=== PATIENT | male | born 1955 | race Caucasian/White ===

== ENCOUNTER 2022-03-30 12:51 | Emergency (ER) | payer MEDICARE, MEDICAID, SELFPAY ==
--- NOTE | 2022-03-30 13:20 | ED_ITS ---
HPI - Wound/Laceration General Chief Complaint: Wound/Laceration Stated Complaint: Cut on hand Time Seen by Provider: 03/30/22 13:36 Source: patient Mode of arrival: ambulatory Limitations: language barrier (romansh-data conversion operator used) History of Present Illness HPI narrative: Kenny is a 66 yo Yi speaking male with a PMHx of diabetes, elevated cholesterol, and hypertension who presents to the emergency department with a CC of a right hand laceration which happened at around 12:30 pm this afternoon. He was at his house and was using a machine that makes vegetables, and has a turning plate with screws sticking out which he cut himself on. There was some pain and a lot of bleeding because he is taking an anticoagulant medication but does not know the name. He does not remember why he is taking this medication. The pain is localized to the laceration and there was no debris that was caught in the wound. He did have tetanus 5-6 years ago. He denies any fevers, chills, headache, chest pain, shortness of breath, nausea, vomiting, diarrhea, constipation, or any other skin changes. He is here today to have his laceration closed. Onset (ago): hour(s) Location: other (right hand) Extremity Location: right: hand Place: home Patient tetanus UTD: No Context: accidental Associated symptoms: none Related Data Allergies Allergy/AdvReac Type Severity Reaction Status Date / Time No Known Allergies Allergy Mild NKA Verified 03/30/22 13:19 Review of Systems Review of Systems: Yes all other systems are reviewed and are negative Constitutional: Constitutional: Reports no additional constitutional complaints, Denies body ache(s), Denies chills, Denies fever(s), Denies headache(s) and Denies weakness Eyes: Eyes: Reports no additional eye complaints and Denies change in vision ENT: Reports system reviewed and no additional complaints, except as documented, Denies dizziness, Denies headache(s), Denies nasal congestion, Denies nasal discharge and Denies neck pain Cardiovascular: Cardiovascular: Reports no additional cardiovascular complaints, Denies chest pain, Denies leg edema and Denies dyspnea Respiratory: Respiratory: Reports no additional respiratory complaints, Denies cough and Denies dyspnea Gastrointestinal: Gastrointestinal: Reports no additional gastrointestinal complaints, Denies abdominal pain, Denies diarrhea, Denies nausea and Denies vomiting Genitourinary: Genitourinary: Denies urinary incontinence Musculoskeletal: Musculoskeletal: Reports no additional musculoskeletal complaints, Denies back pain, Denies arthralgias, Denies joint swelling, Denies neck pain, Denies numbness and Denies tingling Integumentary/Breasts: Skin/Breast: Reports system reviewed and no additional complaints, except as docu, Denies rash and Reports other (abrasion) Comments: laceration base of right thumb anteriorly, multiple abrasions on right hand and wrist Neurologic: Reports system reviewed and no additional complaints, except as documented, Denies dizziness, Denies headache(s), Denies numbness, Denies tingling and Denies weakness PMFSH Past Medical History Attestation statement: The following information was validated with the patient. Medical History (Updated 03/30/22 @ 15:11 by Rosalina Florez NP) Diabetes mellitus Hypercholesteremia Hypertension Social History Social History Advance Directives: No Physical Exam Vital Signs: Vital Signs: Last Vital Signs Temp 97.8 F 03/30/22 13:23 Pulse 57 03/30/22 13:23 Resp 18 03/30/22 13:23 BP 155/71 H 03/30/22 13:23 Pulse Ox 97 03/30/22 13:23 O2 Del Method 03/30/22 13:23 BMI result Body Mass Index 31.2 HEENT: Head: Yes normal to inspection Ears: hearing grossly normal bilaterally General nose exam: Normal external nose present Face and sinus: Yes normal facial exam Resp: Effort & Inspection: normal respiratory effort and able to speak in complete sentences Auscultation: clear to auscultation bilaterally Cardio: Rate: regular rate Rhythm: regular rhythm Heart sounds: S1 normal heart sound present and S2 normal heart sound present Skin: Other: Full range of motion of the hand with no difficulty. Neurovascularly test distally to the laceration. Superficial abrasions noted over the lateral wrist and middle digit General skin exam: no rashes or lesions noted Lesions: no lesions Rashes: no rashes Trauma: abrasion (right wrist medially, right middle finger posteriorly between DIP and PIP) and laceration (thenar approxiamately 3 cm flap laceration) Hair: normal Nails: normal Course Course Course Narrative: This is a rapid medical exam. Deferred additional HPI/PE/ROS to primary provider. lac to right hand from metal. VSS. FROM. Needs sutures. Kenny is a 66 yo male with a PMHx of DM, HTn, HLD who presents to the ED with a CC of right hand laceration after using vegetable machine at home. It's approximately a 3cm flap laceration at base of right thumb anteriorly. No presence of foreign body. Would was debrided thoroughly before suturing. Sterile technique was used. Laceration was closed with 10 simple interrupted 5-0 nylon sutures with no complications. Wound was bandaged and pt was advised on proper wound care. Multiple abrasions noted treated with topical bacitracin and bandaged. Tetanus is UTD per patient. Pt should follow up with primary care provider for further f/u and return to emergency room for suture removal in 7-10 days. Medications Administered Discontinued Medications Generic Name Dose Route Start Last Admin Trade Name Freq PRN Reason Stop Dose Admin Lidocaine HCl 2 ml 03/30/22 13:36 03/30/22 13:40 Lidocaine Hcl 1 % Mpf 2 Ml Vial INFILTRATI 03/30/22 13:37 2 ml ONCE ONE Administration MDM - Wound/Laceration MDM Narrative Medical decision making narrative: Kenny is a 66 yo male with a PMHx of DM, HTn, HLD who presents today with a right hand laceration after accident at home using vegetable machine. Pt denies any other concerns. Tetanus is UTD per patient. Pt's wound was closed with 10 simple interrupted 5-0 nylon sutures after wound was cleaned and sterile technique used. Pt was advised on proper wound care and will f/u within 7-10 days to have sutures removed. Differential Diagnosis Differential diagnosis: Likely laceration and abrasion Medical Records Attestation: I reviewed the patient's medical records. Lab Data Attestation: I reviewed the patient's lab results. Procedures Laceration Laceration 1: Site: hand Side (If applicable): right Size (cm): 3 Description: flap Depth: simple, single layer Local Anesthetic: lidocaine 1% Amount of anesthesia used (mL): 5 Pre-repair: irrigated extensively Skin layer closed with: nylon Size (cm): 5-0 Number of sutures: 10 Technique: simple, interrupted Discharge Plan Discharge Clinical Impression: Laceration Patient Disposition: Home, Self-Care Instructions: Laceration (ED) Additional Instructions: suturas en 7- 10 d?as. Motrin o tylenol para el dolor o la fiebre Referrals: [facility] [Primary Care Provider] - Interventions: ED Discharge Assessment Last Done: 03/30/22 15:10 Discharge Date/Time: 03/30/22 15:11 Print Language: Yi
[2022-03-30 13:23] VITALS: BP 155/71; PULSE 57; RESP 18; TEMP 36.6; O2SAT 97; BMI 31.2
[2022-03-30] MEDS: Lidocaine HCl 1 % MPF 2 ML VIAL INFILTRATI (13:40)
== END 2022-03-30 15:11 | disposition home or self-care (01) ==
PROVIDERS: Emergency Provider Emergency Medicine
DX: S61.411A Laceration without foreign body of right hand, initial encounter (principal); W31.89XA Contact with other specified machinery, initial encounter; E11.9 Type 2 diabetes mellitus without complications; I10 Essential (primary) hypertension; E78.5 Hyperlipidemia, unspecified; Y93.G3 Activity, cooking and baking; Y92.030 Kitchen in apartment as the place of occurrence of the external cause; Y99.9 Unspecified external cause status
CPT/HCPCS: 12042; 99282; 99284

== ENCOUNTER 2022-04-11 12:58 | Emergency (ER) | payer MEDICARE, MEDICAID, SELFPAY ==
[2022-04-11 13:22] VITALS: BP 148/68; PULSE 59; RESP 17; TEMP 36.1; O2SAT 99; BMI 28.5
--- NOTE | 2022-04-11 13:26 | ED_ITS ---
HPI - Recheck/Abnormal Lab/Rx General Chief Complaint: General Medical Stated Complaint: suture removal Time Seen by Provider: 04/11/22 13:27 Source: patient Mode of arrival: ambulatory Limitations: language barrier (Amharic-speaking) History of Present Illness MD complaint: suture/staple removal Initial visit (ago): day(s) (12) Initial visit for: laceration Returns today for: staple/stitch removal Symptoms since prior visit: no new symptoms Context: planned re-check Associated symptoms: none Related Data Allergies Allergy/AdvReac Type Severity Reaction Status Date / Time No Known Allergies Allergy Mild NKA Verified 03/30/22 13:19 Review of Systems Review of Systems: Constitutional : No Fever, No Chills, Cardiovascular : No Chest Pain, No SOB Respiratory : No Dyspnea Gastrointestinal : No abdominal pain Musculoskeletal : No Joint Swelling Skin : positive well-healing skin laceration, No Foreign bodies, No rash, No surrounding erythema Neuro : No Weakness, No Numbness/tingling Psych : No SI/HI/thoughts of self injury Yes all other systems are reviewed and are negative PMFSH Past Medical History Attestation statement: The following information was validated with the patient. Source: old records reviewed and nursing notes reviewed Medical History Diabetes mellitus Hypercholesteremia Hypertension Social History Social History Advance Directives: No Advance Directives Information Provided: Yes Physical Exam Vital Signs: Vital Signs: Last Vital Signs Temp 96.9 F 04/11/22 13:22 Pulse 59 04/11/22 13:22 Resp 17 04/11/22 13:22 BP 148/68 H 04/11/22 13:22 Pulse Ox 99 04/11/22 13:22 O2 Del Method 04/11/22 13:22 BMI result Body Mass Index 28.5 vital signs have been reviewed as normal and appeared to be correct. Blood pressure normal Heart rate normal. Respiration rate normal. Temperature normal. Oxygen saturation normal. Appearance: Alert. Oriented X3. No acute distress. Head: Normal external exam. Normocephalic. Atraumatic. Eyes: PERRLA. EOMI. Conjunctiva and sclera normal. Eyelids normal. ENT: Pharynx normal. Uvula midline. Moist mucous membranes. Neck: Normal inspection. Neck supple. FROM. CVS: Normal heart rate and rhythm. Respiratory: No respiratory distress. Painless inspiration. Skin: Skin warm and dry. Normal skin color. Normal skin turgor. Well-healing wound to right hand palmar aspect with sutures in place it appears that a few sutures already fell out. No surrounding erythema/streaking/induration or fluctuance or signs of infection noted. No rashes/lesions/lacerations noted. Extremities: Extremities exhibit normal range of motion. Extremities nontender. Neuro: Oriented X 3. No motor deficit. No sensory deficit. Reflexes normal. Normal steady gait. No focal neuro deficits noted. Course Course Course Narrative: Patient now status post suture removal. Eight sutures removed. No additional sutures were there it appears that a few sutures fell out. No signs of inf ection. Patient tolerated procedure well no complications will DC home with instructions return if any new or worsening symptoms follow up with primary care provider. Discharge Plan Discharge Clinical Impression: Visit for suture removal Patient Disposition: Home, Self-Care Instructions: Stitches Removal (ED) Referrals: [facility] [Primary Care Provider] - (YOUR PCP) Interventions: ED Discharge Assessment Last Done: 04/11/22 13:35 Discharge Date/Time: 04/11/22 13:36
== END 2022-04-11 13:36 | disposition home or self-care (01) ==
PROVIDERS: Emergency Provider Student in an Organized Health Care Education/Training Program
DX: Z48.02 Encounter for removal of sutures (principal)
CPT/HCPCS: 99282; 99283

== ENCOUNTER 2023-04-29 09:44 | Outpatient (REF) | payer MEDICARE, MEDICAID, SELFPAY ==
[2023-04-29 11:12] LABS: Anion Gap 13 (12-20); Blood Urea Nitrogen 23 mg/dL (9-16); Calcium 9.6 mg/dL (8.4-10.2); Carbon Dioxide 27 mmol/L (22-29); Chloride 108 mmol/L (96-108); Estimated Glomerular Filt Rate > 60; Glucose Random 162 mg/dL (60-115); Potassium 4.4 mmol/L (3.3-5.1); Sodium 144 mmol/L (135-145)
[2023-04-29 11:16] LABS: B Type Natriuretic Peptide 28 pg/mL (<100)
== END 2023-04-29 09:45 | disposition home or self-care (01) ==
LOC: HO.LAB 09:44
PROVIDERS: PCP Internal Medicine; Visit Provider Internal Medicine Cardiovascular Disease
DX: I87.2 Venous insufficiency (chronic) (peripheral) (principal)
CPT/HCPCS: 36415; 80048; 83880

== ENCOUNTER 2023-10-23 13:34 | Emergency (ER) | payer OTHER, SELFPAY ==
[2023-10-23 13:40] VITALS: BP 97/70; PULSE 56; RESP 19; TEMP 36.6; O2SAT 98; BMI 32.5
--- NOTE | 2023-10-23 13:42 | ED.ABDPAIN ---
HPI - Abdominal Pain General Chief Complaint: Abdominal Pain Stated Complaint: abd pain Related Data Home Medications ?Medication ?Instructions ?Recorded ?Confirmed atorvastatin 80 mg tablet 80 mg PO DAILY 10/24/23 10/24/23 cholecalciferol (vitamin D3) 50 50 mcg PO DAILY 10/24/23 10/24/23 mcg (2,000 unit) capsule (Vitamin D3) cyanocobalamin (vitamin B-12) 1,000 mcg PO DAILY 10/24/23 10/24/23 1,000 mcg tablet dabigatran etexilate 150 mg capsule 150 mg PO BID 10/24/23 10/24/23 dronedarone 400 mg tablet (Multaq) 400 mg PO BID 10/24/23 10/24/23 empagliflozin 25 mg tablet 25 mg PO DAILY 10/24/23 10/24/23 (Jardiance) furosemide 20 mg tablet 20 mg PO DAILY 10/24/23 10/24/23 glipizide 10 mg tablet, extended 10 mg PO BID 10/24/23 10/24/23 release 24 hr insulin glargine 100 unit/mL (3 17.5 unit subcut BID 10/24/23 10/24/23 mL) subcutaneous pen (Lantus Solostar U-100 Insulin) metoprolol tartrate 75 mg tablet 75 mg PO BID 10/24/23 10/24/23 sitagliptin phos 50 mg-metformin 2 tab PO DAILY 10/24/23 10/24/23 ER 1,000 mg tablet,extend rel 24h mp (Janumet XR) Allergies Allergy/AdvReac Type Severity Reaction Status Date / Time No Known Allergies Allergy Mild NKA Verified 10/24/23 15:13 [facility] Past Medical History Medical History Hypercholesteremia Hypertension Diabetes mellitus Social History Social History Household Members: None Housing: Apartment Patient Tobacco Use Status: Former Tobacco user Physical Exam ED Vital Signs: BMI result Body Mass Index 32.5 Course Course Course Narrative: This is an RME: Additional HPI, ROS, PE not included below will be deferred to primary provider. RME assessment and note performed by: Mckayla Shell PA-C This is a 77-gnmd-uxh-male, with a hx of HTN, DM, who presents to the ER with complaints of abdominal pain x 2 weeks. Pain is intermittent. No fevers, chills, nausea, vomiting or diarrhea. Plan: Labs, UA, EKG, further ER evaluation. Reevaluation(s) Reevaluation #1: Patient left without completing treatment. Medical Decision Making Lab Data 10/23/23 14:37 10/23/23 14:37 Labs: Lab Results 10/23/23 10/23/23 Range/Units 14:32 14:37 WBC 9.7 (4.8-10.8) X10*3/uL RBC 4.13 L (4.60-5.80) X10*6/uL Hgb 12.6 L (14.0-18.0) g/dl Hct 38.0 L (42.0-52.0) % MCV 92.0 (80.0-98.0) fL MCH 30.5 (27.0-33.0) pg MCHC 33.2 (31.0-36.0) g/dl RDW 14.5 (11.0-16.0) % Plt Count 195 (160-400) X10*3/uL MPV 10.5 (9.4-12.4) fL Immature Gran % (Auto) 0.3 (0.0-0.4) % Neut % (Auto) 60.7 (45-73) % Lymph % (Auto) 23.8 (20-40) % [place] % (Auto) 10.9 (2-11) % Eos % (Auto) 3.5 (0-4) % Baso % (Auto) 0.8 (0-2) % Lymph # (Auto) 2.3 (1.2-4.9) X10*3/uL [place] # (Auto) 1.1 (0.1-1.2) X10*3/uL Eos # (Auto) 0.3 (0.0-0.4) X10*3/uL Baso # (Auto) 0.1 (0.0-0.2) X10*3/uL Abs Immat Gran (auto) 0.03 (0.00-0.03) X10*3/uL Absolute Neuts (auto) 5.9 (2.0-8.3) x10*3/uL Absolute Nucleated RBC 0.000 (0.0-0.012) X10*3/uL Nucleated RBC % (auto) 0.0 (0.0-0.2) /100WBC Sodium 140 (135-145) mmol/L Potassium 4.3 (3.3-5.1) mmol/L Chloride 107 (96-108) mmol/L Carbon Dioxide 19 L (22-29) mmol/L Anion Gap 18 (12-20) BUN 40 H (9-16) mg/dL Creatinine 2.12 H (0.5-1.4) mg/dL Estim Creat Clear Calc 43.0 Estimated GFR 31 Random Glucose 293 H (60-115) mg/dL Calcium 9.5 (8.4-10.2) mg/dL Total Bilirubin 0.6 (0.0-1.0) mg/dL Direct Bilirubin 0.2 (0.0-0.5) mg/dL AST 29 (5-37) U/L ALT 22 (0-40) U/L Alkaline Phosphatase 54 (39-117) U/L Troponin I High Sens 4.9 (<3.5-35.0) ng/L Total Protein 7.8 (6.5-8.0) g/dL Albumin 3.9 (3.5-5.0) g/dL Lipase 64 (8-78) U/L Urine Color Yellow Urine Appearance Clear Urine pH 5.0 (5.0-9.0) Ur Specific [place] 1.020 (1.005-1.025) Urine Protein Negative (Neg-Trace) mg/dL Urine Glucose (UA) >=1000 H (Negative) mg/dL Urine Ketones Negative (Negative) mg/dL Urine Blood Negative (Negative) Urine Nitrite Negative (Negative) Ur Leukocyte Esterase Negative (Negative) Urine RBC 0-2 (0-2) /HPF Urine WBC 0-5 (0-5) /HPF Ur Squamous Epith Cells 0-2 (0-2) /HPF Urine Bacteria None Seen (None Seen) Hyaline Casts 0-2 (0-2) /LPF Discharge Plan Discharge Clinical Impression: Abdominal pain Patient Disposition: Left W/O Completing Treatment Prescriptions: No Action atorvastatin 80 mg tablet 80 mg PO DAILY glipizide 10 mg tablet extended release 24hr 10 mg PO BID cyanocobalamin (vitamin B-12) 1,000 mcg tablet 1,000 mcg PO DAILY furosemide 20 mg tablet 20 mg PO DAILY insulin glargine [Lantus Solostar U-100 Insulin] 100 unit/mL (3 mL) insulin pen 17.5 unit subcut BID cholecalciferol (vitamin D3) [Vitamin D3] 50 mcg (2,000 unit) capsule 50 mcg PO DAILY Multaq 400 mg tablet 400 mg PO BID dabigatran etexilate 150 mg capsule 150 mg PO BID Janumet XR 50-1,000 mg tablet, ER multiphase 24 hr 2 tab PO DAILY Jardiance 25 mg tablet 25 mg PO DAILY metoprolol tartrate 75 mg tablet 75 mg PO BID Discharge Date/Time: 10/24/23 00:39
--- NOTE | 2023-10-23 13:44 | ECG_ITS ---
Test Reason : CHEST PAIN Blood Pressure : / mmHG Vent. Rate : 052 BPM Atrial Rate : 052 BPM P-R Int : 158 ms QRS Dur : 090 ms QT Int : 432 ms P-R-T Axes : 052 009 017 degrees QTc Int : 401 ms Sinus bradycardia with sinus arrhythmia Otherwise normal ECG When compared with ECG of 23-JUL-2019 06:09, No significant change was found Referred By: Mckayla Shell Electronically Signed By:TAHIR GARCÍA MD
[2023-10-23 14:41] LABS: MANUAL DIFF FLAG NO
[2023-10-23 14:42] LABS: Basophils Absolute Auto 0.1 X10*3/uL (0.0-0.2); Basophils Percent Auto 0.8 % (0-2); Eosinophils Absolute Auto 0.3 X10*3/uL (0.0-0.4); Eosinophils Percent Auto 3.5 % (0-4); Hemoglobin 12.6 g/dl (14.0-18.0); Imm Gran Abs Auto 0.03 X10*3/uL (0.00-0.03); Imm Gran Pct Auto 0.3 % (0.0-0.4); Lymphocytes Absolute Auto 2.3 X10*3/uL (1.2-4.9); Lymphocytes Percent Auto 23.8 % (20-40); Mean Corpuscular HGB Conc 33.2 g/dl (31.0-36.0); Mean Corpuscular Hemoglobin 30.5 pg (27.0-33.0); Mean Platelet Volume 10.5 fL (9.4-12.4); Monocytes Absolute Auto 1.1 X10*3/uL (0.1-1.2); Monocytes Percent Auto 10.9 % (2-11); Neutrophils Absolute Auto 5.9 x10*3/uL (2.0-8.3); Neutrophils Percent Auto 60.7 % (45-73); Platelet Count 195 X10*3/uL (160-400); Red Blood Count 4.13 X10*6/uL (4.60-5.80); Red Cell Distribution Width 14.5 % (11.0-16.0); White Blood Count 9.7 X10*3/uL (4.8-10.8)
[2023-10-23 14:44] LABS: Appearance Urine Clear; Color Urine Yellow; Glucose Urine UA >=1000 mg/dL (Negative); Leukocyte Esterase Urine Negative (Negative); Nitrite Urine Negative (Negative); UMIC TRIGGER UACC YES; Urine Blood Negative (Negative); Urine Ketones Negative (Negative); Urine Protein Negative (Neg-Trace)
[2023-10-23 15:00] LABS: Alanine Aminotransferase 22 U/L (0-40); Albumin Level 3.9 g/dL (3.5-5.0); Alkaline Phosphatase 54 U/L (39-117); Anion Gap 18 (12-20); Aspartate Amino Transferase 29 U/L (5-37); Bilirubin Direct 0.2 mg/dL (0.0-0.5); Bilirubin Total 0.6 mg/dL (0.0-1.0); Blood Urea Nitrogen 40 mg/dL (9-16); Calcium 9.5 mg/dL (8.4-10.2); Carbon Dioxide 19 mmol/L (22-29); Chloride 107 mmol/L (96-108); Estimated Glomerular Filt Rate 31; Glucose Random 293 mg/dL (60-115); Lipase 64 U/L (8-78); Potassium 4.3 mmol/L (3.3-5.1); Sodium 140 mmol/L (135-145); Total Protein 7.8 g/dL (6.5-8.0)
[2023-10-23 15:04] LABS: Bacteria Urine None Seen (None Seen); Hyaline Casts Urine 0-2 /LPF (0-2); RBC Urine 0-2 /HPF (0-2); Squamous Epithelial Cell Urine 0-2 /HPF (0-2); WBC Urine 0-5 /HPF (0-5)
[2023-10-23 15:07] LABS: Troponin-I High Sensitivity 4.9 ng/L (<3.5-35.0)
[2023-10-23 19:28] VITALS: BP 139/86; PULSE 48; RESP 18; TEMP 35.7; O2SAT 100
--- NOTE | 2023-10-24 00:38 | PC.NURSE ---
Pt not present in [facility] when called for reeval.
--- NOTE | 2023-10-24 13:43 | PC.NURSE ---
Follow up call made to patient regarding his elevated lab values. He is currently at [facility] in [facility] being evaluated because he is still experiencing pain. He will follow up with PCP on Friday aswell.
== END 2023-10-24 00:39 | disposition left against medical advice (07) ==
PROVIDERS: Physician Assistant Medical; Emergency Provider Emergency Medicine; PCP Internal Medicine
DX: R10.9 Unspecified abdominal pain (principal); R07.9 Chest pain, unspecified; E11.9 Type 2 diabetes mellitus without complications; I10 Essential (primary) hypertension; E78.00 Pure hypercholesterolemia, unspecified; Z87.891 Personal history of nicotine dependence; Z79.01 Long term (current) use of anticoagulants; Z79.899 Other long term (current) drug therapy
CPT/HCPCS: 36415; 80048; 80076; 81001; 83690; 84484; 85025; 93005; 99283

== ENCOUNTER → 2023-10-23 13:44 | Outpatient (BNV) | payer OTHER, SELFPAY | PROVIDERS: Emergency Provider Emergency Medicine; PCP Internal Medicine; Visit Provider Internal Medicine Cardiovascular Disease | DX: R07.9 Chest pain, unspecified (principal); R00.1 Bradycardia, unspecified | CPT/HCPCS: 93010 ==

== ENCOUNTER 2023-10-24 14:59 | Inpatient (IN) | payer OTHER, SELFPAY ==
[2023-10-24] VITALS (7 sets, daily range): BP systolic 107–124; BP diastolic 52–76; PULSE 45–89; RESP 12–18; TEMP 36.4–37; O2SAT 97–99; BMI 31.2
--- NOTE | ~2023-10-24 | CT_ITS ---
EXAMINATION: CT ABDOMEN AND PELVIS WITHOUT CONTRAST CLINICAL INFORMATION: Urinary retention, RADHA. COMPARISON: 10/26/2018. TECHNIQUE: Multidetector volumetric imaging was performed from the superior aspect of the liver through the pubic symphysis without contrast per renal stone protocol. Sagittal and coronal reformatted images were obtained on the technologist workstation. This CT examination was performed using dose optimization techniques as appropriate, variously including the following: *Automated exposure control *Adjustment of mA and/or kV according to patient size (this includes techniques or standardized protocols for targeted exams where dose is matched to indication/reason for exam; i.e. extremities or head) *Use of iterative reconstruction technique DLP: 817 mGy-cm. FINDINGS: LUNG BASES: The visualized lung bases are unremarkable. LIVER, GALLBLADDER, BILIARY TREE: The non-contrast liver is normal in size, shape, and attenuation. No focal hepatic lesion or biliary ductal dilatation is present. The gallbladder is contracted but otherwise unremarkable with no evidence of radiopaque gallstones, gallbladder wall thickening, or obvious pericholecystic inflammatory changes. PANCREAS: Unremarkable. SPLEEN: Unremarkable. ADRENAL GLANDS: Unremarkable. KIDNEYS AND URETERS: The kidneys are normal in size, shape, and attenuation. Poorly delineated low attenuation degenerative cyst along the posterior midpole of the right kidney again noted. No hydronephrosis, hydroureter, or perinephric stranding. No calculi. BLADDER: Unremarkable. GASTROINTESTINAL TRACT: Scattered colonic diverticula but no colonic wall thickening or pericolonic inflammatory change to suggest diverticulitis. Normal-appearing appendix in the right lower quadrant. Visualized small bowel unremarkable ABDOMINAL WALL: No significant hernia is appreciated. LYMPHOVASCULAR STRUCTURES: Vascular calcification within the aorta iliac system. PELVIC VISCERA: Unremarkable. OSSEUS STRUCTURES: Multilevel degenerative changes CT/CT abdomen pelvis wo IV con IMPRESSION: Chronic appearing changes as described above.
--- NOTE | 2023-10-24 15:10 | ED.GENADULT ---
HPI - General Adult General Chief complaint: Abdominal Pain Stated complaint: Sent by PCP for RADHA and abd imaging Time Seen by Provider: 10/24/23 16:52 History of Present Illness ED Provider: Dr. Zepeda HPI narrative: 67 y/o M patient; PMH HTN, T2DM; presents from home reporting two weeks of suprapubic, intermittent abdominal pain. Denies associated: fever or chills, nausea/vomiting, diarrhea, dysuria. Denies urinary symptoms such as frequency, hesitency, hematuria. Patient had visited this emergency department on 10/23/2023 but left prior to being evaluated. He was called back due to an RADHA Cr. 1.94 (prior baseline 1.1 on 04/29/2023). He denies known history of problems with his kidneys, bladder, or prostate. He denies recent weight loss or changes in his appetite. He is an ex-smoker - smoked for 44+ years. Related Data Allergies Allergy/AdvReac Type Severity Reaction Status Date / Time No Known Allergies Allergy Mild NKA Verified 10/24/23 15:13 Review of Systems Review of Systems: Yes all other systems are reviewed and are negative [facility] Past Medical History Attestation statement: The following information was validated with the patient. Source: old records reviewed Medical History Hypercholesteremia Hypertension Diabetes mellitus Social History Social History Advance Directives: No Advance Directives Information Provided: No Do you have a plan to hurt others: No Plan Physical Exam ED Vital Signs: Vital Signs - 24 hr 10/24/23 15:05 10/24/23 18:00 10/24/23 19:36 Temperature 97.6 F 98.6 F 98.6 F Pulse Rate 45 L 50 89 Respiratory Rate 18 12 18 Blood Pressure 123/52 L 124/63 108/76 Pulse Oximetry 97 99 99 Oxygen Delivery Method Room Air Room Air Room Air BMI result Body Mass Index 31.2 Patient is afebrile and hemodynamically stable Const General: cooperative and no acute distress Orientation/consciousness: patient oriented x3 HENMT Head: Yes normal to inspection and Yes atraumatic Eyes General: appearance normal, both eyes and all related structures Pupils: Equal, round and reactive pupils present EOM: EOMs intact bilaterally Neck Neck: Yes normal visual inspection, Yes full ROM and No tender Chest Chest palpation & inspection: normal inspection of the chest and normal palpation of entire chest wall Resp Effort & Inspection: normal respiratory effort, able to speak in complete sentences, no cough and no respiratory distress Auscultation: clear to auscultation bilaterally Cardio Rate: regular rate Rhythm: regular rhythm Peripheral pulses: Peripheral pulses 2+ throughout GI Other: Mild suprapubic abdominal tenderness Inspection: Yes normal to inspection, No Abdominal wall edema and No distended Palpation (GI): Soft to palpation, not firm, no guarding and not rigid Auscultation: normal bowel sounds General: Yes no CVA tenderness Back/Spine/Pelvis Back: no CVA tenderness Neuro General: patient oriented x3 Cranial nerves: Yes Equal, round and reactive pupils present Course Course Course Narrative: RME performed by Patti Velasco PA-C. Patient is a 67 year old assigned male at presenting to the emergency department with abdominal pain. Patient states he has abdominal pain, tried to be seen yesterday, but the wait was too long. Detailed physical exam and review of systems are deferred to the audience coordinator. Labs ordered. Patient placed back in the waiting room pending room availability and results. Reevaluation(s) Reevaluation #1: Patient is afebrile and hemodynamically stable. Reviewed laboratory studies from yesterday 10/23/2023 and today. Cr noted to be 1.94 with baseline 1.10 in 04/29/2023. UA with elevated glucose in urine without evidence of hematuria or infection. Ordered for CT Abdomen/Pelvis W/o IV Contrast. Providing 1L IVF. CT unremarkable for acute pathology. Patient with PVR 350cc urine. Plan: Admit to hospitalist for RADHA and acute urinary retention Condition: Stable Medications Administered Discontinued Medications Generic Name Dose Route Start Last Admin Trade Name Freq PRN Reason Stop Dose Admin Sodium Chloride 1,000 mls @ 999 mls/hr 10/24/23 17:30 10/24/23 18:44 Ns IV 10/24/23 18:30 999 mls/hr .[id number] NATHANIEL Administration Medical Decision Making Lab Data 10/24/23 15:23 10/24/23 15:23 Labs: Lab Results 10/24/23 10/24/23 Range/Units 15:23 16:59 WBC 9.6 (4.8-10.8) X10*3/uL RBC 4.15 L (4.60-5.80) X10*6/uL Hgb 12.6 L (14.0-18.0) g/dl Hct 37.7 L (42.0-52.0) % MCV 90.8 (80.0-98.0) fL MCH 30.4 (27.0-33.0) pg MCHC 33.4 (31.0-36.0) g/dl RDW 14.7 (11.0-16.0) % Plt Count 202 (160-400) X10*3/uL MPV 10.9 (9.4-12.4) fL Immature Gran % (Auto) 0.2 (0.0-0.4) % Neut % (Auto) 57.9 (45-73) % Lymph % (Auto) 26.7 (20-40) % [place] % (Auto) 9.2 (2-11) % Eos % (Auto) 5.1 H (0-4) % Baso % (Auto) 0.9 (0-2) % Lymph # (Auto) 2.6 (1.2-4.9) X10*3/uL [place] # (Auto) 0.9 (0.1-1.2) X10*3/uL Eos # (Auto) 0.5 H (0.0-0.4) X10*3/uL Baso # (Auto) 0.1 (0.0-0.2) X10*3/uL Abs Immat Gran (auto) 0.02 (0.00-0.03) X10*3/uL Absolute Neuts (auto) 5.6 (2.0-8.3) x10*3/uL Absolute Nucleated RBC 0.000 (0.0-0.012) X10*3/uL Nucleated RBC % (auto) 0.0 (0.0-0.2) /100WBC Sodium 140 (135-145) mmol/L Potassium 4.5 (3.3-5.1) mmol/L Chloride 107 (96-108) mmol/L Carbon Dioxide 22 (22-29) mmol/L Anion Gap 16 (12-20) BUN 37 H (9-16) mg/dL Creatinine 1.94 H (0.5-1.4) mg/dL Estim Creat Clear Calc 46.1 Estimated GFR 35 Random Glucose 266 H (60-115) mg/dL Calcium 9.2 (8.4-10.2) mg/dL Magnesium 1.9 (1.6-2.6) mg/dL Total Bilirubin 0.4 (0.0-1.0) mg/dL AST 25 (5-37) U/L ALT 20 (0-40) U/L Alkaline Phosphatase 54 (39-117) U/L Troponin I High Sens 4.9 (<3.5-35.0) ng/L Total Protein 7.7 (6.5-8.0) g/dL Albumin 3.9 (3.5-5.0) g/dL Lipase 54 (8-78) U/L Urine Color Yellow Urine Appearance Clear Urine pH 5.5 (5.0-9.0) Ur Specific [place] >= 1.030 H (1.005-1.025) Urine Protein Negative (Neg-Trace) mg/dL Urine Glucose (UA) >=1000 H (Negative) mg/dL Urine Ketones Negative (Negative) mg/dL Urine Blood Negative (Negative) Urine Nitrite Negative (Negative) Ur Leukocyte Esterase Negative (Negative) Urine RBC 0-2 (0-2) /HPF Urine WBC 0-5 (0-5) /HPF Ur Squamous Epith Cells 0-2 (0-2) /HPF Urine Bacteria None Seen (None Seen) Hyaline Casts 0-2 (0-2) /LPF Influenza Type A (PCR) NEGATIVE (Negative) Influenza Type B (PCR) NEGATIVE (Negative) RSV RNA Qual (PCR) NEGATIVE (Negative) SARS-CoV-2 RNA (RT-PCR) NEGATIVE (Negative) Discharge Plan Discharge Clinical Impression: Acute urinary retention, RADHA (acute kidney injury) Patient Disposition: Admitted As Inpatient Print Language: Sammarinese
[2023-10-24 15:27] LABS: MANUAL DIFF FLAG NO
[2023-10-24 15:35] LABS: Basophils Absolute Auto 0.1 X10*3/uL (0.0-0.2); Basophils Percent Auto 0.9 % (0-2); Eosinophils Absolute Auto 0.5 X10*3/uL (0.0-0.4); Eosinophils Percent Auto 5.1 % (0-4); Hematocrit 37.7 % (42.0-52.0); Hemoglobin 12.6 g/dl (14.0-18.0); Imm Gran Abs Auto 0.02 X10*3/uL (0.00-0.03); Imm Gran Pct Auto 0.2 % (0.0-0.4); Lymphocytes Absolute Auto 2.6 X10*3/uL (1.2-4.9); Lymphocytes Percent Auto 26.7 % (20-40); Mean Corpuscular HGB Conc 33.4 g/dl (31.0-36.0); Mean Corpuscular Hemoglobin 30.4 pg (27.0-33.0); Mean Corpuscular Volume 90.8 fL (80.0-98.0); Mean Platelet Volume 10.9 fL (9.4-12.4); Monocytes Absolute Auto 0.9 X10*3/uL (0.1-1.2); Monocytes Percent Auto 9.2 % (2-11); Neutrophils Absolute Auto 5.6 x10*3/uL (2.0-8.3); Neutrophils Percent Auto 57.9 % (45-73); Platelet Count 202 X10*3/uL (160-400); Red Blood Count 4.15 X10*6/uL (4.60-5.80); Red Cell Distribution Width 14.7 % (11.0-16.0); White Blood Count 9.6 X10*3/uL (4.8-10.8)
[2023-10-24 15:43] LABS: Alanine Aminotransferase 20 U/L (0-40); Albumin Level 3.9 g/dL (3.5-5.0); Alkaline Phosphatase 54 U/L (39-117); Anion Gap 16 (12-20); Aspartate Amino Transferase 25 U/L (5-37); Bilirubin Total 0.4 mg/dL (0.0-1.0); Blood Urea Nitrogen 37 mg/dL (9-16); Calcium 9.2 mg/dL (8.4-10.2); Carbon Dioxide 22 mmol/L (22-29); Chloride 107 mmol/L (96-108); Creatinine Clr Calc Pharmacy 46.1; Estimated Glomerular Filt Rate 35; Glucose Random 266 mg/dL (60-115); Magnesium 1.9 mg/dL (1.6-2.6); Potassium 4.5 mmol/L (3.3-5.1); Sodium 140 mmol/L (135-145); Total Protein 7.7 g/dL (6.5-8.0)
[2023-10-24 16:06] LABS: Influenza A PCR NEGATIVE (Negative); Influenza B PCR NEGATIVE (Negative); Resp Syncy Virus RNA Qual PCR NEGATIVE (Negative); SARS COV2 PCR INHOUSE NEGATIVE (Negative)
[2023-10-24 17:14] LABS: Appearance Urine Clear; Color Urine Yellow; Glucose Urine UA >=1000 mg/dL (Negative); Leukocyte Esterase Urine Negative (Negative); Nitrite Urine Negative (Negative); PH 5.5 (5.0-9.0); Specific Gravity - Urine >= 1.030 (1.005-1.025); UMIC TRIGGER UACC YES; Urine Blood Negative (Negative); Urine Ketones Negative (Negative); Urine Protein Negative (Neg-Trace)
[2023-10-24 17:31] LABS: Bacteria Urine None Seen (None Seen); Hyaline Casts Urine 0-2 /LPF (0-2); RBC Urine 0-2 /HPF (0-2); Squamous Epithelial Cell Urine 0-2 /HPF (0-2); WBC Urine 0-5 /HPF (0-5)
[2023-10-24 17:40] LABS: Lipase 54 U/L (8-78)
[2023-10-24 17:49] LABS: Troponin-I High Sensitivity 4.9 ng/L (<3.5-35.0)
[2023-10-24] MEDS: 0.9 % Sodium Chloride 1,000 ML 999 ML IV (18:44)
--- NOTE | 2023-10-24 21:02 | PHA.MEDREC ---
Pharmacy Consult ? Medication Reconciliation Pharmacy has completed the medication reconciliation. Confirmed medications with patient and list provided by patient. Patient was able to confirm he is injecting 17.5 units of his Lantus daily and he list did it 10/22/2023. He also was able to confirm the last time he took his blood thinner which was last night.
[2023-10-24 21:41] LABS: Glucose, Whole Blood 155 mg/dL (60-115)
[2023-10-24] MEDS: Insulin Glargine,Hum.rec.anlog 100 UNIT/ML 10 ML VIAL 17.5 UNIT SUBCUT (21:48)
[2023-10-24] MEDS: Dronedarone HCl 400 MG TABLET PO (21:58)
[2023-10-24] MEDS: 0.9 % Sodium Chloride 1,000 ML 80 ML IVCONT (21:58)
[2023-10-24] MEDS: glipiZIDE XL 10 MG TAB.ER.24 PO (21:58)
[2023-10-24] MEDS: Dabigatran Etexilate Mesylate 150 MG CAPSULE PO (21:58)
--- NOTE | 2023-10-24 22:07 | P.HPHOSP_ITS ---
History of Present Illness Date of Service: 10/24/23 Attending physician on admission: Jayne Simon Chief Complaint: Pelvic pain Kenny Ramos is a 67-year-old man with past medical history significant for type 2 diabetes mellitus on insulin, atrial fibrillation on dabigatran, hyperlipidemia and essential hypertension presents to the ED complaining of 3 weeks' history of on and off pelvic abdominal pain which he describes as squeezing sensation radiating to the epigastrium. He denied any associated symptoms such as nausea, vomiting, diarrhea, fevers chills. He also denies any acute urinary symptoms such as increased or decreased urinary frequency, blood in urine or pain with urination. He mentioned that many years ago he underwent a prostate procedure but he can not remember the name of the procedure. He denied alcohol abuse, illicit drug use marijuana use. He did not report any acute cardiopulmonary symptoms. He visited the emergency department yesterday for the same symptoms and underwent blood workup remarkable for elevated creatinine and BUN, 2.12 and 40, respectively. His previous creatinine was normal. He takes furosemide for leg edema. In the ED, he was found to have stable vital signs. Blood workup is remarkable for creatinine of 1.94 and BUN of 37 (similar to yesterday blood workup) and glucose of 266. There are no electrolyte imbalances and LFTs are normal. Urinalysis showed no findings of urinary tract infection or hematuria specific gravity is elevated. Abdomen pelvis CT showed chronic appearing changes: Diverticulosis without diverticulitis. He underwent a bladder scan showed residual volume of 350 mL. ED tx: NS 1 L bolus Review of Systems 2 Review of Systems: All 12 systems were reviewed and normal except as noted in HPI. [facility] Medical History Hypercholesteremia Hypertension Diabetes mellitus Social History Patient Tobacco Use Status: Former Tobacco user Advance Directives: No Advance Directives Information Provided: No Do you have a plan to hurt others: No Plan Nutrition Risks: No Nutritional Risk Meds Allergies Allergy/AdvReac Type Severity Reaction Status Date / Time No Known Allergies Allergy Mild NKA Verified 10/24/23 15:13 Active Medications: Current Medications Acetaminophen (Acetaminophen 325 Mg Tablet) 975 mg PO Q6H PRN PRN Reason: Pain, Mild (Pain Scale 1-3), fever or headache Atorvastatin Calcium (Atorvastatin Calcium 80 Mg Tablet) 80 mg PO DAILY [facility] Cyanocobalamin (Cyanocobalamin (Vitamin B-12) 1,000 Mcg Tablet) 1,000 mcg PO DAILY [facility] Dabigatran (Dabigatran Etexilate Mesylate 150 Mg Capsule) 150 mg PO BID [facility] Last Admin: 10/24/23 21:58 Dose: 150 mg Dronedarone (Dronedarone Hcl 400 Mg Tablet) 400 mg PO BID [facility] Last Admin: 10/24/23 21:58 Dose: 400 mg Glipizide (Glipizide Xl 10 Mg Tab.Er.24) 10 mg PO BID [facility] Last Admin: 10/24/23 21:58 Dose: 10 mg Glucose (Glucose Gel 15 Gm Gel..Gram.) 15 gm PO Q15M PRN; Protocol PRN Reason: per Hypoglycemia Standing Ord. Dextrose (D10) 250 mls @ 750 mls/hr IV Q15M PRN; Protocol PRN Reason: per Hypoglycemia Standing Ord. Sodium Chloride (Ns) 1,000 mls @ 80 mls/hr IVCONT .[id number] [facility] Stop: 10/25/23 09:44 Last Admin: 10/24/23 21:58 Dose: 80 mls/hr Insulin Glargine (Insulin Glargine,Hum.Rec.Anlog 100 Unit/Ml 10 Ml Vial) 17.5 unit SUBCUT BID [facility] Last Admin: 10/24/23 21:48 Dose: 17.5 unit Insulin Human Lispro (Insulin Lispro 100 Unit/Ml 3 Ml Vial) 0 unit SUBCUT QIDACHS [facility]; Protocol Metoprolol Tartrate (Metoprolol Tartrate 25 Mg Tablet) 75 mg PO BID [facility]; Protocol Last Admin: 10/24/23 21:47 Dose: Not Given Sodium Chloride (0.9 % Sodium Chloride Flush 3 Ml Syringe) [address] [facility] Vitamin D (Cholecalciferol (Vitamin D3) 25 Mcg Tablet) 50 mcg PO DAILY [facility] Home Medications ?Medication ?Instructions ?Recorded ?Confirmed ?Last Taken ?Type atorvastatin 80 mg tablet 80 mg PO DAILY 10/24/23 10/24/23 10/24/23 08:00 History cholecalciferol (vitamin D3) 50 50 mcg PO DAILY 10/24/23 10/24/23 10/24/23 08:00 History mcg (2,000 unit) capsule (Vitamin D3) cyanocobalamin (vitamin B-12) 1,000 mcg PO DAILY 10/24/23 10/24/23 10/24/23 08:00 History 1,000 mcg tablet dabigatran etexilate 150 mg capsule 150 mg PO BID 10/24/23 10/24/23 10/23/23 20:00 History dronedarone 400 mg tablet (Multaq) 400 mg PO BID 10/24/23 10/24/23 10/24/23 08:00 History empagliflozin 25 mg tablet 25 mg PO DAILY 10/24/23 10/24/23 10/24/23 08:00 History (Jardiance) furosemide 20 mg tablet 20 mg PO DAILY 10/24/23 10/24/23 10/24/23 08:00 History glipizide 10 mg tablet, extended 10 mg PO BID 10/24/23 10/24/23 10/24/23 08:00 History release 24 hr insulin glargine 100 unit/mL (3 17.5 unit subcut BID 10/24/23 10/24/23 10/22/23 20:00 History mL) subcutaneous pen (Lantus Solostar U-100 Insulin) metoprolol tartrate 75 mg tablet 75 mg PO BID 10/24/23 10/24/23 10/24/23 08:00 History sitagliptin phos 50 mg-metformin 2 tab PO DAILY 10/24/23 10/24/23 10/24/23 08:00 History ER 1,000 mg tablet,extend rel 24h mp (Janumet XR) Physical Exam 2 Vital Signs and Narrative: Vital Signs: Last Vital Signs Temp 98.6 F 10/24/23 21:08 Pulse 55 10/24/23 21:47 Resp 15 10/24/23 21:08 BP 114/56 L 10/24/23 21:08 Pulse Ox 99 10/24/23 21:08 O2 Del Method Room Air 10/24/23 21:08 BMI result Body Mass Index 31.2 Constitutional - Awake and Alert, No apparent distress. Pleasant and cooperative. HEENT - PERRL, EOMI. Dry oral mucosa. Heart - Irregular rhythm. Normal rate. No murmur Lungs - Normal lung expansion, Normal respiratory effort, No respiratory distress, CTA bilaterally Abdomen - ND; +BS; pelvic discomfort to palpation. No rebound or guarding Extremities - mild lower extremity pitting edema. Musculoskeletal - Normal inspection, normal ROM Skin - Warm/Dry Neurological - Alert & oriented x3. No facial droop. Normal speech. Psychological - Appropriate affect Results Labs 10/24/23 15:23 10/24/23 15:23 Labs: Laboratory Results - last 24 hr 10/24/23 10/24/23 10/24/23 15:23 16:59 21:37 MCV 90.8 MCH 30.4 MCHC 33.4 RDW 14.7 Plt Count 202 MPV 10.9 Immature Gran % (Auto) 0.2 Neut % (Auto) 57.9 Lymph % (Auto) 26.7 [place] % (Auto) 9.2 Eos % (Auto) 5.1 H Baso % (Auto) 0.9 Lymph # (Auto) 2.6 [place] # (Auto) 0.9 Eos # (Auto) 0.5 H Baso # (Auto) 0.1 Abs Immat Gran (auto) 0.02 Absolute Neuts (auto) 5.6 Absolute Nucleated RBC 0.000 Nucleated RBC % (auto) 0.0 Anion Gap 16 Estim Creat Clear Calc 46.1 Estimated GFR 35 POC Glucose 155 H Random Glucose 266 H Calcium 9.2 Magnesium 1.9 Total Bilirubin 0.4 AST 25 ALT 20 Alkaline Phosphatase 54 Troponin I High Sens 4.9 Total Protein 7.7 Albumin 3.9 Lipase 54 Urine Color Yellow Urine Appearance Clear Urine pH 5.5 Ur Specific [place] >= 1.030 H Urine Protein Negative Urine Glucose (UA) >=1000 H Urine Ketones Negative Urine Blood Negative Urine Nitrite Negative Ur Leukocyte Esterase Negative Urine RBC 0-2 Urine WBC 0-5 Ur Squamous Epith Cells 0-2 Urine Bacteria None Seen Hyaline Casts 0-2 Influenza Type A (PCR) NEGATIVE Influenza Type B (PCR) NEGATIVE RSV RNA Qual (PCR) NEGATIVE SARS-CoV-2 RNA (RT-PCR) NEGATIVE Imaging Radiologist's Impressions: Impressions Abdomen/Pelvis CT 10/24/23 18:36 IMPRESSION: Chronic appearing changes as described above. Assessment and Plan (1) RADHA (acute kidney injury): Status: Acute (2) Hypertension: Qualifiers: Hypertension type: primary hypertension Qualified Code(s): I10 - Essential (primary) hypertension Status: Acute (3) Diabetes mellitus: Qualifiers: Diabetes mellitus type: type 2 Diabetes mellitus long term care pharmacist insulin use: with long term care pharmacist use Diabetes mellitus complication status: without complication Qualified Code(s): E11.9 - Type 2 diabetes mellitus without complications; Z79.4 - lobsterman (current) use of insulin Status: Acute Plan Kneny Ramos is a 67-year-old man admitted with: * Acute kidney injury in the setting of furosemide use/prerenal/dehydration. ?Urinary retention. Admit to hospitalist service. Gentle hydration. Avoid nephrotoxic agents. Hold furosemide. Continue to monitor renal function. Check bladder scans with every shift. * Type 2 diabetes mellitus. BG checks before meals at bedtime. Continue Lantus, glipizide and insulin sliding scale. Hold Jardiance for now. * Essential hypertension. Continue metoprolol. * Chronic atrial fibrillation, currently rate controlled. Continue dabigatran on Multaq and metoprolol. * Hyperlipidemia. Continue statin. DVT prophylaxis: Dabigatran. Code status: Full. Patient will need hospitalization for at least 2 midnights for RADHA treatment with IV fluid and close monitoring of renal function. Quality Stroke Does the patient have a stroke diagnosis?: No VTE Prior VTE?: No VTE Risk Level:: Medical - moderate - high VTE Device Contraindication: Treatment Not Indicated VTE Drug Contraindication: N/A - Med Ordered
[2023-10-25 01:56] VITALS: BP 156/73; PULSE 47; RESP 16; TEMP 35.9; O2SAT 100
[2023-10-25 01:59] VITALS: BMI 30.8
--- NOTE | 2023-10-25 02:20 | PC.NURSE ---
This RN assumed care at 0200, Pt is AOx3, mainly Czech speaking. Denies pain at this time. Lungs sounds clear throughout, BSx4 no pain with palpation. Skin CDI. Pt can ambulate independently. Admitted for RADHA. Pt resting quietly with no apparent distress.
[2023-10-25 06:11] LABS: MANUAL DIFF FLAG NO
[2023-10-25 06:29] LABS: Basophils Absolute Auto 0.1 X10*3/uL (0.0-0.2); Basophils Percent Auto 0.9 % (0-2); Eosinophils Absolute Auto 0.5 X10*3/uL (0.0-0.4); Eosinophils Percent Auto 5.5 % (0-4); Hematocrit 35.9 % (42.0-52.0); Hemoglobin 12.1 g/dl (14.0-18.0); Imm Gran Abs Auto 0.02 X10*3/uL (0.00-0.03); Imm Gran Pct Auto 0.2 % (0.0-0.4); Lymphocytes Absolute Auto 2.4 X10*3/uL (1.2-4.9); Lymphocytes Percent Auto 27.5 % (20-40); Mean Corpuscular HGB Conc 33.7 g/dl (31.0-36.0); Mean Corpuscular Hemoglobin 30.8 pg (27.0-33.0); Mean Corpuscular Volume 91.3 fL (80.0-98.0); Mean Platelet Volume 10.9 fL (9.4-12.4); Monocytes Absolute Auto 0.9 X10*3/uL (0.1-1.2); Monocytes Percent Auto 10.8 % (2-11); Neutrophils Absolute Auto 4.8 x10*3/uL (2.0-8.3); Neutrophils Percent Auto 55.1 % (45-73); Platelet Count 187 X10*3/uL (160-400); Red Blood Count 3.93 X10*6/uL (4.60-5.80); Red Cell Distribution Width 14.7 % (11.0-16.0); White Blood Count 8.7 X10*3/uL (4.8-10.8)
[2023-10-25 06:47] LABS: Alanine Aminotransferase 16 U/L (0-40); Albumin Level 3.4 g/dL (3.5-5.0); Alkaline Phosphatase 46 U/L (39-117); Anion Gap 10 (12-20); Aspartate Amino Transferase 22 U/L (5-37); Bilirubin Total 0.6 mg/dL (0.0-1.0); Blood Urea Nitrogen 25 mg/dL (9-16); Calcium 8.9 mg/dL (8.4-10.2); Carbon Dioxide 25 mmol/L (22-29); Chloride 112 mmol/L (96-108); Creatinine Clr Calc Pharmacy 74.1; Estimated Glomerular Filt Rate > 60; Glucose Random 110 mg/dL (60-115); Potassium 4.1 mmol/L (3.3-5.1); Sodium 143 mmol/L (135-145); Total Protein 6.7 g/dL (6.5-8.0)
[2023-10-25 07:18] VITALS: BP 127/62; PULSE 41; RESP 16; TEMP 36.1; O2SAT 99
[2023-10-25 07:27] LABS: Glucose, Whole Blood 109 mg/dL (60-115)
[2023-10-25] MEDS: Dabigatran Etexilate Mesylate 150 MG CAPSULE PO (07:57)
[2023-10-25] MEDS: Cyanocobalamin (Vitamin B-12) 1,000 MCG TABLET 1000 MCG PO (07:57)
[2023-10-25] MEDS: Atorvastatin Calcium 80 MG TABLET PO (07:57)
[2023-10-25] MEDS: Dronedarone HCl 400 MG TABLET PO (07:57)
[2023-10-25] MEDS: Cholecalciferol (Vitamin D3) 25 MCG TABLET 50 MCG PO (07:57)
[2023-10-25] MEDS: Insulin Glargine,Hum.rec.anlog 100 UNIT/ML 10 ML VIAL 17.5 UNIT SUBCUT (07:59)
--- NOTE | 2023-10-25 10:24 | PM.DS ---
DS: Providers Provider Date of Service: 10/25/23 Date of admission: 10/24/23 21:28 Date of discharge: 10/25/23 Primary care physician: ASAF Sánchez Attending physician on discharge: Alicia Vargas Discharging clinician: Katelyn Cuellar DS: Diagnosis Discharge Diagnosis (1) RADHA (acute kidney injury): Status: Acute (2) Hypertension: Status: Acute (3) Diabetes mellitus: Status: Acute DS: Summary Hospital Course Hospital Course: From H&P on the day of admission Kenny Ramos is a 67-year-old man with past medical history significant for type 2 diabetes mellitus on insulin, atrial fibrillation on dabigatran, hyperlipidemia and essential hypertension presents to the ED complaining of 3 weeks' history of on and off pelvic abdominal pain which he describes as squeezing sensation radiating to the epigastrium. He denied any associated symptoms such as nausea, vomiting, diarrhea, fevers chills. He also denies any acute urinary symptoms such as increased or decreased urinary frequency, blood in urine or pain with urination. He mentioned that many years ago he underwent a prostate procedure but he can not remember the name of the procedure. He denied alcohol abuse, illicit drug use marijuana use. He did not report any acute cardiopulmonary symptoms. He visited the emergency department yesterday for the same symptoms and underwent blood workup remarkable for elevated creatinine and BUN, 2.12 and 40, respectively. His previous creatinine was normal. He takes furosemide for leg edema. In the ED, he was found to have stable vital signs. Blood workup is remarkable for creatinine of 1.94 and BUN of 37 (similar to yesterday blood workup) and glucose of 266. There are no electrolyte imbalances and LFTs are normal. Urinalysis showed no findings of urinary tract infection or hematuria specific gravity is elevated. Abdomen pelvis CT showed chronic appearing changes: Diverticulosis without diverticulitis. He underwent a bladder scan showed residual volume of 350 mL RADHA. Resolved with IV fluid Urinary retention. Patient was able to void independently, postvoid residual less than 50. Did reportedly have some retention in the emergency department will start Flomax. Recommend outpatient follow-up with Urology. Has not had any abdominal discomfort. UA negative for infection. CT abdomen/pelvis unremarkable. Bradycardia. Asymptomatic, heart rate persistently in the 40s. Will decrease dose of Lopressor. Time Attestation Discharge Coordination Time (in mins): 32 Quality: Safe Use of Opioids Does Pt have an Active Cancer Diagnosis on the Problem List?: No Quality: Stroke Does the patient have a stroke diagnosis?: No Physical Exam Vital Signs: Vital Signs: Last Vital Signs Temp 97.0 F 10/25/23 07:18 Pulse 41 L 10/25/23 07:18 Resp 16 10/25/23 07:18 BP 127/62 10/25/23 07:18 Pulse Ox 99 10/25/23 07:18 O2 Del Method Room Air 10/25/23 07:18 BMI result Body Mass Index 30.8 Const: General: cooperative, comfortable, no acute distress, alert and awake Nutritional Appearance: average body habitus Orientation/consciousness: patient oriented x3 Resp: Effort & Inspection: normal respiratory effort, able to speak in complete sentences, no respiratory distress and no use of accessory muscles GI: Inspection: No distended Palpation (GI): Soft to palpation Neuro: General: patient oriented x3 and moves all extremities Extrem: General: Yes no pedal edema DS: Data Data Completed and Pending Labs on day of discharge: Laboratory Results - last 24 hr 10/24/23 10/24/23 10/24/23 15:23 16:59 21:37 WBC 9.6 RBC 4.15 L Hgb 12.6 L Hct 37.7 L MCV 90.8 MCH 30.4 MCHC 33.4 RDW 14.7 Plt Count 202 MPV 10.9 Immature Gran % (Auto) 0.2 Neut % (Auto) 57.9 Lymph % (Auto) 26.7 [place] % (Auto) 9.2 Eos % (Auto) 5.1 H Baso % (Auto) 0.9 Lymph # (Auto) 2.6 [place] # (Auto) 0.9 Eos # (Auto) 0.5 H Baso # (Auto) 0.1 Abs Immat Gran (auto) 0.02 Absolute Neuts (auto) 5.6 Absolute Nucleated RBC 0.000 Nucleated RBC % (auto) 0.0 Sodium 140 Potassium 4.5 Chloride 107 Carbon Dioxide 22 Anion Gap 16 BUN 37 H Creatinine 1.94 H Estim Creat Clear Calc 46.1 Estimated GFR 35 POC Glucose 155 H Random Glucose 266 H Calcium 9.2 Magnesium 1.9 Total Bilirubin 0.4 AST 25 ALT 20 Alkaline Phosphatase 54 Troponin I High Sens 4.9 Total Protein 7.7 Albumin 3.9 Lipase 54 Urine Color Yellow Urine Appearance Clear Urine pH 5.5 Ur Specific [place] >= 1.030 H Urine Protein Negative Urine Glucose (UA) >=1000 H Urine Ketones Negative Urine Blood Negative Urine Nitrite Negative Ur Leukocyte Esterase Negative Urine RBC 0-2 Urine WBC 0-5 Ur Squamous Epith Cells 0-2 Urine Bacteria None Seen Hyaline Casts 0-2 Influenza Type A (PCR) NEGATIVE Influenza Type B (PCR) NEGATIVE RSV RNA Qual (PCR) NEGATIVE SARS-CoV-2 RNA (RT-PCR) NEGATIVE 10/25/23 10/25/23 05:54 07:22 WBC 8.7 RBC 3.93 L Hgb 12.1 L Hct 35.9 L MCV 91.3 MCH 30.8 MCHC 33.7 RDW 14.7 Plt Count 187 MPV 10.9 Immature Gran % (Auto) 0.2 Neut % (Auto) 55.1 Lymph % (Auto) 27.5 [place] % (Auto) 10.8 Eos % (Auto) 5.5 H Baso % (Auto) 0.9 Lymph # (Auto) 2.4 [place] # (Auto) 0.9 Eos # (Auto) 0.5 H Baso # (Auto) 0.1 Abs Immat Gran (auto) 0.02 Absolute Neuts (auto) 4.8 Absolute Nucleated RBC 0.000 Nucleated RBC % (auto) 0.0 Sodium 143 Potassium 4.1 Chloride 112 H Carbon Dioxide 25 Anion Gap 10 L BUN 25 H Creatinine 1.20 Estim Creat Clear Calc 74.1 Estimated GFR > 60 POC Glucose 109 Random Glucose 110 Calcium 8.9 Magnesium Total Bilirubin 0.6 AST 22 ALT 16 Alkaline Phosphatase 46 Troponin I High Sens Total Protein 6.7 Albumin 3.4 L Lipase Urine Color Urine Appearance Urine pH Ur Specific [place] Urine Protein Urine Glucose (UA) Urine Ketones Urine Blood Urine Nitrite Ur Leukocyte Esterase Urine RBC Urine WBC Ur Squamous Epith Cells Urine Bacteria Hyaline Casts Influenza Type A (PCR) Influenza Type B (PCR) RSV RNA Qual (PCR) SARS-CoV-2 RNA (RT-PCR) Discharge Plan Discharge Anticipated Discharge Date/Time: 10/25/23 10:17 Patient Disposition: Home, Self-Care Discharge Diagnosis: RADHA Referrals: Caputa,Nadia, [employer] [facility] [Primary Care Provider] - 1 Week Discharge Medications: New metoprolol tartrate 50 mg Tablet 50 mg PO BID 30 Days Qty: 60 0RF Protocol: Hold for SBP/HR < HOLD for SBP < : 90 HOLD for HR < : 60 tamsulosin [Flomax] 0.4 mg capsule 0.4 mg PO BEDTIME 30 Days Qty: 30 0RF Continued atorvastatin 80 mg tablet 80 mg PO DAILY glipizide 10 mg tablet extended release 24hr 10 mg PO BID cyanocobalamin (vitamin B-12) 1,000 mcg tablet 1,000 mcg PO DAILY furosemide 20 mg tablet 20 mg PO DAILY insulin glargine [Lantus Solostar U-100 Insulin] 100 unit/mL (3 mL) insulin pen 17.5 unit subcut BID cholecalciferol (vitamin D3) [Vitamin D3] 50 mcg (2,000 unit) capsule 50 mcg PO DAILY Multaq 400 mg tablet 400 mg PO BID dabigatran etexilate 150 mg capsule 150 mg PO BID Janumet XR 50-1,000 mg tablet, ER multiphase 24 hr 2 tab PO DAILY Jardiance 25 mg tablet 25 mg PO DAILY Discontinued metoprolol tartrate 75 mg tablet 75 mg PO BID Discharge Orders: Discharge Order (Routine); Ordered 10/25/23 Ordered By: Katelyn Cuellar Activity on Discharge: As tolerated Stand Alone Forms: Patient Portal Discharge page Print Language: Polish Care Plan Goals: see below Health Concerns: RADHA. resolved urinary retension Asymptomatic bradycardia Plan of Treatment: start taking flomax call to schedule follow up appointment with PCP. recommend outpatient evaluation with Urology Heart rate was in the 40s, dose of Lopressor has been decreased to 50 mg twice daily Assessment: see discharge summary
[2023-10-25 11:19] LABS: Glucose, Whole Blood 186 mg/dL (60-115)
[2023-10-25] MEDS: Insulin Lispro 100 UNIT/ML 3 ML VIAL SUBCUT (11:59)
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
== END 2023-10-25 13:03 | disposition home or self-care (01) | DRG 641 ==
LOC: HO.ED 20:02 → HO.EDOVER 21:42 → HO.S3 10-25 00:41
PROVIDERS: Physician Assistant Medical; Admitting Provider Internal Medicine; Emergency Provider Emergency Medicine; PCP Registered Nurse; Visit Provider Physician Assistant Medical
DX: E86.0 Dehydration (principal); N17.9 Acute kidney failure, unspecified; I48.20 Chronic atrial fibrillation, unspecified; E78.5 Hyperlipidemia, unspecified; E11.9 Type 2 diabetes mellitus without complications; R33.9 Retention of urine, unspecified; I10 Essential (primary) hypertension; Z20.822 Contact with and (suspected) exposure to COVID-19; Z87.891 Personal history of nicotine dependence; Z79.4 Long term (current) use of insulin; Z79.899 Other long term (current) drug therapy
CPT/HCPCS: 0241U; 36415; 74176; 80053; 81001; 82947; 83690; 83735; 84484; 85025; 99285

== ENCOUNTER → 2023-10-24 21:28 | Outpatient (BNV) | payer OTHER, SELFPAY | PROVIDERS: Admitting Provider Internal Medicine; Emergency Provider Emergency Medicine; PCP Registered Nurse; Visit Provider Internal Medicine | DX: N17.9 Acute kidney failure, unspecified (principal); I10 Essential (primary) hypertension; E11.9 Type 2 diabetes mellitus without complications; Z79.4 Long term (current) use of insulin | CPT/HCPCS: 99223; 99239 ==

== ENCOUNTER 2023-10-25 14:29 | Emergency (ER) | payer OTHER, SELFPAY ==
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
[2023-10-25 14:33] VITALS: BP 164/80; PULSE 60; O2SAT 96
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
[2023-10-25 14:49] VITALS: BP 124/64; PULSE 48; RESP 18; TEMP 36.5; O2SAT 98; BMI 31.3
[2023-10-25 15:35] LABS: MANUAL DIFF FLAG NO
[2023-10-25 15:37] LABS: Basophils Absolute Auto 0.1 X10*3/uL (0.0-0.2); Basophils Percent Auto 1.1 % (0-2); Eosinophils Absolute Auto 0.5 X10*3/uL (0.0-0.4); Eosinophils Percent Auto 5.3 % (0-4); Hemoglobin 13.1 g/dl (14.0-18.0); Imm Gran Abs Auto 0.02 X10*3/uL (0.00-0.03); Imm Gran Pct Auto 0.2 % (0.0-0.4); Lymphocytes Absolute Auto 1.6 X10*3/uL (1.2-4.9); Lymphocytes Percent Auto 18.7 % (20-40); Mean Corpuscular HGB Conc 33.6 g/dl (31.0-36.0); Mean Corpuscular Hemoglobin 30.5 pg (27.0-33.0); Mean Corpuscular Volume 90.9 fL (80.0-98.0); Mean Platelet Volume 10.4 fL (9.4-12.4); Monocytes Absolute Auto 0.8 X10*3/uL (0.1-1.2); Monocytes Percent Auto 8.6 % (2-11); Neutrophils Absolute Auto 5.8 x10*3/uL (2.0-8.3); Neutrophils Percent Auto 66.1 % (45-73); Platelet Count 191 X10*3/uL (160-400); Red Blood Count 4.29 X10*6/uL (4.60-5.80); Red Cell Distribution Width 14.9 % (11.0-16.0); White Blood Count 8.8 X10*3/uL (4.8-10.8)
[2023-10-25 15:56] LABS: Alanine Aminotransferase 20 U/L (0-40); Albumin Level 3.9 g/dL (3.5-5.0); Alkaline Phosphatase 51 U/L (39-117); Anion Gap 12 (12-20); Aspartate Amino Transferase 26 U/L (5-37); Bilirubin Total 0.6 mg/dL (0.0-1.0); Blood Urea Nitrogen 22 mg/dL (9-16); Calcium 9.1 mg/dL (8.4-10.2); Carbon Dioxide 24 mmol/L (22-29); Chloride 109 mmol/L (96-108); Creatinine Clr Calc Pharmacy 63.6; Estimated Glomerular Filt Rate 50; Glucose Random 250 mg/dL (60-115); Potassium 4.6 mmol/L (3.3-5.1); Sodium 140 mmol/L (135-145); Total Protein 7.8 g/dL (6.5-8.0)
[2023-10-25 16:03] LABS: Troponin-I High Sensitivity 5.2 ng/L (<3.5-35.0)
[2023-10-25 17:24] VITALS: BP 154/65; PULSE 51; RESP 16; TEMP 36.7; O2SAT 100
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
[2023-10-25 19:06] LABS: Troponin-I High Sensitivity 6.1 ng/L (<3.5-35.0)
[2023-10-25] MEDS: 0.9 % Sodium Chloride 1,000 ML 999 ML IV (19:36)
[2023-10-25 20:03] VITALS: BP 147/70; PULSE 45; RESP 18; TEMP 36.7; O2SAT 100
[2023-10-25 21:22] LABS: Anion Gap 12 (12-20); Blood Urea Nitrogen 19 mg/dL (9-16); Calcium 8.7 mg/dL (8.4-10.2); Carbon Dioxide 22 mmol/L (22-29); Chloride 111 mmol/L (96-108); Estimated Glomerular Filt Rate > 60; Glucose Random 192 mg/dL (60-115); Sodium 141 mmol/L (135-145)
[2023-10-25 22:01] VITALS: BP 147/70; PULSE 45; RESP 18; TEMP 36.7; O2SAT 100
== END 2023-10-25 22:01 | disposition home or self-care (01) ==
PROVIDERS: Physician Assistant Medical; Emergency Provider Emergency Medicine; PCP Internal Medicine
DX: Z04.1 Encounter for examination and observation following transport accident (principal); R07.9 Chest pain, unspecified; R94.4 Abnormal results of kidney function studies
CPT/HCPCS: 36415; 51798; 71046; 80048; 80053; 83735; 84484; 85025; 93005; 96360; 96361; 99284

== ENCOUNTER → 2023-10-25 18:26 | Outpatient (BNV) | payer OTHER, SELFPAY | PROVIDERS: Emergency Provider Emergency Medicine; PCP Internal Medicine; Visit Provider Internal Medicine Cardiovascular Disease | DX: R07.9 Chest pain, unspecified (principal); R00.1 Bradycardia, unspecified | CPT/HCPCS: 93010 ==

== ENCOUNTER 2024-01-01 13:39 | Outpatient (AMB) | payer OTHER, SELFPAY ==
--- NOTE | 2024-01-01 14:20 | A.OFFVIS_ITS ---
Intake Visit Reasons: urinary retention Intake Note: New Patient presents for initial visit for urinary retention Urology Medications: Tamsulosin Blood Thinner: none PVR: 62ml's Semiconductor Packages Platemaker Name: Gayatri steele Laborer Steel Handling: Laborer Steel Handling offered & declined Allergies No Known Allergies Allergy (Mild, Verified 01/01/24 15:00) NKA Medication List - Last Reconciled 01/01/24 by ASAF Montoya-THUAN atorvastatin 80 mg PO DAILY cholecalciferol (vitamin D3) (Vitamin D3) 50 mcg PO DAILY cyanocobalamin (vitamin B-12) 1,000 mcg PO DAILY dabigatran etexilate 150 mg PO BID dronedarone (Multaq) 400 mg PO BID empagliflozin (Jardiance) 25 mg PO DAILY furosemide 20 mg PO DAILY glipizide ER 10 mg PO BID insulin glargine (Lantus Solostar U-100 Insulin) 17.5 units subcut BID metoprolol tartrate 50 mg See Protocol PO BID 30 days sitagliptin phos-metformin 50-1,000 mg ER (Janumet XR) 2 tabs PO DAILY tamsulosin (Flomax) 0.4 mg PO BEDTIME 30 days HPI Comments Details: Kenny is a Setswana-speaking 68-year-old male patient of Dr. Dom Monroy. \ He has a past medical history of diabetes, hypertension, and hyperlipidemia. He presents to the office today as a new patient for urinary retention. In discussion with the patient today he reports having been admitted to [facility] approximately 2 months ago for ongoing abdominal pain he had been experiencing. However in review of patient's chart it appears he was admitted and treated for RADHA. He reported issues with his urination at which time Flomax was started. In discussion with the patient today reports he was only given 1 month supply of Flomax however he did feel this was helpful in feelings of incomplete bladder emptying he had been feeling. He discusses having issues with the foreskin of his penis. In assessment of the patient today the penis is uncircumcised. Unable to retract foreskin of the penis. Meatus is somewhat/minimally visible. In office urinalysis results reviewed with the patient today. PVR 62 mL. We discussed at length circumcision. However, patient is diabetic in review of patient's chart last A1c 04/14 7.8%. He reports feeling Flomax has been helpful with feelings of incomplete bladder emptying he had been experiencing. He otherwise denies incontinence, nocturia, hematuria, dysuria, foul smelling urine, changes to urinary stream, flank pain, fever, and or chills. Discussed obtaining retroperitoneal ultrasound and PSA for further assessment evaluation. We discussed at length management of diabetes for potential near future circumcision. We discuss treatment options of phimosis as well as risks and benefits of these interventions. He otherwise offers no other issues or concerns at this time. FORMERLY [facility], [facility] Medical History Hypercholesteremia Hypertension Diabetes mellitus Social History Household Members: None Housing: Apartment Patient Tobacco Use Status: Former Tobacco user service: No Review of Systems Const All systems reviewed & are unremarkable except as noted in HPI and below Physical Exam Const General: cooperative, healthy appearing, comfortable, no acute distress, well developed, alert and awake Orientation/consciousness: patient oriented x3 Limitations: no limitations HEENT Head: Yes normal to inspection, Yes normocephalic and Yes atraumatic Ears: hearing grossly normal bilaterally Eyes General: appearance normal, both eyes and all related structures Neck Neck: Yes normal visual inspection and Yes trachea midline Chest Chest palpation & inspection: normal inspection of the chest Resp Effort & Inspection: normal respiratory effort and able to speak in complete sentences Cardio Rate: regular rate GI Inspection: Yes normal to inspection General: Yes no CVA tenderness Back/Spine/Pelvis Back: no CVA tenderness Skin General skin exam: no rashes or lesions noted Neuro General: patient oriented x3 Extrem General: Yes normal to inspection Psych Appearance: grossly normal and well kempt Mental Status: mental status grossly normal Speech and movement: Normal speech and movement present and Clear speech present Affect: normal affect Attitude: cooperative Thought process: Normal thought process present Thought content: Normal thought content present Insight: Fair insight present (Psych) Judgement: Fair judgement present (Psych) Office Procedures Post Void Residual Post Residual Void Post Void Residual (PVR): 62 [id number] Void Residual by ultrasound Results AMB Urinalysis, Automated UA Leukoctes 15 Keaton/uL Last Edit by Moni Corral on 01/01/24 14:43 UA Nitrite Negative Last Edit by Moni Corral on 01/01/24 14:43 UA Urobilinogen 0.2 mg/dL Last Edit by Moni Corral on 01/01/24 14:43 UA Protein 0 mg/dL Last Edit by Moni Corral on 01/01/24 14:43 UA pH 5.0 Last Edit by Moni Corral on 01/01/24 14:43 UA Blood 0 Mj/uL Last Edit by Moni Corral on 01/01/24 14:43 UA Specific [place] 1.015 Last Edit by Moni Corral on 01/01/24 14:43 UA Ketone Negative Last Edit by Moni Corral on 01/01/24 14:43 UA Bilirubin 0 mg/dL Last Edit by Moni Corral on 01/01/24 14:43 UA Glucose 1000 mg/dL Last Edit by Moni Corral on 01/01/24 14:43 Results Reviewed Results Reviewed: Laboratory Last Values Urine pH (Auto) 5.0 01/01/24 14:41 Specific [place] (Auto) 1.015 01/01/24 14:41 Urine Protein (Auto) 0 mg/dL 01/01/24 14:41 Glucose (UA)(Auto) 1000 mg/dL 01/01/24 14:41 Urine Ketones (Auto) Negative 01/01/24 14:41 Urine Blood (Auto) 0 Mj/uL 01/01/24 14:41 Urine Nitrite (Auto) Negative 01/01/24 14:41 Urine Bilirubin (Auto) 0 mg/dL 01/01/24 14:41 Urine Urobilinogen (Auto) 0.2 mg/dL 01/01/24 14:41 Leukocyte Esterase (Auto) 15 Keaton/uL 01/01/24 14:41 Assessment & Plan Assessment & Plan (1) Phimosis: Code(s): N47.1 - Phimosis Category: Medical (2) Feeling of incomplete bladder emptying: Code(s): R39.14 - Feeling of incomplete bladder emptying Category: Medical Plan In office urinalysis results reviewed with the patient today; as noted above. PVR 62 mL. Discussed further treatment options of phimosis; risks and benefits of these interventions were discussed. Will obtain A1c and PSA for further assessment evaluation. Will obtain retroperitoneal ultrasound for further assessment evaluation. Continue Flomax; refill provided Start clotrimazole-betamethasone 1-0.05 % as discussed and prescribed. Discussed, educated, and stressed the importance of management and diabetes for potential near future circumcision as well as for overall health and well-being. Follow-up in 1-3 months with imaging and labs to be completed prior; or sooner with any issues, concerns, and or questions. Orders: Orders AMB Post Void Residual by ultrasound Today Z13.9 - Encounter for screening, unspecified Hemoglobin A1c Today E11.9 - Type 2 diabetes mellitus without complications AMB Urinalysis Automated Today Z13.9 - Encounter for screening, unspecified Medications: New clotrimazole-betamethasone 1-0.05 % Apply thin coat 2 times per day 1 appl topical BID 4 weeks 45 grams 0RF N48.1 - Balanitis Changed From tamsulosin (Flomax) 0.4 mg PO BEDTIME 30 days 30 caps 0RF To tamsulosin (Flomax) 0.4 mg PO BEDTIME 90 days 90 caps 1RF Patient Instructions: The patient had an opportunity to ask questions regarding the treatment plan. All questions were answered. Physical exam, labs, and imaging were discussed and reviewed in detail. As well as risks, benefits, and discussion of treatment choices. No major barriers to understanding were identified. The patient expressed understanding and agreement with the above treatment plan. The patient was made aware they should contact our office by phone for worsening of their current condition, the appearance of new symptoms, or with any questions or concerns. Compliance is encouraged with any medications and follow up testing that is ordered. It is a privilege to be allowed the opportunity to participate in? your urological care.? Again, if you have any questions or concerns If you have any questions or concerns please do not hesitate to contact me. The office is [phone]. This note is constructed using voice recognition software. While every effort has been made to ensure accuracy content administrator errors may have been included. Yours sincerely, MARYCARMEN Montoya Coding Level of Care Code New Pt Level 4 (48784) Diagnoses Phimosis N47.1 Feeling of incomplete bladder emptying R39.14 CPT Codes Post Residual Void - PVR CPT Code: 06654-Nlky Void Residual by ultrasound ([id number])
== END 2024-01-01 15:09 | disposition home or self-care (01) ==
PROVIDERS: PCP Internal Medicine; Visit Provider Nurse Practitioner Family
DX: N47.1 Phimosis (principal); R39.14 Feeling of incomplete bladder emptying; Z13.9 Encounter for screening, unspecified
CPT/HCPCS: 99204

== ENCOUNTER → 2024-01-01 13:39 | Outpatient (BNVA) | payer OTHER, SELFPAY | PROVIDERS: PCP Internal Medicine; Visit Provider Nurse Practitioner Family | DX: N47.1 Phimosis (principal); R39.14 Feeling of incomplete bladder emptying | CPT/HCPCS: 51798; 81003; 99202 ==

== ENCOUNTER 2024-01-09 08:32 | Outpatient (REF) | payer OTHER, SELFPAY ==
[2024-01-09 12:08] LABS: Estimated Average Glucose 232 mg/dL; Hemoglobin A1c % 9.7 % (<6.0)
[2024-01-09 12:34] LABS: Anion Gap 13 (12-20); Blood Urea Nitrogen 20 mg/dL (9-16); Calcium 9.7 mg/dL (8.4-10.2); Carbon Dioxide 28 mmol/L (22-29); Chloride 107 mmol/L (96-108); Cholesterol 108 mg/dL (<200); Estimated Glomerular Filt Rate 53; Glucose Random 139 mg/dL (60-115); HDL Cholesterol 33 mg/dL (>40); LDL Cholesterol Calculated 57 mg/dL (<100); Potassium 4.8 mmol/L (3.3-5.1); Sodium 143 mmol/L (135-145); Triglycerides 91 mg/dL (<150)
[2024-01-09 12:42] LABS: Prostate Specific Antigen 0.29 ng/mL (<0.05-4.0)
== END 2024-01-09 08:33 | disposition home or self-care (01) ==
LOC: HO.HHCL 08:32
PROVIDERS: Referring Provider Nurse Practitioner Family; Visit Provider Internal Medicine
DX: I10 Essential (primary) hypertension (principal); E11.9 Type 2 diabetes mellitus without complications; N40.0 Benign prostatic hyperplasia without lower urinary tract symptoms
CPT/HCPCS: 36415; 80048; 80061; 83036; 84153

== ENCOUNTER 2024-01-13 09:30 | Outpatient (REF) | payer OTHER, SELFPAY | END 2024-01-13 09:31 | disposition home or self-care (01) | LOC: HO.HHCL 09:30 | PROVIDERS: Visit Provider Internal Medicine | DX: R12 Heartburn (principal) | CPT/HCPCS: 87338 ==

== ENCOUNTER 2024-02-20 13:14 | Outpatient (REF) | payer OTHER, SELFPAY | END 2024-02-20 13:15 | disposition home or self-care (01) | LOC: HO.US 13:14 | PROVIDERS: PCP Internal Medicine; Visit Provider Nurse Practitioner Family | DX: R39.14 Feeling of incomplete bladder emptying (principal) | CPT/HCPCS: 76770 ==

== ENCOUNTER 2024-03-03 13:34 | Outpatient (AMB) | payer OTHER, SELFPAY ==
[2024-03-03 13:37] VITALS: BP 112/55; PULSE 47; BMI 32.3
--- NOTE | 2024-03-03 13:37 | MHC.OFFVIS ---
Vital Signs 03/03/24 13:37 Height 6 ft Weight 238 lb 1.588 oz BMI 32.3 BP 112/55 L Blood Pressure Location Lt brachial Position Sitting Pulse 47 L Intake Visit Reasons: acid reflex Intake Note: Kenny presents in the office as a new patient for GERD. CC: He is unaware of which medications that he takes - he just knows that he takes the medications every day. He states he is dealing with the acid reflux at times. He states that he sometimes has pains in the stomach that are like a burning sensation and diarrhea. Apparatus Engineering Technologist Required: Yes Apparatus Engineering Technologist Services: Apparatus Engineering Technologist Present Apparatus Engineering Technologist Name: Jocelin Allergies No Known Allergies Allergy (Mild, Verified 03/03/24 13:40) NKA HPI Comments Details: 68 y.o M with [facility] who is here for reflux. Seen with the help of arbor press operator. Reports episode of severe pain with nausea in September. At that time was also noted have hyperglycemia with glycosuria and RADHA. Outside of that episode, has intermittent burnign retrosternal pain. Occ nausea. Appetite is good. No vomiting or regurgitation. Last colo 2018 Dr Mena - snoy, no polyps. Quit smoking many years ago. EtOH intake on weekends. [facility] Medical History (Updated 03/03/24 @ 14:10 by Tena Prakash MD) Hypercholesteremia Hypertension Diabetes mellitus Surgical History (Updated 03/03/24 @ 13:41 by MANUEL Michel) History of esophagogastroduodenoscopy (EGD) Hx of colonoscopy Social History Household Members: None Housing: Apartment Patient Tobacco Use Status: Former Tobacco user service: No Review of Systems Const All systems reviewed & are unremarkable except as noted in HPI and below Physical Exam Vital Signs: Last Vital Signs Pulse 47 L 03/03/24 13:37 BP 112/55 L 03/03/24 13:37 BMI result Body Mass Index 32.3 No apparent distress Nonicteric Abdomen soft, nondistended Alert and oriented x3, normal gait Assessment & Plan Assessment & Plan (1) Abdominal pain: Code(s): R10.9 - Unspecified abdominal pain Category: Medical (2) Encounter for hepatitis C screening test for low risk patient: Code(s): Z11.59 - Encounter for screening for other viral diseases Category: Medical Plan Discussed with the patient, that acute episode of abdominal pain back in September was likely secondary to early HHS/DKA especially as it seemed to resolve with the normalization of sugars. In terms of intermittent abdominal discomfort with nausea and bloating, especially after meals, differentials include celiac, symptomatic gallstones, PUD, gastritis. Plan: -labs ordered as below -ultrasound abdomen -upper GI series -empiric omeprazole 20 mg once daily -follow-up in 4-6 weeks to review results and to guide further evaluation including endoscopy -(next colonoscopy will be due 2027) Orders: Orders Liver Panel Today R10.9 - Unspecified abdominal pain FL upper GI w Ba Swallow Today R10.9 - Unspecified abdominal pain US abdomen complete Today R10.9 - Unspecified abdominal pain Hepatitis B Surface Antigen Today Z11.59 - Encounter for screening for other viral diseases Hepatitis C Antibody Today Z11.59 - Encounter for screening for other viral diseases Immunoglobulin A Today R10.9 - Unspecified abdominal pain Hepatitis A IgG Today Z11.59 - Encounter for screening for other viral diseases Hepatitis B Core Antibody Today Z11.59 - Encounter for screening for other viral diseases Hepatitis B Surface Antibody Today Z11.59 - Encounter for screening for other viral diseases Transglutaminase IgA Today R10.9 - Unspecified abdominal pain Medications: New omeprazole 20 mg PO DAILY 90 caps 1RF Coding Level of Care Code New Pt Level 4 (81685) Complex EM visit Add On G2211 Diagnoses Abdominal pain R10.9 Encounter for hepatitis C screening test for low risk patient Z11.59
== END 2024-03-03 15:24 | disposition home or self-care (01) ==
LOC: HO.HGI 13:34
PROVIDERS: PCP Internal Medicine; Visit Provider Internal Medicine
DX: R10.9 Unspecified abdominal pain (principal); Z11.59 Encounter for screening for other viral diseases
CPT/HCPCS: 99204; G2211

== ENCOUNTER → 2024-03-03 13:34 | Outpatient (BNVA) | payer OTHER, SELFPAY | PROVIDERS: PCP Internal Medicine; Visit Provider Internal Medicine | DX: K21.9 Gastro-esophageal reflux disease without esophagitis (principal); R10.9 Unspecified abdominal pain; Z11.59 Encounter for screening for other viral diseases | CPT/HCPCS: 99202 ==

== ENCOUNTER 2024-03-11 08:33 | Outpatient (REF) | payer OTHER, SELFPAY ==
[2024-03-11 11:28] LABS: Alanine Aminotransferase 27 U/L (0-40); Albumin Level 4.2 g/dL (3.5-5.0); Alkaline Phosphatase 65 U/L (39-117); Aspartate Amino Transferase 40 U/L (5-37); Bilirubin Direct 0.2 mg/dL (0.0-0.5); Bilirubin Total 0.6 mg/dL (0.0-1.0); Total Protein 8.2 g/dL (6.5-8.0)
[2024-03-11 11:47] LABS: Hepatitis A Antibody IgG REACTIVE (Nonreactive)
[2024-03-11 11:48] LABS: HBS Num1 1.86 mIU/mL (0-7.99); HBc Num1 0.17 S/CO (0.00-0.79); HBsAGNum1 0.45 S/CO (0.00-0.99); Hepatitis B Core Antibody Nonreactive (Nonreactive); Hepatitis B Surface Antigen Negative (Negative); ~HepC Num1 0.11 S/CO (0.00-0.79); ~Hepatitis B Surface Antibody NONREACTIVE (Nonreactive); ~Hepatitis C Antibody Nonreactive (Nonreactive)
[2024-03-13 01:04] LABS: Immunoglobulin A 259 mg/dL (70-320)
[2024-03-16 15:03] LABS: Transglutaminase IgA <1.0 U/mL
== END 2024-03-11 08:34 | disposition home or self-care (01) ==
LOC: HO.HHCL 08:33
PROVIDERS: Visit Provider Internal Medicine
DX: Z11.59 Encounter for screening for other viral diseases (principal); R10.9 Unspecified abdominal pain
CPT/HCPCS: 36415; 80076; 82784; 86364; 86704; 86706; 86708; 86803; 87340

== ENCOUNTER 2024-03-15 08:21 | Outpatient (REF) | payer OTHER, SELFPAY | END 2024-03-15 08:22 | disposition home or self-care (01) | LOC: HO.US 08:21 | PROVIDERS: PCP Internal Medicine; Visit Provider Internal Medicine | DX: R10.9 Unspecified abdominal pain (principal) | CPT/HCPCS: 76700 ==

== ENCOUNTER 2024-03-30 10:29 | Outpatient (AMB) | payer OTHER, SELFPAY ==
--- NOTE | 2024-03-30 10:36 | A.OFFVIS_ITS ---
Vital Signs 03/30/24 10:37 Height 6 ft Weight 235 lb 14.314 oz BMI 32.0 BP 142/65 H Blood Pressure Location Lt brachial Position Sitting Pulse 45 L Intake Visit Reasons: 4 wks. F/U abd. pain Intake Note: Kenny presents in the office as a 4 week follow up for abdominal pains. CC: He states that he is not having any concerns today - his stomach is no longer having pains as often as before only now and again. Liquid Floor And Wall Applier Required: Yes Liquid Floor And Wall Applier Name: [id number] Jordana Allergies No Known Allergies Allergy (Mild, Verified 03/30/24 10:37) NKA HPI Comments Details: 68 y.o M with [facility] who is here for reflux. Seen with the help of director of construction. Reports episode of severe pain with nausea in September. At that time was also noted have hyperglycemia with glycosuria and RADHA. Outside of that episode, has intermittent burnign retrosternal pain. Occ nausea. Appetite is good. No vomiting or regurgitation. Last colo 2017 Dr Mena - sony, no polyps. Quit smoking many years ago. EtOH intake on weekends. 03/30/24: Here for follow up. Reports sx have improved quite a lot since he was last seen after he started omeprazole 20 once daily. Occ has to take mylanta otherwise no acute concerns today. US abd done - read pending. UGIS pending. FORMERLY [facility] Medical History Hypercholesteremia Hypertension Diabetes mellitus Surgical History History of esophagogastroduodenoscopy (EGD) Hx of colonoscopy Social History Household Members: None Housing: Apartment Patient Tobacco Use Status: Former Tobacco user service: No Review of Systems Const All systems reviewed & are unremarkable except as noted in HPI and below Physical Exam Vital Signs: Last Vital Signs Pulse 45 L 03/30/24 10:37 BP 142/65 H 03/30/24 10:37 BMI result Body Mass Index 32.0 No apparent distress Nonicteric Abdomen soft, nondistended Alert and oriented x3, normal gait Assessment & Plan Assessment & Plan (1) Abdominal pain: Code(s): R10.9 - Unspecified abdominal pain Category: Medical (2) Bloating symptom: Code(s): R14.0 - Abdominal distension (gaseous) Category: Medical Plan Sx have resolved since initiation of PPI therapy last month. Reviewed to take it for 8 weeks total and can then DC. Will follow up on testing results, if abnormal, will be called back for follow up. Otherwise PRN follow up. To recall, colo due 2027. Coding Level of Care Code Est Pt Level 3 (84503) Diagnoses Abdominal pain R10.9 Bloating symptom R14.0
[2024-03-30 10:37] VITALS: BP 142/65; PULSE 45; BMI 32.0
== END 2024-03-30 11:08 | disposition home or self-care (01) ==
PROVIDERS: PCP Internal Medicine; Visit Provider Internal Medicine
DX: R10.9 Unspecified abdominal pain (principal); R14.0 Abdominal distension (gaseous)
CPT/HCPCS: 99213

== ENCOUNTER → 2024-03-30 10:29 | Outpatient (BNVA) | payer OTHER, SELFPAY | PROVIDERS: PCP Internal Medicine; Visit Provider Internal Medicine | DX: R10.9 Unspecified abdominal pain (principal); R14.0 Abdominal distension (gaseous); Z79.899 Other long term (current) drug therapy | CPT/HCPCS: 99212 ==

== ENCOUNTER 2024-04-27 09:20 | Outpatient (REF) | payer OTHER, SELFPAY ==
--- NOTE | ~2024-04-27 | XR_ITS ---
EXAMINATION: Orbits pre-MRI.. CLINICAL INDICATION: 4 MRI screening. COMPARISON: None. FINDINGS: 3 views of the orbits were obtained. There is no radiopaque metallic foreign body seen in the orbits. Limited visualization of paranasal sinuses and maxillofacial bones are reveal no significant abnormality. XR/XR pre mri screening IMPRESSION: No radiopaque metallic foreign bodies seen in the orbits. Electronically signed by: Ottoniel Musa MD 04/27/2024 10:48 AM LOUIE
== END 2024-04-27 09:21 | disposition home or self-care (01) ==
LOC: HO.XRAY 09:20
PROVIDERS: Visit Provider Radiology Diagnostic Radiology
DX: Z13.89 Encounter for screening for other disorder (principal)

== ENCOUNTER → 2024-05-17 11:01 | Outpatient (BNV) | payer OTHER, SELFPAY | PROVIDERS: PCP Internal Medicine; Visit Provider Radiology Diagnostic Radiology | DX: N28.9 Disorder of kidney and ureter, unspecified (principal) | CPT/HCPCS: 74183 ==

== ENCOUNTER 2024-05-17 11:03 | Outpatient (REF) | payer OTHER, SELFPAY ==
--- NOTE | ~2024-05-17 | MR_ITS ---
EXAMINATION: MRI Abdomen without and with contrast HISTORY: N28.9 - Disorder of kidney and ureter, unspecified COMPARISON: Correlation is made with an abdominal ultrasound dated 03/15/2024. TECHNIQUE: Axial in and out of phase T1-weighted gradient echo, axial diffusion weighted, and axial and coronal haste T2 with fat saturation images were obtained through the abdomen. Subsequently, fat suppressed axial and coronal T1-weighted images were obtained after the intravenous administration of 10 mL Gadavist. FINDINGS: There is no significant signal loss within the liver on opposed phase imaging to suggest steatosis. There is no intra or extrahepatic biliary ductal dilatation. The hepatic and portal veins are patent. There is no enhancing liver mass. The gallbladder, spleen, pancreas, and adrenals are unremarkable. There is a 2.5 x 1.8 cm water signal intensity mass in the interpolar region of the right kidney without evidence of abnormal enhancement. Findings are consistent with a cyst. An additional 1.5 cm cyst is noted at the lower pole. No enhancing renal lesion is seen. The left kidney is unremarkable. There is no hydronephrosis. No retroperitoneal lymphadenopathy or ascites is identified in the upper abdomen. The visualized bones demonstrate normal signal intensity. MR/MR abdomen wo/w con IMPRESSION: Right renal cysts as described. No solid mass is seen. Electronically signed by: Serjio Hernandez MD 05/17/2024 12:58 PM [facility] [place]
[2024-05-17] MEDS: gadobutroL 10 ML VIAL IVPUSH (12:11)
== END 2024-05-17 11:04 | disposition home or self-care (01) ==
LOC: HO.MRI 11:03
PROVIDERS: PCP Internal Medicine; Visit Provider Nurse Practitioner Family
DX: N28.9 Disorder of kidney and ureter, unspecified (principal)
CPT/HCPCS: 74183; A9585

== ENCOUNTER 2024-05-24 09:11 | Outpatient (REF) | payer OTHER, SELFPAY ==
--- NOTE | ~2024-05-24 | FL_ITS ---
EXAMINATION: XR FLUOROSCOPY UPPER GI WITH AIR CLINICAL INFORMATION: Abdominal pain COMPARISON: MRI April 2024. CT scan September 2023 TECHNIQUE: Fluoroscopic air contrast upper GI examination was performed utilizing standard techniques with thin and thick barium and effervescent granules. Numerous spot images were obtained. FINDINGS: Dual and single contrast images of the esophagus demonstrate normal caliber, contour, and mucosal pattern. No evidence of stricture, mass, or ulcerations identified. Esophageal peristalsis is mildly disorganized. A very small type I hiatal hernia was seen. Gastroesophageal reflux is seen up to the midesophagus. Dual contrast and single contrast images of the stomach demonstrated a normal contour. There are multiple focal areas of contrast pooling in the fundus of the stomach that may represent small mucosal erosions. No masses are present. Contrast freely passed into the gastric antrum and duodenal bulb without delay. Single and air-contrast images of the duodenal bulb demonstrate a focal area of narrowing between the duodenal bulb and the second segment of the duodenum, however, this resolves with filling/distention of the duodenum. The duodenal sweep has a normal appearance, course, and mucosal fold appearance. A small diverticulum is noted in the distal third/proximal fourth segment of the duodenum. The imaged proximal jejunum has a normal fold pattern and caliber. FLUOROSCOPY TIME: 5 minutes 17 seconds Number of Spot Images: 12 Number of Cine: 15 DOSE AREA PRODUCT: [id number] uGy-m2 (microgray-meter squared) FL/FL upper GI w Ba Swallow IMPRESSION: 1. Mildly disordered esophageal peristalsis. 2. Very small type I hiatal hernia with moderate gastroesophageal reflux. 3. Multiple focal areas of contrast pooling in the fundus of the stomach that may represent small mucosal erosions. Recommend correlation with EGD. 4. Focal area of narrowing/apparent asymmetric filling defect between the duodenal bulb in the second segment of the duodenum that appears to resolve with filling/distention of the duodenum. An underlying subtle mass cannot be excluded, although no evidence of mass on recent prior MRI or CT. Recommend correlation with EGD. 5. Small diverticulum in the distal third/proximal fourth segment of the duodenum. This procedure was performed by Bairon Ramirez PA-C, and supervised by Dr. Higuera Electronically signed by: Kennedy Higuera MD 05/25/2024 05:07 PM [facility]
--- OUTSIDE RECORDS SUMMARY | 2024-05-24 13:32 | XMS_ITS | Encounter Summary ---
Author Organization [employer] Address [address] [place] [address] Care Team Providers Care Sandwich Machine Operator Name Role Phone Dawn Almaguer MD Primary Care Provide r Delia Mast PharmD Unavailable [phone] Reason for Visit * Reason Comments Dizziness Not currently - inte rmittent Headache Bradycardia Chronic - sent from dental due to HR 47 Encounter Details Date Type Department Care Team (Late st Contact Info) Description 04/23/2024 3:20 PM EST Office Visit [facility] [address] [place] [address] Kell Reeves NP [address] [place] [address] Bradycardia (Primary Dx); Occipital headache; Dizziness Social History Tobacco Use Types Packs/Day Years Used Date Smoking Tobacco: Never Passive Smoke Exposure: Never Smokeless Tobacco: Never Alcohol Use Standard Drinks/Week Comments Yes 0 (1 standard drink = 0.6 oz pur e alcohol) rare Depression Answer Date Recorded Patient Health Questionnaire-9 Score 0 07/01/2023 Patient Health Questionnaire-9 Score 0 07/01/2023 Last PHQ-9: Questionnaire Data Not on file 0 07/01/2023 Housing Stability Answer Date Recorded What is your housing situation today? I have riaz lujan 02/10/[address] you li ve. Do you have problems with any of the following? None of the above 02/10/2024 Food Insecurity Answer Date Recorded Within the past 12 months, y ou worried that your food would run out before you got money to buy more: Never True 02/10/2024 Within the past 12 months,th e food you bought just didn't last and you didn't have enough money to get more: Never True Transportation Answer Date Recorded In the past 12 months, has l ack of transportation kept you from medical appts, meetings, work or from getting things needed for daily living? No 02/10/2024 Utilities Answer Date Recorded In the past 12 months, has t he electric, gas, oil or water company threatened to shut off services in your home? No 02/10/2024 Depression Answer Date Recorded Patient Health Questionnaire-2 Score 0 07/01/2023 Internet Access Answer Date Recorded Internet Access Q1 No 02/10/2024 Internet Access Q2 I do not want or need it 01/26 Sex and Gender Information Value Date Recorded Sex Assigned at Male 02/25/2022 10:14 AM EDT Legal Sex Male 10:14 AM EDT Gender Identity Male 02/25/2022 10:14 AM EDT Sexual Orientation Straight 02/25/2022 10 :14 AM EDT documented as of this encounter Last Filed Vital Signs Vital Sign Reading Time Taken Comments Blood Pressure 119/72 04/23/2024 3:03 PM EST Pulse 51 04/23/2024 3:45 PM EST Temperature 36.8 ??C (98.3 ??F) 04/23/2024 3:03 PM ES T Respiratory Rate 18 04/23/2024 3:03 PM EST Oxygen Saturation 99% 04/23/2024 3:03 PM EST Inhaled Oxygen Concentration - - Weight - - Height - - Body Mass Index - - documented in this encounter Progress Notes * Kell Reeves NP - 04/23/2024 3:20 PM EST SUBJECTIVE: Kenny Ramos is a 68 y.o. male who presents to the [facility] [place] for a sick visit. Denies recent illness, injury, or hospitalization. HPI States he was being seen upstairs for diabetes management and advised to come down for evaluation as his pulse was low and he complained of blurry vision at the time and reported intermittent dizziness at night from time to time. His only complaint during this current encounter is that of an occipital headache which he says has been present all day. Rates it 11/04 now and he has not taken anythingfor the headache. With further questioning he notes some shortness of breath that has been present for about 1-2 months now and fatigue which has been since September. States he is scheduled to see his Wire Stretcher on Apr 30 for loop monitoring. Review of Systems Constitutional: Negative. Negative for chills and fever. HENT: Negative. Negative for congestion and sore throat. Eyes: Negative for discharge. Respiratory: Negative for cough, chest tightness and shortness of breath. Cardiovascular: Negative for chest pain and palpitations. Gastrointestinal: Negative. Negative for abdominal pain, constipation, diarrhea and nausea. Genitourinary: Negative. Negative for difficulty urinating. Musculoskeletal: Negative. Negative for arthralgias and myalgias. Skin: Negative for rash. Neurological: Positive for headaches. Negative for dizziness, speech difficulty and light-headedness. Hematological: Negative. Psychiatric/Behavioral: Negative for behavioral problems, self-injury and suicidal ideas. The patient is not nervous/anxious. OBJECTIVE: Vitals: 04/23/24 1503 04/23/24 1545 BP: 119/72 BP Location: Left arm Patient Position: Sitting BP Cuff Size: Adult Pulse: (!) 48 51 Resp: 18 Temp: 98.3 ??F (36.8 ??C) TempSrc: Oral SpO2: 99% Patient Active Problem List Diagnosis Type 2 diabetes mellitus with hyperglycemia, with long-term current use of insulin ([facility]) Primary hypertension Left leg pain Benign prostatic hyperplasia Bradycardia Chronic atrial fibrillation ([facility]) COVID-19 Gastroesophageal reflux disease without esophagitis Hyperlipidemia associated with type 2 diabetes mellitus ([facility]) ([facility]) Lumbar sprain Pruritus ani Morbid obesity ([facility] Mood disorder ([facility]) Type 2 diabetes mellitus without complication ([facility]) Peripheral vascular disease ([facility]) Hypertensive disorder Chronic left-sided low back pain with left-sided sciatica Bacterial conjunctivitis of both eyes RADHA (acute kidney injury) ([facility]) Urinary retention Heartburn Hypercholesteremia Venous insufficiency Physical Exam Vitals reviewed. Constitutional: General: He is not in acute distress. Appearance: Normal appearance. He is not ill-appearing. HENT: Head: Normocephalic and atraumatic. Right Ear: External ear normal. Left Ear: External ear normal. Nose: Nose normal. Eyes: General: No scleral icterus. Extraocular Movements: Extraocular movements intact. Cardiovascular: Rate and Rhythm: Bradycardia present. Pulses: Normal pulses. Heart sounds: Normal heart sounds. Pulmonary: Effort: Pulmonary effort is normal. No respiratory distress. Breath sounds: Normal breath sounds. Musculoskeletal: General: Normal range of motion. Cervical back: Normal range of motion. Neurological: General: No focal deficit present. Mental Status: He is alert and oriented to person, place, and time. Gait: Gait normal. Psychiatric: Mood and Affect: Mood normal. Behavior: Behavior normal. Assessment/Plan Diagnoses and all orders for this visit: Bradycardia Comments: -patient is taking metoprolol and multaq for HTN and A-fib management. Both these medications couldlikely be the cause of his bradycardia. -He is followed by Dr. Holm for A-fib and palpitations. Per his guidance today, patient is to remain on Multaq until he has had his loop monitor to assess A-Fib burden. -12 lead EKG today reveals sinus rhythm. -he is asymptomatic at this time. Advised continued self monitoring -ED precautions reviewed -he is encouraged to keep his Cardiology appointment on 04/30/24 and scheduled PCP appointment on 05/07/24 Orders: - ECG 12 lead Occipital headache Comments: -VS stable and PE is reassuring -he is advised tylenol for the pain -ED precautions reviewed Dizziness Comments: -see plan above Orders: - ECG 12 lead I called the patient 04/24/24 at approx 11:30 am using BLS Mauritian Interpretor Timothy ID # [id number] to advise he decrease metoprolol to half tab (12.5 mg) two times daily (total 25 mg every day) instead of taking 25 mg two times daily. He notes HR was 65 bpm when he last checked and he feels fine. Patient is unsure which of his medications is the metoprolol for BP. I advised he continue his current reg imen and monitor HR. ED precautions reinforced. Will have team nurses call for status check on Friday. Mauritian Translation: Provided by [facility] staff member Anjali Medical Interpretor documented in this encounter Plan of Treatment Upcoming Encounters Date Type Department Care Team (Late st Contact Info) Description 05/26/2024 2:30 PM EST Medication Management [facility] [address] [facility] [facility] [place] [address] Delia Mast PharmD [address] [place] [address] documented as of this encounter Procedures Procedure Name Priority Date/Time Associated Diagnosis Comments ECG 12-LEAD Routine 04/23/2024 5:17 PM EST Bradycardia Dizziness documented in this encounter Results * ECG 12 lead (04/23/2024 5:17 PM EST) Narrative Kell Reeves NP - 04/23/2024 5:17 PM EST HR 56 bpm, left axis deviation, interval and morphology normal. Sinus bradycardia ECG us Kell Reeves TRAFFIC MAINTENANCE SUPERVISOR ECG ORDERABLES Final Result documented in this encounter Visit Diagnoses Diagnosis Bradycardia- Primary Other specified cardiac dysrhythmias Occipital headache Headache Dizziness Dizziness and giddiness documented in this encounter Additional Health Concerns Assessment Noted Time PHQ-9 Depression Total Score: 0 07/01/19 24 1:29 PM EST documented as of this encounter Care Teams Sandwich Machine Operator Relationship Specialty Start Date End Date Dawn Almaguer MD [address] [facility] [facility] [address] PCP - General Family Medicine 02/25/18 Delia Mast PharmD [address] [facility] [facility] [place] [address] Pharmacist Internal Medicine 03/15/24 documented as of this encounter
--- OUTSIDE RECORDS SUMMARY | 2024-05-24 13:32 | XMS_ITS | Encounter Summary ---
Author Organization [employer] Address [address] [place] [address] Care Team Providers Care Textile Supervisor Name Role Phone Dawn Almaguer MD Primary Care Provide r Delia Mast PharmD Unavailable [phone] Encounter Details Date Type Department Care Team ([facility] Contact Info) Description 04/26/2024 Telephone [facility] [address] [place] [address] Kell Reeves NP [address] [place] [address] Social History Tobacco Use Types Packs/Day Years [...] AM EDT documented as of this encounter Miscellaneous Notes * Telephone Encounter - Lisa Ashley RN - 04/26/2024 4:55 PM EST ----- Message from Kell Reeves sent at 04/24/2024 2:33 PM EST ----- Please call this patient for a status check. Assess his HR and reinforce ED precautions. Thanks TC placed to pt with medical file clerk to translate. Pt states that he checks his BP and pulse every day his BP is generally around 130/70 and today's pulse was 50. He denies any shortness of breath,feeling dizzy or faint, pt states he's good. Reviewed ED precautions vs walk in center, Patient is aware of upcoming appointment with PCP that he plans on going to. documented in this encounter Plan of Treatment Upcoming Encounters Date Type Department Care Team (Late st Contact Info) Description 05/26/2024 2:30 PM EST Medication Management [facility] [address] [place], [place] [phone] Delia Mast, PharmD [address] [place], [place] [phone] documented as of this encounter Visit Diagnoses Not on filedocumented in this encounter Additional Health Concerns Assessment Noted Time PHQ-9 Depression Total Score: 0 07/01/19 24 1:29 PM EST documented as of this encounter Care Teams Textile Supervisor Relationship Specialty Start Date End Date Dawn Almaguer MD [address] [place] [address] PCP - General Family Medicine 02/25/18 Delia Mast, LivierD [address] [place] [address] Pharmacist Internal Medicine 03/15/24 documented as of this encounter
--- OUTSIDE RECORDS SUMMARY | 2024-05-24 13:32 | XMS_ITS | Clinical Summary ---
Author Organization [employer] Address [address] [place] [address] [address] [place] [address] Care Team Providers Care Studio Coordinator Name Role Phone Dawn Almaguer MD Primary Care Provide r Delia Mast PharmD Unavailable [phone] Allergies No known active allergies Medications atorvastatin (Lipitor) 80 MG tablet take 1 tablet (80MG) by oral route every day 021 Active ciclopirox (Penlac) 8 % solution apply by topical route every day to the affected area(s) preferably at bedtime or 8 hours before washing 022 Active hydrocortisone (Anusol-HC) 2.5 % rectal cream apply by topical route every day to the affected area(s) as needed 022 Active TRUEplus Lancets 33G miscIndications :Type 2 diabetes mellitus with hyperglycemia, with long-term current use of insulin ([facility]) Check blood sugar 4 times a day 100 each 11 023 Active pen needle 31G x 6 mm miscIndications :Type 2 diabetes mellitus with hyperglycemia, with long-term current use of insulin ([facility]) Use as instructed daily for Lantus administration 100 each 11 024 Active glucose blood (FREESTYLE LITE) test stripIndication s:Type 2 diabetes mellitus with hyperglycemia, with long-term current use of insulin ([facility]) TEST BLOOD SUGAR FOUR TIMES DAILY 100 strip 11 024 Active dabigatran etexilate (Pradaxa) 150 MG capsule Take 150 mg by mouth 2 times daily. 024 Active Multaq 400 MG tablet Take 400 mg by mouth 2 times daily. Active furosemide (Lasix) 20 MG tablet Take 20 mg by mouth Once per day. Active tamsulosin (Flomax) 0.4 MG 24 hr capsule Take 1 capsule by mouth at bedtime. Active cyanocobalamin (Vitamin B-12) 1000 MCG tablet TAKE 1 TABLET BY MOUTH EVERY DAY 90 tablet 3 024 Active cholecalciferol (D3 Super Strength) 50 MCG (2000 UT) capsuleIndicati ons:Vitamin D deficiency TAKE 1 CAPSULE BY MOUTH EVERY DAY 90 capsule 1 024 Active Continuous Glucose Telegraph Office Route Aide (FreeStyle Monica 2 Fenton) deviceIndicatio ns:Type 2 diabetes mellitus with hyperglycemia, with long-term current use of insulin ([facility]) Scan sensor every 8 hours 1 each 2 Active Continuous Glucose Sensor (FreeStyle Monica 2 Sensor) miscIndications :Type 2 diabetes mellitus with hyperglycemia, with long-term current use of insulin ([facility]) Apply 1 sensor every 14 days 2 each 2 024 Active glucose blood (FreeStyle Precision Charan Test) test stripIndication s:Type 2 diabetes mellitus with hyperglycemia, with long-term current use of insulin ([facility]) Use to test blood sugar 2 times daily 100 each 12 024 2024 Active clotrimazole-be tamethasone (Lotrisone) cream APPLY TOPICALLY 2 TIMES A DAY FOR 4 WEEKS APPLY THIN COAT 2 TIMES PER DAY Active omeprazole (PriLOSEC) [address] capsule Take 20 mg by mouth Once per day. Active metoprolol tartrate (Lopressor) 25 MG tabletIndicatio ns:Primary hypertension Take 1 tablet (25 mg) by mouth 2 times daily. 180 tablet Active glucose (Glutose) 40 % gel oral gelIndications: Type 2 diabetes mellitus with hyperglycemia, with long-term current use of insulin ([facility]) Use as needed for low blood sugar 45 g 11 Active insulin glargine (Lantus SoloStar) 100 UNIT/ML penIndications: Type 2 diabetes mellitus with hyperglycemia, with long-term current use of insulin ([facility]) Inject subcutaneously 16 units once daily 024 Active empagliflozin-m etFORMIN (Synjardy) 12.5-1000 MGIndications:T ype 2 diabetes mellitus with hyperglycemia, with long-term current use of insulin ([facility]) Take 1 tablet by mouth with breakfast and with evening meal. 180 tablet 3 024 Active Dulaglutide (Trulicity) 1.5 MG/0.5ML solution auto-injectorIn dications:Type 2 diabetes mellitus with hyperglycemia, with long-term current use of insulin ([facility]) Inject 1.5 mg under the skin 1 (one) time per week. 2 mL 2 025 Active glipiZIDE XL (Glucotrol XL) 10 MG 24 hr tabletIndicatio ns:Type 2 diabetes mellitus with other specified complication, unspecified whether intermediate insulin use ([facility]) TAKE 1 TABLET BY MOUTH TWICE DAILY WITH MEALS 180 tablet 3 025 Active glipiZIDE XL (Glucotrol XL) 10 MG 24 hr tabletIndicatio ns:Type 2 diabetes mellitus with other specified complication, unspecified whether intermediate insulin use ([facility]) TAKE 1 TABLET BY MOUTH TWICE DAILY WITH MEALS 180 tablet 1 024 2024 Discontinued Trulicity 0.75 MG/0.5ML solution auto-injector INJECT ONE PEN (=0.75MG) SUBCUTANEOUSLY ONCE A WEEK DIRECTED 024 2024 Discontinued Active Problems Problem Noted Date Diagnosed Date Renal mass 05/07/2024 Assessment & Plan (05/07/2024 11:40 AM EST): I will follow CT results and he also will f/u with urology Hypercholesteremia 04/23/2024 RADHA (acute kidney injury) 11/10/2023 Assessment & Plan (11/10/2023 2:10 PM EDT): Resolved I refer him to urology for evaluation of urinary retention, he will c/w tamsolusin 0.4mg daily Urinary retention 11/10/2023 Heartburn 11/10/2023 Assessment & Plan (11/10/2023 2:09 PM EDT): Diabetes is: not controlled - Lab Results Component Value Date HGBA1C 9.3 (A) 11/10/2023 HGBA1C 9.3 (A) 07/01/2023 HGBA1C 9.9 (A) 03/05/2023 - Lab Results Component Value Date MICROALBUR 2.7 09/04/2020 CREATININE 1.15 10/25/2023 -Changes: I dscontinue yuval, I will put him instead n metformin 1000mg BID and trulicity 0.75mg weekly I increase his lantus to 12U BID - Diabetic eye exam:up to date - Diabetic foot exam:up to date - Continue lifestyle modifications - Continue current medications - Follow up: 3 months Bacterial conjunctivitis of both eyes 03/05/2023 Chronic left-sided low back pain with left-sided sciatica 08/07/2022 Bradycardia 06/21/2022 Assessment & Plan (05/07/2024 11:37 AM EST): Today HR is 60, patient is wearing a loop recorder ordered by cardiology C/w same medications and follow up with cardiology COVID-19 06/21/2022 Type 2 diabetes mellitus wit h hyperglycemia, with long-term current use of insulin 05/14/2022 Assessment & Plan (05/07/2024 11:39 AM EST): Diabetes is: not controlled - Lab Results Component Value Date HGBA1C 9.0 (A) 04/23/2024 HGBA1C 9.7 (H) 01/09/2024 HGBA1C 9.3 (A) 11/10/2023 - Lab Results Component Value Date MICROALBUR 2.7 09/04/2020 CREATININE 1.33 01/09/2024 -Changes: I went up on trulicity to 1.5mg rest of meds will satey the same patient will c/w CGM and CDTM - Diabetic eye exam:up to date - Diabetic foot exam:up to date - Continue lifestyle modifications - Continue current medications - Follow up: 3 months Assessment & Plan (02/10/2024 2:27 PM EDT): Diabetes is: not controlled - Lab Results Component Value Date HGBA1C 9.7 (H) 01/09/2024 HGBA1C 9.3 (A) 11/10/2023 HGBA1C 9.3 (A) 07/01/2023 - Lab Results Component Value Date MICROALBUR 2.7 09/04/2020 CREATININE 1.33 01/09/2024 -Changes: CGM prescribed, CDTM referral, patient in on lantus 17 U at bed time - Diabetic eye exam:up to date - Diabetic foot exam:pending - Continue lifestyle modifications - Continue current medications - Follow up: 3 months Assessment & Plan (11/10/2023 2:10 PM EDT): Diabetes is: not controlled - Lab Results Component Value Date HGBA1C 9.3 (A) 11/10/2023 HGBA1C 9.3 (A) 07/01/2023 HGBA1C 9.9 (A) 03/05/2023 - Lab Results Component Value Date MICROALBUR 2.7 09/04/2020 CREATININE 1.15 10/25/2023 -Changes: as above - Diabetic eye exam: - Diabetic foot exam: - Continue lifestyle modifications - Continue current medications - Follow up: 3 months Assessment & Plan (07/01/2023 4:39 PM EST): Diabetes is: not controlled - Lab Results Component Value Date HGBA1C 9.3 (A) 07/01/2023 HGBA1C 9.9 (A) 03/05/2023 HGBA1C 8.4 (A) 08/07/2022 - Lab Results Component Value Date MICROALBUR 2.7 09/04/2020 CREATININE 0.93 05/23/2022 -Changes: lantus changes to 10U BID - Diabetic eye exam:up to date - Diabetic foot exam:pending - Continue lifestyle modifications - Continue current medications - Follow up: 3 months Assessment & Plan (03/05/2023 11:54 AM EST): Patient reports he went to [place] and forgot his insulin he stop using it for almost 2 months - Lab Results Component Value Date HGBA1C 9.9 (A) 03/05/2023 HGBA1C 8.4 (A) 08/07/2022 HGBA1C 9.9 (H) 05/23/2022 - Lab Results Component Value Date MICROALBUR 2.7 09/04/2020 CREATININE 0.93 05/23/2022 - - Diabetic eye exam:up to date - Diabetic foot exam: pending - Continue lifestyle modifications - Continue current medications Assessment & Plan (08/07/2022 4:22 PM EDT): -A1c today 8.7 Patient congratulated about improvement Lab Results Component Value Date HGBA1C 9.9 (H) 05/23/2022 - Lab Results Component Value Date MICROALBUR 2.7 09/04/2020 CREATININE 0.93 05/23/2022 - Diabetic eye exam: up to date - Diabetic foot exam: done today - Continue lifestyle modifications - Continue current medications RTC 3 months Assessment & Plan (06/24/2022 4:18 PM EST): Uncontrolled. Increase Lantus to 25 units (2 units per week) and FU with me in 6 weeks. No change in PO medications. Counseled re more frequent low calorie/carb meals. Check fgstk daily Encouraged physical activity as tolerated. Will give a new glucometer as his is reportedly not working. Assessment & Plan (05/14/2022 5:24 PM EST): Most likely unctrolled, A1C test is not available today. -No medication changes. -Order labs and FU with me next month. -Recommended compliance with TID meals. -FU with me -Continue current treatment regimen. -Encouraged to check sugars more frequently. -Discussed diabetic diet. -Advised to increase physical activity and decrease caloric intake. -Will check FBS with next set of labs -Will check RBS at next visit. -Schedule an appointment with DM educator. Primary hypertension 05/14/2022 Assessment & Plan (05/07/2024 11:40 AM EST): I advised: - Aerobic exercise to reduce BP. Initial goal of 30 min walk 3-5x/week. Increase as tolerated. - low-sodium diet (goal: <2g/day) and heart healthy diet such as DASH to reduce BP and prevent ASCVD. - Home BP monitoring 1-2 x day with goal of <140/90. - Seek immediate medical attention for chest pain, palpitations, SOB, syncope, or sudden changes in mental status. - Do not change or discontinue current prescriptions without first consulting health care provider Assessment & Plan (11/10/2023 2:07 PM EDT): Controlled metoprolol dose reduce from 75mf to 50mg BID, BP 110/72 and HR is still low 49-54, patient will be see by cardiology on 11/12/23 at 120pm Assessment & Plan (07/01/2023 4:37 PM EST): Maintenance: BMP: up to date Lipid Panel: up to date ASCVD Risk: high on atorvastatin 80mg daily - Aerobic exercise to reduce BP. Initial goal of 30 min walk 3-5x/week. Increase as tolerated. - low-sodium diet (goal: <2g/day) and heart healthy diet such as DASH to reduce BP and prevent ASCVD. - Home BP monitoring 1-2 x day with goal of <140/90. - Seek immediate medical attention for chest pain, palpitations, SOB, syncope, or sudden changes in mental status. - Do not change or discontinue current prescriptions without first consulting health care provider Assessment & Plan (03/05/2023 11:53 AM EST): Maintenance: BMP: up to date Lipid Panel: up to date ASCVD Risk: on atorvastatin 80mg daily - Aerobic exercise to reduce BP. Initial goal of 30 min walk 3-5x/week. Increase as tolerated. - low-sodium diet (goal: <2g/day) and heart healthy diet such as DASH to reduce BP and prevent ASCVD. - Home BP monitoring 1-2 x day with goal of <140/90. - Seek immediate medical attention for chest pain, palpitations, SOB, syncope, or sudden changes in mental status. - Do not change or discontinue current prescriptions without first consulting health care provider Assessment & Plan (08/07/2022 4:23 PM EDT): Maintenance: BMP: up to date Lipid Panel: up to date ASCVD Risk: Calculate he is already on max statin and apixaban - Aerobic exercise to reduce BP. Initial goal of 30 min walk 3-5x/week. Increase as tolerated. - low-sodium diet (goal: <2g/day) and heart healthy diet such as DASH to reduce BP and prevent ASCVD. - Home BP monitoring 1-2 x day with goal of <140/90. - Seek immediate medical attention for chest pain, palpitations, SOB, syncope, or sudden changes in mental status. - Do not change or discontinue current prescriptions without first consulting health care provider Assessment & Plan (05/14/2022 5:25 PM EST): -Continue Metoprolol. -Encouraged to increase physical activity and limit sodium intake. 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 -Recommended Tylenol PRN and to come to acupuncture clinic -Use compression stockings recommended by vascular surgeon. -FU with me in 1 month. Lumbar sprain 11/06/2017 Benign prostatic hyperplasia 04/08/2017 Chronic atrial fibrillation 04/08/2017 Gastroesophageal reflux disease without esophagi tis 04/08/2017 Hyperlipidemia associated wi th type 2 diabetes mellitus (CMS/HCC) 04/08/2017 Pruritus ani 04/08/2017 Morbid obesity 04/08/2017 Mood disorder 04/08/2017 Type 2 diabetes mellitus without complication Peripheral vascular disease 04/08/2017 Hypertensive disorder 04/08/2017 Assessment & Plan (02/10/2024 2:26 PM EDT): Maintenance: BMP: up to date Lipid Panel: up to date - Aerobic exercise to reduce BP. Initial goal of 30 min walk 3-5x/week. Increase as tolerated. - low-sodium diet (goal: <2g/day) and heart healthy diet such as DASH to reduce BP and prevent ASCVD. - Home BP monitoring 1-2 x day with goal of <140/90. - Seek immediate medical attention for chest pain, palpitations, SOB, syncope, or sudden changes in mental status. 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 ([facility]) 05/07/2024 10:00 AM EST Office Visit [address] [address] Dawn Almaguer MD Bradycardia (Primary Dx); Type 2 diabetes mellitus with hyperglycemia, with long-term current use of insulin ([facility]); Primary hypertension; Renal mass 05/07/2024 Travel 04/29/2024 Patient Outreach [address] [address] Dawn Almaguer MD Care Coordination ([facility] outreach for SDOH CCA and food needs-referral completed /) 04/29/2024 Patient Outreach [address] [address] Dawn Almaguer MD Pre-visit Planning ((SDOH screening positive tobacco screening negative) ) 04/26/2024 Telephone [facility] [address] [place] [phone] Kell Reeves NP 04/23/2024 3:20 PM EST Office Visit [facility] [address] [address] Kell Reeves NP Bradycardia (Primary Dx); Occipital headache; Dizziness 04/23/2024 Telephone [facility] [address] [place] [phone] Anne Perez RN 04/23/2024 Travel 03/24/2024 Travel 03/15/2024 Orders Only [facility] External Provider, [facility] 03/10/2024 Travel from Last 3 Months Immunizations Name Administration Dates Next Due Hep B, adult 12/21/2014,07/26/2014,06/14/2014 Influenza Quadrivalent Adjuvanted 01/17/2022 [employer] SARS-CoV-2 Vaccination 08/16/2020,2020 Pfizer Covid-19 Vaccine 12+ 08/28/2021 Pfizer Covid-19 Vaccine 12+ stacey-sucrose ([place] Cap) 08/28/2021 Pneumococcal Conjugate PCV 20 07/23/2022 Pneumococcal Polysaccharide PPSV23 02/15/2010 RSV Bivalent 07/15/2023 TD (adult), 2 Lf tetanus tox oid, preservative free, adsorbed 06/04/2017 Tdap 12/23/2011 Zoster, Recombinant 07/23/2022 Family History Medical History Relation Name Comments Coronary artery disease Father Relation Name Status Comments Father Social History Tobacco Use Types Packs/Day Years Used Date Smoking Tobacco: Never Passive Smoke Exposure: Never Smokeless Tobacco: Never Tobacco Cessation:Counseling Given: Not Answered Alcohol Use Standard Drinks/Week Comments Yes 0 (1 standard drink = 0.6 oz pur e alcohol) rare Depression Answer Date Recorded Patient Health Questionnaire-9 Score 0 07/01/2023 Patient Health Questionnaire-9 Score 0 07/01/2023 Last PHQ-9: Questionnaire Data Not on file 0 07/01/2023 Housing Stability Answer Date Recorded What is your housing situation today? I have riazisabella lujan 02/10/[address] you [...] from getting things needed for daily living? Yes, it has kept me from non-medical meetings, work, or getting things that I need 04/29/2024 Utilities Answer Date Recorded In the past 12 months, has t he electric, gas, oil or water company threatened to shut off services in your home? No 02/10/2024 Depression Answer Date Recorded Patient Health Questionnaire-2 Score 0 07/01/2023 Internet Access Answer Date Recorded Internet Access Q1 Yes 04/29/2024 Internet Access Q2 I do not want or need it 05/2024 Sex and Gender Information Value Date Recorded Sex Assigned at Male 02/25/2022 10:14 AM EDT Legal Sex Male 10:14 AM EDT Gender Identity Male 02/25/2022 10:14 AM EDT Sexual Orientation Straight 02/25/2022 10 :14 AM EDT Last Filed Vital Signs Vital Sign Reading Time Taken Comments Blood Pressure 115/65 05/07/2024 10:27 AM EST Pulse 60 05/07/2024 10:27 AM EST Temperature 35.8 ??C (96.5 ??F) 05/07/2024 10:[address] Respiratory Rate 18 05/07/2024 10:27 AM EST Oxygen Saturation 99% 05/07/2024 10:27 AM EST Inhaled Oxygen Concentration - - Weight 109 kg (240 lb) 05/07/2024 10:27 AM EST Height 182.9 cm (6') 05/07/2024 10:27 AM EST Body Mass Index 32.55 05/07/2024 10:27 AM EST Plan of Treatment Upcoming Encounters Date Type Department Care Team (Late st Contact Info) Description 05/26/2024 2:30 PM EST Medication Management [facility] MEDICINE [address] [place] [address] Delia Mast, PharmD [address] [place] [address] Health Maintenance Due Date Last Done Comments CT Colonography 1955 FIT DNA/Cologuard 1955 FIT 1955 FOBT 1955 Sigmoidoscopy 1955 Hepatitis C Screening 11/14/1973 Diabetes: Urine Protein Screening 09/04/2021 09/04/2020, 07/08/2019 Zoster Vaccines (2 of 2) 09/17/2022 07/23/2022 Diabetes: Foot Exam 08/08/2023 08/07/2022, COVID-19 Vaccine ( season) 2023 08/28/2021, 08/28/2021, 08/16/2020, Additional history exists Influenza Vaccine (#1) 2023 01/17/2022 Depression Screening 06/30/2024 07/01/2023, 07/01/19 24 Diabetes: Hemoglobin A1C 07/22/2024 024, 01/09/2024, 11/10/2023, Additional history exists Lipid Panel 01/08/2025 01/09/2024, 04/29, 06/20/2021, Additional history exists Alcohol/Substance Use Screening 02/09/2025 02/10/2024 SDOH Screening 04/29/2025 04/29/2024 Tobacco Screening 05/07/2025 05/07/2024 Eye Exam 08/17/2025 08/18/2023, 07/28, 08/18/2023, Additional history exists DTaP/Tdap/Td Vaccines (3 - Td or Tdap) 06/04/2027 06/04/2017, 12/23/2011 Colonoscopy 09/05/2027 Colorectal Cancer Screening 09/05/2027 Hepatitis B Vaccines Completed 12/21/2014, 07/26/2014, 06/14/2014 Pneumococcal Vaccine: 65+ Years Completed 07/23/2022, 02/15/2010 RSV Patients and Patients Aged 60 years or older Completed 07/15/2023 HIB Vaccines Aged Out No longer eligi ble based on patient's age to complete this topic HPV Vaccines Aged Out No longer eligi ble based on patient's age to complete this topic Hepatitis A Vaccines Aged Out No long er eligible based on patient's age to complete this topic IPV Vaccines Aged Out No longer eligi ble based on patient's age to complete this topic Meningococcal Vaccine Aged Out No jackie mirna eligible based on patient's age to complete this topic RSV under 20 months Aged Out No longe r eligible based on patient's age to complete this topic Rotavirus Vaccines Aged Out No longer eligible based on patient's age to complete this topic Procedures Procedure Name Priority Date/Time Associated Diagnosis Comments MR ABDOMEN W AND WO CONTRAST Routine 05/17/2024 11:25 AM EST ECG 12-LEAD Routine 04/23/2024 5:17 PM EST Bradycardia Dizziness POCT GLYCATED HEMOGLOBIN, TOTAL Routine 04/23/2024 2:13 PM EST Type 2 diabetes mellitus with hyperglycemia, with long-term current use of insulin ([facility]) US ABDOMEN COMPLETE Routine 03/15/2024 9:00 AM EST LIPID PANEL, STANDARD Routine 01/09/2024 8:34 AM EDT Primary hypertension ALBUMIN, RANDOM URINE W/CREATININE Routine 09/04/2020 8:41 AM EDT from Last 3 Months or Most Recently Relevant to Health Maintenance Results * MR Abdomen w/ and w/o Contrast (05/17/2024 11:25 AM EST) Anatomical Region Laterality Modality Abdomen Magnetic Resonan ce 05/17/2024 11:2 5 AM EST Narrative 05/17/2024 1:01 PM EST ? [facility] ?[address] ?[place] [address] ? Magnetic Resonance Report ? Signed ? Patient: Kenny Dowell ?MR#: M ?? [id number] ? : 1955 ?Acct:[id number] ? Age/Sex: 68 / M ?ADM Date: 05/17/24 ? Loc: HO.MRI ? Attending Dr: Shirley CONROY ? Ordering Physician: Shirley Murillo ?? Date of Service: 05/17/24 ?? Procedure(s): MR abdomen wo/w con ?? Accession Number(s): [id number] ? cc: Dawn Almaguer MD; Shirley Murillo ? EXAMINATION: ??MRI Abdomen without and with contrast ? HISTORY: N28.9 - Disorder of kidney and ureter, unspecified ? COMPARISON: ??Correlation is made with an abdominal ultrasound dated ?? 03/15/2024. ? TECHNIQUE: Axial in and out of phase T1-weighted gradient echo, axial ?? diffusion weighted, and axial and coronal haste T2 with fat saturation ?? images were obtained through the abdomen. ??Subsequently, fat suppressed ?? axial and coronal T1-weighted images were obtained after the ?? intravenous administration of 10 mL Gadavist. ? FINDINGS: ??There is no significant signal loss within the liver on ?? opposed phase imaging to suggest steatosis. There is no intra or ?? extrahepatic biliary ductal dilatation. The hepatic and portal veins ?? are patent. There is no enhancing liver mass. The gallbladder, spleen, ?? pancreas, and adrenals are unremarkable. ? There is a 2.5 x 1.8 cm water signal intensity mass in the interpolar ?? region of the right kidney without evidence of abnormal enhancement. ?? Findings are consistent with a cyst. An additional 1.5 cm cyst is noted ?? at the lower pole. No enhancing renal lesion is seen. The left kidney ?? is unremarkable. There is no hydronephrosis. ? No retroperitoneal lymphadenopathy or ascites is identified in the ?? upper abdomen. The visualized bones demonstrate normal signal intensity. ? MR/MR abdomen wo/w con ?? IMPRESSION: ? Right renal cysts as described. No solid mass is seen. ? Electronically signed by: ??Serjio Hernandez MD ??05/17/2024 12:58 PM EST ?? RP ? Dictated By: ?Serjio Hernandez MD ? Signed By: ?<Electronically signed by Serjio Hernandez MD in OV> ?05/17/24 1258 ? DD/ 1125 ? TD/TT: 05/17/24 1200 ? Gas Distribution Supervisor: ? Procedure Note Amanda Arenas - 05/17/[address] [address] Magnetic Resonance Report Signed Patient: Radha DowellNakul#: M [id number] : 6Acct:[id number] Age/Sex: 68 / MADM Date: 05/17/24 Loc: HO.MRI Attending Dr: Shirley CONROY Ordering Physician: Shirley Murillo Date of Service: 05/17/24 Procedure(s): MR abdomen wo/w con Accession Number(s): [id number] cc: Dawn Almaguer MD; Shirley Murillo [facility] EXAMINATION: MRI Abdomen without and with contrast HISTORY: N28.9 - Disorder of kidney and ureter, unspecified COMPARISON: Correlation is made with an abdominal ultrasound dated 03/15/2024. TECHNIQUE: Axial in and out of phase T1-weighted gradient echo, axial diffusion weighted, and axial and coronal haste T2 with fat saturation images were obtained through the abdomen. Subsequently, fat suppressed axial and coronal T1-weighted images were obtained after the intravenous administration of 10 mL Gadavist. FINDINGS: There is no significant signal loss within the liver on opposed phase imaging to suggest steatosis. There is no intra or extrahepatic biliary ductal dilatation. The hepatic and portal veins are patent. There is no enhancing liver mass. The gallbladder, spleen, pancreas, and adrenals are unremarkable. There is a 2.5 x 1.8 cm water signal intensity mass in the interpolar region of the right kidney without evidence of abnormal enhancement. Findings are consistent with a cyst. An additional 1.5 cm cyst is noted at the lower pole. No enhancing renal lesion is seen. The left kidney is unremarkable. There is no hydronephrosis. No retroperitoneal lymphadenopathy or ascites is identified in the upper abdomen. The visualized bones demonstrate normal signal intensity. MR/MR abdomen wo/w con IMPRESSION: Right renal cysts as described. No solid mass is seen. Electronically signed by: Serjio Hernandez MD 05/17/2024 12:58 PM EST Dictated By: Serjio Hernandez MD Signed By: <Electronically signed by Serjio Hernandez MD in OV> 05/17/24 1258 DD/ 1125 TD/TT: 05/17/24 1200 Gas Distribution Supervisor: [facility] External Provider IMG MRI PROCEDURES Final Result * ECG 12 lead (04/23/2024 5:17 PM EST) Narrative Kell Reeves NP - 04/23/2024 5:17 PM EST HR 56 bpm, left axis deviation, interval and morphology normal. Sinus bradycardia ECG us Kell Lala PRESS MANAGER ECG ORDERABLES Final Result * (ABNORMAL) POCT A1C (04/23/2024 2:13 PM EST) Hemoglobin A1C 9.0(A) 4.0 - 6.0 % QC Media Lot # [id number] Lot# Expiration Date ,112 Blood 04/23/2024 2:13 PM EST us Dawn Monroy MD POINT OF CARE TEST EN TER/EDIT ORDERABLES Final Result * US Abdomen Complete (03/15/2024 9:00 AM EST) Anatomical Region Laterality Modality Abdomen Ultrasound 03/15/2024 9:00 AM EST Narrative 04/18/2024 11:32 AM EST ? [facility] ?[address] ?[place] [address] ? Ultrasound Report ? Signed with Addenda ? Patient: Elaina Ramos,Kenny ?MR#: M ?? [id number] ? : 1955 ?Acct:[id number] ? Age/Sex: 68 / M ?ADM Date: 03/15/24 ? Loc: HO.US ? Attending Dr: Tena Prakash MD ? Ordering Physician: Tena Prakash MD ?? Date of Service: 03/15/24 ?? Procedure(s): US abdomen complete ?? Accession Number(s): [id number] ? cc: Dawn Almaguer MD; Tena Prakash MD ?ADDENDUM ? ADDENDUM #1 ? Results Acknowledgement: ?? Results received and confirmed with Austin Daily RN, from Dr Prakash's office, ?? at 10:12 AM 04/19/2024. ?? Lisa De Los Santos, 04/19/2024 10:13 AM ? Electronically signed by: ??Aleja Escamilla MD ??04/19/2024 11:36 AM EST ?? RP ? Addendum Dictated By: ?Aleja Escamilla MD ? Addendum Signed By: ? <Electronically signed by Aleja Escamilla MD in OV> ?04/19/24 1136 ?? Addendum Cosigned By: ? DD/ ? TD/TT: 03/15/24 ? EXAMINATION: ?? US ABDOMEN COMPLETE ? CLINICAL INFORMATION: ?? Unspecified abdominal pain. ? COMPARISON: ?? Ultrasound kidneys and bladder 02/20/2024. CT abdomen and pelvis ?? 10/24/2023. Renal ultrasound 12/14/2018. ? TECHNIQUE: ?? Real-time imaging of the abdominal viscera. Technically difficult study ?? secondary to bowel gas. ? FINDINGS: ? PANCREAS: The visualized portion of the pancreas head and body are ?? normal, portion of the pancreatic body and tail, not visualized are ?? obscured by bowel gas. ? ABDOMINAL AORTA: The proximal, mid, and distal segments are normal in ?? caliber. ? INFERIOR VENA CAVA: Visualized portions are normal. ? LIVER: Heterogeneous liver texture with nodular surface suggesting ?? liver parenchymal disease liver cirrhosis. There is a cyst in the left ?? lobe of the liver 9 mm. No ultrasound evidence of intra or extrahepatic ?? biliary dilatation. No focal liver lesion found. ? GALLBLADDER: Normal. The gallbladder is physiologically distended ?? without evidence of stones, sludge, polyps, wall thickening or ?? pericholecystic fluid. ? COMMON BILE DUCT: Normal in caliber measuring 0.3 cm in diameter. ? RIGHT KIDNEY: No hydronephrosis. The kidney measures 11.1 cm in maximum ?? dimension. Simple cyst upper pole 2.1 cm, these are commonly benign no ?? follow-up imaging is indicated. Similar cyst lower pole 2.1 cm. ?? Echogenic focus in the middle pole likely nonobstructing stone 3 mm. ?? Another stone 3 mm middle pole. Hypoechoic lesion protruding from the ?? middle pole right kidney measure up to 2.4 x 2.2 x 2.7 cm, there is ?? internal flow concerning for possible solid lesion. This would require ?? further investigation with follow-up contrast enhanced imaging. ? LEFT KIDNEY: Normal. No hydronephrosis. No renal calculi or focal ?? parenchymal lesions. The kidney measures 11.9 cm in maximum dimension. ? SPLEEN: Normal. The spleen measures 9.2 cm in maximum dimension. ? FREE FLUID: None. ? US/US abdomen complete ?? IMPRESSION: ? 1. ??Heterogeneous liver texture with nodular surface suggesting liver ?? parenchymal disease liver cirrhosis. ? 2. ??There is a hypoechoic solid mass protruding from the middle pole ?? right kidney measure up to 2.7 cm, there is internal flow CONCERNING ?? FOR POSSIBLE SOLID LESION, this would require further investigation ?? with contrast-enhanced cross-sectional imaging CT scan or MRI. ? 3. ??There are nonobstructing stones in the right kidney. ? (Referring physician staff is being called, by physician staff ?? assistance, to be alerted of the above critical findings and ?? recommendations.)AJ ? 04/18/2024 10:27 AM SCREEN PRINTING LOADER UNLOADER ? Electronically signed by: ??Aleja Escamilla MD ??04/18/2024 11:29 AM EST ? Dictated By: ?Aleja Escamilla MD ? Signed By: ?<Electronically signed by Aleja Escamilla MD in OV> ?04/18/24 1129 ? DD/ 0900 ? TD/TT: 03/15/24 0929 ? Gas Distribution Supervisor: HS ? Procedure Note Deepa, Image - 04/19/2024 [place] [id number] Ultrasound Report Signed with Jannet Patient: Tamika Dowell#: M [id number] : 1955cct:[id number] Age/Sex: 68 / MADM Date: 03/15/24 Loc: HO.US Attending Dr: Tena Prakash MD Ordering Physician: Tena Prakash MD Date of Service: 03/15/24 Procedure(s): US abdomen complete Accession Number(s): [id number] cc: Dawn Almaguer MD; Tena Prakash MD ADDENDUM ADDENDUM #1 Results Acknowledgement: Results received and confirmed with Austin Daily RN, from Dr Prakash's office, at 10:12 AM 04/19/2024. Lisa De Los Santos, 04/19/2024 10:13 AM Electronically signed by: Aleja Escamilla MD 04/19/2024 11:36 AM EST Addendum Dictated By: Aleja Escamilla MD Addendum Signed By: <Electronically signed by MD Alejandro in OV> 04/19/24 1136 Addendum Cosigned By: DD/ TD/TT: 03/15/24 EXAMINATION: US ABDOMEN COMPLETE CLINICAL INFORMATION: Unspecified abdominal pain. COMPARISON: Ultrasound kidneys and bladder 02/20/2024. CT abdomen and pelvis 10/24/2023. Renal ultrasound 12/14/2018. TECHNIQUE: Real-time imaging of the abdominal viscera. Technically difficult study secondary to bowel gas. FINDINGS: PANCREAS: The visualized portion of the pancreas head and body are normal, portion of the pancreatic body and tail, not visualized are obscured by bowel gas. ABDOMINAL AORTA: The proximal, mid, and distal segments are normal in caliber. INFERIOR VENA CAVA: Visualized portions are normal. LIVER: Heterogeneous liver texture with nodular surface suggesting liver parenchymal disease liver cirrhosis. There is a cyst in the left lobe of the liver 9 mm. No ultrasound evidence of intra or extrahepatic biliary dilatation. No focal liver lesion found. GALLBLADDER: Normal. The gallbladder is physiologically distended without evidence of stones, sludge, polyps, wall thickening or pericholecystic fluid. COMMON BILE DUCT: Normal in caliber measuring 0.3 cm in diameter. RIGHT KIDNEY: No hydronephrosis. The kidney measures 11.1 cm in maximum dimension. Simple cyst upper pole 2.1 cm, these are commonly benign no follow-up imaging is indicated. Similar cyst lower pole 2.1 cm. Echogenic focus in the middle pole likely nonobstructing stone 3 mm. Another stone 3 mm middle pole. Hypoechoic lesion protruding from the middle pole right kidney measure up to 2.4 x 2.2 x 2.7 cm, there is internal flow concerning for possible solid lesion. This would require further investigation with follow-up contrast enhanced imaging. LEFT KIDNEY: Normal. No hydronephrosis. No renal calculi or focal parenchymal lesions. The kidney measures 11.9 cm in maximum dimension. SPLEEN: Normal. The spleen measures 9.2 cm in maximum dimension. FREE FLUID: None. US/US abdomen complete IMPRESSION: 1. Heterogeneous liver texture with nodular surface suggesting liver parenchymal disease liver cirrhosis. 2. There is a hypoechoic solid mass protruding from the middle pole right kidney measure up to 2.7 cm, there is internal flow CONCERNING FOR POSSIBLE SOLID LESION, this would require further investigation with contrast-enhanced cross-sectional imaging CT scan or MRI. 3. There are nonobstructing stones in the right kidney. (Referring physician staff is being called, by physician staff assistance, to be alerted of the above critical findings and recommendations.)AJ 04/18/2024 10:27 AM SCREEN PRINTING LOADER UNLOADER Electronically signed by: Aleja Escamilla MD 04/18/2024 11:29 AM EST Dictated By: Aleja Escamilla MD Signed By: <Electronically signed by Aleja Escamilla MD in OV> 04/18/24 1129 DD/ 9 TD/TT: 03/15/24928 Gas Distribution Supervisor: ALEXANDRE us [facility] External Provider IMG US PROCEDURES Edited Result - Final * (ABNORMAL) Lipid Panel, Standard (01/09/2024 8:34 AM EDT) Triglycerides 91 <150 mg/dL [facility] Comment:Desirable Triglyceri de: less than 150 mg/dLBorderline High Triglyceride 150-199 mg/dLHigh Triglyceride: 200-499 mg/dLVery High Triglyceride: greater than or equal to 5OO mg/dL Cholesterol 108 <200 mg/dL [facility] Comment:Desirable Cholestero l: less than 200 mg/dLBorderline High Cholesterol: 200-239 mg/dLHigh Cholesterol: greater than 239 mg/dL LDL Cholesterol Calculated 57 <100 mg/dL [facility] Comment:Desirable LDL: less than 100 mg/dLNear Optimal/Above Optimal LDL: 110- 129 mg/dLBorderline High LDL: 130-159 mg/dLHigh LDL: 160-189 mg/dLVery High LDL: greater than or equal to 190 mg/dL HDL Cholesterol 33(L) >40 mg/dL [facility] Comment:Desirable HDL: great er than 40 mg/dL Note: This HDL assay may give artificially low results in patients with liver disease. Blood Venous blood specimen / Unknown 01/09/2024 8:34 AM EDT 01/09/2024 11:48 AM EDT us Dawn Monroy MD LAB BLOOD ORDERABLES Final Result Performing Organization Address [facility]/ZIP Co de Phone Number [facility] [address] [place] [address] [phone] * ALBUMIN, RANDOM URINE W/CREATININE (09/04/2020 8:41 AM EDT) Microalbumin Urine 2.7 See Note: mg/dL [facility] Comment: Reference Range: ?? Reference Range Not established Microalb/Creat Ratio 27 <30 mcg/mg creat [facility] Comment: ?? The ADA defines abnormalities in albumin excretion as follows: ?? Category ? Result (mcg/mg creatinine) ?? Normal ?<30 Microalbuminuria ? 30-299 ?? Clinical albuminuria ?? > OR = 300 ?? The ADA recommends that at least two of three specimens collected within a 3-6 month period be abnormal before considering a patient to be within a diagnostic category. Creatinine, Urine 99 20 - 320 mg/dL [facility] 09/04/2020 8:41 AM EDT us Dawn Monroy MD LAB URINE ORDERABLES Final Result Performing Organization Address City/[facility]/ZIP Co de Phone Number [facility] [address] [place] [address], from Last 3 Months or Most Recently Relevant to Health Maintenance Insurance [facility] Care Teams Studio Coordinator Relationship Specialty Start Date End Date Dawn Almaguer MD [address] [place] [address] PCP - General Family Medicine 02/25/18 Delia Mast PharmD [address] [place] [address] Pharmacist Internal Medicine 03/15/24
--- OUTSIDE RECORDS SUMMARY | 2024-05-24 13:32 | XMS_ITS | Encounter Summary ---
Author Organization [employer] Address [address] [place] [address] Care Team Providers Care Set Up Mechanic Automatic Line Name Role Phone Dawn Almaguer MD Primary Care Provide r Delia Mast PharmD Unavailable [phone] Encounter Details Date Type Department Care Team (Late st Contact Info) Description 05/07/2024 10:00 AM EST Office Visit [facility] [address], [place] [phone] Dawn Almaguer MD [address] [place], [place] [phone] Bradycardia (Primary Dx); Type 2 diabetes mellitus with hyperglycemia, with long-term current use of insulin ([facility]); Primary hypertension; Renal mass Social History Tobacco Use Types Packs/Day Years [...] Mass Index 32.55 05/07/2024 10:27 AM EST documented in this encounter Progress Notes * Dawn Monroy MD - 05/07/2024 10:00 AM EST SUBJECTIVE: Kenny Ramos is a 68 y.o. year old male who presents for Chronic Disease Management . Acute Concerns: Patient reports he is concern about recent US results, he was told he has a amass on one of his kidneys and he will like to know more about it, he is schedule for a CT on 05/17/24 Social History Social History Narrative Not on file Patient Active Problem List Diagnosis Type 2 diabetes mellitus with hyperglycemia, with long-term current use of insulin ([facility]) Primary hypertension Left leg pain Benign prostatic hyperplasia Bradycardia Chronic atrial fibrillation ([facility]/HCC) COVID-19 Gastroesophageal reflux disease without esophagitis Hyperlipidemia associated with type 2 diabetes mellitus ([facility]) ([facility]) Lumbar sprain Pruritus ani Morbid obesity ([facility]/HCC) Mood disorder ([facility]) Type 2 diabetes mellitus without complication ([facility]) Peripheral vascular disease ([facility]) Hypertensive disorder Chronic left-sided low back pain with left-sided sciatica Bacterial conjunctivitis of both eyes RADHA (acute kidney injury) ([facility]) Urinary retention Heartburn Hypercholesteremia Venous insufficiency Renal mass Family History Problem Relation Name Age of Onset Coronary artery disease Father Review of Systems OBJECTIVE: Vitals: 05/07/24 1027 BP: 115/65 BP Location: Left arm Patient Position: Sitting BP Cuff Size: Large adult Pulse: 60 Resp: 18 Temp: 96.5 ??F (35.8 ??C) TempSrc: Oral SpO2: 99% Weight: 240 lb (109 kg) Height: 6' (1.829 m) Physical Exam Follow Up: No follow-ups on file. Current Outpatient Medications on File Prior to Visit Medication Sig Dispense Refill atorvastatin (Lipitor) 80 MG tablet take 1 tablet (80MG) by oral route every day cholecalciferol (D3 Super Strength) 50 MCG (2000 UT) capsule TAKE 1 CAPSULE BY MOUTH EVERY DAY 90 capsule 1 ciclopirox (Penlac) 8 % solution apply by topical route every day to the affected area(s) preferably at bedtime or 8 hours before washing clotrimazole-betamethasone (Lotrisone) cream APPLY TOPICALLY 2 TIMES A DAY FOR 4 WEEKS APPLY THIN COAT 2 TIMES PER DAY Continuous Glucose Junior Recruiter (FreeStyle [place] 2 [place]) device Scan sensor every 8 hours 1 each 2 Continuous Glucose Sensor (FreeStyle Monica 2 Sensor) [facility] Apply 1 sensor every 14 days 2 each 2 cyanocobalamin (Vitamin B-12) 1000 MCG tablet TAKE 1 TABLET BY MOUTH EVERY DAY 90 tablet 3 dabigatran etexilate (Pradaxa) 150 MG capsule Take 150 mg by mouth 2 times daily. empagliflozin-metFORMIN (Synjardy) 12.5-1000 MG Take 1 tablet by mouth with breakfast and with evening meal. 180 tablet 3 furosemide (Lasix) 20 MG tablet Take 20 mg by mouth Once per day. glipiZIDE XL (Glucotrol XL) 10 MG 24 hr tablet TAKE 1 TABLET BY MOUTH TWICE DAILY WITH MEALS 180 tablet 1 glucose (Glutose) 40 % gel oral gel Use as needed for low blood sugar 45 g 11 glucose blood (FREESTYLE LITE) test strip TEST BLOOD SUGAR FOUR TIMES DAILY 100 strip 11 glucose blood (FreeStyle Precision Charan Test) test strip Use to test blood sugar 2 times daily 100 each 12 hydrocortisone (Anusol-HC) 2.5 % rectal cream apply by topical route every day to the affected area(s) as needed insulin glargine (Lantus SoloStar) 100 UNIT/ML pen Inject subcutaneously 16 units once daily metoprolol tartrate (Lopressor) 25 MG tablet Take 1 tablet (25 mg) by mouth 2 times daily. 180 tablet 0 Multaq 400 MG tablet Take 400 mg by mouth 2 times daily. omeprazole (PriLOSEC) [address] capsule Take 20 mg by mouth Once per day. pen needle 31G x 6 mm misc Use as instructed daily for Lantus administration 100 each 11 tamsulosin (Flomax) 0.4 MG 24 hr capsule Take 1 capsule by mouth at bedtime. TRUEplus Lancets 33G misc Check blood sugar 4 times a day 100 each 11 [DISCONTINUED] Trulicity 0.75 MG/0.5ML solution auto-injector INJECT ONE PEN (=0.75MG) SUBCUTANEOUSLY ONCE A WEEK DIRECTED No current facility-administered medications on file prior to visit. Problem List Items Addressed This Visit Bradycardia - Primary Today HR is 60, patient is wearing a loop recorder ordered by cardiology C/w same medications and follow up with cardiology Type 2 diabetes mellitus with hyperglycemia, with long-term current use of insulin ([facility]) Diabetes is: not controlled - Lab Results Component Value Date HGBA1C 9.0 (A) 04/23/2024 HGBA1C 9.7 (H) 01/09/2024 HGBA1C 9.3 (A) 11/10/2023 - Lab Results Component Value Date MICROALBUR 2.7 09/04/2020 CREATININE 1.33 01/09/2024 -Changes: I went up on trulicity to 1.5mg rest of meds will satey the same patient will c/w CGM andCDTM - Diabetic eye exam:up to date - Diabetic foot exam:up to date - Continue lifestyle modifications - Continue current medications - Follow up: 3 months Relevant Medications Dulaglutide (Trulicity) 1.5 MG/0.5ML solution auto-injector Primary hypertension I advised: - Aerobic exercise to reduce BP. Initial goal of 30 min walk 3-5x/week. Increase as tolerated. - low-sodium diet (goal: <2g/day) and heart healthy diet such as DASH to reduce BP and prevent ASCVD. - Home BP monitoring 1-2 x day with goal of <140/90. - Seek immediate medical attention for chest pain, palpitations, SOB, syncope, or sudden changes inmental status. - Do not change or discontinue current prescriptions without first consulting health care provider Renal mass I will follow CT results and he also will f/u with urology documented in this encounter Miscellaneous Notes * Assessment & Plan Note - Dawn Monroy MD - 05/07/2024 11:40 AM EST Associated Problem(s): Renal mass I will follow CT results and he also will f/u with urology * Assessment & Plan Note - Dawn Monroy MD - 05/07/2024 11:40 AM EST Associated Problem(s): Primary hypertension I advised: - Aerobic exercise to reduce BP. Initial goal of 30 min walk 3-5x/week. Increase as tolerated. - low-sodium diet (goal: <2g/day) and heart healthy diet such as DASH to reduce BP and prevent ASCVD. - Home BP monitoring 1-2 x day with goal of <140/90. - Seek immediate medical attention for chest pain, palpitations, SOB, syncope, or sudden changes inmental status. - Do not change or discontinue current prescriptions without first consulting health care provider * Assessment & Plan Note - Dawn Monroy MD - 05/07/2024 11:39 AM EST Associated Problem(s): Type 2 diabetes mellitus with hyperglycemia, with long- term current use of insulin ([facility]) Diabetes is: not controlled - Lab Results Component Value Date HGBA1C 9.0 (A) 04/23/2024 HGBA1C 9.7 (H) 01/09/2024 HGBA1C 9.3 (A) 11/10/2023 - Lab Results Component Value Date MICROALBUR 2.7 09/04/2020 CREATININE 1.33 01/09/2024 -Changes: I went up on trulicity to 1.5mg rest of meds will satey the same patient will c/w CGM andCDTM - Diabetic eye exam:up to date - Diabetic foot exam:up to date - Continue lifestyle modifications - Continue current medications - Follow up: 3 months * Assessment & Plan Note - Dawn Monroy MD - 05/07/2024 11:37 AM EST Associated Problem(s): Bradycardia Today HR is 60, patient is wearing a loop recorder ordered by cardiology C/w same medications and follow up with cardiology documented in this encounter Plan of Treatment Upcoming Encounters Date Type Department Care Team (Late st Contact Info) Description 05/26/2024 2:30 PM EST Medication Management [facility] [address], [place] [phone] Delia Mast, PharmD [address] [place] [address] documented as of this encounter Visit Diagnoses Diagnosis Bradycardia- Primary Other specified cardiac dysrhythmias Type 2 diabetes mellitus with hyperglycemia, with long-term current use of insulin ([facility]) Primary hypertension Unspecified essential hypertension Renal mass Unspecified disorder of kidney and ureter documented in this encounter Additional Health Concerns Assessment Noted Time PHQ-9 Depression Total Score: 0 07/01/19 24 1:29 PM EST documented as of this encounter Care Teams Set Up Mechanic Automatic Line Relationship Specialty Start Date End Date Dawn Almaguer MD [address] [place] [address] PCP - General Family Medicine 02/25/18 Delia Mast, LivierD [address] [place] [address] Pharmacist Internal Medicine 03/15/24 documented as of this encounter
--- OUTSIDE RECORDS SUMMARY | 2024-05-24 13:32 | XMS_ITS | Encounter Summary ---
Author Organization [employer] Address [address] [facility] [address] [place] [address] Care Team Providers Care Applications Development Consultant Name Role Phone Dawn Almaguer MD Primary Care Provide r Delia Mast PharmD Unavailable +- [phone] Encounter Details Date Type Department Care Team (Late st Contact Info) Description 05/17/2024 Orders Only [facility] External Provider, [facility] Social History Tobacco Use Types Packs/Day Years [...] AM EDT documented as of this encounter Plan of Treatment Upcoming Encounters Date Type Department Care Team (Late st Contact Info) Description 05/26/2024 2:30 PM EST Medication Management [facility] [address] [place] [address] Delia Mast, PharmD [address] [place] [address] documented as of this encounter Procedures Procedure Name Priority Date/Time Associated Diagnosis Comments MR ABDOMEN W AND WO CONTRAST Routine 05/17/2024 11:25 AM EST documented in this encounter Results * MR Abdomen w/ and w/o Contrast (05/17/2024 11:25 AM EST) Anatomical Region Laterality Modality Abdomen Magnetic Resonan ce 05/17/2024 11:2 5 AM EST Narrative 05/17/2024 1:01 PM EST ? [facility] ?[address] ?[place] [address] ? Magnetic Resonance Report ? Signed ? Patient: Elaina Ramos,Kenny ?MR#: [id number] ?? [id number] ? : 1955 ?Acct:[id number] ? Age/Sex: 68 / M ?ADM Date: 01/20/25 ? Loc: HO.MRI ? Attending Dr: Shirley CONROY ? Ordering Physician: Shirley Murillo ?? Date of Service: 05/17/24 ?? Procedure(s): MR abdomen wo/w con ?? Accession Number(s): [id number] ? cc: Dawn Almaguer MD; Shirley Murillo [...] DD/ 1125 ? TD/TT: 05/17/24 1200 ? Crusher Supervisor: ? Procedure Note Donotuseinterpreter, Image - 05/17/[address] [address] Magnetic Resonance Report Signed Patient: Tamika Dowell#: M [id number] : 6Acct:[id number] Age/Sex: 68 / MADM Date: 05/17/24 Loc: HO.MRI Attending Dr: Shirley Murillo [facility] Ordering Physician: Shirley Murillo Date of Service: 05/17/24 Procedure(s): MR abdomen wo/w con Accession Number(s): [id number] cc: Dawn Almaguer MD; Shirley Murillo [facility] EXAMINATION: MRI Abdomen without and with contrast [...] 05/17/24 1258 DD/ 1125 TD/TT: 05/17/24 1200 Crusher Supervisor: [facility] External Provider IMG MRI PROCEDURES Final Result documented in this encounter Visit Diagnoses Not on filedocumented in this encounter Additional Health Concerns Assessment Noted Time PHQ-9 Depression Total Score: 0 07/01/19 24 1:29 PM EST documented as of this encounter Care Teams Applications Development Consultant Relationship Specialty Start Date End Date Dawn Almaguer MD [address] [place] [address] PCP - General Family Medicine 02/25/18 Delia Mast PharmD [address] [place] [address] Pharmacist Internal Medicine 03/15/24 documented as of this encounter
--- OUTSIDE RECORDS SUMMARY | 2024-05-24 13:32 | XMS_ITS | Encounter Summary ---
Author Organization [employer] Address [address] [facility] [address] [place] [address] Care Team Providers Care Rn Women Services Name Role Phone Dawn Almaguer MD Primary Care Provide r Delia Mast PharmD Unavailable [phone] Reason for Visit * Reason Comments Med Refill Encounter Details Date Type Department Care Team (Late st Contact Info) Description 07/14/2023 Refill [facility] [address] [place] [address] Bhumika Timmons, ASAF [address] [place] [address] Type 2 diabetes mellitus with hyperglycemia, with long-term current use of insulin ([facility]) Social History Tobacco Use Types Packs/Day Years [...] your housing situation today? I have riaz tai 03/05/[address] you li ve. Do you have problems with any of the following? None of the above 03/05/2023 Food Insecurity Answer Date Recorded Within the past 12 months, y ou worried that your food would run out before you got money to buy more: Never True 03/05/2023 Within the past 12 months,th e food you bought just didn't last and you didn't have enough money to get more: Never True 11/2022 Transportation Answer Date Recorded In the past 12 months, has l ack of transportation kept you from medical appts, meetings, work or from getting things needed for daily living? No 03/05/2023 Utilities Answer Date Recorded In the past 12 months, has t he electric, gas, oil or water company threatened to shut off services in your home? No 03/05/2023 Depression Answer Date Recorded Patient Health Questionnaire-2 Score 0 07/01/2023 Sex and Gender Information Value Date Recorded Sex Assigned at Male 02/25/2022 10:14 AM EDT Legal Sex Male 10:14 AM EDT Gender Identity Male 02/25/2022 10:14 AM EDT Sexual Orientation Straight 02/25/2022 10 :14 AM EDT documented as of this encounter Plan of Treatment Upcoming Encounters Date Type Department Care Team (Late st Contact Info) Description 05/26/2024 2:30 PM EST Medication Management [facility] [address] [place] [address] Delia Mast PharmD [address] [place] [address] documented as of this encounter Visit Diagnoses Diagnosis Type 2 diabetes mellitus with hyperglycemia, with long-term current use of insulin ([facility]) documented in this encounter Additional Health Concerns Assessment Noted Time PHQ-9 Depression Total Score: 0 07/01/19 24 1:29 PM EST documented as of this encounter Care Teams Rn Women Services Relationship Specialty Start Date End Date Dawn Almaguer MD [address] [place] [id number] PCP - General Family Medicine 02/25/18 Delia Mast PharmD [address] [place] [id number] Pharmacist Internal Medicine 03/15/24 documented as of this encounter
--- OUTSIDE RECORDS SUMMARY | 2024-05-24 13:32 | XMS_ITS | Encounter Summary ---
Author Organization [employer] Address [address] [facility] [address] [place] [address] Care Team Providers Care Switch Crew Supervisor Name Role Phone Dawn Almaguer MD Primary Care Provide r Delia Mast PharmD Unavailable [phone] Reason for Visit * Reason Comments Med Refill Encounter Details Date Type Department Care Team (Late st Contact Info) Description 02/07/2024 Refill [facility] [address] [place] [address] Dawn Almaguer MD [address] [place], [place] [id number] Heartburn Social History Tobacco Use Types Packs/Day Years [...] 05/26/2024 2:30 PM EST Medication Management [facility] [address] [place] [address] Delia Mast PharmD [address] [place] [address] documented as of this encounter Visit Diagnoses Diagnosis Heartburn documented in this encounter Additional Health Concerns Assessment Noted Time PHQ-9 Depression Total Score: 0 07/01/19 24 1:29 PM EST documented as of this encounter Care Teams Switch Crew Supervisor Relationship Specialty Start Date End Date Dawn Almaguer MD [address] [place] [id number] PCP - General Family Medicine 02/25/18 Delia Mast PharmD [address] [place] [address] Pharmacist Internal Medicine 03/15/24 documented as of this encounter
--- OUTSIDE RECORDS SUMMARY | 2024-05-24 13:32 | XMS_ITS | Encounter Summary ---
Author Organization [employer] Address [address] [facility] 7t [place] [address] Care Team Providers Care Supervisor Education Name Role Phone Dawn Almaguer MD Primary Care Provide r Delia aMst PharmD Unavailable [phone] Encounter Details Date Type Department Care Team ([facility] st Contact Info) Description 07/14/2023 Orders Only [facility] CHC MED & PEDS [address], [place] [phone] Bhumika Timmons FNP [address] [place] [address] Type 2 diabetes mellitus with hyperglycemia, with long-term current use of insulin ([facility]) Social History Tobacco Use Types Packs/Day Years [...] housing situation today? I have riazisabella lujan 03/05/[address] you li [...] Description 05/26/2024 2:30 PM EST Medication Management [facility] MEDICINE [address] [place], [place] [phone] Delia Mast, PharmD [address] [place] [phone] documented as of this encounter Procedures Procedure Name Priority Date/Time Associated Diagnosis Comments URINALYSIS, COMPLETE, WITH REFLEX TO CULTURE Routine 10/24/2023 4:59 PM EDT Type 2 diabetes mellitus with hyperglycemia, with long-term current use of insulin ([facility]) HIGH SENSITIVITY TROPONIN I Routine 10/24/2023 3:23 PM EDT Type 2 diabetes mellitus with hyperglycemia, with long-term current use of insulin ([facility]) SARS COV2/INFLUENZA A/B AND RSV RNA QL NAAT Routine 10/24/2023 3:23 PM EDT Type 2 diabetes mellitus with hyperglycemia, with long-term current use of insulin ([facility]) CBC WITH AUTO DIFFERENTIAL Routine 10/24/2023 3:23 PM EDT Type 2 diabetes mellitus with hyperglycemia, with long-term current use of insulin ([facility]) MAGNESIUM Routine 10/24/2023 3:23 PM EDT Type 2 diabetes mellitus with hyperglycemia, with long-term current use of insulin ([facility]) LIPASE Routine 10/24/2023 3:23 PM EDT Type 2 diabetes mellitus with hyperglycemia, with long-term current use of insulin ([facility]) COMPREHENSIVE METABOLIC PANEL Routine 10/24/2023 3:23 PM EDT Type 2 diabetes mellitus with hyperglycemia, with long-term current use of insulin ([facility]) HIGH SENSITIVITY TROPONIN I Routine 10/23/2023 2:37 PM EDT Type 2 diabetes mellitus with hyperglycemia, with long-term current use of insulin ([facility]) CBC WITH AUTO DIFFERENTIAL Routine 10/23/2023 2:37 PM EDT Type 2 diabetes mellitus with hyperglycemia, with long-term current use of insulin ([facility]) LIPASE Routine 10/23/2023 2:37 PM EDT Type 2 diabetes mellitus with hyperglycemia, with long-term current use of insulin ([facility]) HEPATIC FUNCTION PANEL Routine 2:37 PM EDT Type 2 diabetes mellitus with hyperglycemia, with long-term current use of insulin ([facility]) BASIC METABOLIC PANEL Routine 10/23/2023 2:37 PM EDT Type 2 diabetes mellitus with hyperglycemia, with long-term current use of insulin ([facility]) URINALYSIS, COMPLETE, WITH REFLEX TO CULTURE Routine 10/23/2023 2:32 PM EDT Type 2 diabetes mellitus with hyperglycemia, with long-term current use of insulin ([facility]) documented in this encounter Results * (ABNORMAL) Urinalysis, Complete, with Reflex to Culture (10/24/2023 4:59 PM EDT) Color Urine Yellow [facility] Appearance Urine Clear [facility] PH 5.5 5.0 - 9.0 [facility] Glucose Urine UA >=1000(A) Negative mg/dL [facility] Urine Blood Negative Negative [facility] Specific [place] - Urine >=1.030(H) 1.005 - 1.025 [facility] Urine Protein Negative Neg-Trace mg/dL [facility] Urine Ketones Negative Negative mg/dL [facility] Nitrite Urine Negative Negative [facility] Leukocyte Esterase Urine Negative Negative [facility] RBC Urine 0-2 0 - 2 /HPF [facility] Urine WBC 0-5 0 - 5 /HPF [facility] Urine Squamous Epithelial Cell 0-2 0 - 2 /HPF [facility] Urine Bacteria None Seen None Seen [facility] Hyaline Casts, Urine 0-2 0 - 2 /LPF [facility] 10/24/2023 4:59 PM EDT 10/24/2023 5:01 PM EDT Narrative [facility] - 10/24/2023 5:45 PM EDT [id number], Clean Catch us Generic External Data Provider LAB URINE ORDERAB LES Final Result Performing Organization Address [facility] Co de Phone Number [facility] [address] [place] [phone] * High Sensitivity Troponin I (10/24/2023 3:23 PM EDT) TROPONIN I HIGH SENSITIVITY 4.9 <3.5 - 35.0 ng/L [facility] Comment:The Neal high sens itivity Troponin-I results should beused in conjunction with other diagnostic information suchas ECG, clinical observations and information, and patientsymptoms to aid in the diagnosis of [place]. 10/24/2023 3:23 PM EDT 10/24/2023 5:30 PM EDT us Generic External Data Provider LAB BLOOD ORDERAB LES Final Result Performing Organization Address [facility]/ZIP Co de Phone Number [facility] [address] [place] [phone] * Lipase (10/24/2023 3:23 PM EDT) Lipase 54 8 - 78 U/L [facility] 10/24/2023 3:23 PM EDT 10/24/2023 3:26 PM EDT Generic External Data Provider LAB BLOOD ORDERAB LES Final Result Performing Organization Address City/[facility]/ZIP Co de Phone Number [facility] [address] [place] [phone] * SARS-CoV-2 RNA, Influenza A/B, and RSV RNA, Ql NAAT (10/24/2023 3:23 PM EDT) Influenza A PCR NEGATIVE Negative [facility] Influenza B PCR NEGATIVE Negative [facility] Resp Syncy Virus RNA Qual PCR NEGATIVE Negative [facility] SARS COV2 PCR NEGATIVE Negative [facility] Comment:All test results mus t be correlated with clinical findings.Negative results do not preclude SARS-CoV2, influenza Avirus, influenza B virus and/or RSV infectionand should not be used as the sole basis for treatment orother patient management decisions. Negative results must becombined with clinical observations, patient history, andepidemiological information.This test has not been evaluated for monitoring treatment ofinfection.This test has been authorized by the FDA under an EmergencyUse Authorization (EUA) for use by authorized laboratories.Testing performed on the [facility] GeneXpert utilizingreal-time RT-PCR.All SARS CoV2 and positive influenza A/B results arereported to [facility]. 10/24/2023 3:23 PM EDT 10/24/2023 3:26 PM EDT Generic External Data Provider LAB MICROBIOLOGY - GENERAL ORDERABLES Final Result Performing Organization Address City/[facility]/ZIP Co de Phone Number [facility] [address] [place] [phone] * Magnesium (10/24/2023 3:23 PM EDT) Magnesium 1.9 1.6 - 2.6 mg/dL [facility] 10/24/2023 3:23 PM EDT 10/24/2023 3:26 PM EDT us Generic External Data Provider LAB BLOOD ORDERAB LES Final Result [facility] [address] [place] [phone] * (ABNORMAL) Comprehensive Metabolic Panel (10/24/2023 3:23 PM EDT) Sodium 140 135 - 145 mmol/L [facility] Potassium 4.5 3.3 - 5.1 mmol/L [facility] Chloride 107 96 - 108 mmol/L [facility] Carbon Dioxide 22 22 - 29 mmol/L [facility] Anion Gap 16 12 - 20 [facility] Urea Nitrogen (BUN) 37(H) 9 - 16 mg/dL [facility] Creatinine, Serum 1.94(H) 0.5 - 1.4 mg/dL [facility] Creatinine Clr Calc Pharmacy 46.1 [facility] Comment:eGFR (calculated fro m the MDRD study equation) and eCrCl(calculated from the Cockcroft-Gault equation) are based ondifferent parameters and may not yield comparable results.If eCrCl result is absurd, please check patient'sheight/weight. Estimated Glomerular Filt Rate 35 [facility] Comment:NOTE: For -Am erican individuals, multiply the result by 1.210.Chronic Kidney Disease: Estimated GFR < 60 mL/min/1.23w3Yrgqva Kidney Disease: Estimated GFR < 15 mL/min/1.73m2 Glucose 266(H) 60 - 115 mg/dL [facility] Calcium 9.2 8.4 - 10.2 mg/dL [facility] Bilirubin, Total 0.4 0.0 - 1.0 mg/dL [facility] Aspartate Amino Transferase 25 5 - 37 U/L [facility] Alanine Aminotransferase 20 0 - 40 U/L [facility] Total Protein 7.7 6.5 - 8.0 g/dL [facility] Albumin Level 3.9 3.5 - 5.0 g/dL [facility] Alkaline Phosphatase 54 39 - 117 U/L [facility] 10/24/2023 3:23 PM EDT 10/24/2023 3:26 PM EDT us Generic External Data Provider LAB BLOOD ORDERAB LES Final Result [facility] [address] [place] [phone] * (ABNORMAL) CBC auto differential (10/24/2023 3:23 PM EDT) White Blood Count 9.6 4.8 - 10.8 X10*3/uL [facility] Red Blood Count 4.15(L) 4.60 - 5.80 X10*6/uL [facility] Hemoglobin 12.6(L) 14.0 - 18.0 g/dl [facility] Hematocrit 37.7(L) 42.0 - 52.0 % [facility] Mean Corpuscular Volume 90.8 80.0 - 98.0 fL [facility] Mean Corpuscular Hemoglobin 30.4 27.0 - 33.0 pg [facility] Mean Corpuscular HGB Conc 33.4 31.0 - 36.0 g/dl [facility] Red Cell Distribution Width 14.7 11.0 - 16.0 % [facility] Platelet Count 202 160 - 400 X10*3/uL [facility] Mean Platelet Volume 10.9 9.4 - 12.4 fL [facility] Neutrophils Percent Auto 57.9 45 - 73 % [facility] Imm Gran Pct Auto 0.2 0.0 - 0.4 % [facility] Lymphocytes Percent Auto 26.7 20 - 40 % [facility] Monocytes Percent Auto 9.2 2 - 11 % [facility] Eosinophils Percent Auto 5.1(H) 0 - 4 % [facility] Basophils Percent Auto 0.9 0 - 2 % [facility] NRBC Pct Auto 0.0 0.0 - 0.2 /100WBC [facility] Neutrophils Absolute Auto 5.6 2.0 - 8.3 x10*3/uL [facility] Imm Gran Abs Auto 0.02 0.00 - 0.03 X10*3/uL [facility] Lymphocytes Absolute Auto 2.6 1.2 - 4.9 X10*3/uL [facility] Monocytes Absolute Auto 0.9 0.1 - 1.2 X10*3/uL [facility] Eosinophils Absolute Auto 0.5(H) 0.0 - 0.4 X10*3/uL [facility] Basophils Absolute Auto 0.1 0.0 - 0.2 X10*3/uL [facility] NRBC Abs Auto 0.000 0.0 - 0.012 X10*3/uL [facility] 10/24/2023 3:23 PM EDT 10/24/2023 3:26 PM EDT us Generic External Data Provider LAB BLOOD ORDERAB LES Final Result [facility] [address] [place] [phone] * High Sensitivity Troponin I (10/23/2023 2:37 PM EDT) TROPONIN I HIGH SENSITIVITY 4.9 <3.5 - 35.0 ng/L [facility] Comment:The Neal high sens itivity Troponin-I results should beused in conjunction with other diagnostic information suchas ECG, clinical observations and information, and patientsymptoms to aid in the diagnosis of [place]. 10/23/2023 2:37 PM EDT 10/23/2023 2:40 PM EDT us Generic External Data Provider LAB BLOOD ORDERAB LES Final Result Performing Organization Address City/[facility]/ZIP Co de Phone Number [facility] [address] [place] [phone] * Lipase (10/23/2023 2:37 PM EDT) Lipase 64 8 - 78 U/L [facility] 10/23/2023 2:37 PM EDT 10/23/2023 2:40 PM EDT Generic External Data Provider LAB BLOOD ORDERAB LES Final Result Performing Organization Address [facility] Co de Phone Number [facility] [address] [place] [phone] * (ABNORMAL) Basic Metabolic Panel (10/23/2023 2:37 PM EDT) Pathologist [facility] Sodium 140 135 - 145 mmol/L [facility] Potassium 4.3 3.3 - 5.1 mmol/L [facility] Chloride 107 96 - 108 mmol/L [facility] Carbon Dioxide 19(L) 22 - 29 mmol/L [facility] Anion Gap 18 12 - 20 [facility] Urea Nitrogen (BUN) 40(H) 9 - 16 mg/dL [facility] Creatinine, Serum 2.12(H) 0.5 - 1.4 mg/dL [facility] Creatinine Clr Calc Pharmacy 43.0 [facility] Comment:eGFR (calculated fro m the MDRD study equation) and eCrCl(calculated from the Cockcroft-Gault equation) are based ondifferent parameters and may not yield comparable results.If eCrCl result is absurd, please check patient'sheight/weight. Estimated Glomerular Filt Rate 31 [facility] Comment:NOTE: For -Am erican individuals, multiply the result by 1.210.Chronic Kidney Disease: Estimated GFR < 60 mL/min/1.71b7Wcqkgu Kidney Disease: Estimated GFR < 15 mL/min/1.73m2 Glucose 293(H) 60 - 115 mg/dL [facility] Calcium 9.5 8.4 - 10.2 mg/dL [facility] 10/23/2023 2:37 PM EDT 10/23/2023 2:40 PM EDT Generic External Data Provider LAB BLOOD ORDERAB LES Final Result Performing Organization Address [facility] de Phone Number [facility] [address] [place] [phone] * Hepatic Function Panel (10/23/2023 2:37 PM EDT) [facility] Bilirubin, Total 0.6 0.0 - 1.0 mg/dL [facility] Bilirubin, Direct 0.2 0.0 - 0.5 mg/dL [facility] Aspartate Amino Transferase 29 5 - 37 U/L [facility] Alanine Aminotransferase 22 0 - 40 U/L [facility] Total Protein 7.8 6.5 - 8.0 g/dL [facility] Albumin Level 3.9 3.5 - 5.0 g/dL [facility] Alkaline Phosphatase 54 39 - 117 U/L [facility] 10/23/2023 2:37 PM EDT 10/23/2023 2:40 PM EDT Generic External Data Provider LAB BLOOD ORDERAB LES Final Result Performing Organization Address [facility] de Phone Number [facility] [address] [place] [phone] * (ABNORMAL) CBC auto differential (10/23/2023 2:37 PM EDT) Pathologist [facility] White Blood Count 9.7 4.8 - 10.8 X10*3/uL [facility] Red Blood Count 4.13(L) 4.60 - 5.80 X10*6/uL [facility] Hemoglobin 12.6(L) 14.0 - 18.0 g/dl [facility] Hematocrit 38.0(L) 42.0 - 52.0 % [facility] Mean Corpuscular Volume 92.0 80.0 - 98.0 fL [facility] Mean Corpuscular Hemoglobin 30.5 27.0 - 33.0 pg [facility] Mean Corpuscular HGB Conc 33.2 31.0 - 36.0 g/dl [facility] Red Cell Distribution Width 14.5 11.0 - 16.0 % [facility] Platelet Count 195 160 - 400 X10*3/uL [facility] Mean Platelet Volume 10.5 9.4 - 12.4 fL [facility] Neutrophils Percent Auto 60.7 45 - 73 % [facility] Imm Gran Pct Auto 0.3 0.0 - 0.4 % [facility] Lymphocytes Percent Auto 23.8 20 - 40 % [facility] Monocytes Percent Auto 10.9 2 - 11 % [facility] Eosinophils Percent Auto 3.5 0 - 4 % [facility] Basophils Percent Auto 0.8 0 - 2 % [facility] NRBC Pct Auto 0.0 0.0 - 0.2 /100WBC [facility] Neutrophils Absolute Auto 5.9 2.0 - 8.3 x10*3/uL [facility] Imm Gran Abs Auto 0.03 0.00 - 0.03 X10*3/uL [facility] Lymphocytes Absolute Auto 2.3 1.2 - 4.9 X10*3/uL [facility] Monocytes Absolute Auto 1.1 0.1 - 1.2 X10*3/uL [facility] Eosinophils Absolute Auto 0.3 0.0 - 0.4 X10*3/uL [facility] Basophils Absolute Auto 0.1 0.0 - 0.2 X10*3/uL [facility] NRBC Abs Auto 0.000 0.0 - 0.012 X10*3/uL [facility] 10/23/2023 2:37 PM EDT 10/23/2023 2:40 PM EDT us Generic External Data Provider LAB BLOOD ORDERAB LES Final Result [facility] [address] [place] [phone] * (ABNORMAL) Urinalysis, Complete, with Reflex to Culture (10/23/2023 2:32 PM EDT) Color Urine Yellow [facility] Appearance Urine Clear [facility] PH 5.0 5.0 - 9.0 [facility] Glucose Urine UA >=1000(A) Negative mg/dL [facility] Urine Blood Negative Negative [facility] Specific [place] - Urine 1.020 1.005 - 1.025 [facility] Urine Protein Negative Neg-Trace mg/dL [facility] Urine Ketones Negative Negative mg/dL [facility] Nitrite Urine Negative Negative [facility] Leukocyte Esterase Urine Negative Negative [facility] RBC Urine 0-2 0 - 2 /HPF [facility] Urine WBC 0-5 0 - 5 /HPF [facility] Urine Squamous Epithelial Cell 0-2 0 - 2 /HPF [facility] Urine Bacteria None Seen None Seen [facility] Hyaline Casts, Urine 0-2 0 - 2 /LPF [facility] 10/23/2023 2:32 PM EDT 10/23/2023 2:40 PM EDT Narrative [facility] - 10/23/2023 3:07 PM EDT Urine, Clean Catch us Generic External Data Provider LAB URINE ORDERAB LES Final Result [facility] [address] [place] [phone] documented in this encounter Visit Diagnoses Diagnosis Type 2 diabetes mellitus with hyperglycemia, with long-term current use of insulin ([facility]) documented in this encounter Additional Health Concerns Assessment Noted Time PHQ-9 Depression Total Score: 0 07/01/19 24 1:29 PM EST documented as of this encounter Care Teams Supervisor Education Relationship Specialty Start Date End Date Dawn Almaguer MD [address] [place] [address] PCP - General Family Medicine 02/25/18 Delia Mast PharmD [address] [place] [phone] Pharmacist Internal Medicine 03/15/24 documented as of this encounter
--- OUTSIDE RECORDS SUMMARY | 2024-05-24 13:32 | XMS_ITS | Encounter Summary ---
Author Organization [employer] Address [address] [facility] [address] [place] [address] Care Team Providers Care Milieu Coordinator Name Role Phone Dawn Almaguer MD Primary Care Provide r Delia Mast PharmD Unavailable [phone] Reason for Visit * Reason Comments Care Coordination CHW outreach for SDO H CCA and food needs-referral completed Encounter Details Date Type Department Care Team (Latest Contact Info) Description 04/29/2024 Patient Outreach [facility] [address] [place] [address] Dawn Almaguer MD [address] [place] [address] Care Coordination (CHW outreach for SDOH CCA and food needs-referral completed /) Social History Tobacco Use Types Packs/Day Years [...] AM EDT documented as of this encounter Progress Notes * Bo Dixon - 04/29/2024 2:37 PM EST CHW Bo Dixon, placed outbound call to patient for assistance with SDOH as a referral was received by the provider. Patient's name and were confirmed. Patient screened positive for the following SDOH food insecurities. Patient states family in on SNAP program at this time. CHW referral patient to his health insurance CCA for his transportation needs. Patient verbalizes understanding, and able to agree with plan to follow up. Patient educated on extended clinic hours on Mondays throughWednesdays, and Walk-In Urgent Care Located in [facility]. Patient provided with after-hours linefor [facility], , which offer night time triage service and option to transfer to vision care associate provider if needed. documented in this encounter Plan of Treatment Upcoming Encounters Date Type Department Care Team (Late st Contact Info) Description 05/26/2024 2:30 PM EST Medication Management [facility] [address] [place] [address] Delia Mast, Rosa [address] [place] [address] documented as of this encounter Visit Diagnoses Not on filedocumented in this encounter Additional Health Concerns Assessment Noted Time PHQ-9 Depression Total Score: 0 07/01/19 1:29 PM EST documented as of this encounter Care Teams Milieu Coordinator Relationship Specialty Start Date End Date Dawn Almaguer MD [address] [place] [phone] PCP - General Family Medicine 02/25/18 Delia Mast, Rosa [address] [place] [phone] Pharmacist Internal Medicine 03/15/24 documented as of this encounter
--- OUTSIDE RECORDS SUMMARY | 2024-05-24 13:32 | XMS_ITS | Encounter Summary ---
Author Organization [employer] Address [address] [facility] [address] [place] [address] Care Team Providers Care Media Theorist And Author Of Name Role Phone Dawn Almaguer MD Primary Care Provide r Delia Mast PharmD Unavailable [phone]- [phone] Encounter Details Date Type Department Care Team (Latest Contact Info) Description 05/07/2024 Travel Social History Tobacco Use Types Packs/Day Years [...] Description 05/26/2024 2:30 PM EST Medication Management [facility] MED[facility]INE [address] [place] [address] Delia Mast PharmD [address] [place] [address] documented as of this encounter Visit Diagnoses Not on filedocumented in this encounter Additional Health Concerns Assessment Noted Time PHQ-9 Depression Total Score: 0 07/01/19 24 1:29 PM EST documented as of this encounter Care Teams Media Theorist And Author Of Relationship Specialty Start Date End Date Dawn Almaguer MD [address] [place] [phone] PCP - General Family Medicine 02/25/18 Delia Mast, PharmD [address] [place] [phone] Pharmacist Internal Medicine 03/15/24 documented as of this encounter
--- OUTSIDE RECORDS SUMMARY | 2024-05-24 13:32 | XMS_ITS | Encounter Summary ---
Author Organization [facility] Address [address] [facility] 7t [place] [address] Care Team Providers Care Linseed Oil Press Tender Name Role Phone Dawn Almaguer MD Primary Care Provide r Delia Mast PharmD Unavailable [phone] Encounter Details Date Type Department Care Team (Late Contact Info) Description 05/22/2022 Orders Only [facility] MEDIC[facility] [address] [place] [address] Payton Qureshi MD [address] [place] [address] Type 2 diabetes mellitus with hyperglycemia, with long-term current use of insulin ([facility]) (Primary Dx) Social History Tobacco Use Types Packs/Day Years Used Date Smoking Tobacco: Never Smokeless Tobacco: Never Alcohol Use Standard Drinks/Week Comments Yes 0 (1 standard drink = 0.6 oz pur e alcohol) rare Sex and Gender Information Value Date Recorded Sex Assigned at Male 02/25/2022 10:14 AM EDT Legal Sex Male 10:14 AM EDT Gender Identity Male 02/25/2022 10:14 AM EDT Sexual Orientation Straight 02/25/2022 10 :14 AM EDT COVID-19 Exposure Response Date Recorded In the last 10 days, have yo u been in contact with someone who was confirmed or suspected to have Coronavirus/COVID-19? No / Unsure 05/14/2022 2:41 PM EST documented as of this encounter Plan of Treatment Upcoming Encounters Date Type Department Care Team (Late st Contact Info) Description 05/26/2024 2:30 PM EST Medication Management [facility] MED[facility] [address] [place] [address] Delia Mast, PharmD [address] [place] [address] documented as of this encounter Visit Diagnoses Diagnosis Type 2 diabetes mellitus with hyperglycemia, with long-term current use of insulin ([facility])- Primary documented in this encounter Care Teams Linseed Oil Press Tender Relationship Specialty Start Date End Date Dawn Almaguer MD [address] [place] [phone] PCP - General Family Medicine 02/25/18 Delia Mast PharmD [address] [place] [phone] Pharmacist Internal Medicine 03/15/24 documented as of this encounter
--- OUTSIDE RECORDS SUMMARY | 2024-05-24 13:32 | XMS_ITS | Encounter Summary ---
Author Organization [employer] Address [address] [facility] 7t [place] [address] Care Team Providers Care Crew Chief Name Role Phone Dawn Almaguer MD Primary Care Provide r Delia Mast PharmD Unavailable [phone] Reason for Visit * Reason Comments Med Refill Encounter Details Date Type Department Care Team (Late st Contact Info) Description 05/10/2024 Refill [facility] [address] [place], [place] [phone] Dawn Almaguer MD [address] [place], [place] [phone] Type 2 diabetes mellitus with other specified complication, unspecified whether detention insulin use ([facility]) Social History Tobacco Use Types [...] Description 05/26/2024 2:30 PM EST Medication Management [facility] MEDICINE [address] [place] [address] Delia Mast PharmD [address] [place] [phone] documented as of this encounter Visit Diagnoses Diagnosis Type 2 diabetes mellitus with other specified complication, unspecified whether detention insulin use ([facility]) documented in this encounter Additional Health Concerns Assessment Noted Time PHQ-9 Depression Total Score: 0 07/01/19 24 1:29 PM EST documented as of this encounter Care Teams Crew Chief Relationship Specialty Start Date End Date Dawn Almaguer MD [address] [place] [id number] PCP - General Family Medicine 02/25/18 Delia Mast PharmD [address] [place] [phone] Pharmacist Internal Medicine 03/15/24 documented as of this encounter
--- OUTSIDE RECORDS SUMMARY | 2024-05-24 13:32 | XMS_ITS | Encounter Summary ---
Author Organization [employer] Address [address] [facility] 7t [place] [address] Care Team Providers Care Slaughterer Religious Ritual Name Role Phone Dawn Almaguer MD Primary Care Provide r Delia Mast PharmD Unavailable [phone] Reason for Visit * Reason Comments Pre-visit Planning (SDOH screening posi tive tobacco screening negative) Encounter Details Date Type Department Care Team ([facility] st Contact Info) Description 04/29/2024 Patient Outreach [facility] MEDICINE [address] [place] [address] Dawn Almaguer MD [address] [place], [place] [phone] Pre-visit Planning ((SDOH screening positive tobacco screening negative) ) Social History Tobacco Use Types Packs/Day Years [...] as of this encounter Progress Notes * Annette Nolasco - 04/29/2024 2:07 PM EST CC Annette placed successful outbound call to patient for pre-visit planning. Patient name and confirmed. Patient confirms appt date and time, and has transportation arrangements. Biggest concern for appointment at this time is none Appropriate screening completed in anticipation of appointment.Patient advised to bring to appointment a photo id and insurance card, SDOH positive. Patient looking for assistance with transportation Referral will be placed. documented in this encounter Plan of Treatment Upcoming Encounters Date Type Department Care Team (Late st Contact Info) Description 05/26/2024 2:30 PM EST Medication Management [facility] MEDICINE [address] [place] [address] Delia Mast, PharmD [address] [place], [place] [phone] documented as of this encounter Visit Diagnoses Not on filedocumented in this encounter Additional Health Concerns Assessment Noted Time PHQ-9 Depression Total Score: 0 07/01/19 1:29 PM EST documented as of this encounter Care Teams Slaughterer Religious Ritual Relationship Specialty Start Date End Date Dawn Almaguer MD [address] [place] [address] PCP - General Family Medicine 02/25/18 Delia Mast, Rosa [address] [place] [address] Pharmacist Internal Medicine 03/15/24 documented as of this encounter
== END 2024-05-24 09:12 | disposition home or self-care (01) ==
LOC: HO.XRAY 09:11
PROVIDERS: PCP Internal Medicine; Visit Provider Internal Medicine
DX: R10.9 Unspecified abdominal pain (principal)
CPT/HCPCS: 74240

== ENCOUNTER → 2024-05-24 09:13 | Outpatient (BNV) | payer OTHER, SELFPAY | PROVIDERS: PCP Internal Medicine; Visit Provider Physician Assistant Surgical | DX: R10.9 Unspecified abdominal pain (principal) | CPT/HCPCS: 74246; 74248 ==

== ENCOUNTER → 2024-06-02 11:27 | Outpatient (BNVA) | payer OTHER, SELFPAY | PROVIDERS: PCP Internal Medicine; Visit Provider Nurse Practitioner Family | DX: N47.1 Phimosis (principal); N28.1 Cyst of kidney, acquired; R39.14 Feeling of incomplete bladder emptying | CPT/HCPCS: 51798; 81003; 99212 ==

== ENCOUNTER 2024-06-09 12:23 | Outpatient (AMB) | payer OTHER, SELFPAY ==
--- NOTE | 2024-06-09 12:24 | A.OFFVIS_ITS ---
Vital Signs 06/09/24 12:25 Height 6 ft Weight 238 lb 1.588 oz BMI 32.3 BP 130/62 Blood Pressure Location Lt brachial Position Sitting Pulse 63 Intake Visit Reasons: Abnormal BA Swallow Intake Note: Kenny presents in the office as a follow up for an abnormal BA swallow. CC: He states that he is still having the pains in his abdomen and pointed to the LUQ but states that it is also all over. College Basketball Coach Required: Yes College Basketball Coach Name: [id number] Ambrocio Allergies No Known Allergies Allergy (Mild, Verified 06/09/24 12:33) NKA HPI Comments Details: 68 y.o M with [facility] who is here for reflux. Seen with the help of rn primary care. Reports episode of severe pain with nausea in September. At that time was also noted have hyperglycemia with glycosuria and RADHA. Outside of that episode, has intermittent burnign retrosternal pain. Occ nausea. Appetite is good. No vomiting or regurgitation. Last colo 2017 Dr Mena - sony, no polyps. Quit smoking many years ago. EtOH intake on weekends. 03/30/24: Here for follow up. Reports sx have improved quite a lot since he was last seen after he started omeprazole 20 once daily. Occ has to take mylanta otherwise no acute concerns today. US abd done - read pending. UGIS pending. 05/24/24: UGIS 1. Mildly disordered esophageal peristalsis. 2. Very small type I hiatal hernia with moderate gastroesophageal reflux. 3. Multiple focal areas of contrast pooling in the fundus of the stomach that may represent small mucosal erosions. Recommend correlation with EGD. 4. Focal area of narrowing/apparent asymmetric filling defect between the duodenal bulb in the second segment of the duodenum that appears to resolve with filling/distention of the duodenum. An underlying subtle mass cannot be excluded, although no evidence of mass on recent prior MRI or CT. Recommend correlation with EGD. 5. Small diverticulum in the distal third/proximal fourth segment of the duodenum.- 06/09/24: Here to discuss results of UGIS. Accompanied by step daughter Korin. Pt himself has no acute concerns. Doing well with omeprazole. Results reviewed and images also independently shown to the pt. [facility] Medical History Hypercholesteremia Hypertension Diabetes mellitus Surgical History History of esophagogastroduodenoscopy (EGD) Hx of colonoscopy Social History Household Members: None Housing: Apartment Patient Tobacco Use Status: Former Tobacco user service: No Review of Systems Const All systems reviewed & are unremarkable except as noted in HPI and below Physical Exam Vital Signs: Last Vital Signs Pulse 63 06/09/24 12:25 BP 130/62 06/09/24 12:25 BMI result Body Mass Index 32.3 No apparent distress Nonicteric Abdomen soft, nondistended Alert and oriented x3, normal gait Assessment & Plan Assessment & Plan (1) Abnormal UGI series: Code(s): R93.3 - Abnormal findings on diagnostic imaging of other parts of digestive tract Category: Medical (2) Duodenal nodule: Code(s): K31.89 - Other diseases of stomach and duodenum Plan Reviewed that based on UGIS, could possibly have ROSSANA vs imaging artifact. will set up EGD for luminal evaluation. Will also help assess for gastritis. Meds reviewed and pt aware to HOLD trulicity x 7 days, dabigatran and synjardy x 3 days prior to the procedure. This was relayed with the help of rn primary care (Earlene) as well as written down for him to hand to pharmacy to help out with his pill box. Cont omeprazole. Follow up after EGD. Coding Level of Care Code Est Pt Level 4 (80451) Diagnoses Abnormal UGI series R93.3 Duodenal nodule K31.89
[2024-06-09 12:25] VITALS: BP 130/62; PULSE 63; BMI 32.3
--- OUTSIDE RECORDS SUMMARY | 2024-06-09 13:54 | XMS_ITS | Encounter Summary ---
Author Organization [employer] Address [address] [facility] 7t [place] [address] Care Team Providers Care Management Trainee Marketing Name Role Phone Dawn Almaguer MD Primary Care Provide r Delia Mast PharmD Unavailable [phone]- [phone] Encounter Details Date Type Department Care Team (Latest Contact Info) Description 06/04/2024 Travel Social History Tobacco Use Types Packs/Day [...] is your housing situation today? I have irazisabella lujan 02/10/[address] you [...] Care Team (Late st Contact Info) Description 07/02/2024 2:30 PM EST Medication Management [facility] MEDICINE [address] [place] [address] Delia Mast PharmD [address] [place] [address] 09/28/2024 2:00 PM EDT Office Visit [facility] [address] [place] [address] Art, Jacquelyn, OD [address] [place] [address] documented as of this encounter Visit Diagnoses Not on filedocumented in this encounter Additional Health Concerns Assessment Noted Time PHQ-9 Depression Total Score: 0 07/01/19 24 1:29 PM EST documented as of this encounter Care Teams Management Trainee Marketing Relationship Specialty Start Date End Date Dawn Almaguer MD [address] [place] [id number] PCP - General Family Medicine 02/25/18 Delia Mast PharmD [address] [place] [phone] Pharmacist Internal Medicine 03/15/24 [place] 05/06/24 documented as of this encounter
--- OUTSIDE RECORDS SUMMARY | 2024-06-09 13:54 | XMS_ITS | Encounter Summary ---
Author Organization [employer] Address [address] [facility] 7t [place] [address] Care Team Providers Care Policewoman Name Role Phone Dawn Almaguer MD Primary Care Provide r Delia Mast PharmD Unavailable [phone] Reason for Visit * Reason Comments Med Refill Encounter Details Date Type Department Care Team (Late st Contact Info) Description 02/07/2024 Refill [facility] [address] [place] [address] Dawn Almaguer MD [address] [place], [place] [phone] Heartburn Social History Tobacco Use Types Packs/Day [...] Description 07/02/2024 2:30 PM EST Medication Management [facility] MEDICINE [address] [place] [address] Delia Mast PharmD [address] [place] [address] 09/28/2024 2:00 PM EDT Office Visit [facility] [address] [place] [address] Art, Jacquelyn, OD [address] [place] [address] documented as of this encounter Visit Diagnoses Diagnosis Heartburn documented in this encounter Additional Health Concerns Assessment Noted Time PHQ-9 Depression Total Score: 0 07/01/19 24 1:29 PM EST documented as of this encounter Care Teams Policewoman Relationship Specialty Start Date End Date Dawn Almaguer MD [address] [place] [address] PCP - General Family Medicine 02/25/18 Delia Mast, PharmD [address] [place] [phone] Pharmacist Internal Medicine 03/15/24 [place] 05/06/24 documented as of this encounter
--- OUTSIDE RECORDS SUMMARY | 2024-06-09 13:54 | XMS_ITS | Encounter Summary ---
Author Organization [employer] Address [address] [facility] 7[address] [place] [address] Care Team Providers Care Canary Breeder Name Role Phone Dawn Almaguer MD Primary Care Provide r Delia Mast PharmD Unavailable [phone] Encounter Details Date Type Department Care Team ([facility] Contact Info) Description 07/14/2023 Orders Only [facility] [address] [place], [place] [phone] Bhumika Timmons FNP [address] [place] [address] Type 2 diabetes mellitus with hyperglycemia, with long-term current use of insulin ([facility]) Social History Tobacco Use Types [...] Description 07/02/2024 2:30 PM EST Medication Management [facility] [address] [place] [address] Delia Mast, PharmD [address] [place] [address] 09/28/2024 2:00 PM EDT Office Visit [facility] [address] [place], [place] [phone] Art, Jacquelyn, OD [address] [place] [address] documented as of this encounter Procedures Procedure Name Priority Date/Time Associated Diagnosis Comments URINALYSIS, COMPLETE, WITH REFLEX TO CULTURE Routine 10/24/2023 4:59 PM EDT Type 2 diabetes mellitus with hyperglycemia, with long-term current use of insulin ([facility]) HIGH SENSITIVITY TROPONIN I Routine 10/24/2023 3:23 PM EDT Type 2 diabetes mellitus with hyperglycemia, with long-term current use of insulin ([facility]) SARS COV2/INFLUENZA A/B AND RSV RNA QL NAAT Routine 10/24/2023 3:23 PM EDT Type 2 diabetes mellitus with hyperglycemia, with long-term current use of insulin (CMS/HCC) CBC WITH AUTO DIFFERENTIAL Routine 10/24/2023 3:23 PM EDT Type 2 diabetes mellitus with hyperglycemia, with long-term current use of insulin (CMS/HCC) MAGNESIUM Routine 10/24/2023 3:23 PM EDT Type 2 diabetes mellitus with hyperglycemia, with long-term current use of insulin (CMS/HCC) LIPASE Routine 10/24/2023 3:23 PM EDT Type 2 diabetes mellitus with hyperglycemia, with long-term current use of insulin (CMS/HCC) COMPREHENSIVE METABOLIC PANEL Routine 10/24/2023 3:23 PM EDT Type 2 diabetes mellitus with hyperglycemia, with long-term current use of insulin (CMS/HCC) HIGH SENSITIVITY TROPONIN I Routine 10/23/2023 2:37 PM EDT Type 2 diabetes mellitus with hyperglycemia, with long-term current use of insulin (CMS/HCC) CBC WITH AUTO DIFFERENTIAL Routine 10/23/2023 2:37 PM EDT Type 2 diabetes mellitus with hyperglycemia, with long-term current use of insulin (CMS/HCC) LIPASE Routine 10/23/2023 2:37 PM EDT Type 2 diabetes mellitus with hyperglycemia, with long-term current use of insulin (CMS/HCC) HEPATIC FUNCTION PANEL Routine 2:37 PM EDT Type 2 diabetes mellitus with hyperglycemia, with long-term current use of insulin (CMS/HCC) BASIC METABOLIC PANEL Routine 10/23/2023 2:37 PM EDT Type 2 diabetes mellitus with hyperglycemia, with long-term current use of insulin (CMS/HCC) URINALYSIS, COMPLETE, WITH REFLEX TO CULTURE Routine 10/23/2023 2:32 PM EDT Type 2 diabetes mellitus with hyperglycemia, with long-term current use of insulin (CMS/HCC) documented in this encounter Results * (ABNORMAL) Urinalysis, Complete, with Reflex to Culture (10/24/2023 4:59 PM EDT) Color Urine Yellow [facility] Appearance Urine Clear [facility] PH 5.5 5.0 - 9.0 [facility] Glucose Urine UA >=1000(A) Negative mg/dL [facility] Urine Blood Negative Negative [facility] Specific [employer] - Urine >=1.030(H) 1.005 - 1.025 [facility] Urine Protein Negative Neg-Trace mg/dL [facility] Urine Ketones Negative Negative mg/dL [facility] Nitrite Urine Negative Negative [facility] Leukocyte Esterase Urine Negative Negative [facility] RBC Urine 0-2 0 - 2 /HPF [facility] Urine WBC 0-5 0 - 5 /HPF [facility] Urine Squamous Epithelial Cell 0-2 0 - 2 /HPF [facility] Urine Bacteria None Seen None Seen [facility] Hyaline Casts, Urine 0-2 0 - 2 /LPF [facility] 10/24/2023 4:59 PM EDT 10/24/2023 5:01 PM EDT Narrative [facility] - 10/24/2023 5:45 PM EDT [id number], Clean [employer] us Generic External Data Provider LAB URINE ORDERAB LES Final Result [facility] [address] [place] [phone] * High Sensitivity Troponin I (10/24/2023 3:23 PM EDT) Pathologist [facility] TROPONIN I HIGH SENSITIVITY 4.9 <3.5 - 35.0 ng/L [facility] Comment:The Neal high sens itivity Troponin-I results should beused in conjunction with other diagnostic information suchas ECG, clinical observations and information, and patientsymptoms to aid in the diagnosis of IA. 10/24/2023 3:23 PM EDT 10/24/2023 5:30 PM EDT Generic External Data Provider LAB BLOOD ORDERAB LES Final Result [facility] [address] [place] [phone] * Lipase (10/24/2023 3:23 PM EDT) Lipase 54 8 - 78 U/L [facility] 10/24/2023 3:23 PM EDT 10/24/2023 3:26 PM EDT Generic External Data Provider LAB BLOOD ORDERAB LES Final Result Performing Organization Address [facility]/ZIP Co de Phone Number [facility] [address] [place] [address] [phone] * SARS-CoV-2 RNA, Influenza A/B, and RSV RNA, Ql NAAT (10/24/2023 3:23 PM EDT) Influenza A PCR NEGATIVE Negative [facility] Influenza B PCR NEGATIVE Negative [facility] Resp Syncy Virus RNA Qual PCR NEGATIVE Negative [facility] SARS COV2 PCR NEGATIVE Negative [facility] Comment:All test results mus t be [...] use by authorized laboratories.Testing performed on the cloudControl GeneXpert utilizingreal-time RT-PCR.All SARS CoV2 and positive influenza A/B results arereported to [facility]. 10/24/2023 3:23 PM EDT 10/24/2023 3:26 PM EDT us Generic External Data Provider LAB MICROBIOLOGY - GENERAL ORDERABLES Final Result Performing Organization Address City/[facility]/ZIP Co de Phone Number [facility] [address] [place] [address] [phone] * Magnesium (10/24/2023 3:23 PM EDT) Magnesium 1.9 1.6 - 2.6 mg/dL [facility] 10/24/2023 3:23 PM EDT 10/24/2023 3:26 PM EDT Generic External Data Provider LAB BLOOD ORDERAB LES Final Result Performing Organization Address [facility] de Phone Number [facility] [address] [place] [phone] * (ABNORMAL) Comprehensive Metabolic Panel (10/24/2023 3:23 PM EDT) Pathologist [facility] Sodium 140 135 - 145 mmol/L [facility] Potassium 4.5 3.3 - 5.1 mmol/L [facility] Chloride 107 96 - 108 mmol/L [facility] Carbon Dioxide 22 22 - 29 mmol/L [facility] Anion Gap 16 12 - 20 [facility] Urea Nitrogen (BUN) 37(H) 9 - 16 mg/dL [facility] Creatinine, Serum 1.94(H) 0.5 - 1.4 mg/dL [facility] Creatinine Clr Calc Pharmacy 46.1 [facility] Comment:eGFR (calculated fro m the MDRD study equation) and eCrCl(calculated from the Cockcroft-Gault equation) are based ondifferent parameters and may not yield comparable results.If eCrCl result is absurd, please check patient'sheight/weight. Estimated Glomerular Filt Rate 35 [facility] Comment:NOTE: For -Am erican individuals, multiply the result by 1.210.Chronic Kidney Disease: Estimated GFR < 60 mL/min/1.92q0Ihdeiz Kidney Disease: Estimated GFR < 15 mL/min/1.73m2 Glucose 266(H) 60 - 115 mg/dL [facility] Calcium 9.2 8.4 - 10.2 mg/dL [facility] Bilirubin, Total 0.4 0.0 - 1.0 mg/dL [facility] Aspartate Amino Transferase 25 5 - 37 U/L [facility] Alanine Aminotransferase 20 0 - 40 U/L [facility] Total Protein 7.7 6.5 - 8.0 g/dL [facility] Albumin Level 3.9 3.5 - 5.0 g/dL [facility] Alkaline Phosphatase 54 39 - 117 U/L [facility] 10/24/2023 3:23 PM EDT 10/24/2023 3:26 PM EDT us Generic External Data Provider LAB BLOOD ORDERAB LES Final Result [facility] [address] [place] [phone] * (ABNORMAL) CBC auto differential (10/24/2023 3:23 PM EDT) White Blood Count 9.6 4.8 - 10.8 X10*3/uL [facility] Red Blood Count 4.15(L) 4.60 - 5.80 X10*6/uL [facility] Hemoglobin 12.6(L) 14.0 - 18.0 g/dl [facility] Hematocrit 37.7(L) 42.0 - 52.0 % [facility] Mean Corpuscular Volume 90.8 80.0 - 98.0 fL [facility] Mean Corpuscular Hemoglobin 30.4 27.0 - 33.0 pg [facility] Mean Corpuscular HGB Conc 33.4 31.0 - 36.0 g/dl [facility] Red Cell Distribution Width 14.7 11.0 - 16.0 % [facility] Platelet Count 202 160 - 400 X10*3/uL [facility] Mean Platelet Volume 10.9 9.4 - 12.4 fL [facility] Neutrophils Percent Auto 57.9 45 - 73 % [facility] Imm Gran Pct Auto 0.2 0.0 - 0.4 % [facility] Lymphocytes Percent Auto 26.7 20 - 40 % [facility] Monocytes Percent Auto 9.2 2 - 11 % [facility] Eosinophils Percent Auto 5.1(H) 0 - 4 % [facility] Basophils Percent Auto 0.9 0 - 2 % [facility] NRBC Pct Auto 0.0 0.0 - 0.2 /100WBC [facility] Neutrophils Absolute Auto 5.6 2.0 - 8.3 x10*3/uL [facility] Imm Gran Abs Auto 0.02 0.00 - 0.03 X10*3/uL [facility] Lymphocytes Absolute Auto 2.6 1.2 - 4.9 X10*3/uL [facility] Monocytes Absolute Auto 0.9 0.1 - 1.2 X10*3/uL [facility] Eosinophils Absolute Auto 0.5(H) 0.0 - 0.4 X10*3/uL [facility] Basophils Absolute Auto 0.1 0.0 - 0.2 X10*3/uL [facility] NRBC Abs Auto 0.000 0.0 - 0.012 X10*3/uL [facility] 10/24/2023 3:23 PM EDT 10/24/2023 3:26 PM EDT us Generic External Data Provider LAB BLOOD ORDERAB LES Final Result [facility] [address] [place] [phone] * High Sensitivity Troponin I (10/23/2023 2:37 PM EDT) TROPONIN I HIGH SENSITIVITY 4.9 <3.5 - 35.0 ng/L [facility] Comment:The Neal high sens itivity Troponin-I results should beused in conjunction with other diagnostic information suchas ECG, clinical observations and information, and patientsymptoms to aid in the diagnosis of IA. 10/23/2023 2:37 PM EDT 10/23/2023 2:40 PM EDT Generic External Data Provider LAB BLOOD ORDERAB LES Final Result Performing Organization Address City/[facility]/ZIP Co de Phone Number [facility] [address] [place] [phone] * Lipase (10/23/2023 2:37 PM EDT) Pathologist [facility] Lipase 64 8 - 78 U/L [facility] 10/23/2023 2:37 PM EDT 10/23/2023 2:40 PM EDT Generic External Data Provider LAB BLOOD ORDERAB LES Final Result Performing Organization Address [facility] Co de Phone Number [facility] [address] [place] [phone] * (ABNORMAL) Basic Metabolic Panel (10/23/2023 2:37 PM EDT) Sodium 140 135 - 145 mmol/L [facility] Potassium 4.3 3.3 - 5.1 mmol/L [facility] Chloride 107 96 - 108 mmol/L [facility] Carbon Dioxide 19(L) 22 - 29 mmol/L [facility] Anion Gap 18 12 - 20 [facility] Urea Nitrogen (BUN) 40(H) 9 - 16 mg/dL [facility] Creatinine, Serum 2.12(H) 0.5 - 1.4 mg/dL [facility] Creatinine Clr Calc Pharmacy 43.0 [facility] Comment:eGFR (calculated fro m the MDRD study equation) and eCrCl(calculated from the Cockcroft-Gault equation) are based ondifferent parameters and may not yield comparable results.If eCrCl result is absurd, please check patient'sheight/weight. Estimated Glomerular Filt Rate 31 [facility] Comment:NOTE: For -Am erican individuals, multiply the result by 1.210.Chronic Kidney Disease: Estimated GFR < 60 mL/min/1.07e3Xwambw Kidney Disease: Estimated GFR < 15 mL/min/1.73m2 Glucose 293(H) 60 - 115 mg/dL [facility] Calcium 9.5 8.4 - 10.2 mg/dL [facility] 10/23/2023 2:37 PM EDT 10/23/2023 2:40 PM EDT Generic External Data Provider LAB BLOOD ORDERAB LES Final Result Performing Organization Address [facility] de Phone Number [facility] [address] [place] [phone] * Hepatic Function Panel (10/23/2023 2:37 PM EDT) Bilirubin, Total 0.6 0.0 - 1.0 mg/dL [facility] Bilirubin, Direct 0.2 0.0 - 0.5 mg/dL [facility] Aspartate Amino Transferase 29 5 - 37 U/L [facility] Alanine Aminotransferase 22 0 - 40 U/L [facility] Total Protein 7.8 6.5 - 8.0 g/dL [facility] Albumin Level 3.9 3.5 - 5.0 g/dL [facility] Alkaline Phosphatase 54 39 - 117 U/L [facility] 10/23/2023 2:37 PM EDT 10/23/2023 2:40 PM EDT Generic External Data Provider LAB BLOOD ORDERAB LES Final Result Performing Organization Address [facility] de Phone Number [facility] [address] [place] [phone] * (ABNORMAL) CBC auto differential (10/23/2023 2:37 PM EDT) White Blood Count 9.7 4.8 - 10.8 X10*3/uL [facility] Red Blood Count 4.13(L) 4.60 - 5.80 X10*6/uL [facility] Hemoglobin 12.6(L) 14.0 - 18.0 g/dl [facility] Hematocrit 38.0(L) 42.0 - 52.0 % [facility] Mean Corpuscular Volume 92.0 80.0 - 98.0 fL [facility] Mean Corpuscular Hemoglobin 30.5 27.0 - 33.0 pg [facility] Mean Corpuscular HGB Conc 33.2 31.0 - 36.0 g/dl [facility] Red Cell Distribution Width 14.5 11.0 - 16.0 % [facility] Platelet Count 195 160 - 400 X10*3/uL [facility] Mean Platelet Volume 10.5 9.4 - 12.4 fL [facility] Neutrophils Percent Auto 60.7 45 - 73 % [facility] Imm Gran Pct Auto 0.3 0.0 - 0.4 % [facility] Lymphocytes Percent Auto 23.8 20 - 40 % [facility] Monocytes Percent Auto 10.9 2 - 11 % [facility] Eosinophils Percent Auto 3.5 0 - 4 % [facility] Basophils Percent Auto 0.8 0 - 2 % [facility] NRBC Pct Auto 0.0 0.0 - 0.2 /100WBC [facility] Neutrophils Absolute Auto 5.9 2.0 - 8.3 x10*3/uL [facility] Imm Gran Abs Auto 0.03 0.00 - 0.03 X10*3/uL [facility] Lymphocytes Absolute Auto 2.3 1.2 - 4.9 X10*3/uL [facility] Monocytes Absolute Auto 1.1 0.1 - 1.2 X10*3/uL [facility] Eosinophils Absolute Auto 0.3 0.0 - 0.4 X10*3/uL [facility] Basophils Absolute Auto 0.1 0.0 - 0.2 X10*3/uL [facility] NRBC Abs Auto 0.000 0.0 - 0.012 X10*3/uL [facility] 10/23/2023 2:37 PM EDT 10/23/2023 2:40 PM EDT us Generic External Data Provider LAB BLOOD ORDERAB LES Final Result Performing Organization Address [facility] Co de Phone Number [facility] [address] [place] [phone] * (ABNORMAL) Urinalysis, Complete, with Reflex to Culture (10/23/2023 2:32 PM EDT) Color Urine Yellow [facility] Appearance Urine Clear [facility] PH 5.0 5.0 - 9.0 [facility] Glucose Urine UA >=1000(A) Negative mg/dL [facility] Urine Blood Negative Negative [facility] [employer] - Urine 1.020 1.005 - 1.025 [facility] Urine Protein Negative Neg-Trace mg/dL [facility] Urine Ketones Negative Negative mg/dL [facility] Nitrite Urine Negative Negative [facility] Leukocyte Esterase Urine Negative Negative [facility] RBC Urine 0-2 0 - 2 /HPF [facility] Urine WBC 0-5 0 - 5 /HPF [facility] Urine Squamous Epithelial Cell 0-2 0 - 2 /HPF [facility] Urine Bacteria None Seen None Seen [facility] Hyaline Casts, Urine 0-2 0 - 2 /LPF [facility] 10/23/2023 2:32 PM EDT 10/23/2023 2:40 PM EDT Narrative [facility] - 10/23/2023 3:07 PM EDT Urine, Clean Catch us Generic External Data Provider LAB URINE ORDERAB LES Final Result Performing Organization Address City/[facility]/ZIP Co de Phone Number [facility] [address] [place] [phone] documented in this encounter Visit Diagnoses Diagnosis Type 2 diabetes mellitus with hyperglycemia, with long-term current use of insulin ([facility]) documented in this encounter Additional Health Concerns Assessment Noted Time PHQ-9 Depression Total Score: 0 07/01/19 24 1:29 PM EST documented as of this encounter Care Teams Canary Breeder Relationship Specialty Start Date End Date Dawn Almaguer MD [address] [place] [phone] PCP - General Family Medicine 02/25/18 Delia Mast, LivierD [address] [place] [phone] Pharmacist Internal Medicine 03/15/24 [place] 05/06/24 documented as of this encounter
--- OUTSIDE RECORDS SUMMARY | 2024-06-09 13:54 | XMS_ITS | Clinical Summary ---
Author Organization [employer] Address [address] [place] [address] 7[address] [place] [address] Care Team Providers Care Operator Technician Name Role Phone Dawn Almaguer MD Primary Care Provide r Delia Mast PharmD Unavailable [phone] Allergies No known active allergies Medications atorvastatin [...] the affected area(s) as needed 022 Active glucose blood (FREESTYLE LITE) test stripIndication s:Type 2 diabetes mellitus with hyperglycemia, with long-term current use of insulin ([facility]) TEST BLOOD SUGAR FOUR TIMES DAILY 100 strip 11 024 Active dabigatran etexilate (Pradaxa) 150 MG capsule Take 150 mg by mouth 2 times daily. 024 Active Multaq 400 MG tablet Take 400 mg by mouth 2 times daily. 024 Active tamsulosin (Flomax) 0.4 MG 24 hr capsule Take 1 capsule by mouth at bedtime. 024 Active cyanocobalamin (Vitamin B-12) 1000 MCG tablet TAKE 1 TABLET BY MOUTH EVERY DAY 90 tablet 3 024 Active Continuous Glucose Magnetic Prospecting Supervisor (FreeStyle Monica 2 United) deviceIndicatio ns:Type 2 diabetes mellitus with hyperglycemia, with long-term current use of insulin ([facility]) Scan sensor every 8 hours 1 each 2 Active Continuous Glucose Sensor (FreeStyle Monica 2 Sensor) miscIndications :Type 2 diabetes mellitus with hyperglycemia, with long-term current use of insulin ([facility]) Apply 1 sensor every 14 days 2 each 2 Active glucose blood (FreeStyle Precision Charan Test) test stripIndication s:Type 2 diabetes mellitus with hyperglycemia, with long-term current use of insulin ([facility]) Use to test blood sugar 2 times [...] hyperglycemia, with long-term current use of insulin ([facility]) Use as needed for low blood sugar 45 g 11 Active insulin glargine (Lantus SoloStar) 100 UNIT/ML penIndications: Type 2 diabetes mellitus with hyperglycemia, with long-term current use of insulin ([facility]) Inject subcutaneously 16 units once daily Active empagliflozin-m etFORMIN (Synjardy) 12.5-1000 MGIndications:T ype 2 diabetes mellitus with hyperglycemia, with long-term current use of insulin ([facility]) Take 1 tablet by mouth with breakfast and with evening meal. 180 tablet 3 Active Dulaglutide (Trulicity) 1.5 MG/0.5ML solution auto-injectorIn dications:Type 2 diabetes mellitus with hyperglycemia, with long-term current use of insulin ([facility]) Inject 1.5 mg under the skin 1 (one) time per week. 2 mL 2 Active glipiZIDE XL (Glucotrol XL) 10 MG 24 hr tabletIndicatio ns:Type 2 diabetes mellitus with other specified complication, unspecified whether terminologist insulin use ([facility]) TAKE 1 TABLET BY MOUTH TWICE DAILY WITH MEALS 180 tablet 3 025 Active cholecalciferol (D3 Super Strength) 50 MCG (1999 UT) capsuleIndicati ons:Vitamin D deficiency TAKE 1 CAPSULE BY MOUTH EVERY MORNING 90 capsule 1 025 Active B-D UF III MINI PEN NEEDLES 31G X 5 MM misc USE DIRECTED DAILY WITH LANTUS 025 Active TRUEplus Lancets 33G miscIndications :Type 2 diabetes mellitus with hyperglycemia, with long-term current use of insulin ([facility]) Check blood sugar 3 times a day 100 each 11 025 Active TRUEplus Lancets 33G miscIndications :Type 2 diabetes mellitus with hyperglycemia, with long-term current use of insulin ([facility]) Check blood sugar 4 times a day 100 each 11 023 2024 Discontinued(R eorder (will not trigger notification to Pharmacy)) pen needle 31G x 6 mm miscIndications :Type 2 diabetes mellitus with hyperglycemia, with long-term current use of insulin ([facility]) Use as instructed daily for Lantus administration 100 each 11 024 2024 Discontinued(M ed list cleanup (will not trigger notification to Pharmacy)) furosemide (Lasix) 20 MG tablet Take 20 mg by mouth Once per day. 024 2024 Discontinued(D iscontinued by another clinician) cholecalciferol (D3 Super Strength) 50 MCG (1999 UT) capsuleIndicati ons:Vitamin D deficiency TAKE 1 CAPSULE BY MOUTH EVERY DAY 90 capsule 1 024 2024 Discontinued Active Problems Problem Noted [...] 09/04/2020 CREATININE 1.15 10/25/2023 -Changes: I dscontinue janbasimt, I will put him instead n metformin [...] AM EST): Patient reports he went to [place] and forgot his insulin he stop using [...] Lumbar sprain 11/06/2017 Benign prostatic hyperplasia 04/08/2017 Gastroesophageal reflux disease without esophagi tis 04/08/2017 Hyperlipidemia associated wi th type 2 diabetes mellitus ([facility]) 04/08/2017 Pruritus ani 04/08/2017 Morbid obesity 04/08/2017 [...] prescriptions without first consulting health care provider Paroxysmal A-fib 03/17/2013 Venous insufficiency 03/17/2013 Overview (04/23/2024): Left SFJ valve incompetent Encounters Date Type Department Care Team Description 06/04/2024 Travel 06/03/2024 Refill [facility] [address] [place] [phone] Dawn Almaguer MD Vitamin D deficiency 05/17/2024 Orders Only [facility] External Provider, [facility] 05/10/2024 Refill [facility] [address] [place] [phone] Dawn Almaguer MD Type 2 diabetes mellitus with other specified complication, unspecified whether terminologist insulin use ([facility]) 05/07/2024 10:00 AM EST Office Visit [address] [address] Dawn Almaguer MD Bradycardia (Primary Dx); Type 2 diabetes mellitus with hyperglycemia, with long-term current use of insulin ([facility]); Primary hypertension; Renal mass 05/07/2024 Travel 04/29/2024 Patient Outreach [address] [address] Dawn Almaguer MD Care Coordination (CH[facility] outreach for SDOH CCA and food needs-referral completed /) 04/29/2024 Patient Outreach [address] [address] Dawn Almaguer MD Pre-visit Planning ((SDOH screening positive tobacco screening negative) ) 04/26/2024 Telephone [facility] [address] [place] [phone] Kell Reeves NP 04/23/2024 3:20 PM EST Office Visit [facility] [address] [place] [phone] Kell Reeves NP Bradycardia (Primary Dx); Occipital headache; Dizziness 04/23/2024 Telephone [facility] [address] [place] [address] Signs, CHIDI Rodríguez 04/23/2024 Travel 03/24/2024 Travel 03/15/2024 Orders Only [facility] External Provider, [facility] 03/10/2024 Travel from Last 3 Months Immunizations Name Administration Dates Next Due Hep B, adult 12/21/2014,07/26/2014,06/14/2014 Influenza Quadrivalent Adjuvanted 01/17/2022 Abyz SARS-CoV-2 Vaccination 08/16/2020,2020 Pfizer Covid-19 Vaccine 12+ [...] Sign Reading Time Taken Comments Blood Pressure 122/58 06/04/2024 2:25 PM EST Pulse 54 06/04/2024 2:25 PM EST Temperature 35.8 ??C (96.5 ??F) 05/07/2024 [...] Description 07/02/2024 2:30 PM EST Medication Management [facility] [address] [place], [place] [phone] Delia aMst, PharmD [address] [place] [address] 09/28/2024 2:00 PM EDT Office Visit [facility] [address] [place], [place] [phone] Jacquelyn Cordova, OD [address] [place] [address] Health Maintenance Due Date Last Done Comments CT Colonography 1955 FIT DNA/Cologuard 1955 FIT 1955 FOBT 1955 Sigmoidoscopy 1955 Hepatitis C Screening 11/14/1973 Diabetes: Urine Protein Screening 09/04/2021 09/04/2020, 07/08/2019 Zoster Vaccines (2 of 2) 09/17/2022 07/23/2022 Diabetes: Foot Exam 08/08/2023 08/07/2022, 3 COVID-19 Vaccine ( season) 2023 08/28/2021, 08/28/2021, [...] Vaccines Completed 12/21/2014, 07/26/2014, 06/14/2014 Pneumococcal Vaccine: 50+ Years Completed 07/23/2022, 02/15/2010 RSV Patients and [...] Procedure Name Priority Date/Time Associated Diagnosis Comments FL UPPER GI W BARIUM SWALLOW Routine 05/24/2024 10:00 AM EST MR ABDOMEN W AND WO CONTRAST Routine 05/17/2024 11:25 AM EST ECG 12-LEAD Routine 04/23/2024 5:17 PM EST Bradycardia Dizziness POCT GLYCATED HEMOGLOBIN, TOTAL Routine 04/23/2024 2:13 PM EST Type 2 diabetes mellitus with hyperglycemia, with long-term current use of insulin ([facility]) US ABDOMEN COMPLETE Routine 03/15/2024 9:00 AM EST LIPID PANEL, STANDARD Routine 01/09/2024 8:34 AM EDT Primary hypertension ALBUMIN, RANDOM URINE W/CREATININE Routine 09/04/2020 8:41 AM EDT from Last 3 Months or Most Recently Relevant to Health Maintenance Results * FL Upper GI w/Barium Swallow (05/24/2024 10:00 AM EST) Anatomical Region Laterality Modality Body Radiographic Ale ging 05/24/2024 10:0 0 AM EST Narrative 05/25/2024 5:10 PM EST ? [facility] ?[address] ?[place] [address] ? Fluoroscopy Report ? Signed ? Patient: Elaina Richard,Kenny ?MR#: M ?? [id number] ? : 1955 ?Acct:[id number] ? Age/Sex: 68 / M ?ADM Date: 05/24/24 ? Loc: HO.XRAY ? Attending Dr: Tena Prakash MD ? Ordering Physician: Tena Prakash MD ?? Date of Service: 05/24/24 ?? Procedure(s): FL upper GI w Ba Swallow ?? Accession Number(s): [id number] ? cc: Dawn Almaguer MD; Tena Prakash MD ? EXAMINATION: ?? XR FLUOROSCOPY UPPER GI WITH AIR ? CLINICAL INFORMATION: ?? Abdominal pain ? COMPARISON: ?? MRI April 2024. CT scan September 2023 ? TECHNIQUE: ?? Fluoroscopic air contrast upper GI examination was performed utilizing ?? standard techniques with thin and thick barium and effervescent ?? granules. Numerous spot images were obtained. ? FINDINGS: ?? Dual and single contrast images of the esophagus demonstrate normal ?? caliber, contour, and mucosal pattern. No evidence of stricture, mass, ?? or ulcerations identified. Esophageal peristalsis is mildly ?? disorganized. ? A very small type I hiatal hernia was seen. Gastroesophageal reflux is ?? seen up to the midesophagus. ? Dual contrast and single contrast images of the stomach demonstrated a ?? normal contour. There are multiple focal areas of contrast pooling in ?? the fundus of the stomach that may represent small mucosal erosions. No ?? masses are present. Contrast freely passed into the gastric antrum and ?? duodenal bulb without delay. ? Single and air-contrast images of the duodenal bulb demonstrate a focal ?? area of narrowing between the duodenal bulb and the second segment of ?? the duodenum, however, this resolves with filling/distention of the ?? duodenum. The duodenal sweep has a normal appearance, course, and ?? mucosal fold appearance. A small diverticulum is noted in the distal ?? third/proximal fourth segment of the duodenum. The imaged proximal ?? jejunum has a normal fold pattern and caliber. ? FLUOROSCOPY TIME: ?? 5 minutes 17 seconds ? Number of Spot Images: 12 ?? Number of Cine: 15 ? DOSE AREA PRODUCT: ?? 3824 uGy-m2 (microgray-meter squared) ? FL/FL upper GI w Ba Swallow ?? IMPRESSION: ?? 1. Mildly disordered esophageal peristalsis. ?? 2. Very small type I hiatal hernia with moderate gastroesophageal ?? reflux. ?? 3. Multiple focal areas of contrast pooling in the fundus of the ?? stomach that may represent small mucosal erosions. Recommend ?? correlation with EGD. ?? 4. Focal area of narrowing/apparent asymmetric filling defect between ?? the duodenal bulb in the second segment of the duodenum that appears to ?? resolve with filling/distention of the duodenum. An underlying subtle ?? mass cannot be excluded, although no evidence of mass on recent prior ?? MRI or CT. Recommend correlation with EGD. ?? 5. Small diverticulum in the distal third/proximal fourth segment of ?? the duodenum. ? This procedure was performed by Bairon Ramirez PA-C, and supervised by ?? Dr. Higuera ? Electronically signed by: ??Kennedy Higuera MD ??05/25/2024 05:07 PM EST RP ? Dictated By: ?Bairon Ramirez ? Signed By: ?<Electronically signed by Bairon Ramirez in OV> ? 05/25/24 1707 ?<Electronically signed by Kennedy Higuera MD in OV> ? 05/25/24 1709 ? DD/ 1000 ? TD/TT: 05/24/24 1030 ? Polishing Machine Tender: ? Procedure Note Amanda Arenas - 05/25/2024 [place] [address] Fluoroscopy Report Signed Patient: Tamika Dowell#: M [id number] : 6Acct:[id number] Age/Sex: 68 / MADM Date: 05/24/24 Loc: HO.XRAY Attending Dr: Tena Prakash MD Ordering Physician: Tena Prakash MD Date of Service: 05/24/24 Procedure(s): FL upper GI w Ba Swallow Accession Number(s): [id number] cc: Dawn Almaguer MD; Tena Prakash MD EXAMINATION: XR FLUOROSCOPY UPPER GI WITH AIR CLINICAL INFORMATION: Abdominal pain COMPARISON: MRI April 2024. CT scan September 2023 TECHNIQUE: Fluoroscopic air contrast upper GI examination was performed utilizing standard techniques with thin and thick barium and effervescent granules. Numerous spot images were obtained. FINDINGS: Dual and single contrast images of the esophagus demonstrate normal caliber, contour, and mucosal pattern. No evidence of stricture, mass, or ulcerations identified. Esophageal peristalsis is mildly disorganized. A very small type I hiatal hernia was seen. Gastroesophageal reflux is seen up to the midesophagus. Dual contrast and single contrast images of the stomach demonstrated a normal contour. There are multiple focal areas of contrast pooling in the fundus of the stomach that may represent small mucosal erosions. No masses are present. Contrast freely passed into the gastric antrum and duodenal bulb without delay. Single and air-contrast images of the duodenal bulb demonstrate a focal area of narrowing between the duodenal bulb and the second segment of the duodenum, however, this resolves with filling/distention of the duodenum. The duodenal sweep has a normal appearance, course, and mucosal fold appearance. A small diverticulum is noted in the distal third/proximal fourth segment of the duodenum. The imaged proximal jejunum has a normal fold pattern and caliber. FLUOROSCOPY TIME: 5 minutes 17 seconds Number of Spot Images: 12 Number of Cine: 15 DOSE AREA PRODUCT: 3824 uGy-m2 (microgray-meter squared) FL/FL upper GI w Ba Swallow IMPRESSION: 1. Mildly disordered esophageal peristalsis. 2. Very small type I hiatal hernia with moderate gastroesophageal reflux. 3. Multiple focal areas of contrast pooling in the fundus of the stomach that may represent small mucosal erosions. Recommend correlation with EGD. 4. Focal area of narrowing/apparent asymmetric filling defect between the duodenal bulb in the second segment of the duodenum that appears to resolve with filling/distention of the duodenum. An underlying subtle mass cannot be excluded, although no evidence of mass on recent prior MRI or CT. Recommend correlation with EGD. 5. Small diverticulum in the distal third/proximal fourth segment of the duodenum. This procedure was performed by Bairon Ramirez PA-C, and supervised by Dr. Higuera Electronically signed by: Kennedy Higuera MD 05/25/2024 05:07 PM [facility] Dictated By: Bairon Ramirez Signed By: <Electronically signed by Bairon Ramirez in OV> 05/25/24 1707 <Electronically signed by Kennedy Higuera MD in OV> 05/25/24 1709 DD/ 1000 TD/TT: 05/24/24 1030 Polishing Machine Tender: us [facility] External Provider IMG FLU OROSCOPY PROCEDURES Final Result * MR Abdomen w/ and w/o Contrast (05/17/2024 11:25 AM EST) Anatomical Region Laterality Modality Abdomen Magnetic Resonan ce 05/17/2024 11:2 5 AM EST Narrative 05/17/2024 1:01 PM EST ? [facility] ?[address] ?[place] [address] ? Magnetic Resonance Report ? Signed ? Patient: Kenny Dowell ?MR#: M ?? [id number] ? : 1955 ?Acct:[id number] ? Age/Sex: 68 / M ?ADM Date: 05/17/24 ? Loc: HO.MRI ? Attending Dr: Shirley CONROY ? Ordering Physician: Shirley Murillo ?? Date of Service: 05/17/24 ?? Procedure(s): MR abdomen wo/w con ?? Accession Number(s): [id number] ? cc: Dawn Almaguer MD; Shirley Murillo [...] ??Serjio Hernandez MD ??05/17/2024 12:58 PM EST ? Dictated By: ?Serjio Hernandez MD ? Signed By: ?<Electronically signed by Serjio Hernandez MD in OV> ?05/17/24 1258 ? DD/ 1125 ? TD/TT: 05/17/24 1200 ? Polishing Machine Tender: ? Procedure Note Deepa, Image - 05/17/2024 [place] [address] Magnetic Resonance Report Signed Patient: Tamika Dowell#: M [id number] : 1955cct:[id number] Age/Sex: 68 / MADM Date: 05/17/24 Loc: .MRI Attending Dr: Shirley CONROY Ordering Physician: Shirley Murillo Date of Service: 05/17/24 Procedure(s): MR abdomen wo/w con Accession Number(s): [id number] cc: Dawn Almaguer MD; Shirley Murillo EXAMINATION: MRI Abdomen without and with contrast [...] 05/17/24 1258 DD/ 1125 TD/TT: 05/17/24 1200 Polishing Machine Tender: [facility] External Provider IMG MRI PROCEDURES Final Result * ECG 12 lead (04/23/2024 5:17 PM EST) Narrative Kell Reeves NP - 04/23/2024 5:17 PM EST HR 56 bpm, left axis deviation, interval and morphology normal. Sinus bradycardia ECG Kell Reeves NP ECG ORDERABLES Final Result * (ABNORMAL) POCT A1C (04/23/2024 2:13 PM EST) Hemoglobin A1C 9.0(A) 4.0 - 6.0 % QC Media Lot # [id number] Lot# Expiration Date Blood 04/23/2024 2:13 PM EST us Dawn Heath [place] Porfirio [place] POINT OF CARE TEST EN TER/EDIT ORDERABLES Final Result * US Abdomen Complete (03/15/2024 9:00 AM EST) Anatomical Region Laterality Modality Abdomen Ultrasound 03/15/2024 9:00 AM EST Narrative 04/18/2024 11:32 AM EST ? [facility] ?[address] ?[place] [address] ? Ultrasound Report ? Signed with Addenda ? Patient: Kenny Dowell ?MR#: M ?? [id number] ? : 1955 ?Acct:[id number] ? Age/Sex: 68 / M ?ADM Date: 03/15/24 ? Loc: HO.US ? Attending Dr: Tena Prakash MD ? Ordering Physician: Tena Prakash MD ?? Date of Service: 03/15/24 ?? Procedure(s): US abdomen complete ?? Accession Number(s): [id number] ? cc: Dawn Almaguer MD; Tena Prakash MD ?ADDENDUM ? ADDENDUM #1 ? Results Acknowledgement: ?? Results received and confirmed with Austin Daily RN, from Dr Prakash's office, ?? at 10:12 AM 04/19/2024. ?? Lisa De Los Santos, 04/19/2024 10:13 AM ? Electronically signed by: ??Aleja Escaimlla MD ??04/19/2024 11:36 AM EST ?? RP [...] and ?? recommendations.)AJ ? 04/18/2024 10:27 AM WET TRIMMER ? Electronically signed by: ??Aleja Escamilla MD ??04/18/2024 11:29 AM EST ?? RP ? Dictated By: ?Aleja Escamilla MD ? Signed By: ?<Electronically signed by Aleja Escamilla MD in OV> ?04/18/24 1129 ? DD/ 9 ? TD/TT: 03/15/[address] ? Polishing Machine Tender: HS ? Procedure Note Donviktoria, Image - 04/19/[address] [address] Ultrasound Report Signed with Jannet Patient: Tamika Dowell#: M [id number] : 6Acct:[id number] Age/Sex: 68 / MADM Date: 03/15/24 Loc: HO.US Attending Dr: Tena Prakash MD Ordering Physician: Tena Prakash MD Date of Service: 03/15/24 Procedure(s): US abdomen complete Accession Number(s): [id number] cc: Dawn Almaguer MD; Tena Prakash MD [...] critical findings and recommendations.)AJ 04/18/2024 10:27 AM WET TRIMMER Electronically signed by: Aleja Escamilla MD 04/18/2024 11:29 AM EST Dictated By: Aleja Escamilla MD Signed By: <Electronically signed by Aleja Escamilla MD in OV> 04/18/24 1129 DD/ 9 TD/TT: 03/15/[address] Polishing Machine Tender: HS us [facility] External Provider IMG US PROCEDURES Edited Result - Final * (ABNORMAL) Lipid Panel, Standard (01/09/2024 8:34 AM EDT) Triglycerides 91 <150 mg/dL [facility] Comment:Desirable Triglyceri de: less than 150 mg/dLBorderline High Triglyceride 150-199 mg/dLHigh Triglyceride: 200-499 mg/dLVery High Triglyceride: greater than or equal to 5OO mg/dL Cholesterol 108 <200 mg/dL [facility] Comment:Desirable Cholestero l: less than 200 mg/dLBorderline High Cholesterol: 200-239 mg/dLHigh Cholesterol: greater than 239 mg/dL LDL Cholesterol Calculated 57 <100 mg/dL [facility] Comment:Desirable LDL: less than 100 mg/dLNear Optimal/Above Optimal LDL: 110- 129 mg/dLBorderline High LDL: 130-159 mg/dLHigh LDL: 160-189 mg/dLVery High LDL: greater than or equal to 190 mg/dL HDL Cholesterol 33(L) >40 mg/dL [facility] Comment:Desirable HDL: great er than 40 mg/dL Note: This HDL assay may give artificially low results in patients with liver disease. Blood Venous blood specimen / Unknown 01/09/2024 8:34 AM EDT 01/09/2024 11:48 AM EDT us Dawn Monroy MD LAB BLOOD ORDERABLES Final Result [facility] [address] [place] [phone] * ALBUMIN, RANDOM URINE W/CREATININE (09/04/2020 8:41 AM EDT) Microalbumin Urine 2.7 See Note: mg/dL [facility] Comment: Reference Range: ?? Reference [...] Monroy MD LAB URINE ORDERABLES Final Result [facility] [address] from Last 3 Months or Most Recently Relevant to Health Maintenance Insurance [facility] Care Teams Operator Technician Relationship Specialty Start Date End Date Dawn Almaguer MD [address] [place] [address] PCP - General Family Medicine 02/25/18 Delia Mast, LivierD [address] [place] [address] Pharmacist Internal Medicine 03/15/24 [place] 05/06/24
--- OUTSIDE RECORDS SUMMARY | 2024-06-09 13:54 | XMS_ITS | Encounter Summary ---
Author Organization [facility] Address [address] [place] [address] Care Team Providers Care Diver'S Tender Name Role Phone Dawn Almaguer MD Primary Care Provide r Delia Mast PharmD Unavailable [phone] Encounter Details Date Type Department Care Team (Late Contact Info) Description 05/22/2022 Orders Only [facility] [address] [place] [address] Payton Qureshi MD [address] [place] [address] Type 2 diabetes mellitus with hyperglycemia, with long-term current use of insulin ([facility]) (Primary Dx) Social History Tobacco Use Types [...] Description 07/02/2024 2:30 PM EST Medication Management [facility] [address] [place] [address] Delia Mast, PharmD [address] [place] [address] 09/28/2024 2:00 PM EDT Office Visit [facility] [address] [place] [address] Jacquelyn Cordova, OD [address] [place] [address] documented as of this encounter Visit Diagnoses Diagnosis Type 2 diabetes mellitus with hyperglycemia, with long-term current use of insulin ([facility])- Primary documented in this encounter Care Teams Diver'S Tender Relationship Specialty Start Date End Date Dawn Almaguer MD [address] [place] [phone] PCP - General Family Medicine 02/25/18 Delia Mast, PharmD [address] [place] [address] [phone] Pharmacist Internal Medicine 03/15/24 [place] 05/06/24 documented as of this encounter
--- OUTSIDE RECORDS SUMMARY | 2024-06-09 13:54 | XMS_ITS | Encounter Summary ---
Author Organization [employer] Address [address] [facility] 7[address] [place] [address] Care Team Providers Care Water Fabricator Operator Name Role Phone Dawn Almaguer MD Primary Care Provide r Delia Mast PharmD Unavailable [phone] Reason for Visit * Reason Comments Med Refill Encounter Details Date Type Department Care Team (Late st Contact Info) Description 05/10/2024 Refill [facility] [address] [place], [place] [phone] Dawn Almaguer MD [address] [place], [place] [phone] Type 2 diabetes mellitus with other specified complication, unspecified whether continuous churn buttermaker insulin use ([facility]) Social History Tobacco Use Types Packs/Day Years [...] Description 07/02/2024 2:30 PM EST Medication Management [facility] [address] [place] [address] Delia Mast, PharmD [address] [place] [address] 09/28/2024 2:00 PM EDT Office Visit [facility] [address] [place] [address] Jacquelyn Cordova, OD [address] [place] [address] documented as of this encounter Visit Diagnoses Diagnosis Type 2 diabetes mellitus with other specified complication, unspecified whether continuous churn buttermaker insulin use ([facility]) documented in this encounter Additional Health Concerns Assessment Noted Time PHQ-9 Depression Total Score: 0 07/01/19 24 1:29 PM EST documented as of this encounter Care Teams Water Fabricator Operator Relationship Specialty Start Date End Date Dawn Almaguer MD [address] [place] [address] PCP - General Family Medicine 02/25/18 Delia Mast, LivierD [address] [place] [address] Pharmacist Internal Medicine 03/15/24 Citlaly 05/06/24 documented as of this encounter
--- OUTSIDE RECORDS SUMMARY | 2024-06-09 13:54 | XMS_ITS | Encounter Summary ---
Author Organization [employer] Address [address] [facility] [address]t [place] [address] Care Team Providers Care Cytogenetics Technologist Name Role Phone Dwan Almaguer MD Primary Care Provide r Delia Mast PharmD Unavailable +- [phone] Encounter Details Date Type Department Care Team (Late st Contact Info) Description 05/17/2024 Orders Only [facility] External Provider, [facility] Social History Tobacco Use Types Packs/Day Years [...] 2:30 PM EST Medication Management [facility] [address] [place] [address] Delia Mast, PharmD [address] [place] [address] 09/28/2024 2:00 PM EDT Office Visit [facility] [address] [place] [address] Jacquelyn Cordova, OD [address] [place] [address] documented as of this encounter Procedures Procedure Name Priority Date/Time Associated Diagnosis Comments FL UPPER GI W BARIUM SWALLOW Routine 05/24/2024 10:00 AM EST MR ABDOMEN W AND WO CONTRAST Routine 05/17/2024 11:25 AM EST documented in this encounter Results * FL Upper GI w/Barium Swallow (05/24/2024 10:00 AM EST) Anatomical Region Laterality Modality Body Radiographic Ale ging 05/24/2024 10:0 0 AM EST Narrative 05/25/2024 5:10 PM EST ? [facility] ?[address] ?[place] [address] ? Fluoroscopy Report ? Signed ? Patient: Elaina Richard,Kenny ?MR#: M ?? [id number] ? : 1955 ?Acct:[id number] ? Age/Sex: 68 / M ?ADM Date: 05/24/24 ? Loc: HO.XRAY ? Attending Dr: Tena Prakash MD ? Ordering Physician: Tena Prakash MD ?? Date of Service: 05/24/24 ?? Procedure(s): FL upper GI w Ba Swallow ?? Accession Number(s): [id number] ? cc: Dawn Almaguer MD; Tena Prakash [...] DD/ 1000 ? TD/TT: 05/24/24 1030 ? Tubing Drier: ? Procedure Note Indrameronestrellalisha, Image - 05/25/2024 [place] [address] Fluoroscopy Report Signed Patient: Tamika Dowell#: M [id number] : 6Acct:[id number] Age/Sex: 68 / MADM Date: 05/24/24 Loc: HO.XRAY Attending Dr: Tena Prakash MD Ordering Physician: Tena Prakash MD Date of Service: 05/24/24 Procedure(s): FL upper GI w Ba Swallow Accession Number(s): [id number] cc: Dawn Almaguer MD; Tena Prakash MD [...] by: Kennedy Higuera MD 05/25/2024 05:07 PM [facility] Dictated By: Bairon Ramirez Signed By: <Electronically signed by Bairon Ramirez in OV> 05/25/24 1707 <Electronically signed by Kennedy Higuera MD in OV> 05/25/24 1709 DD/ 1000 TD/TT: 05/24/24 1030 Tubing Drier: [facility] External Provider IMG FLU OROSCOPY PROCEDURES Final Result * MR Abdomen w/ and w/o Contrast (05/17/2024 11:25 AM EST) Anatomical Region Laterality Modality Abdomen Magnetic Resonan ce 05/17/2024 11:2 5 AM EST Narrative 05/17/2024 1:01 PM EST ? [facility] ?[address] ?[place] [address] ? Magnetic Resonance Report ? Signed ? Patient: Kenny Dowell ?MR#: M ?? [id number] ? : 1955 ?Acct:[id number] ? Age/Sex: 68 / M ?ADM Date: 05/17/24 ? Loc: HO.MRI ? Attending Dr: Shirley CONROY ? Ordering Physician: Shirley Murillo ?? Date of Service: 05/17/24 ?? Procedure(s): MR abdomen wo/w con ?? Accession Number(s): [id number] ? cc: Dawn Almaguer MD; Shirley Murillo [...] DD/ 1125 ? TD/TT: 05/17/24 1200 ? Tubing Drier: ? Procedure Note Donhonoriointerpreter, Image - 05/17/2024 [place] [address] Magnetic Resonance Report Signed Patient: Tamika Dowell#: M [id number] : 6Acct:[id number] Age/Sex: 68 / MADM Date: 05/17/24 Loc: HO.MRI Attending Dr: Shirley CONROY Ordering Physician: Shirley Murillo Date of Service: 05/17/24 Procedure(s): MR abdomen wo/w con Accession Number(s): [id number] cc: Dawn Almaguer MD; Shirley Murillo EXAMINATION: [...] Serjio Hernandez MD 05/17/2024 12:58 PM EST RP Dictated By: Serjio Henrandez MD Signed By: <Electronically signed by Serjio Hernandez MD in OV> 05/17/24 1258 DD/ 1125 TD/TT: 05/17/24 1200 Tubing Drier: [facility] External Provider IMG MRI PROCEDURES Final Result documented in this encounter Visit Diagnoses Not on filedocumented in this encounter Additional Health Concerns Assessment Noted Time PHQ-9 Depression Total Score: 0 07/01/19 24 1:29 PM EST documented as of this encounter Care Teams Cytogenetics Technologist Relationship Specialty Start Date End Date Dawn Almaguer MD [address] [place] [address] PCP - General Family Medicine 02/25/18 Delia Mast PharmD [address] [place] [address] Pharmacist Internal Medicine 03/15/24 Citl[place] 05/06/24 documented as of this encounter
--- OUTSIDE RECORDS SUMMARY | 2024-06-09 13:54 | XMS_ITS | Encounter Summary ---
Author Organization [employer] Address [address] [facility] [address] [place] [address] Care Team Providers Care Heading Machine Operator Name Role Phone Dawn Almaguer MD Primary Care Provide r Delia Mast PharmD Unavailable [phone] Reason for Visit * Reason Comments Med Refill Encounter Details Date Type Department Care Team (Late st Contact Info) Description 07/14/2023 Refill [facility] [address] [place] [address] Bhumika Timmons, ASAF [address] [place] [address] Type 2 diabetes mellitus with hyperglycemia, with long-term current use of insulin ([facility]) Social History Tobacco Use [...] your housing situation today? I have riaz sing 03/05/[address] you li [...] Description 07/02/2024 2:30 PM EST Medication Management [facility] [address] [place] [address] Delia Mast PharmD [address] [place] [address] 09/28/2024 2:00 PM EDT Office Visit [facility] [address] [place] [address] Art, Jacquelyn, OD [address] [place] [address] documented as of this encounter Visit Diagnoses Diagnosis Type 2 diabetes mellitus with hyperglycemia, with long-term current use of insulin ([facility]) documented in this encounter Additional Health Concerns Assessment Noted Time PHQ-9 Depression Total Score: 0 07/01/19 24 1:29 PM EST documented as of this encounter Care Teams Heading Machine Operator Relationship Specialty Start Date End Date Dawn Almaguer MD [address] [place] [address] PCP - General Family Medicine 02/25/18 Delia Mast PharmD [address] [place] [address] Pharmacist Internal Medicine 03/15/24 Citlaly 05/06/24 documented as of this encounter
--- OUTSIDE RECORDS SUMMARY | 2024-06-09 13:54 | XMS_ITS | Encounter Summary ---
Author Organization [employer] Address [address] [facility] [address]t [place] [address] Care Team Providers Care Booking Clerk Name Role Phone Dawn Almaguer MD Primary Care Provide r Delia Mast PharmD Unavailable [phone] Reason for Visit * Reason Comments Med Refill Encounter Details Date Type Department Care Team (Late st Contact Info) Description 06/03/2024 Refill [facility] [address] [place], [place] [phone] Dawn Almaguer MD [address] [place], [place] [phone] Vitamin D deficiency Social History Tobacco Use Types Packs/Day Years [...] Description 07/02/2024 2:30 PM EST Medication Management [facility] [address] [place] [address] Delia Mast, PharmD [address] [place] [address] 09/28/2024 2:00 PM EDT Office Visit [facility] [address] [place] [address] Art, Jacquelyn, OD [address] [place] [address] documented as of this encounter Visit Diagnoses Diagnosis Vitamin D deficiency documented in this encounter Additional Health Concerns Assessment Noted Time PHQ-9 Depression Total Score: 0 07/01/19 24 1:29 PM EST documented as of this encounter Care Teams Booking Clerk Relationship Specialty Start Date End Date Dawn Almaguer MD [address] [place] [address] PCP - General Family Medicine 02/25/18 Delia Mast, LivierD [address] [place] [address] Pharmacist Internal Medicine 03/15/24 Citlaly 05/06/24 documented as of this encounter
== END 2024-06-09 13:42 | disposition home or self-care (01) ==
PROVIDERS: PCP Internal Medicine; Visit Provider Internal Medicine
DX: R93.3 Abnormal findings on diagnostic imaging of other parts of digestive tract (principal); K31.89 Other diseases of stomach and duodenum
CPT/HCPCS: 99214

== ENCOUNTER → 2024-06-09 12:23 | Outpatient (BNVA) | payer OTHER, SELFPAY | PROVIDERS: PCP Internal Medicine; Visit Provider Internal Medicine | DX: R93.3 Abnormal findings on diagnostic imaging of other parts of digestive tract (principal); K31.89 Other diseases of stomach and duodenum | CPT/HCPCS: 99212 ==

== ENCOUNTER → 2024-07-22 12:41 | Outpatient (REF) | payer OTHER, SELFPAY ==
--- NOTE | 2024-07-22 12:44 | CA_ITS ---
Transthoracic Echocardiogram Patient (Last, First, Middle): Kenny Dowell, Gender: Male Date of : 1955 Age: 68 Procedure Date: 07/22/2024 Procedure Type: Transthoracic Echocardiogram Location: OP Height: 182.88 cm Weight: 106.14 kg BSA: 2.28 m2 Heart Rate: 62 bpm BP: 132 / 65 mmHg Splitting Machine Operator: RAD Julio MD: Dawn Monroy MD Instructional Material Director: Deonte Jones MD Symptoms: R06.02 SOB Study Quality: Adequate ECG Rhythm: Sinus Conclusions: - 1. Normal LV ejection fraction of 60 65% with grade 1 diastolic dysfunction 2. Mildly dilated left atrium 3. Calcific aortic and mitral valve changes noted with normal cardiac valvular Dopplers 4. Mildly dilated ascending aorta at 3.9 cm 5. No gross pericardial effusion Findings Left Ventricle Normal left ventricular size, thickness, and systolic function. The visually estimated ejection fraction is between 60-65%. Spectral Doppler is indicative of an impaired relaxation filling pattern. E/E prime ratio is <8, consistent with normal filling pressures. Evidence suggests grade I (mild) diastolic dysfunction. Right Ventricle Normal right ventricular cavity size and systolic function. Atria The left atrium is mildly dilated. There is no evidence of interatrial shunt. The right atrium is normal in size. Aortic Valve There is mild calcification of the aortic valve. There is mild thickening of the aortic valve. There is no aortic valve stenosis. The peak aortic gradient is 12 mmHg.The mean gradient is 7 mmHg. The aortic valve area is 3.14 cm2. There is no aortic valve regurgitation. Mitral Valve There is moderate anterior and mild posterior mitral leaflet thickening. There is no mitral valve regurgitation. There is no mitral valve stenosis. Pulmonic Valve The pulmonic valve is likely normal. Tricuspid Valve Likely normal tricuspid valve structure and function. Tricuspid regurgitation envelope is inadequate for calculation of right ventricular systolic pressure. Normal right atrial pressure. Great Vessels The pulmonary artery was not well visualized. There is mild dilatation of the ascending aorta measuring 3.90 cm. Small plaque is seen in the sino tubular ridge. Venous The inferior vena cava is normal in size and collapses greater than 50% with inspiration. Pericardium/Pleural There is no evidence of pericardial effusion. Prior Study Comparison Changes noted compared to prior study dated: 07/23/2019. ascending aorta is mildly dilated Measurements 2D Linear Measurements IVSd: 1.11 0.6-0.9/0.6-1.0 cm LVIDd: 5.20 3.9-5.3/4.2-5.9 cm LVIDd Index: 2.28 2.4-3.2/2.2-3.1 cm/m2 LVIDs: 3.43 2.0-3.6 cm LVPWd: 1.02 0.7-1.1 cm LA Diam: 4.00 2.7-3.8/3.0-4.0 cm LAIDs Index: 1.75 1.5-2.3 cm/m2 LV Mass: 263.35 67-162/88-224 g LV Mass Index: 115.51 43-95/49-115 g/m2 LVOT Diam: 2.40 3.0+(-)1.3 cm 2D Systolic Function EF 4C: 56.50 >55% EF 2C: 63.60 >55% EF BiP: 61.50 >55% Mitral Valve MV Pk E: 0.65 MV PK A: 0.77 MV Decel Time: 284.00 E/A: 0.80 E'Lateral: 10.20 E'Medial: 6.09 E/E' Med: 10.70 E/E' Lat: 6.40 PHT: 83.00 MVA PHT: 2.65 Decel [place]: 2.30 Aortic Valve AoV Pk Javier: 1.71 AoV Mn Javier: 1.26 AoV VTI: 0.41 AoV Pk Grad: 12.00 Aov Mn Grad: 7.00 HUSSAIN Cont.VTI: 3.14 LVOT LVOT Pk Javier: 1.15 LVOT Mn Javier: 0.75 LVOT VTI: 0.28 LVOT Pk Grad: 5.00 LVOT Mn Grad: 3.00 LVOT Diam: 2.40 LVOT Area: 4.52 Diastolic Function MV Pk E: 0.65 MV Pk A: 0.77 E/A: 0.80 E'Medial: 6.09 E/E' Med: 10.70 E' Laterial: 10.20 E/E' Lat: 6.40 Right Ventricle TAPSE (mm): 23.90 TVS' Javier: 12.30 Tricuspid Valve TR Pk Javier: 2.30 TR Pk Grad: 21.00 Great Vessels Aorta Sinus of Valsalva: 3.90 2.0-3.5 cm Ao Asc: 3.90 2.1-3.4 cm Ao Arch: 3.70 Pulmonary Valve PV Pk Javier: 1.26 Peak PV Grad: 6.00 Updated in Other Vendor System with Status of Final Deonte Jones MD electronically signed on 07/22/2024 4:41:45 PM with status of Final
== END ==
LOC: HO.CARD 12:41
PROVIDERS: PCP Internal Medicine; Visit Provider Internal Medicine
DX: R06.02 Shortness of breath (principal)
CPT/HCPCS: 93306

== ENCOUNTER → 2024-07-22 12:44 | Outpatient (BNV) | payer OTHER, SELFPAY | PROVIDERS: PCP Internal Medicine; Visit Provider Internal Medicine Cardiovascular Disease | DX: I35.8 Other nonrheumatic aortic valve disorders (principal); I34.81 Nonrheumatic mitral (valve) annulus calcification | CPT/HCPCS: 93306 ==

== ENCOUNTER 2024-07-26 09:12 | Outpatient (REF) | payer OTHER, SELFPAY ==
[2024-07-26 12:51] LABS: Anion Gap 13 (12-20); Blood Urea Nitrogen 22 mg/dL (9-16); Calcium 9.7 mg/dL (8.4-10.2); Carbon Dioxide 27 mmol/L (22-29); Chloride 107 mmol/L (96-108); Estimated Glomerular Filt Rate 57; Glucose Random 141 mg/dL (60-115); Potassium 4.7 mmol/L (3.3-5.1); Sodium 142 mmol/L (135-145)
[2024-07-26 12:54] LABS: Estimated Average Glucose 186 mg/dL; Hemoglobin A1c % 8.1 % (<6.0)
[2024-07-26 13:39] LABS: Vitamin B12 1203 pg/mL (200-900)
[2024-07-26 13:43] LABS: Creatinine Urine 177.04 mg/dL; Microalbum/Creatinine Ratio Ur 16.9 ug/mg cr (<30)
== END 2024-07-26 09:13 | disposition home or self-care (01) ==
LOC: HO.HHCL 09:12
PROVIDERS: Nurse Practitioner Family; Visit Provider Internal Medicine
DX: E11.65 Type 2 diabetes mellitus with hyperglycemia (principal); Z79.4 Long term (current) use of insulin
CPT/HCPCS: 36415; 80048; 82043; 82570; 82607; 83036

== ENCOUNTER 2024-08-19 10:30 | Day surgery (SDC) | payer OTHER, SELFPAY ==
--- OUTSIDE RECORDS SUMMARY | 2024-07-05 15:58 | XMS_ITS | Clinical Summary ---
Author Organization [employer] Address [address] [place] [address] 7[address] [place] [address] Care Team Providers Care Public Relations Consultant Name Role Phone Dawn Almagure MD Primary Care Provide r Delia Mast PharmD Unavailable [phone] Allergies No known active allergies Medications atorvastatin [...] hyperglycemia, with long-term current use of insulin ([facility]) TEST BLOOD SUGAR FOUR TIMES [...] EVERY DAY 90 tablet 3 024 Active glucose blood (FreeStyle Precision Charan Test) test stripIndication s:Type 2 diabetes mellitus with hyperglycemia, with long-term current use of insulin ([facility]) Use to test blood sugar 2 times daily 100 each 12 024 2024 Active clotrimazole-be tamethasone (Lotrisone) cream APPLY TOPICALLY 2 TIMES A DAY FOR 4 WEEKS APPLY THIN COAT 2 TIMES PER DAY Active omeprazole (PriLOSEC) [address] capsule Take 20 mg by mouth Once per day. Active glucose (Glutose) 40 % gel oral gelIndications: Type 2 diabetes mellitus with hyperglycemia, with long-term current use of insulin ([facility]) Use as needed for low blood sugar 45 g 11 Active insulin glargine (Lantus SoloStar) 100 UNIT/ML penIndications: Type 2 diabetes mellitus with hyperglycemia, with long-term current use of insulin ([facility]) Inject subcutaneously 16 units once daily Active empagliflozin-m etFORMIN (Synjardy) 12.5-1000 MGIndications:T ype 2 diabetes mellitus with hyperglycemia, with long-term current use of insulin ([facility]) Take 1 tablet by mouth with breakfast and with evening meal. 180 tablet 3 024 Active Dulaglutide (Trulicity) 1.5 MG/0.5ML solution auto-injectorIn dications:Type 2 diabetes mellitus with hyperglycemia, with long-term current use of insulin ([facility]) Inject 1.5 mg under the skin 1 (one) time per week. 2 mL 2 025 Active glipiZIDE XL (Glucotrol XL) 10 MG 24 hr tabletIndicatio ns:Type 2 diabetes mellitus with other specified complication, unspecified whether 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 operator insulin use ([facility]) TAKE 1 TABLET BY MOUTH [...] hyperglycemia, with long-term current use of insulin ([facility]) Check blood sugar 3 times a day 100 each 11 025 Active metoprolol tartrate (Lopressor) 25 MG tabletIndicatio ns:Primary hypertension Take one half tablet by mouth twice daily 90 tablet 025 Active Continuous Glucose Python Engineer (FreeStyle Monica 3 [place]) device 1 each Once per day. Use as directed for CGM 1 each 025 Active Continuous Glucose Sensor (FreeStyle Monica 3 Plus Sensor) misc 1 each every 15 days. Apply 1 every 15 days as directed for CGM 2 each 11 025 Active Continuous Glucose Python Engineer (FreeStyle Monica 2 [place]) deviceIndicatio ns:Type 2 diabetes mellitus with hyperglycemia, with long-term current use of insulin ([facility]) Scan sensor every 8 hours 1 each 2 024 2024 Discontinued(A vailability) Continuous Glucose Sensor (FreeStyle Monica 2 Sensor) miscIndications :Type 2 diabetes mellitus with hyperglycemia, with long-term current use of insulin ([facility]) Apply 1 sensor every 14 days 2 each 2 024 2024 Discontinued metoprolol tartrate (Lopressor) 25 MG tabletIndicatio ns:Primary hypertension Take 1 tablet (25 mg) by mouth 2 times daily. 180 tablet 024 2024 Discontinued(D ose adjustment) Continuous Glucose Sensor (FreeStyle Monica 2 Sensor) miscIndications :Type 2 diabetes mellitus with hyperglycemia, with long-term current use of insulin ([facility]) USE DIRECTED TO TEST BLOOD SUGAR CHANGE EVERY 14 DAYS 2 each 2 025 2024 Discontinued(A vailability) Active Problems Problem Noted Date Diagnosed Date SOB (shortness of breath) on exertion 07/02/2024 Assessment & Plan (07/02/2024 4:30 PM EST): I will order for patient today and echocardiogram Patient has a follow-up appointment with cardiology on July 12 I advised to follow-up with them also with the symptoms Metoprolol dose reduced to 12.5 mg twice a day, cardiology office was contacted regarding this change and patient's symptoms Renal mass 05/07/2024 Assessment & Plan (05/07/2024 [...] 09/04/2020 CREATININE 1.15 10/25/2023 -Changes: I dscontinue janumet, I will put him instead n metformin [...] sciatica 08/07/2022 Bradycardia 06/21/2022 Assessment & Plan (07/02/2024 4:30 PM EST): ED precautions were reviewed with patient Metoprolol dose reduced Follow-up with cardiology Assessment & Plan (05/07/2024 11:37 AM EST): [...] AM EST): Patient reports he went to [place] and forgot his insulin he stop using [...] Encounters Date Type Department Care Team Description 07/02/2024 3:20 PM EST Office Visit [facility] [address], [place] [phone] Dawn Almaguer MD Bradycardia (Primary Dx); Cough in adult patient; SOB (shortness of breath) on exertion 07/02/2024 Orders Only [facility] [address], [place] [phone] Dawn Almaguer MD 07/02/2024 Travel 06/14/2024 Refill [facility] [address], [place] [phone] Dawn Almaguer MD Type 2 diabetes mellitus with hyperglycemia, with long-term current use of insulin ([facility]) 06/04/2024 Travel 06/03/2024 Refill [facility] [address], [place] [phone] Dawn Almaguer MD Vitamin D deficiency 05/17/2024 Orders Only [facility] External Provider, [facility] 05/10/2024 Refill [facility] [address], [place] [phone] Dawn Almaguer MD Type 2 diabetes mellitus with other specified complication, unspecified whether 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 operator 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 use ([facility]) 05/07/2024 10:00 AM EST Office Visit [address] [address] Dawn Almaguer MD Bradycardia (Primary Dx); Type 2 diabetes mellitus with hyperglycemia, with long-term current use of insulin ([facility]); Primary hypertension; Renal mass 05/07/2024 Travel 04/29/2024 Patient Outreach [address] [address] Dawn Almaguer MD Care Coordination (CH[facility] outreach for SDOH CCA and food needs-referral completed /) 04/29/2024 Patient Outreach [address] [address] Dawn Almaguer MD Pre-visit Planning ((SDOH screening positive tobacco screening negative) ) 04/26/2024 Telephone [facility] [address] [place] [phone] Kell Reeves NP 04/23/2024 3:20 PM EST Office Visit [facility] [address] [place] [phone] Kell Reeves NP Bradycardia (Primary Dx); Occipital headache; Dizziness 04/23/2024 Telephone [facility] [address] [place] [phone] Anne Perez RN 04/23/2024 Travel from Last 3 Months Immunizations Name Administration Dates Next Due Hep B, adult 12/21/2014,07/26/2014,06/14/2014 Influenza Quadrivalent Adjuvanted 01/17/2022 Jason SARS-CoV-2 Vaccination 08/16/2020,2020 Pfizer Covid-19 Vaccine 12+ [...] Sign Reading Time Taken Comments Blood Pressure 137/76 07/02/2024 3:04 PM EST Pulse 47 07/02/2024 3:04 PM EST Temperature 35.2 ??C (95.4 ??F) 07/02/2024 3:04 PM ES T Respiratory Rate 20 07/02/2024 3:04 PM EST Oxygen Saturation 97% 07/02/2024 3:04 PM EST Inhaled Oxygen Concentration - - Weight 110 kg (243 lb 4 oz) 07/02/2024 3:[address] Height 182.9 cm (6') 07/02/2024 3:04 PM EST Body Mass Index 32.99 07/02/2024 3:04 PM EST Plan of Treatment Upcoming Encounters Date Type Department Care Team (Late st Contact Info) Description 08/02/2024 1:00 PM EDT Medication Management [facility] [address] [place] [address] Delia Mast, PharmD [address] [place] [address] 09/28/2024 2:00 PM EDT Office Visit [facility] [address] [place] [address] Art, Jacquelyn, OD [address] [place] [address] Health Maintenance Due Date Last Done Comments [...] 06/30/2024 07/01/2023, 07/01/19 24 Diabetes: Hemoglobin A1C 10/02/2024 025, 04/23/2024, 01/09/2024, Additional history exists Lipid Panel 01/08/2025 01/09/2024, 04/29, 06/20/2021, Additional history exists Alcohol/Substance Use Screening 02/09/2025 02/10/2024 SDOH Screening 04/29/2025 04/29/2024 Tobacco Screening 07/02/2025 07/02/2024 Eye Exam 08/17/2025 08/18/2023, 07/28, 08/18/2023, Additional [...] Date/Time Associated Diagnosis Comments ECG 12-LEAD Routine 07/02/2024 4:29 PM EST Bradycardia POCT INFLUENZA B (ID NOW RAPID MOLECULAR) Routine 07/02/2024 3:22 PM EST Cough in adult patient POCT INFLUENZA A (ID NOW RAPID MOLECULAR) Routine 07/02/2024 3:22 PM EST Cough in adult patient POCT RAPID COVID ANTIGEN Routine 07/02/2024 3:22 PM EST Cough in adult patient POCT GLYCATED HEMOGLOBIN, TOTAL Routine 07/02/2024 3:08 PM EST Type 2 diabetes mellitus with hyperglycemia, with long-term current use of insulin ([facility]) FL UPPER GI W BARIUM SWALLOW Routine 05/24/2024 10:00 AM EST MR ABDOMEN W AND WO CONTRAST Routine 05/17/2024 11:25 AM EST ECG 12-LEAD Routine 04/23/2024 5:17 PM EST Bradycardia Dizziness POCT GLYCATED HEMOGLOBIN, TOTAL Routine 04/23/2024 2:13 PM EST Type 2 diabetes mellitus with hyperglycemia, with long-term current use of insulin ([facility]) LIPID PANEL, STANDARD Routine 01/09/2024 8:34 AM EDT Primary hypertension ALBUMIN, RANDOM URINE W/CREATININE Routine 09/04/2020 8:41 AM EDT from Last 3 Months or Most Recently Relevant to Health Maintenance Results * ECG 12 lead (07/02/2024 4:29 PM EST) Only the most recent of2 resultswithin the time period is included. Narrative Dawn Almaguer MD - 07/02/2024 4:29 PM EST NSR, bradycardia [address] abnormalities us Dawn Monroy MD ECG ORDERABLES Final Result * POCT Rapid Influenza B BIRD ID NOW (07/02/2024 3:22 PM EST) Influenza B Negative Negative, Indeterminate [facility] QC Media Lot # [id number] [facility] Lot# Expiration Date 1082 [facility] Swab 07/02/2024 3:22 PM EST Dawn Monroy MD POINT OF CARE TEST EN TER/EDIT ORDERABLES Final Result Performing Organization Address [facility] Co de Phone Number [facility] [address] [place] [phone] * POCT Rapid Influenza A BIRD ID NOW (07/02/2024 3:22 PM EST) Influenza A Negative Negative, Indeterminate [facility] QC Media Lot # [id number] [facility] Lot# Expiration Date [facility] Swab 07/02/2024 3:22 PM EST us Dawn Monroy MD POINT OF CARE TEST EN TER/EDIT ORDERABLES Final Result Performing Organization Address [facility] Co de Phone Number [facility] [address] [place] [phone] * POCT Rapid Covid-19 BinaxNOW (07/02/2024 3:22 PM EST) Pathologist [facility] Rapid COVID Ag Negative [facility] QC Media Lot # [id number] [facility] Lot# Expiration Date [facility] Swab 07/02/2024 3:22 PM EST us Dawn Monroy MD POINT OF CARE TEST EN TER/EDIT ORDERABLES Final Result Performing Organization Address [facility] Co de Phone Number [facility] [address] [place] [phone] * (ABNORMAL) POCT A1C (07/02/2024 3:08 PM EST) Only the most recent of2 resultswithin the time period is included. Pathologist [facility] Hemoglobin A1C 8.3(A) 4.0 - 6.0 % QC Media Lot # [id number] Lot# Expiration Date [id number] Blood 07/02/2024 3:08 PM EST us Dawn Monroy MD POINT OF CARE TEST EN TER/EDIT ORDERABLES Final Result * FL Upper GI w/Barium Swallow (05/24/2024 10:00 AM EST) Anatomical Region Laterality Modality Body Radiographic Ale ging 05/24/2024 10:0 0 AM EST Narrative 05/25/2024 5:10 PM EST ? [facility] ?[address] ?[place] [address] ? Fluoroscopy Report ? Signed ? Patient: Kenny Dowell ?MR#: M ?? [id number] ? : 1955 ?Acct:[id number] ? Age/Sex: 68 / M ?ADM Date: 05/24/24 ? Loc: HO.XRAY ? Attending Dr: Tena Prakash MD ? Ordering Physician: Tena Prakash MD ?? Date of Service: 05/24/24 ?? Procedure(s): FL upper GI w Ba Swallow ?? Accession Number(s): [id number] ? cc: Dawn Almaguer MD; Tena Prakash [...] DD/ 1000 ? TD/TT: 05/24/24 1030 ? Piano Builder: ? Procedure Note Deepa, Image - 05/25/[address] [address] Fluoroscopy Report Signed Patient: Tamika Dowell#: M [id number] : 6Acct:[id number] Age/Sex: 68 / MADM Date: 05/24/24 Loc: HO.XRAY Attending Dr: Tena Prakash MD Ordering Physician: Tena Prakash MD Date of Service: 05/24/24 Procedure(s): FL upper GI w Ba Swallow Accession Number(s): [id number] cc: Dawn Almaguer MD; Tena Prakash MD [...] by: Kennedy Higuera MD 05/25/2024 05:07 PM EST RP Dictated By: Bairon Ramirez Signed By: <Electronically signed by Bairon Ramirez in OV> 05/25/24 1707 <Electronically signed by Kennedy Higuera MD in OV> 05/25/24 1709 DD/ 1000 TD/TT: 05/24/24 1030 Piano Builder: [facility] External Provider IMG FLU OROSCOPY PROCEDURES Final Result * MR Abdomen w/ and w/o Contrast (05/17/2024 11:25 AM EST) Anatomical Region Laterality Modality Abdomen Magnetic Resonan ce 05/17/2024 11:2 5 AM EST Narrative 05/17/2024 1:01 PM EST ? [facility] ?[address] ?[place] [address] ? Magnetic Resonance Report ? Signed ? Patient: Kenny Dowell ?MR#: M ?? [id number] ? : 1955 ?Acct:[id number] ? Age/Sex: 68 / M ?ADM Date: 05/17/ ? Loc: HO.MRI ? Attending Dr: Shirley JACKSONP-BC ? Ordering Physician: Shirley MurilloP-BC ?? Date of Service: 05/17/24 ?? Procedure(s): MR abdomen wo/w con ?? Accession Number(s): [id number] ? cc: Dawn Almaguer MD; Shirley Murillo [facility] ? EXAMINATION: ??MRI Abdomen without and with [...] DD/ 1125 ? TD/TT: 05/17/24 1200 ? Piano Builder: ? Procedure Note Amanda Arenas - 05/17/[address] [address] Magnetic Resonance Report Signed Patient: Tamika Dowell#: M [id number] : 6Acct:[id number] Age/Sex: 68 / MADM Date: 05/17/24 Loc: HO.MRI Attending Dr: Shirley CONROY Ordering Physician: Shirley Murillo Date of Service: 05/17/24 Procedure(s): MR abdomen wo/w con Accession Number(s): [id number] cc: Dawn Almaguer MD; Shirley Murillo EXAMINATION: [...] 05/17/24 1258 DD/ 1125 TD/TT: 05/17/24 1200 Piano Builder: us [facility] External Provider IMG MRI PROCEDURES Final Result * (ABNORMAL) Lipid Panel, Standard (01/09/2024 8:34 AM EDT) Triglycerides 91 <150 mg/dL [facility] Comment:Desirable Triglyceri de: less than 150 mg/dLBorderline High Triglyceride 150-199 mg/dLHigh Triglyceride: 200-499 mg/dLVery High Triglyceride: greater than or equal to 5OO mg/dL Cholesterol 108 <200 mg/dL [facility] Comment:Desirable Cholestero l: less than 200 mg/dLBorderline High Cholesterol: 200-239 mg/dLHigh Cholesterol: greater than 239 mg/dL LDL Cholesterol Calculated 57 <100 mg/dL [facility] Comment:Desirable LDL: less than 100 mg/dLNear Optimal/Above Optimal LDL: 110- 129 mg/dLBorderline High LDL: 130-159 mg/dLHigh LDL: 160-189 mg/dLVery High LDL: greater than or equal to 190 mg/dL HDL Cholesterol 33(L) >40 mg/dL [facility] Comment:Desirable HDL: great er than 40 mg/dL Note: This HDL assay may give artificially low results in patients with liver disease. Blood Venous blood specimen / Unknown 01/09/2024 8:34 AM EDT 01/09/2024 11:48 AM EDT Dawn Monroy MD LAB BLOOD ORDERABLES Final Result [facility] [address] [place] [phone] * ALBUMIN, RANDOM URINE W/CREATININE (09/04/2020 [...] Creatinine, Urine 99 20 - 320 mg/dL [facility] 09/04/2020 8:41 AM EDT us Dawn Monroy MD LAB URINE ORDERABLES Final Result [facility] [address] from Last 3 Months or Most Recently Relevant to Health Maintenance Insurance [address] [place] [id number] [facility] Care Teams Public Relations Consultant Relationship Specialty Start Date End Date Dawn Almaguer MD [address] [place] [phone] PCP - General Family Medicine 02/25/18 Delia Mast, LivierD [address] [place] [phone] Pharmacist Internal Medicine 03/15/24 [place] 05/06/24
--- OUTSIDE RECORDS SUMMARY | 2024-07-05 15:58 | XMS_ITS | Encounter Summary ---
Author Organization [facility] Address [address] [facility] 7t [place] [address] Care Team Providers Care Car Park Attendant Name Role Phone Dawn Almaguer MD Primary Care Provide r Delia Mast PharmD Unavailable [phone]- [phone] Reason for Referral * Imaging (Routine) - Authorized Specialty Diagnoses / Procedures Referred By Contac t Referred To Contact Cardiology Diagnoses SOB (shortness of breath) on exertion Procedures Transthoracic Echo (TTE) Complete Dawn Almaguer MD [address] [place] [phone] Phone: tel: fax: [address] Phone: tel: fax: Referral ID Status Reason Start Date Expiration Date Visits Requested Visits Authorized [id number] Authorized Perform Procedure 07/02/2024 07/02/2025 1 1 Reason for Visit * Reason Comments Bradycardia Encounter Details Date Type Department Care Team (Late st Contact Info) Description 07/02/2024 3:20 PM EST Office Visit [facility] [address] [place] [address] [phone] Dawn Almaguer MD [address] [place] [address] [phone] Bradycardia (Primary Dx); Cough in adult patient; SOB (shortness of breath) on exertion Social History Tobacco Use Types Packs/Day Years [...] Mass Index 32.99 07/02/2024 3:04 PM EST documented in this encounter Progress Notes * Dawn Monroy MD - 07/02/2024 3:20 PM EST SUBJECTIVE: Kenny Ramos is a 68 y.o. year old male who presents for bradycardia . Acute Concerns: Patient was seen at [facility] clinic and it was noticed during the visit his heart rate was in the 40s, patient does reports he has shortness of breath with exertion, he did have some shortness of breath today while he was walking to the clinic, denies dizziness, palpitation, nausea vomiting, sweating orother symptoms. On further interrogation patient does complain of shortness of breath with exertionhe states he works 1 block before stopping to get some air, he sleeps with 2 pillows, denies PND, he does report some lower extremity edema but has some history of venous insufficiency Social History Social History Narrative Not on file Patient Active Problem List Diagnosis Type 2 diabetes mellitus with hyperglycemia, with long-term current use of insulin ([facility]) Primary hypertension Left leg pain Benign prostatic hyperplasia Bradycardia Paroxysmal A-fib ([facility]) COVID-19 Gastroesophageal reflux disease without esophagitis Hyperlipidemia associated with type 2 diabetes mellitus ([facility]) ([facility]) Lumbar sprain Pruritus ani Morbid obesity ([facility]) Mood disorder ([facility]) Type 2 diabetes mellitus without complication ([facility]) Peripheral vascular disease ([facility]) Hypertensive disorder Chronic left-sided low back pain with left-sided sciatica Bacterial conjunctivitis of both eyes RADHA (acute kidney injury) ([facility]) Urinary retention Heartburn Hypercholesteremia Venous insufficiency Renal mass SOB (shortness of breath) on exertion Family History Problem Relation Name Age of Onset Coronary artery disease Father Review of Systems OBJECTIVE: Vitals: 07/02/24 1504 BP: 137/76 BP Location: Left arm Patient Position: Sitting BP Cuff Size: Large adult Pulse: (!) 47 Resp: 20 Temp: 95.4 ??F (35.2 ??C) TempSrc: Temporal SpO2: 97% Weight: 243 lb 4 oz (110 kg) Height: 6' (1.829 m) Physical Exam Constitutional: Appearance: Normal appearance. Cardiovascular: Rate and Rhythm: Regular rhythm. Bradycardia present. Pulmonary: Effort: Pulmonary effort is normal. Breath sounds: Normal breath sounds. Abdominal: General: Abdomen is flat. Palpations: Abdomen is soft. Musculoskeletal: Right lower leg: No edema. Left lower leg: No edema. Neurological: Mental Status: He is alert. Follow Up: No follow-ups on file. Current Outpatient Medications on File Prior to Visit Medication Sig Dispense Refill atorvastatin (Lipitor) 80 MG tablet take 1 tablet (80MG) by oral route every day B-D UF III MINI PEN NEEDLES 31G X 5 MM misc USE DIRECTED DAILY WITH LANTUS cholecalciferol (D3 Super Strength) 50 MCG (2000 UT) capsule TAKE 1 CAPSULE BY MOUTH EVERY MORNING 90 capsule 1 ciclopirox (Penlac) 8 % solution apply by topical route every day to the affected area(s) preferably at bedtime or 8 hours before washing clotrimazole-betamethasone (Lotrisone) cream APPLY TOPICALLY 2 TIMES A DAY FOR 4 WEEKS APPLY THIN COAT 2 TIMES PER DAY Continuous Glucose Workers Compensation Manager (FreeStyle Monica 2 [place]) device Scan sensor every 8 hours 1 each 2 Continuous Glucose Sensor (FreeStyle Monica 2 Sensor) misc USE DIRECTED TO TEST BLOOD SUGAR CHANGE EVERY 14 DAYS 2 each 2 cyanocobalamin (Vitamin B-12) 1000 MCG tablet TAKE 1 TABLET BY MOUTH EVERY DAY 90 tablet 3 dabigatran etexilate (Pradaxa) 150 MG capsule Take 150 mg by mouth 2 times daily. Dulaglutide (Trulicity) 1.5 MG/0.5ML solution auto-injector Inject 1.5 mg under the skin 1 (one) time per week. 2 mL 2 empagliflozin-metFORMIN (Synjardy) 12.5-1000 MG Take 1 tablet by mouth with breakfast and with evening meal. 180 tablet 3 glipiZIDE XL (Glucotrol XL) 10 MG 24 hr tablet TAKE 1 TABLET BY MOUTH TWICE DAILY WITH MEALS 180 tablet 3 glucose (Glutose) 40 % gel oral gel [...] metoprolol tartrate (Lopressor) 25 MG tablet Take one half tablet by mouth twice daily 90 tablet 0 Multaq 400 MG tablet Take 400 mg by mouth 2 times daily. omeprazole (PriLOSEC) [address] capsule Take 20 mg by mouth Once per day. tamsulosin (Flomax) 0.4 MG 24 hr capsule Take 1 capsule by mouth at bedtime. TRUEplus Lancets 33G misc Check blood sugar 3 times a day 100 each 11 [DISCONTINUED] metoprolol tartrate (Lopressor) 25 MG tablet Take 1 tablet (25 mg) by mouth 2 times daily. 180 tablet 0 No current facility-administered medications on file prior to visit. Problem List Items Addressed This Visit Bradycardia - Primary ED precautions were reviewed with patient Metoprolol dose reduced Follow-up with cardiology Relevant Orders ECG 12 lead (Completed) SOB (shortness of breath) on exertion I will order for patient today and echocardiogram Patient has a follow-up appointment with cardiology on July 12 I advised to follow-up with them also with the symptoms Metoprolol dose reduced to 12.5 mg twice a day, cardiology office was contacted regarding this change and patient's symptoms Relevant Orders Transthoracic Echo (TTE) Complete Other Visit Diagnoses Cough in adult patient Relevant Orders POCT Rapid Covid-19 BinaxNOW (Completed) POCT Rapid Influenza A BIRD ID NOW (Completed) POCT Rapid Influenza B BIRD ID NOW (Completed) documented in this encounter Miscellaneous Notes * Assessment & Plan Note - Dawn Monroy MD - 07/02/2024 4:30 PM EST Associated Problem(s): Bradycardia ED precautions were reviewed with patient Metoprolol dose reduced Follow-up with cardiology * Assessment & Plan Note - Dawn Monroy MD - 07/02/2024 4:30 PM EST Associated Problem(s): SOB (shortness of breath) on exertion I will order for patient today and echocardiogram Patient has a follow-up appointment with cardiology on July 12 I advised to follow-up with them also with the symptoms Metoprolol dose reduced to 12.5 mg twice a day, cardiology office was contacted regarding this change and patient's symptoms documented in this encounter Plan of Treatment Upcoming Encounters Date Type Department Care Team (Late st Contact Info) Description 08/02/2024 1:00 PM EDT Medication Management [facility] [address] [place] [address] Delia Mast, PharmD [address] [place] [address] 09/28/2024 2:00 PM EDT Office Visit [facility] [address] [place] [address] Jacquelyn Cordova, OD [address] [place] [address] Scheduled Orders Name Type Priority Associated Diagnoses Order Schedule Transthoracic Echo (TTE) Complete Echocardiography Routine SOB (shortness of breath) on exertion Expected: 07/02/2024 (Approximate), Expires: 07/02/2026 documented as of this encounter Procedures Procedure [...] 3:22 PM EST Cough in adult patient documented in this encounter Results * ECG 12 lead (07/02/2024 4:29 PM EST) Narrative Dawn Almaguer MD - 07/02/2024 4:29 PM EST NSR, bradycardia [address] abnormalities us Dawn Monroy MD ECG ORDERABLES Final Result * POCT Rapid Influenza B BIRD ID NOW (07/02/2024 3:22 PM EST) Influenza B Negative Negative, Indeterminate [facility] QC Media Lot # [id number] [facility] Lot# Expiration Date [facility] Swab 07/02/2024 3:22 PM EST us Dawn Monroy MD POINT OF CARE TEST EN TER/EDIT ORDERABLES Final Result Performing Organization Address City/[facility]/ZIP Co de Phone Number [facility] [address] [place] [phone] * POCT Rapid Influenza A BIRD ID NOW (07/02/2024 3:22 PM EST) Influenza A Negative Negative, Indeterminate [facility] Media Lot # [id number] [facility] Lot# Expiration Date [facility] Swab 07/02/2024 3:22 PM EST us Dawn Monroy MD POINT OF CARE TEST EN TER/EDIT ORDERABLES Final Result Performing Organization Address City/[facility]/ZIP Co de Phone Number [facility] [address] [place] [phone] * POCT Rapid Covid-19 BinaxNOW (07/02/2024 3:22 PM EST) Rapid COVID Ag Negative [facility] Media Lot # [id number] [facility] Lot# Expiration Date [id number] [facility] Swab 07/02/2024 3:22 PM EST Dawn Monroy MD POINT OF CARE TEST EN TER/EDIT ORDERABLES Final Result [facility] [address] [place] [address] [phone] documented in this encounter Visit Diagnoses Diagnosis Bradycardia- Primary Other specified cardiac dysrhythmias Cough in adult patient SOB (shortness of breath) on exertion Shortness of breath documented in this encounter Additional Health Concerns Assessment Noted Time PHQ-9 Depression Total Score: 0 07/01/19 1:29 PM EST documented as of this encounter Care Teams Car Park Attendant Relationship Specialty Start Date End Date Dawn Almaguer MD [address] [place] [address] PCP - General Family Medicine 02/25/18 Delia Mast, PharmD [address] [place] [address] Pharmacist Internal Medicine 03/15/24 [place] 05/06/24 documented as of this encounter
--- OUTSIDE RECORDS SUMMARY | 2024-07-05 15:58 | XMS_ITS | Encounter Summary ---
Author Organization [employer] Address [address] [facility] 7t [place] [address] Care Team Providers Care Java Performance Engineer Name Role Phone Dawn Almaguer MD Primary Care Provide r Delia Mast PharmD Unavailable [phone]- [phone] Encounter Details Date Type Department Care Team ([facility] st Contact Info) Description 07/02/2024 Orders Only [facility] [address] [place], [place] [phone] Dawn Almaguer MD [address] [place], [place] [phone] Social History Tobacco Use Types Packs/Day Years [...] Description 08/02/2024 1:00 PM EDT Medication Management [facility] [address] [place] [address] Delia Mast PharmD [address] [place] [address] 09/28/2024 2:00 PM EDT Office Visit [facility] [address] [place] [address] Art, Jacquelyn, OD [address] [place] [address] documented as of this encounter Visit Diagnoses Not on filedocumented in this encounter Additional Health Concerns Assessment Noted Time PHQ-9 Depression Total Score: 0 07/01/19 24 1:29 PM EST documented as of this encounter Care Teams Java Performance Engineer Relationship Specialty Start Date End Date Dawn Almaguer MD [address] [place] [address] PCP - General Family Medicine 02/25/18 Delia Mast PharmD [address] [place] [address] Pharmacist Internal Medicine 03/15/24 [place] 05/06/24 documented as of this encounter
--- OUTSIDE RECORDS SUMMARY | 2024-07-05 15:58 | XMS_ITS | Encounter Summary ---
Author Organization [employer] Address [address] [facility] 7t [place] [address] Care Team Providers Care Mint Wafer Depositor Name Role Phone Dawn Almaguer MD Primary Care Provide r Delia Mast PharmD Unavailable [phone]- [phone] Encounter Details Date Type Department Care Team (Latest Contact Info) Description 07/02/2024 Travel Social History Tobacco Use Types Packs/Day [...] Description 08/02/2024 1:00 PM EDT Medication Management [facility] [address] [place] [address] Delia Mast PharmD [address] [place] [address] 09/28/2024 2:00 PM EDT Office Visit [facility] [address] [place] [address] Art, Jacquelyn, OD [address] [place] [address] documented as of this encounter Visit Diagnoses Not on filedocumented in this encounter Additional Health Concerns Assessment Noted Time PHQ-9 Depression Total Score: 0 07/01/19 24 1:29 PM EST documented as of this encounter Care Teams Mint Wafer Depositor Relationship Specialty Start Date End Date Dawn Almaguer MD [address] [place] [phone] PCP - General Family Medicine 02/25/18 Delia Mast PharmD [address] [place] [phone] Pharmacist Internal Medicine 03/15/24 [place] 05/06/24 documented as of this encounter
--- OUTSIDE RECORDS SUMMARY | 2024-07-05 15:58 | XMS_ITS | Encounter Summary ---
Author Organization [employer] Address [address] [facility] 7t [place] [address] Care Team Providers Care Clinical Analyst Name Role Phone Dawn Almaguer MD Primary Care Provide r Delia Mast PharmD Unavailable [phone] Reason for Visit * Reason Comments Med Refill Encounter Details Date Type Department Care Team (Late st Contact Info) Description 06/14/[address] [facility] [address] [place], [place] [phone] Danw Almaguer MD [address] [place], [place] [phone] Type 2 diabetes mellitus with hyperglycemia, with long-term current use of insulin ([facility]) Social History Tobacco Use Types Packs/Day Years [...] PM EDT Medication Management [facility] [address] [place] [address] Delia Mast, PharmD [address] [place] [address] 09/28/2024 2:00 PM EDT Office Visit [facility] [address] [place] [address] Jacquelyn Cordova, OD [address] [place] [address] documented as of this encounter Visit Diagnoses Diagnosis Type 2 diabetes mellitus with hyperglycemia, with long-term current use of insulin ([facility]) documented in this encounter Additional Health Concerns Assessment Noted Time PHQ-9 Depression Total Score: 0 07/01/19 24 1:29 PM EST documented as of this encounter Care Teams Clinical Analyst Relationship Specialty Start Date End Date Dawn Almaguer MD [address] [place] [address] PCP - General Family Medicine 02/25/18 Delia Mast, LivierD [address] [place] [address] Pharmacist Internal Medicine 03/15/24 [place] 05/06/24 documented as of this encounter
--- OUTSIDE RECORDS SUMMARY | 2024-07-05 15:58 | XMS_ITS | Encounter Summary ---
Author Organization [employer] Address [address] [facility] 7[address] [place] [address] Care Team Providers Care Extruding Department Supervisor Name Role Phone Dawn Almaguer MD Primary Care Provide r Delia Mast PharmD Unavailable [phone] Reason for Visit * Reason Comments Med Refill Encounter Details Date Type Department Care Team (Late st Contact Info) Description 02/07/2024 Refill [facility] [address] [place] [address] Dawn Almaguer MD [address] [place], [place] [phone] Heartburn Social History Tobacco Use Types Packs/Day [...] Description 08/02/2024 1:00 PM EDT Medication Management [facility] [address] [place] [address] Delia Mast PharmD [address] [place] [address] 09/28/2024 2:00 PM EDT Office Visit [facility] [address] [place] [address] Art, Jacquelyn, OD [address] [place] [address] documented as of this encounter Visit Diagnoses Diagnosis Heartburn documented in this encounter Additional Health Concerns Assessment Noted Time PHQ-9 Depression Total Score: 0 07/01/19 24 1:29 PM EST documented as of this encounter Care Teams Extruding Department Supervisor Relationship Specialty Start Date End Date Dawn Almaguer MD [address] [place] [phone] PCP - General Family Medicine 02/25/18 Delia Mast, PharmD [address] [place] [address] Pharmacist Internal Medicine 03/15/24 [place] 05/06/24 documented as of this encounter
--- OUTSIDE RECORDS SUMMARY | 2024-07-05 15:59 | XMS_ITS | Encounter Summary ---
Author Organization [facility] Address [address] [facility] 7[address] [place] [address] Care Team Providers Care Chemical Test Engineer Name Role Phone Dawn Almaguer MD Primary Care Provide r Delia Mast PharmD Unavailable [phone] Encounter Details Date Type Department Care Team (Late Contact Info) Description 05/22/2022 Orders Only [facility] [address] [place] [address] Pyaton Qureshi MD [address] [place] [address] Type 2 diabetes mellitus with hyperglycemia, with long-term current use of insulin ([facility]) (Primary Dx) Social History Tobacco Use [...] Description 08/02/2024 1:00 PM EDT Medication Management [facility] [address] [place] [address] Delia Mast, PharmD [address] [place] [address] 09/28/2024 2:00 PM EDT Office Visit [facility] [address] [place] [address] Jacquelyn Cordova, OD [address] [place] [address] documented as of this encounter Visit Diagnoses Diagnosis Type 2 diabetes mellitus with hyperglycemia, with long-term current use of insulin ([facility])- Primary documented in this encounter Care Teams Chemical Test Engineer Relationship Specialty Start Date End Date Dawn Almaguer MD [address] [place] [address] [phone] PCP - General Family Medicine 02/25/18 Delia Mast, PharmD [address] [place] [address] [phone] Pharmacist Internal Medicine 03/15/24 [place] 05/06/24 documented as of this encounter
--- OUTSIDE RECORDS SUMMARY | 2024-07-05 15:59 | XMS_ITS | Encounter Summary ---
Author Organization [employer] Address [address] [facility] 7t [place] [address] Care Team Providers Care Supervisor Water Softener Service Name Role Phone Dawn Almaguer MD Primary Care Provide r Delia Mast PharmD Unavailable [phone] Encounter Details Date Type Department Care Team ([facility] st Contact Info) Description 07/14/2023 Orders Only [facility] CHC MED & PEDS [address] [place], [place] [phone] Bhumika Timmons FNP [address] [place] [address] Type 2 diabetes mellitus with hyperglycemia, with long-term current use of insulin ([facility] Social History Tobacco Use Types Packs/Day Years [...] Description 08/02/2024 1:00 PM EDT Medication Management [facility] MEDICINE [address] [place] [address] Delia Mast, PharmD [address] [place] [address] 09/28/2024 2:00 PM EDT Office Visit [facility] OPTOMETRY [address] [place] [address] Art, Jacquelyn, OD [address] [place] [address] documented as of this encounter Procedures Procedure Name Priority Date/Time Associated Diagnosis Comments URINALYSIS, COMPLETE, WITH REFLEX TO CULTURE Routine 10/24/2023 4:59 PM EDT Type 2 diabetes mellitus with hyperglycemia, with long-term current use of insulin ([facility]) HIGH SENSITIVITY TROPONIN I Routine 10/24/2023 3:23 PM EDT Type 2 diabetes mellitus with hyperglycemia, with long-term current use of insulin ([facility]) SARS COV2/INFLUENZA A/B AND RSV RNA QL [...] (10/24/2023 4:59 PM EDT) Color Urine Yellow [facility] Appearance Urine Clear [facility] PH 5.5 5.0 - 9.0 [facility] Glucose Urine UA >=1000(A) Negative mg/dL [facility] Urine Blood Negative Negative [facility] Specific [place] - Urine >=1.030(H) 1.005 - 1.025 [facility] Urine Protein Negative Neg-Trace mg/dL [facility] Urine Ketones Negative Negative mg/dL [facility] Nitrite Urine Negative Negative [facility] Leukocyte Esterase Urine Negative Negative [facility] RBC Urine 0-2 0 - 2 /HPF [facility] Urine WBC 0-5 0 - 5 /HPF [facility] Urine Squamous Epithelial Cell 0-2 0 - 2 /HPF [facility] Urine Bacteria None Seen None Seen [facility] Hyaline Casts, Urine 0-2 0 - 2 /LPF [facility] 10/24/2023 4:59 PM EDT 10/24/2023 5:01 PM EDT Narrative [facility] - 10/24/2023 5:45 PM EDT [id number], Clean Catch us Generic External Data Provider LAB URINE ORDERAB LES Final Result [facility] [address] [place] [phone] * High Sensitivity Troponin I (10/24/2023 3:23 PM EDT) Pathologist [facility] TROPONIN I HIGH SENSITIVITY 4.9 <3.5 - 35.0 ng/L [facility] Comment:The Neal high sens itivity Troponin-I results should beused in conjunction with other diagnostic information suchas ECG, clinical observations and information, and patientsymptoms to aid in the diagnosis of LA. 10/24/2023 3:23 PM EDT 10/24/2023 5:30 PM EDT Generic External Data Provider LAB BLOOD ORDERAB LES Final Result [facility] [address] [place] [phone] * Lipase (10/24/2023 3:23 PM EDT) Lipase 54 8 - 78 U/L [facility] 10/24/2023 3:23 PM EDT 10/24/2023 3:26 PM EDT Generic External Data Provider LAB BLOOD ORDERAB LES Final Result Performing Organization Address [facility]/ZIP Co de Phone Number [facility] [address] [place] [phone] * SARS-CoV-2 RNA, Influenza A/B, and RSV RNA, Ql NAAT (10/24/2023 3:23 PM EDT) Influenza A PCR NEGATIVE Negative [facility] Influenza B PCR NEGATIVE Negative [facility] Resp Syncy Virus RNA Qual PCR NEGATIVE Negative [facility] SARS COV2 PCR NEGATIVE Negative [facility] Comment:All test results mus t [...] use by authorized laboratories.Testing performed on the [facility] GeneXpert utilizingreal-time RT-PCR.All SARS CoV2 and positive influenza A/B results arereported to [facility]. 10/24/2023 3:23 PM EDT 10/24/2023 3:26 PM EDT Generic External Data Provider LAB MICROBIOLOGY - GENERAL ORDERABLES Final Result Performing Organization Address City/[facility]/ZIP Co de Phone Number [facility] [address] [place] [phone] * Magnesium (10/24/2023 3:23 PM EDT) Magnesium 1.9 1.6 - 2.6 mg/dL [facility] 10/24/2023 3:23 PM EDT 10/24/2023 3:26 PM EDT Generic External Data Provider LAB BLOOD ORDERAB LES Final Result Performing Organization Address [facility] de Phone Number [facility] [address] [place] [phone] * (ABNORMAL) Comprehensive Metabolic Panel (10/24/2023 3:23 PM EDT) Pathologist [facility] Sodium 140 135 - 145 mmol/L [facility] Potassium 4.5 3.3 - 5.1 mmol/L [facility] Chloride 107 96 - 108 mmol/L [facility] Carbon Dioxide 22 22 - 29 mmol/L [facility] Anion Gap 16 12 - 20 [facility] Urea Nitrogen (BUN) 37(H) 9 - 16 mg/dL [facility] Creatinine, Serum 1.94(H) 0.5 - 1.4 mg/dL [facility] Creatinine Clr Calc Pharmacy 46.1 [facility] Comment:eGFR (calculated fro m the MDRD study equation) and eCrCl(calculated from the Cockcroft-Gault equation) are based ondifferent parameters and may not yield comparable results.If eCrCl result is absurd, please check patient'sheight/weight. Estimated Glomerular Filt Rate 35 [facility] Comment:NOTE: For -Am erican individuals, multiply the result by 1.210.Chronic Kidney Disease: Estimated GFR < 60 mL/min/1.26r2Ekvkjk Kidney Disease: Estimated GFR < 15 mL/min/1.73m2 Glucose 266(H) 60 - 115 mg/dL [facility] Calcium 9.2 8.4 - 10.2 mg/dL [facility] Bilirubin, Total 0.4 0.0 - 1.0 mg/dL [facility] Aspartate Amino Transferase 25 5 - 37 U/L [facility] Alanine Aminotransferase 20 0 - 40 U/L [facility] Total Protein 7.7 6.5 - 8.0 g/dL [facility] Albumin Level 3.9 3.5 - 5.0 g/dL [facility] Alkaline Phosphatase 54 39 - 117 U/L [facility] 10/24/2023 3:23 PM EDT 10/24/2023 3:26 PM EDT us Generic External Data Provider LAB BLOOD ORDERAB LES Final Result [facility] [address] [place] [phone] * (ABNORMAL) CBC auto differential (10/24/2023 3:23 PM EDT) White Blood Count 9.6 4.8 - 10.8 X10*3/uL [facility] Red Blood Count 4.15(L) 4.60 - 5.80 X10*6/uL [facility] Hemoglobin 12.6(L) 14.0 - 18.0 g/dl [facility] Hematocrit 37.7(L) 42.0 - 52.0 % [facility] Mean Corpuscular Volume 90.8 80.0 - 98.0 fL [facility] Mean Corpuscular Hemoglobin 30.4 27.0 - 33.0 pg [facility] Mean Corpuscular HGB Conc 33.4 31.0 - 36.0 g/dl [facility] Red Cell Distribution Width 14.7 11.0 - 16.0 % [facility] Platelet Count 202 160 - 400 X10*3/uL [facility] Mean Platelet Volume 10.9 9.4 - 12.4 fL [facility] Neutrophils Percent Auto 57.9 45 - 73 % [facility] Imm Gran Pct Auto 0.2 0.0 - 0.4 % [facility] Lymphocytes Percent Auto 26.7 20 - 40 % [facility] Monocytes Percent Auto 9.2 2 - 11 % [facility] Eosinophils Percent Auto 5.1(H) 0 - 4 % [facility] Basophils Percent Auto 0.9 0 - 2 % [facility] NRBC Pct Auto 0.0 0.0 - 0.2 /100WBC [facility] Neutrophils Absolute Auto 5.6 2.0 - 8.3 x10*3/uL [facility] Imm Gran Abs Auto 0.02 0.00 - 0.03 X10*3/uL [facility] Lymphocytes Absolute Auto 2.6 1.2 - 4.9 X10*3/uL [facility] Monocytes Absolute Auto 0.9 0.1 - 1.2 X10*3/uL [facility] Eosinophils Absolute Auto 0.5(H) 0.0 - 0.4 X10*3/uL [facility] Basophils Absolute Auto 0.1 0.0 - 0.2 X10*3/uL [facility] NRBC Abs Auto 0.000 0.0 - 0.012 X10*3/uL [facility] 10/24/2023 3:23 PM EDT 10/24/2023 3:26 PM EDT us Generic External Data Provider LAB BLOOD ORDERAB LES Final Result [facility] [address] [place] [phone] [phone] * High Sensitivity Troponin I (10/23/2023 2:37 PM EDT) TROPONIN I HIGH SENSITIVITY 4.9 <3.5 - 35.0 ng/L [facility] Comment:The Neal high sens itivity Troponin-I results should beused in conjunction with other diagnostic information suchas ECG, clinical observations and information, and patientsymptoms to aid in the diagnosis of LA. 10/23/2023 2:37 PM EDT 10/23/2023 2:40 PM EDT Generic External Data Provider LAB BLOOD ORDERAB LES Final Result Performing Organization Address [facility]/ZIP Co de Phone Number [facility] [address] [place] [phone] * Lipase (10/23/2023 2:37 PM EDT) Pathologist [facility] Lipase 64 8 - 78 U/L [facility] 10/23/2023 2:37 PM EDT 10/23/2023 2:40 PM EDT Generic External Data Provider LAB BLOOD ORDERAB LES Final Result Performing Organization Address [facility] Co de Phone Number [facility] [address] [place] [phone] * (ABNORMAL) Basic Metabolic Panel (10/23/2023 2:37 PM EDT) Sodium 140 135 - 145 mmol/L [facility] Potassium 4.3 3.3 - 5.1 mmol/L [facility] Chloride 107 96 - 108 mmol/L [facility] Carbon Dioxide 19(L) 22 - 29 mmol/L [facility] Anion Gap 18 12 - 20 [facility] Urea Nitrogen (BUN) 40(H) 9 - 16 mg/dL [facility] Creatinine, Serum 2.12(H) 0.5 - 1.4 mg/dL [facility] Creatinine Clr Calc Pharmacy 43.0 [facility] Comment:eGFR (calculated fro m the MDRD study equation) and eCrCl(calculated from the Cockcroft-Gault equation) are based ondifferent parameters and may not yield comparable results.If eCrCl result is absurd, please check patient'sheight/weight. Estimated Glomerular Filt Rate 31 [facility] Comment:NOTE: For -Am erican individuals, multiply the result by 1.210.Chronic Kidney Disease: Estimated GFR < 60 mL/min/1.69z1Ntorrb Kidney Disease: Estimated GFR < 15 mL/min/1.73m2 Glucose 293(H) 60 - 115 mg/dL [facility] Calcium 9.5 8.4 - 10.2 mg/dL [facility] 10/23/2023 2:37 PM EDT 10/23/2023 2:40 PM EDT Generic External Data Provider LAB BLOOD ORDERAB LES Final Result Performing Organization Address [facility] de Phone Number [facility] [address] [place] [phone] * Hepatic Function Panel (10/23/2023 2:37 PM EDT) Bilirubin, Total 0.6 0.0 - 1.0 mg/dL [facility] Bilirubin, Direct 0.2 0.0 - 0.5 mg/dL [facility] Aspartate Amino Transferase 29 5 - 37 U/L [facility] Alanine Aminotransferase 22 0 - 40 U/L [facility] Total Protein 7.8 6.5 - 8.0 g/dL [facility] Albumin Level 3.9 3.5 - 5.0 g/dL [facility] Alkaline Phosphatase 54 39 - 117 U/L [facility] 10/23/2023 2:37 PM EDT 10/23/2023 2:40 PM EDT Generic External Data Provider LAB BLOOD ORDERAB LES Final Result Performing Organization Address [facility] de Phone Number [facility] [address] [place] [phone] * (ABNORMAL) CBC auto differential (10/23/2023 2:37 PM EDT) White Blood Count 9.7 4.8 - 10.8 X10*3/uL [facility] Red Blood Count 4.13(L) 4.60 - 5.80 X10*6/uL [facility] Hemoglobin 12.6(L) 14.0 - 18.0 g/dl [facility] Hematocrit 38.0(L) 42.0 - 52.0 % [facility] Mean Corpuscular Volume 92.0 80.0 - 98.0 fL [facility] Mean Corpuscular Hemoglobin 30.5 27.0 - 33.0 pg [facility] Mean Corpuscular HGB Conc 33.2 31.0 - 36.0 g/dl [facility] Red Cell Distribution Width 14.5 11.0 - 16.0 % [facility] Platelet Count 195 160 - 400 X10*3/uL [facility] Mean Platelet Volume 10.5 9.4 - 12.4 fL [facility] Neutrophils Percent Auto 60.7 45 - 73 % [facility] Imm Gran Pct Auto 0.3 0.0 - 0.4 % [facility] Lymphocytes Percent Auto 23.8 20 - 40 % [facility] Monocytes Percent Auto 10.9 2 - 11 % [facility] Eosinophils Percent Auto 3.5 0 - 4 % [facility] Basophils Percent Auto 0.8 0 - 2 % [facility] NRBC Pct Auto 0.0 0.0 - 0.2 /100WBC [facility] Neutrophils Absolute Auto 5.9 2.0 - 8.3 x10*3/uL [facility] Imm Gran Abs Auto 0.03 0.00 - 0.03 X10*3/uL [facility] Lymphocytes Absolute Auto 2.3 1.2 - 4.9 X10*3/uL [facility] Monocytes Absolute Auto 1.1 0.1 - 1.2 X10*3/uL [facility] Eosinophils Absolute Auto 0.3 0.0 - 0.4 X10*3/uL [facility] Basophils Absolute Auto 0.1 0.0 - 0.2 X10*3/uL [facility] NRBC Abs Auto 0.000 0.0 - 0.012 X10*3/uL [facility] 10/23/2023 2:37 PM EDT 10/23/2023 2:40 PM EDT us Generic External Data Provider LAB BLOOD ORDERAB LES Final Result Performing Organization Address [facility] Co de Phone Number [facility] [address] [place] [phone] * (ABNORMAL) Urinalysis, Complete, with Reflex to Culture (10/23/2023 2:32 PM EDT) Color Urine Yellow [facility] Appearance Urine Clear [facility] PH 5.0 5.0 - 9.0 [facility] Glucose Urine UA >=1000(A) Negative mg/dL [facility] Urine Blood Negative Negative [facility] Specific [place] - Urine 1.020 1.005 - 1.025 [facility] Urine Protein Negative Neg-Trace mg/dL [facility] Urine Ketones Negative Negative mg/dL [facility] Nitrite Urine Negative Negative [facility] Leukocyte Esterase Urine Negative Negative [facility] RBC Urine 0-2 0 - 2 /HPF [facility] Urine WBC 0-5 0 - 5 /HPF [facility] Urine Squamous Epithelial Cell 0-2 0 - 2 /HPF [facility] Urine Bacteria None Seen None Seen [facility] Hyaline Casts, Urine 0-2 0 - 2 /LPF [facility] 10/23/2023 2:32 PM EDT 10/23/2023 2:40 PM EDT Narrative [facility] - 10/23/2023 3:07 PM EDT Urine, Clean Catch us Generic External Data Provider LAB URINE ORDERAB LES Final Result Performing Organization Address City/[facility]/ZIP Co de Phone Number [facility] [address] [place] [phone] documented in this encounter Visit Diagnoses Diagnosis Type 2 diabetes mellitus with hyperglycemia, with long-term current use of insulin ([facility]) documented in this encounter Additional Health Concerns Assessment Noted Time PHQ-9 Depression Total Score: 0 07/01/19 24 1:29 PM EST documented as of this encounter Care Teams Supervisor Water Softener Service Relationship Specialty Start Date End Date Dawn Almaguer MD [address] [place] [phone] PCP - General Family Medicine 02/25/18 Delia Mast, LivierD [address] [place] [phone] Pharmacist Internal Medicine 03/15/24 [place] 05/06/24 documented as of this encounter
--- OUTSIDE RECORDS SUMMARY | 2024-07-05 15:59 | XMS_ITS | Encounter Summary ---
Author Organization [employer] Address [address] [facility] 7t [place] [address] Care Team Providers Care Head Irrigator Name Role Phone Dawn Almaguer MD Primary Care Provide r Delia Mast PharmD Unavailable [phone] Reason for Visit * Reason Comments Med Refill Encounter Details Date Type Department Care Team (Late st Contact Info) Description 07/14/2023 Refill [facility] MEDICINE [address] [place] [address] Bhumika Timmons, ASAF [address] [place] [address] Type 2 diabetes mellitus with hyperglycemia, with long-term current use of insulin ([facility]) Social History Tobacco Use Types Packs/Day [...] Description 08/02/2024 1:00 PM EDT Medication Management [facility] MEDICINE [address] [place] [phone] Delia Mast PharmD [address] [place] [address] 09/28/2024 2:00 PM EDT Office Visit [facility] OPTOMETRY [address] [place] [address] Art, Jacquelyn, OD [address] [place] [address] documented as of this encounter Visit Diagnoses Diagnosis Type 2 diabetes mellitus with hyperglycemia, with long-term current use of insulin ([facility]) documented in this encounter Additional Health Concerns Assessment Noted Time PHQ-9 Depression Total Score: 0 07/01/19 24 1:29 PM EST documented as of this encounter Care Teams Head Irrigator Relationship Specialty Start Date End Date Dawn Almaguer MD [address] [place] [phone] PCP - General Family Medicine 02/25/18 Delia Mast PharmD [address] [place] [address] Pharmacist Internal Medicine 03/15/24 [place] 05/06/24 documented as of this encounter
[2024-08-17 10:53] VITALS: BMI 32.3
--- NOTE | 2024-08-17 13:41 | HO.ANESPROP2 ---
Documented by User: Katerine Joshi NP 08/17/24 14:17 HPI - Anesthesia Eval Consult details Narrative: 68yo M for Upper Endoscopy Afib on pradaxa. Follows [facility] Cardiology - episodes of bradycardia into 40's. Seen by cardiology since and in normal rhythm, baseline HR~60 Anesthesia Pre-Procedure Meds Is the patient on any of the following meds?: GLP1/DPP4 and SGLT2 Inhib PMFSH Active Problems Active Problems: All Active Problems Abnormal UGI series (Acute) Renal cyst (Acute) Renal lesion (Acute) Bloating symptom (Acute) Encounter for hepatitis C screening test for low risk patient (Acute) Feeling of incomplete bladder emptying (Acute) Phimosis (Acute) Hypercholesteremia (Acute) Past Medical History Medical History Renal cyst GERD (gastroesophageal reflux disease) PVD (peripheral vascular disease) BPH (benign prostatic hyperplasia) Atrial fibrillation Hypercholesteremia Hypertension Diabetes mellitus Surgical History Surgical History Hx of transurethral resection of prostate History of laryngoscopy Hx of hand surgery History of esophagogastroduodenoscopy (EGD) Hx of colonoscopy Social History Social History Household Members: None Housing: Apartment Patient Tobacco Use Status: Former Tobacco user Have you been hit, kicked, punched, or otherwise hurt by someone within the past year? If so, by whom?: No Are you DNR?: No Advance Directives: No Advance Directives Information Provided: Yes service: No Meds Allergies Allergy/AdvReac Type Severity Reaction Status Date / Time No Known Allergies Allergy Mild NKA Verified 06/09/24 12:33 Home Medications ?Medication ?Instructions ?Recorded ?Confirmed ?Last Taken ?Type atorvastatin 80 mg tablet 80 mg PO DAILY 10/24/23 08/17/24 08/18/24 History cholecalciferol (vitamin D3) 50 50 mcg PO DAILY 10/24/23 08/17/24 08/18/24 History mcg (2,000 unit) capsule (Vitamin D3) cyanocobalamin (vitamin B-12) 1,000 mcg PO DAILY 10/24/23 08/17/24 08/18/24 History 1,000 mcg tablet dabigatran etexilate 150 mg capsule 150 mg PO BID 10/24/23 08/17/24 08/15/24 History dronedarone 400 mg tablet (Multaq) 400 mg PO BID 10/24/23 08/17/24 08/18/24 History furosemide 20 mg tablet 20 mg PO DAILY 10/24/23 08/17/24 08/18/24 History glipizide 10 mg tablet, extended 10 mg PO BID 10/24/23 08/17/24 08/18/24 History release 24 hr insulin glargine 100 unit/mL (3 16 unit subcut DAILY 10/24/23 08/17/24 08/18/24 History mL) subcutaneous pen (Lantus Solostar U-100 Insulin) flash glucose sensor (FreeStyle #1 ea 06/02/24 Unknown History Monica 2 Sensor kit) pen needle, diabetic 31 gauge x #1,200 ea 06/02/24 Unknown History 07/11 (BD Ultra-Fine Mini Pen Needle) dulaglutide 1.5 mg/0.5 mL 1.5 mg subcut QWEEK 06/09/24 08/17/24 08/08/24 History subcutaneous pen injector (Trulicity) empagliflozin 12.5 mg-metformin 1 tab PO BID 06/09/24 08/17/24 08/15/24 History 1,000 mg tablet (Synjardy) metoprolol tartrate 25 mg tablet 25 mg PO BID 06/09/24 08/17/24 08/18/24 History Exam Height,Weight and Vital Signs: Height 6 ft Weight 107.955 kg Pertinent Lab Results Pertinent Lab Results: Laboratory Tests 10/25/23 07/26/24 15:28 09:18 WBC 8.8 Hgb 13.1 L Hct 39.0 L Plt Count 191 Sodium 142 Potassium 4.7 Chloride 107 Carbon Dioxide 27 BUN 22 H Creatinine 1.26 Narrative Narrative: ECHO 06/2024 Conclusions: - 1. Normal LV ejection fraction of 60 65% with grade 1 diastolic dysfunction 2. Mildly dilated left atrium 3. Calcific aortic and mitral valve changes noted with normal cardiac valvular Dopplers 4. Mildly dilated ascending aorta at 3.9 cm 5. No gross pericardial effusion Assessment and Plan Assessment Anesthesia Assessment: Chart Reviewed Documented by User: Francisca Kamara MD 08/19/24 13:22 HPI - Anesthesia Eval Anesthesia Pre-Procedure Meds Is the patient on any of the following meds?: GLP1/DPP4 (Last dose of Dulaglutide 08/08/24) and SGLT2 Inhib (Last dose of empagliflozin 08/15/24) If yes to any meds - educate patient: Pt education - increased risk of aspiration and/or euvolemic DKA PMFSH Past Medical History Medical History Renal cyst GERD (gastroesophageal reflux disease) PVD (peripheral vascular disease) BPH (benign prostatic hyperplasia) Atrial fibrillation Hypercholesteremia Hypertension Diabetes mellitus Family History Family history of problems with anesthesia: No Surgical History Surgical History Hx of transurethral resection of prostate History of laryngoscopy Hx of hand surgery History of esophagogastroduodenoscopy (EGD) Hx of colonoscopy History of Problems with Anesthesia: No Social History Social History Household Members: None Housing: Apartment Patient Tobacco Use Status: Former Tobacco user Have you been hit, kicked, punched, or otherwise hurt by someone within the past year? If so, by whom?: No Are you DNR?: No Advance Directives: No Advance Directives Information Provided: Yes service: No Meds Allergies Allergy/AdvReac Type Severity Reaction Status Date / Time No Known Allergies Allergy Mild NKA Verified 06/09/24 12:33 Home Medications ?Medication ?Instructions ?Recorded ?Confirmed ?Last Taken ?Type atorvastatin 80 mg tablet 80 mg PO DAILY 10/24/23 08/17/24 08/18/24 History cholecalciferol (vitamin D3) 50 50 mcg PO DAILY 10/24/23 08/17/24 08/18/24 History mcg (2,000 unit) capsule (Vitamin D3) cyanocobalamin (vitamin B-12) 1,000 mcg PO DAILY 10/24/23 08/17/24 08/18/24 History 1,000 mcg tablet dabigatran etexilate 150 mg capsule 150 mg PO BID 10/24/23 08/17/24 08/15/24 History dronedarone 400 mg tablet (Multaq) 400 mg PO BID 10/24/23 08/17/24 08/18/24 History furosemide 20 mg tablet 20 mg PO DAILY 10/24/23 08/17/24 08/18/24 History glipizide 10 mg tablet, extended 10 mg PO BID 10/24/23 08/17/24 08/18/24 History release 24 hr insulin glargine 100 unit/mL (3 16 unit subcut DAILY 10/24/23 08/17/24 08/18/24 History mL) subcutaneous pen (Lantus Solostar U-100 Insulin) flash glucose sensor (FreeStyle #1 ea 06/02/24 Unknown History Monica 2 Sensor kit) pen needle, diabetic 31 gauge x #1,200 ea 06/02/24 Unknown History 3/16 (BD Ultra-Fine Mini Pen Needle) dulaglutide 1.5 mg/0.5 mL 1.5 mg subcut QWEEK 06/09/24 08/17/24 08/08/24 History subcutaneous pen injector (Trulicity) empagliflozin 12.5 mg-metformin 1 tab PO BID 06/09/24 08/17/24 08/15/24 History 1,000 mg tablet (Synjardy) metoprolol tartrate 25 mg tablet 25 mg PO BID 06/09/24 08/17/24 08/18/24 History Exam Height,Weight and Vital Signs: Height 6 ft Weight 107.955 kg Vital Signs Temp Pulse Resp BP Pulse Ox O2 Del Method 08/19/24 10:48 98 F 54 18 141/60 H 91 L Room Air Pertinent Lab Results Pertinent Lab Results: Laboratory Tests 10/25/23 07/26/24 15:28 09:18 WBC 8.8 Hgb 13.1 L Hct 39.0 L Plt Count 191 Sodium 142 Potassium 4.7 Chloride 107 Carbon Dioxide 27 BUN 22 H Creatinine 1.26 Lab Results 08/19/24 Range/Units 10:43 POC Glucose 254 H (60-115) mg/dL Airway Mallampati Class: II TM Dist: >3cm Neck ROM: Full Loose/Missing/Broken Teeth: Yes (Missing several teeth. Many broken, almost all teeth loose. Awaiting extractions) Heart: RRR Lungs: CTAB Assessment and Plan Assessment Anesthesia Assessment: Anesthesia Plan Discussed and Chart Reviewed Final Anesthetic Review Family History of Problems with Anesthesia: No History of Problems with Anesthesia: No NPO: Yes ASA Class: III Final Preanesthetic Review: No Changes in Pt Med Stat, Meds/Allgs Chart Reviewed, Consent Obtained/Reviewed and Anes Risks/Benef Reviewed Patient Risk: Intermediate Procedure Risk: Low Assessment/Block/Sedation in SS: Assess/Block/Sedation-SS Anesthetic Plan Anesthetic Plan: TIVA Disposition: Standard PACU
[2024-08-19 10:48] VITALS: BP 141/60; PULSE 54; RESP 18; TEMP 36.6; O2SAT 91; BMI 32.5
[2024-08-19 10:48] LABS: Glucose, Whole Blood 254 mg/dL (60-115)
[2024-08-19] MEDS: Lactated Ringers 1,000 ML 100 ML IVCONT (11:14)
--- NOTE | 2024-08-19 13:21 | MHC.SHP ---
Pre-Procedural Eval Section A - 24 Hr Update-Section A only Date of Service: 08/19/24 Section B - Complete if H&P > 30 days Chief Complaint: Duodenal nodule Details of Present Illness: PMH: Hypercholesteremia Hypertension Diabetes mellitus Surgical History History of esophagogastroduodenoscopy (EGD) Hx of colonoscopy Present Medications: see Short Stay Collaborative assessment Allergies: Allergies Allergy/AdvReac Type Severity Reaction Status Date / Time No Known Allergies Allergy Mild NKA Verified 06/09/24 12:33 Review of Systems Review of Systems Comment: Ten point ROS negative Exam Exam Comment: Gen appear: No acute distress HEENT: no icterus Chest: No overt resp distress Abd: soft, nontender, nondistended Psych: Stable affect, answering questions appropriately Neuro: A/Ox3 noted to move all extremities spontaneously Ext: no peripheral edema Plan Diagnosis/Plan: Unchanged I have reviewed the history and physical and performed a pertinent physical examination on my patient. No changes have occurred unless specified. Time Spent With Patient Time: Total time managing care of this patient today ____ minutes.
--- NOTE | 2024-08-19 13:44 | P.OP_ITS ---
Operative Note Operative Note Date of Service: 08/19/24 Narrative: Procedure: Esophagogastroduodenoscopy Endoscopist: Tena Prakash MD Indication: Abnormal UGIS Anesthesia Provider: Dr Francisca Kamara Anesthesia Type: MAC ?? EGD Procedure:?? The procedure, indications, preparation and potential complications were reviewed with the patient, who indicated understanding and gave written informed consent to proceed with the help of senior regulatory affairs specialist. A physical exam was performed. The endoscope was introduced through the mouth, and advanced to the second part of duodenum. The mucosa was carefully examined on slow withdrawal of the endoscope. The patient tolerated the procedure well. There were no immediate complications.? ? EGD Findings:? * Esophagus:? Normal mucosa noted in the entire esophagus. The Z line was at 43 and irregular up to 42 cm. Cold forceps biopsies were taken to rule out Hercules's esophagus. The tissue cypher will also be submitted if Barretts esophagus confirmed on histology. * Stomach:? Congestion, erythema and erosions noted in the antrum. There was also a small polypoid lesion with a central depression noted pre-pyloric at 07:00. Cold forceps biopsies were taken from the polyp. Retroflexion was performed in the cardia. * Duodenum:? A 2 cm subepithelial lesion/nodule noted in the duodenal bowel. Bite on bite biopsies were performed for histology. The duodenal mucosa had multiple erosions and superficial ulceration with pigmented spots. Cold forceps biopsies were taken for histology. ? EGD Impressions:? * Irregular Z line (biopsy) * Gastritis * Gastric polyp (biopsy) * Duodenal nodule (biopsy) * Duodenitis (biopsy) ?? Recommendations:?? * Follow biopsy results. Our office will call or send a letter with results within 7-10 days. * Increase omeprazole 20mg to twice a day. * HOLD anticoagulation today. Resume tomorrow. * Avoid NSAIDs and smoking. Above has been reviewed with the patient.
[2024-08-19 13:47] VITALS: BP 113/63; PULSE 65; RESP 15; TEMP 36.3; O2SAT 94
[2024-08-19 14:02] VITALS: BP 113/54; PULSE 78; RESP 18; TEMP 36.4; O2SAT 99
== END 2024-08-19 15:05 | disposition home or self-care (01) ==
PROVIDERS: PCP Internal Medicine; Visit Provider Internal Medicine
PROC: 0DJ08ZZ Inspection of Upper Intestinal Tract, Via Natural or Artificial Opening Endoscopic (ICD-10-PCS; CPT 43235; principal; 2024-08-19 13:10)
DX: K29.80 Duodenitis without bleeding (principal); K29.60 Other gastritis without bleeding; K31.7 Polyp of stomach and duodenum; K31.9 Disease of stomach and duodenum, unspecified; K22.9 Disease of esophagus, unspecified; K25.9 Gastric ulcer, unspecified as acute or chronic, without hemorrhage or perforation; K21.9 Gastro-esophageal reflux disease without esophagitis; K31.89 Other diseases of stomach and duodenum; E11.9 Type 2 diabetes mellitus without complications; I10 Essential (primary) hypertension; E78.00 Pure hypercholesterolemia, unspecified; Z87.891 Personal history of nicotine dependence; Z79.02 Long term (current) use of antithrombotics/antiplatelets; Z79.899 Other long term (current) drug therapy
CPT/HCPCS: 43239; 82947; 88305; 88313; 88342; J1596; J2704

== ENCOUNTER → 2024-08-19 10:30 | Outpatient (BNV) | payer OTHER, SELFPAY | PROVIDERS: PCP Internal Medicine; Visit Provider Internal Medicine | DX: K29.70 Gastritis, unspecified, without bleeding (principal); K31.7 Polyp of stomach and duodenum; K29.80 Duodenitis without bleeding | CPT/HCPCS: 43239 ==

== ENCOUNTER 2024-09-17 09:21 | Outpatient (AMB) | payer OTHER, SELFPAY ==
--- NOTE | 2024-09-17 09:47 | A.OFFVIS_ITS ---
Vital Signs 09/17/24 09:52 Height 6 ft Weight 239 lb BMI 32.4 BP 118/54 L Blood Pressure Location Lt brachial Position Sitting Pulse 60 Pulse Oximetry (%) 97 Oxygen Delivery Method Room Air Intake Visit Reasons: s/p EGD Intake Note: Patient follow up for EGD results. Patient denies any GI issues for today visit. Memory Care Director Required: Yes Memory Care Director Name: [facility] Interpeter Accompanied by: Daughter Allergies No Known Allergies Allergy (Mild, Verified 09/17/24 09:47) NKA HPI Comments Details: 68 y.o M with PMH who is here for reflux. Seen with the help of bolt man. Reports episode of severe pain with nausea in September. At that time was also noted have hyperglycemia with glycosuria and RADHA. Outside of that episode, has intermittent burnign retrosternal pain. Occ nausea. Appetite is good. No vomiting or regurgitation. Last colo 2017 Dr Mena - sony, no polyps. Quit smoking many years ago. EtOH intake on weekends. 03/30/24: Here for follow up. Reports sx have improved quite a lot since he was last seen after he started omeprazole 20 once daily. Occ has to take mylanta otherwise no acute concerns today. US abd done - read pending. UGIS pending. 05/24/24: UGIS 1. Mildly disordered esophageal peristalsis. 2. Very small type I hiatal hernia with moderate gastroesophageal reflux. 3. Multiple focal areas of contrast pooling in the fundus of the stomach that may represent small mucosal erosions. Recommend correlation with EGD. 4. Focal area of narrowing/apparent asymmetric filling defect between the duodenal bulb in the second segment of the duodenum that appears to resolve with filling/distention of the duodenum. An underlying subtle mass cannot be excluded, although no evidence of mass on recent prior MRI or CT. Recommend correlation with EGD. 5. Small diverticulum in the distal third/proximal fourth segment of the duodenum.- 06/09/24: Here to discuss results of UGIS. Accompanied by step daughter Korin. Pt himself has no acute concerns. Doing well with omeprazole. Results reviewed and images also independently shown to the pt. 08/19/24: * Irregular Z line (biopsy) * Gastritis * Gastric polyp (biopsy) * Duodenal nodule (biopsy) * Duodenitis (biopsy)?? Path: A. Duodenum, biopsy: Focally active duodenitis. B. Duodenum, nodule, biopsy: Chronic active/erosive duodenitis. C. Stomach, polyp, biopsy: Antral-type mucosa with moderate chronic inactive inflammation and hyperplastic changes; no Helicobacter organism seen. D. GE junction, biopsy: - Cardiofundic-type mucosa with moderate chronic inactive inflammation; fully- developed intestinal metaplasia not identified. - Squamous epithelium within normal limits 09/17/24: Here for post egd follow up. Here with his step carrington Langley. Results of EGD reviewed. Had a duodenal nodule - path benign. Also with gastritis and duodenitis without H Pylori. Pt otherwise without any active GI complaints. Has been taking omeprazole BID and is aware to decrease to once daily in another 4 weeks and take this as long as he is on systemic anticoagulation. [facility] Medical History Renal cyst GERD (gastroesophageal reflux disease) PVD (peripheral vascular disease) BPH (benign prostatic hyperplasia) Atrial fibrillation Hypercholesteremia Hypertension Diabetes mellitus Surgical History Hx of transurethral resection of prostate History of laryngoscopy Hx of hand surgery History of esophagogastroduodenoscopy (EGD) Hx of colonoscopy Social History Household Members: None Housing: Apartment Patient Tobacco Use Status: Former Tobacco user service: No Review of Systems Const All systems reviewed & are unremarkable except as noted in HPI and below Physical Exam No apparent distress Nonicteric Abdomen soft, nondistended Alert and oriented x3, normal gait Assessment & Plan Assessment & Plan (1) Abnormal UGI series: Code(s): R93.3 - Abnormal findings on diagnostic imaging of other parts of digestive tract Category: Medical (2) Duodenal nodule: Code(s): K31.89 - Other diseases of stomach and duodenum (3) Duodenitis: Code(s): K29.80 - Duodenitis without bleeding Category: Medical (4) Colon cancer screening: Code(s): Z12.11 - Encounter for screening for malignant neoplasm of colon Category: Medical Plan Benign duodenal nodule on path. Reviewed use of PPI BID x total 8-12 weeks and then once daily as long as pt is on anticoagulation. Pt does not need any refills today. For CRC screening, his last colo was 2017. He will be due for a repeat in 2027. Reminder set. Follow up PRN Coding Level of Care Code Est Pt Level 3 (04766) Diagnoses Abnormal UGI series R93.3 Duodenal nodule K31.89 Duodenitis K29.80 Colon cancer screening Z12.11
[2024-09-17 09:52] VITALS: BP 118/54; PULSE 60; O2SAT 97; BMI 32.4
== END 2024-09-17 14:10 | disposition home or self-care (01) ==
LOC: HO.HGI 09:22
PROVIDERS: PCP Internal Medicine; Visit Provider Internal Medicine
DX: R93.3 Abnormal findings on diagnostic imaging of other parts of digestive tract (principal); K31.89 Other diseases of stomach and duodenum; K29.80 Duodenitis without bleeding
CPT/HCPCS: 99213

== ENCOUNTER → 2024-09-17 09:21 | Outpatient (BNVA) | payer OTHER, SELFPAY | PROVIDERS: PCP Internal Medicine; Visit Provider Internal Medicine | DX: K21.9 Gastro-esophageal reflux disease without esophagitis (principal); K31.89 Other diseases of stomach and duodenum; K29.80 Duodenitis without bleeding; R93.3 Abnormal findings on diagnostic imaging of other parts of digestive tract | CPT/HCPCS: 99212 ==

== ENCOUNTER 2024-10-19 12:54 | Outpatient (REF) | payer OTHER, SELFPAY ==
--- NOTE | ~2024-10-19 | US_ITS ---
CLINICAL HISTORY: N28.1 - Cyst of kidney, acquired US Renal Comparison: None provided Findings: Right kidney normal size and echotexture, 11.2 cm length. 2.3 cm and 1.4 cm anechoic right renal cysts are present. Left kidney normal size and echotexture, 10.0 cm length. No collecting system dilatation of either kidney. IMPRESSION: 1. 2.3 cm and 1.4 cm simple right renal cysts. 2. Normal sonographic appearance of the left kidney. This document has been electronically signed by: Faith Pritchett on 10/20/2024 09:12:54
--- OUTSIDE RECORDS SUMMARY | 2024-10-19 14:29 | XMS_ITS | Clinical Summary ---
Author Organization [employer] Address [address] [facility] [address] [place] [address] Care Team Providers Care Deck Hand Name Role Phone Dawn Almaguer MD Primary Care Provide r Delia Mast PharmD Unavailable [phone]- [phone] Allergies No known active allergies Medications atorvastatin (Lipitor) 80 MG tablet take 1 tablet (80MG) by oral route every day 12/29/19 21 Active dabigatran etexilate (Pradaxa) 150 MG capsule Take 150 mg by mouth 2 times daily. 08/14/19 24 Active Multaq 400 MG tablet Take 400 mg by mouth 2 times daily. 08/05/19 24 Active tamsulosin (Flomax) 0.4 MG 24 hr capsule Take 1 capsule by mouth at bedtime. 10/25/19 24 Active omeprazole (PriLOSEC) [address] capsule Take 20 mg by mouth Once per day. 03/03/20 24 Active glucose (Glutose) 40 % gel oral gelIndications:T ype 2 diabetes mellitus with hyperglycemia, with long-term current use of insulin (CMS/[facility]) Use as needed for low blood sugar 45 g 11 03/24/20 24 Active empagliflozin-me tFORMIN (Synjardy) 12.5-1000 MGIndications:Ty pe 2 diabetes mellitus with hyperglycemia, with long-term current use of insulin (CMS/HCC) Take 1 tablet by mouth with breakfast and with evening meal. 180 tablet 3 04/23/20 24 Active cholecalciferol (D3 Super Strength) 50 MCG (1999 UT) capsuleIndicatio ns:Vitamin D deficiency TAKE 1 CAPSULE BY MOUTH EVERY MORNING 90 capsule 1 06/03/19 25 Active TRUEplus Lancets 33G miscIndications: Type 2 diabetes mellitus with hyperglycemia, with long-term current use of insulin ([facility]) Check blood sugar 3 times a day 100 each 11 06/04/19 25 Active metoprolol tartrate (Lopressor) 25 MG tabletIndication s:Primary hypertension Take one half tablet by mouth twice daily 90 tablet 07/03/19 25 Active Continuous Glucose Auto Claims Adjuster (FreeStyle Monica 3 [place]) device 1 each Once per day. Use as directed for CGM 1 each 07/04/19 25 Active Continuous Glucose Sensor (FreeStyle Monica 3 Plus Sensor) misc 1 each every 15 days. Apply 1 every 15 days as directed for CGM 2 each 07/04/19 25 Active B-D UF III MINI PEN NEEDLES 31G X 5 MM misc USE DIRECTED DAILY WITH LANTUS 100 each 08/21/19 25 Active glucose blood (FreeStyle Precision Charan Test) test stripIndications :Type 2 diabetes mellitus with hyperglycemia, with long-term current use of insulin ([facility]) Use to test blood sugar 2 times daily 100 each 09/01/19 25 026 Active Dulaglutide (Trulicity) 3 MG/0.5ML solution auto-injectorInd ications:Type 2 diabetes mellitus with hyperglycemia, with long-term current use of insulin ([facility]) Inject 3 mg under the skin every 7 (seven) days. 2 mL 09/15/19 25 Active insulin glargine (Lantus SoloStar) 100 UNIT/ML penIndications:T ype 2 diabetes mellitus with hyperglycemia, with long-term current use of insulin ([facility]) Inject subcutaneously 12 units once daily 15 mL 09/15/19 25 Active glipiZIDE XL (Glucotrol XL) 5 MG 24 hr tabletIndication s:Type 2 diabetes mellitus with other specified complication, unspecified whether moth exterminator insulin use ([facility]) TAKE 1 TABLET BY MOUTH TWICE DAILY WITH MEALS. 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 tis 04/08/2017 Hyperlipidemia associated with type 2 diabetes m ellitus 04/08/2017 Pruritus ani 04/08/2017 Morbid obesity 04/08/2017 [...] Encounters Date Type Department Care Team Description 09/28/2024 2:00 PM EDT Office Visit [facility] [address] [place] [address] Art, Jacquelyn, OD Diabetes type 2, no ocular involvement (CMS/HCC) (Primary Dx); 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; Choroidal nevus, left eye; Dry eyes; Nuclear sclerotic cataract of both eyes; PVD (posterior vitreous detachment), left eye; Presbyopia 09/28/2024 Travel 09/14/2024 Orders Only [facility] [address] [place] [address] Dawn Almaguer MD Type 2 diabetes mellitus with hyperglycemia, with long-term current use of insulin (CMS/HCC) (Primary Dx); Primary hypertension 09/14/2024 Telephone [facility] [address] [place], [place] [phone] Delia Mast PharmD 09/14/2024 Travel 08/31/2024 Travel 08/19/2024 Refill [facility] [address] [place] [address] Bhumika Timmons FNP 08/19/2024 Orders Only GENERIC EXTERNAL DATA DEPARTMENT Provider, Generic External Data 08/12/2024 Refill [facility] [address] [place], [place] [phone] Dawn Almaguer MD Type 2 diabetes mellitus with hyperglycemia, with long-term current use of insulin ([facility]) 08/02/2024 Telephone [facility] [address] [place], [place] [phone] Payton Qureshi MD 08/02/2024 Telephone [facility] [address] [place], [place] [phone] Delia Mast, PharmD 08/02/2024 Travel 07/26/2024 Orders Only [facility] [address] [place], [place] [phone] Dawn Almaguer MD from Last 3 Months Immunizations Immunization Administration Dates Next Due Hep B, adult [...] Sign Reading Time Taken Comments Blood Pressure 120/68 09/14/2024 1:07 PM EDT Pulse 60 09/14/2024 1:07 PM EDT Temperature 35.2 C (95.4 F) 07/02/2024 3:04 PM EST Respiratory Rate 20 07/02/2024 3:04 PM EST Oxygen Saturation 97% 07/02/2024 3:04 PM EST Inhaled Oxygen Concentration - - Weight 110 kg (243 lb 4 oz) 07/02/2024 3:[address] Height 182.9 cm (6') 07/02/2024 3:04 PM EST Body Mass Index 32.99 07/02/2024 3:04 PM EST Plan of Treatment Upcoming Encounters Date Type Department Care Team (Late st Contact Info) Description 10/26/2024 2:30 PM EDT Medication Management [facility] [address] [place] [phone] Delia Mast, PharmD [address] [place], [place] [phone] 11/26/2024 3:30 PM EDT Office Visit [facility] [address] [place], [place] [phone] Dawn Almaguer MD [address] [place], [place] [phone] Health Maintenance Due Date Last Done Comments CT Colonography 1955 FIT DNA/Cologuard 1955 FIT 1955 FOBT 1955 Sigmoidoscopy 1955 Hepatitis C Screening 11/14/1973 Zoster Vaccines (2 of 2) 09/17/2022 07/23/2022 Diabetes: Foot Exam 08/08/2023 08/07/2022, 3 COVID-19 Vaccine ( season) 2023 08/28/2021, 08/28/2021, 08/16/2020, Additional history exists Depression Screening 06/30/2024 07/01/2023, 07/01/19 24 Diabetes: Hemoglobin A1C 10/25/2024 025, 07/02/2024, 04/23/2024, Additional history exists Influenza Vaccine (Season Ended) 2024 01/17/2022 Lipid Panel 01/08/2025 01/09/2024, 04/29, 06/20/2021, Additional history exists Alcohol/Substance Use Screening 02/09/2025 02/10/2024 SDOH Screening 04/29/2025 04/29/2024 Diabetes: Urine Protein Screening 07/26/2025 07/26/2024, 09/04/2020, 07/08/2019 Tobacco Screening 10/04/2025 10/04/2024 Eye Exam 09/28/2026 09/28/2024, 06/06/2024, 09/28/2024, Additional history exists DTaP/Tdap/Td Vaccines (3 - [...] patient's age to complete this topic Meningococcal B Vaccine Aged Out No l onger eligible based on patient's age to complete [...] Procedure Name Priority Date/Time Associated Diagnosis Comments OCT, RETINA - OU - BOTH EYES Routine 09/28/2024 2:00 PM EDT 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 HEMATOXYLIN AND EOSIN STAIN Routine 08/19/2024 1:38 PM EDT GLUCOSE, WHOLE BLOOD Routine 08/19/2024 10:43 AM EDT ALBUMIN, RANDOM URINE W/CREATININE Routine 07/26/2024 9:18 AM EDT VITAMIN B12 Routine 07/26/2024 9:18 AM EDT HEMOGLOBIN A1C Routine 07/26/2024 9:18 AM EDT BASIC METABOLIC PANEL Routine 07/26/2024 9:18 AM EDT LIPID PANEL, STANDARD Routine 01/09/2024 8:34 AM EDT Primary hypertension from Last 3 Months or Most Recently Relevant to Health Maintenance Results * OCT, Retina - OU - Both Eyes (09/28/2024 2:00 PM EDT) Jacquelyn Hussein, OD - 10/07/2024 1:02 PM EDT Images from the original result were not included. OCT [facility] [employer] Optical Coherence Tomography Interpretation Report Measurements: OD OS Macula Thickness 233 microns 173 microns Test findings: OD: normal foveal contour, no cystoid macular edema (CME), no retinal pigment epithelium (RPE) disruption, no subretinal fluid (SRF) OS: Decreased thickness of fovea with abnormal shape, cystic change overlying small PED superior to fovea, retinal pigment epithelium (RPE) scarring/disruption subfoveally Impression and Plan: Findings stable to 07/2023 scans. Will continue to monitor annually. us Jacquelyn Cordova OD OPHTH TOMOGRAPHY Final Result * Hematoxylin and Eosin Stain (08/19/2024 1:38 PM EDT) 08/19/2024 1:38 PM EDT 08/19/2024 2:08 PM EDT [facility] - 08/23/2024 3:16 PM EDT ----- ------- Name: Kenny Dowell Age/Sex: 68/M : 1955 Unit#: [id number] Attend Dr: Tena Prakash MD Re08/19/24 Status: [facility] Location: [facility] Disch: ----- ------- SPEC : [id number] RECD: 08/19/24 STATUS: LISA BRUNO NUM: [id number] VANESSA: 08/19/24 [facility] DR: Tena Prakash MD ENTERED: 08/19/24 SP TYPE: Surgical OTHR DR: Dawn Almaguer MD ORDERED: HE Stain/12, Gross Micro L4/, IHC/2, Special st. 2, H. pylori, AB/PAS/ Diagnosis A. Duodenum, biopsy: Focally active duodenitis. B. Duodenum, nodule, biopsy: Chronic active/erosive duodenitis. C. Stomach, polyp, biopsy: Antral-type mucosa with moderate chronic inactive inflammation and hyperplastic changes; no Helicobacter organism seen. D. GE junction, biopsy: - Cardiofundic-type mucosa with moderate chronic inactive inflammation; fully- developed intestinal metaplasia not identified. - Squamous epithelium within normal limits. Clinical History Pre-Op Dx: Abnormal GI series Post-Op Dx: Duodenitis, gastritis, duodenal nodule, gastric polyp, r/o Barretts Microscopic Description A-D. Microscopic sections examined. Focal alcianophilia is present in D; however this falls short of fully developed intestinal metaplasia. Foveolar metaplasia is present in B and no metaplastic changes are seen in A and C, all supported by AB/PAS stains (A, B, C and D); no Helicobacter organisms are seen, supported by H. pylori immunostain (C). Material Received A. Duodenum bx B. Duodenal nodule bx C. Gastric polyp bx D. GE junction bx's, r/o Barretts Gross Description Received in four parts. Part A: Received in formalin labeled duodenum bx is a 0.35 cm flower-pink irregular tissue fragments, submitted in toto in a cassette labeled A. Part B: Received in formalin labeled duodenal nodule bx are 6 flower-pink and pink-red irregular tissue fragments ranging from 0.1-0.2 cm, submitted in toto a cassette labeled B. Part C: Received in formalin labeled gastric polyp bx is a 0.3 cm flower-pink rectangular CONTINUED ON NEXT PAGE ----- ------- Name: Elaina Kenny Ramos Age/Sex: 68/M : 1955 Unit#: [id number] Attend Dr: Tena Prakash MD Re08/19/24 Status: [facility] Location: [facility] Disch: ----- ------- SPEC : [id number] RECD: 08/19/242644 STATUS: ARACELISteve MALONEYBlanca NUM: [id number] VANESSA: 08/19/24-1337 [facility] DR: Tena Prakash MD ENTERED: 08/19/249588 SP TYPE: Surgical OTHR DR: Dawn Almaguer MD ORDERED: HE Stain/12, Gross Micro L4/4, IHC/2, Special st. 2/4, H. pylori, AB/PAS/4 Gross Description (Continued) tissue fragment, submitted in toto in a cassette labeled C. Part D: Received in formalin labeled GE junction bx's, rule out Hercules's are 3 flower-pink irregular tissue fragments ranging from 0.2-0.3 cm, submitted in toto in a cassette labeled D. CEDS Special studies ordered and performed: Immunostain for H. pylori on C; AB/PAS stains on A, B, C and D Copies To: Dawn Almaguer MD [address] [address] Tena Prakash MD [facility] [address] [place] [phone] [email or web address] ----- ------- Signed (signature on file) Ihsan Cabral MD 08/23/24 1516 ----- ------- END OF REPORT Generic External Data Provider LAB BLOOD ORDERAB LES Final Result Performing Organization Address [facility]/ZIP Co de Phone Number [facility] [address] [place] [phone] * (ABNORMAL) Glucose, Whole Blood (08/19/2024 10:43 AM EDT) Glucose, Whole Blood 254(H) 60 - 115 mg/dL [facility] Comment:METER #: [id number] 08/19/2024 10:4 3 AM EDT 08/19/2024 10:48 AM EDT Generic External Data Provider LAB BLOOD ORDERAB LES Final Result Performing Organization Address [facility] Co de Phone Number [facility] [address] [place] [address] [phone] * Albumin, Random Urine W/Creatinine (07/26/2024 9:18 AM EDT) Creatinine, Urine 177.04 mg/dL [facility] Microalbumin Urine 30.0 mg/L [facility] Microalbum Creatinine Ratio Ur 16.9 <30 ug/mg cr [facility] Comment:Albumin/Creatinine R atio Reference Ranges: Normal: < 30 ug/mg creatinine Microalbuminuria: 30 - 300 ug/mg creatinineClinical Albuminuria: > 300 ug/mg creatinine 07/26/2024 9:18 AM EDT 07/26/2024 12:25 PM EDT us Dawn Monroy MD LAB URINE ORDERABLES Final Result Performing Organization Address City/[facility]/ZIP Co de Phone Number [facility] [address] [place] [phone] * (ABNORMAL) Hemoglobin A1c (07/26/2024 9:18 AM EDT) Hemoglobin A1c 8.1(H) <6.0 % [facility] Comment:Hemoglobin A1C Refer ence Range Adults: 4.8 - 6.0 % Non diabetic: < 6.0 % Goal: < 7.0 %Additional Action Suggested: > 8.0 %Note: Hemoglobin A1c results are invalid for patients with abnormal amounts of HbF. Blood transfusions may impact the HbA1c concentration in the patient sample. Estimated Average Glucose 186 mg/dL [facility] Comment:eAG = Estimated ave rage glucose which is %A1C expressed asaverage glucose, using the formula of the [id number] Glucose study (ADAG), Diabetes Care, Vol.31,#8,Nov. 2007 07/26/2024 9:18 AM EDT 07/26/2024 12:30 PM EDT us Generic External Data Provider LAB BLOOD ORDERAB LES Final Result [facility] [address] [place] [phone] * (ABNORMAL) Vitamin B12 (07/26/2024 9:18 AM EDT) [facility] Vitamin B12 1,203(H) 200 - 900 pg/mL [facility] Comment:NORMAL 200-900 PG/M L INDETERMINATE 160-199 PG/ML DEFICIENT < 160 PG/ML 07/26/2024 9:18 AM EDT 07/26/2024 12:30 PM EDT us Dawn Monroy MD LAB BLOOD ORDERABLES Final Result Performing Organization Address [facility] de Phone Number [facility] [address] [place] [phone] * (ABNORMAL) Basic Metabolic Panel (07/26/2024 9:18 AM EDT) [facility] Sodium 142 135 - 145 mmol/L [facility] Potassium 4.7 3.3 - 5.1 mmol/L [facility] Chloride 107 96 - 108 mmol/L [facility] Carbon Dioxide 27 22 - 29 mmol/L [facility] Anion Gap 13 12 - 20 [facility] Urea Nitrogen (BUN) 22(H) 9 - 16 mg/dL [facility] Creatinine, Serum 1.26 0.5 - 1.4 mg/dL [facility] Estimated Glomerular Filt Rate 57 [facility] Comment:Chronic Kidney Disea se: Estimated GFR < 60 mL/min/[id number] Kidney Disease: Estimated GFR < 15 mL/min/1.73m2 Glucose 141(H) 60 - 115 mg/dL [facility] Calcium 9.7 8.4 - 10.2 mg/dL [facility] 07/26/2024 9:18 AM EDT 07/26/2024 12:30 PM EDT us Dawn Monroy MD LAB BLOOD ORDERABLES Final Result Performing Organization Address City/[facility] Co de Phone Number [facility] [address] [place] [address] [phone] * (ABNORMAL) Lipid Panel, Standard (01/09/2024 8:34 AM EDT) Triglycerides 91 <150 mg/dL [facility] Comment:Desirable Triglyceri de: less than 150 mg/dLBorderline High Triglyceride 150-199 mg/dLHigh Triglyceride: 200-499 mg/dLVery High Triglyceride: greater than or equal to 5OO mg/dL Cholesterol 108 <200 mg/dL [facility] Comment:Desirable Cholestero l: less than 200 mg/dLBorderline High Cholesterol: 200-239 mg/dLHigh Cholesterol: greater than 239 mg/dL LDL Cholesterol Calculated 57 <100 mg/dL [facility] Comment:Desirable LDL: less than 100 mg/dLNear Optimal/Above Optimal LDL: 110- 129 mg/dLBorderline High LDL: 130-159 mg/dLHigh LDL: 160-189 mg/dLVery High LDL: greater than or equal to 190 mg/dL HDL Cholesterol 33(L) >40 mg/dL [facility] Comment:Desirable HDL: great er than 40 mg/dL Note: This HDL assay may give artificially low results in patients with liver disease. Blood Venous blood specimen / Unknown 01/09/2024 8:34 AM EDT 01/09/2024 11:48 AM EDT us Dawn Monroy MD LAB BLOOD ORDERABLES Final Result Performing Organization Address City/[facility]/ZIP Co de Phone Number [facility] [address] [place] [address] [phone] from Last 3 Months or Most Recently Relevant to Health Maintenance Insurance [address] [place] [id number] [facility] STANDARD [facility] [employer] (HMO D-SNP) Care Teams Deck Hand Relationship Specialty Start Date End Date Dawn Almaguer MD [address] [place] [phone] PCP - General Family Medicine 02/25/18 Delia Mast, LivierD [address] [place] [address] Pharmacist Internal Medicine 03/15/24 Citlaly 05/06/24
== END 2024-10-19 12:55 | disposition home or self-care (01) ==
LOC: HO.US 12:54
PROVIDERS: PCP Internal Medicine; Visit Provider Nurse Practitioner Family
DX: N28.1 Cyst of kidney, acquired (principal)
CPT/HCPCS: 76775

== ENCOUNTER → 2024-10-19 12:55 | Outpatient (BNV) | payer OTHER, SELFPAY | PROVIDERS: PCP Internal Medicine; Visit Provider Radiology Vascular & Interventional Radiology | DX: N20.0 Calculus of kidney (principal) | CPT/HCPCS: 76775 ==

== ENCOUNTER 2024-11-01 08:06 | Outpatient (REF) | payer OTHER, SELFPAY ==
[2024-11-01 11:50] LABS: Hemoglobin A1C 208.0148 umol/L; Total Hemoglobin (HGBA1C) 3344.3211 umol/L
[2024-11-01 12:48] LABS: Prostate Specific Antigen 0.34 ng/mL (<0.05-4.0)
== END 2024-11-01 08:07 | disposition home or self-care (01) ==
LOC: HO.HHCL 08:06
PROVIDERS: PCP Internal Medicine; Visit Provider Nurse Practitioner Family
DX: E11.9 Type 2 diabetes mellitus without complications (principal); R39.14 Feeling of incomplete bladder emptying; Z13.9 Encounter for screening, unspecified; Z12.5 Encounter for screening for malignant neoplasm of prostate
CPT/HCPCS: 36415; 51798; 81003; 83036; 84153; 99212

== ENCOUNTER 2024-11-01 11:16 | Outpatient (AMB) | payer OTHER, SELFPAY ==
--- NOTE | 2024-11-01 11:33 | A.OFFVIS_ITS ---
Intake Visit Reasons: 6m/US/PSA Intake Note: Patient presents today for follow up on: ultrasound and lab results Imaging Comnpleted: 10/19/24 Urology Medication: Tamsulosin Antibiotic Allergies: None Blood Thinners: None PVR: 118ml's Bobbin Marker Required: Yes Bobbin Marker Services: Bobbin Marker Present Bobbin Marker Name: CONNIE STOVERERIN Accompanied by: Self / Same As Patient Allergies No Known Allergies Allergy (Mild, Verified 11/01/24 12:11) NKA Medication List - Last Reconciled 11/01/24 by MARYCARMEN Montoya atorvastatin 80 mg PO DAILY cholecalciferol (vitamin D3) (Vitamin D3) 50 mcg PO DAILY cyanocobalamin (vitamin B-12) 1,000 mcg PO DAILY dabigatran etexilate 150 mg PO BID Held on 08/19/24. Instructions: Resume on 08/20/24. Hold today. Resume tomorrow. dronedarone (Multaq) 400 mg PO BID dulaglutide (Trulicity) 1.5 mg subcut QWEEK empagliflozin-metformin 12.5-1,000 mg (Synjardy) 1 tab PO BID flash glucose sensor (FreeStyle Monica 2 Sensor kit) As directed furosemide 20 mg PO DAILY glipizide ER 10 mg PO BID insulin glargine (Lantus Solostar U-100 Insulin) 16 units subcut DAILY metoprolol tartrate 25 mg PO BID omeprazole 20 mg PO BID 90 days omeprazole 20 mg PO BID 90 days pen needle, diabetic (BD Ultra-Fine Mini Pen Needle) As directed tamsulosin (Flomax) 0.4 mg PO BEDTIME 90 days HPI Comments Details: Kenny is a Ethiopian-speaking 68-year-old male patient of Dr. Dom Monroy. He has a past medical history of diabetes, hypertension, and hyperlipidemia. He presents to the office today for follow-up renal cyst, lower urinary tract symptoms and phimosis In discussion with the patient today reports to be doing and feeling well. Recent renal imaging results were reviewed with the patient today 09/19 bilateral kidneys are normal in size and echotexture. There is a 2.3 cm 1.4 cm anechoic right renal cyst. Normal sonographic appearance of the left kidney per radiology report. Previous workup has also included MRI renal mass protocol MRI 05/22 noted there is a 2.5 x 1.8 cm water signal intensity mass in the interpolar region of the right kidney without evidence of abnormal enhancement. Findings are consistent with a cyst. An additional 1.5 cm cyst is noted at the lower pole. No enhancing renal lesions are noted. The left kidney is unremarkable. There is no hydronephrosis. He reports to be happy with his current voiding parameters on 0.4 mg of Flomax daily. He reports compliance with betamethasone and clotrimazole cream as prescribed he does feel this has been somewhat helpful in treatment of his phimosis. In assessment of the patient today the meatus is visible however unable to retract penile foreskin. Recent A1c results were reviewed with the patient today as noted and trended below: A1c: 01/19 9.7, 07/20 8.1, 11/19 7.8 PSA: 01/19 0.3, 11/19 0.3 We did discuss decrease in A1c over the last 10 months. We discussed proceeding with circumcision verses dorsal slit procedure verses continuing with topical treatment. Risks and benefits of these treatment options were discussed. He otherwise denies incontinence, nocturia, hematuria, dysuria, foul smelling urine, changes to urinary stream, flank pain, fever, and or chills. We discussed at length management of diabetes for potential near future circumcision. We discussed treatment options of phimosis as well as risks and benefits of these interventions. In office urinalysis results reviewed with the patient today. PVR 118ml's. All questions were answered. He otherwise offers no other issues or concerns at this time. [facility] Medical History Renal cyst GERD (gastroesophageal reflux disease) PVD (peripheral vascular disease) BPH (benign prostatic hyperplasia) Atrial fibrillation Hypercholesteremia Hypertension Diabetes mellitus Surgical History Hx of transurethral resection of prostate History of laryngoscopy Hx of hand surgery History of esophagogastroduodenoscopy (EGD) Hx of colonoscopy Social History Household Members: None Housing: Apartment Patient Tobacco Use Status: Former Tobacco user service: No Review of Systems Const All systems reviewed & are unremarkable except as noted in HPI and below Physical Exam Const General: cooperative, healthy appearing, comfortable, no acute distress, well developed, alert and awake Orientation/consciousness: patient oriented x3 Limitations: language barrier HEENT Head: Yes normal to inspection, Yes normocephalic and Yes atraumatic Ears: hearing grossly normal bilaterally Eyes General: appearance normal, both eyes and all related structures Neck Neck: Yes normal visual inspection and Yes trachea midline Chest Chest palpation & inspection: normal inspection of the chest Resp Effort & Inspection: normal respiratory effort and able to speak in complete sentences Cardio Rate: regular rate GI Inspection: Yes normal to inspection General: Yes no CVA tenderness Back/Spine/Pelvis Back: no CVA tenderness Skin General skin exam: no rashes or lesions noted Neuro General: patient oriented x3 Extrem General: Yes normal to inspection Psych Appearance: grossly normal and well kempt Mental Status: mental status grossly normal Speech and movement: Normal speech and movement present and Clear speech present Affect: normal affect Attitude: cooperative Thought process: Normal thought process present Thought content: Normal thought content present Insight: Fair insight present (Psych) Judgement: Fair judgement present (Psych) Office Procedures Post Void Residual Post Residual Void Post Void Residual (PVR): 118 [id number] Void Residual by ultrasound Results AMB Urinalysis, Automated UA Leukoctes 0 Keaton/uL Last Edit by DEISI Esquivel on 11/01/24 12:10 UA Nitrite Last Edit by DEISI Esquivel on 11/01/24 12:10 UA Urobilinogen 0.2 mg/dL Last Edit by DEISI Esquivel on 11/01/24 12:1 0 UA Protein 0 mg/dL Last Edit by DEISI Esquivel on 11/01/24 12:10 UA pH 5.5 Last Edit by DEISI Esquivel on 11/01/24 12:10 UA Blood 0 Mj/uL Last Edit by DEISI Esquivel on 11/01/24 12:10 UA Specific Eaton 1.015 Last Edit by Moni Corral CCM on 11/01/24 12: 10 UA Ketone Last Edit by Moni Corral [facility] on 11/01/24 12:10 UA Bilirubin 0 mg/dL Last Edit by Deshaungeovannineal Corral [facility] on 11/01/24 12:10 UA Glucose 1000 mg/dL Last Edit by Moni Corral [facility] on 11/01/24 12:10 Results Reviewed Results Reviewed: Laboratory Last Values Urine pH (Auto) 5.5 11/01/24 12:09 Specific Eaton (Auto) 1.015 11/01/24 12:09 Urine Protein (Auto) 0 mg/dL 11/01/24 12:09 Glucose (UA)(Auto) 1000 mg/dL 11/01/24 12:09 Urine Blood (Auto) 0 Mj/uL 11/01/24 12:09 Urine Bilirubin (Auto) 0 mg/dL 11/01/24 12:09 Urine Urobilinogen (Auto) 0.2 mg/dL 11/01/24 12:09 Leukocyte Esterase (Auto) 0 Keaton/uL 11/01/24 12:09 Date of Service: 10/19/24 Procedure(s): US renal BI Findings: Right kidney normal size and echotexture, 11.2 cm length. 2.3 cm and 1.4 cm anechoic right renal cysts are present. Left kidney normal size and echotexture, 10.0 cm length. No collecting system dilatation of either kidney. IMPRESSION: 1. 2.3 cm and 1.4 cm simple right renal cysts. 2. Normal sonographic appearance of the left kidney. Assessment & Plan Assessment & Plan (1) Renal cyst: Code(s): N28.1 - Cyst of kidney, acquired Category: Medical (2) Phimosis: Code(s): N47.1 - Phimosis Category: Medical Plan In office urinalysis results reviewed with the patient today; as noted above. PVR 118 mLs. Recent A1c and PSA results were reviewed with the patient today; as noted above. Recent renal imaging results reviewed with the patient today; as noted above. Will continue with surveillance monitoring of right renal cyst. We did discussed further treatment options of phimosis to include surveillance monitoring verses circumcision verses dorsal slit procedure; risks and benefits of these interventions were discussed. All questions were answered. Continue Flomax as discussed and prescribed. Continue clotrimazole and betamethasone; refill provided Will obtain hemoglobin A1c in 3 months. Follow up in 3 months with lab to be completed prior; or sooner with any issues, concerns, and or questions. Orders: Orders AMB Urinalysis Automated Today Z13.9 - Encounter for screening, unspecified Hemoglobin A1c 3 Months E11.9 - Type 2 diabetes mellitus without complications AMB Post Void Residual by ultrasound Today R39.14 - Feeling of incomplete bladder emptying Medications: Refilled clotrimazole-betamethasone 1-0.05 % Apply thin coat 2 times per day 1 appl topical BID 4 weeks 45 grams 3RF N48.1 - Balanitis clotrimazole-betamethasone 1-0.05 % Apply thin coat 2 times per day 1 appl topical BID 45 grams 3RF 4 weeks N48.1 - Balanitis Discontinued omeprazole Discontinued Reason: Duplicate 20 mg PO BID 90 days 180 caps 1RF K29.80 - Duodenitis without bleeding Patient Instructions: The patient had an opportunity to ask questions regarding the treatment plan. All questions were answered. Physical exam, labs, and imaging were discussed and reviewed in detail. As well as risks, benefits, and discussion of treatment choices. No major barriers to understanding were identified. The patient expressed understanding and agreement with the above treatment plan. The patient was made aware they should contact our office by phone for worsening of their current condition, the appearance of new symptoms, or with any questions or concerns. Compliance is encouraged with any medications and follow up testing that is ordered. It is a privilege to be allowed the opportunity to participate in? your urological care.? Again, if you have any questions or concerns If you have any questions or concerns please do not hesitate to contact me. The office is [phone]. This note is constructed using voice recognition software. While every effort has been made to ensure accuracy services engineer errors may have been included. Yours sincerely, MARYCARMEN Montoya Coding Level of Care Code Est Pt Level 3 (47429) Complex EM visit Add On G2211 Diagnoses Renal cyst N28.1 Phimosis N47.1 CPT Codes Post Residual Void - PVR CPT Code: 40172-Kasj Void Residual by ultrasound ([id number])
--- OUTSIDE RECORDS SUMMARY | 2024-11-01 12:12 | XMS_ITS | Clinical Summary ---
Author Organization [employer] Address [address] [place] [address] Care Team Providers Care Home Care Assistant Name Role Phone Dawn Almaguer MD Primary Care Provide r Delia Mast PharmD Unavailable [phone]- [phone] Allergies No known active allergies Medications atorvastatin [...] hyperglycemia, with long-term current use of insulin (CMS/[facility]) Use as needed for low blood [...] use of insulin ([facility]) Check blood sugar 3 times a day 100 each 11 06/04/19 25 Active metoprolol tartrate (Lopressor) 25 MG tabletIndication s:Primary hypertension Take one half tablet by mouth twice daily 90 tablet 07/03/19 25 Active Continuous Glucose Social Research Assistant (FreeStyle Monica 3 [place]) device 1 each Once per day. Use [...] use of insulin ([facility]) Use to test blood sugar 2 times daily 100 each 09/01/19 25 026 Active Dulaglutide (Trulicity) 3 MG/0.5ML solution auto-injectorInd ications:Type 2 diabetes mellitus with hyperglycemia, with long-term current use of insulin ([facility]) Inject 3 mg under the skin every 7 (seven) days. 2 mL 09/15/19 25 Active insulin glargine (Lantus SoloStar) 100 UNIT/ML penIndications:T ype 2 diabetes mellitus with hyperglycemia, with long-term current use of insulin ([facility]) Inject subcutaneously 12 units once daily 15 mL 09/15/19 25 Active glipiZIDE XL (Glucotrol XL) 5 MG 24 hr tabletIndication s:Type 2 diabetes mellitus with other specified complication, unspecified whether [facility] insulin use ([facility]) TAKE 1 TABLET BY MOUTH TWICE [...] AM EST): Patient reports he went to [place] and forgot his insulin he stop using [...] Encounters Date Type Department Care Team Description 11/01/2024 Orders Only GENERIC EXTERNAL DATA DEPARTMENT Provider, Generic External Data 10/19/2024 Orders Only [facility] External Provider, [facility] 09/28/2024 2:00 PM EDT Office Visit 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 MEDICINE [address] [place] [address] Dawn Almaguer MD Type 2 diabetes mellitus with hyperglycemia, with long-term current use of insulin ([facility]) (Primary Dx); Primary hypertension 09/14/2024 Telephone [facility] MEDICINE [address] [place] [address] Delia Mast, PharmD 09/14/2024 Travel 08/31/2024 Travel 08/19/2024 Refill [facility] MED & PEDS [address] [place] [address] Susantoni BhumikaASAF 08/19/2024 Orders Only GENERIC EXTERNAL DATA DEPARTMENT Provider, Generic External Data 08/12/2024 Refill [facility] MEDICINE [address] [place] [address] Dawn Almaguer MD Type 2 diabetes mellitus with hyperglycemia, with long-term current use of insulin ([facility]) 08/02/2024 Telephone [facility] MEDICINE [address] [place] [address] Payton Qureshi MD 08/02/2024 Telephone [facility] MEDICINE [address] [place] [address] Delia Mast, PharmD 08/02/2024 Travel from Last 3 Months Immunizations Immunization Administration [...] Care Team (Late st Contact Info) Description 11/26/2024 3:30 PM EDT Office Visit [facility] MEDICINE [address] [place] [address] Dawn Almaguer MD [address] [place] [address] Health Maintenance Due Date Last Done Comments CT Colonography 1955 FIT DNA/Cologuard 1955 FIT 1955 FOBT 1955 Sigmoidoscopy 1955 Hepatitis C Screening 11/14/1973 Zoster Vaccines (2 of 2) 09/17/2022 07/23/2022 Diabetes: Foot Exam 08/08/2023 08/07/2022, COVID-19 Vaccine ( season) 2023 08/28/2021, 08/28/2021, 08/16/2020, Additional history exists Depression Screening 06/30/2024 07/01/2023, 07/01/19 24 Influenza Vaccine (#1) 2024 01/17/2022 Lipid Panel 01/08/2025 01/09/2024, 04/29, 06/20/2021, Additional history exists Diabetes: Hemoglobin A1C 02/01/2025 025, 07/26/2024, 07/02/2024, Additional history exists Alcohol/Substance Use Screening 02/09/2025 02/10/2024 SDOH Screening 04/29/2025 04/29/2024 Diabetes: Urine Protein Screening 07/26/2025 07/26/2024, 09/04/2020, 07/08/2019 Tobacco Screening 10/04/2025 10/04/2024 Eye Exam 09/28/2026 09/28/2024, 06/0 06/2024, 09/28/2024, Additional history exists DTaP/Tdap/Td Vaccines (3 [...] Procedure Name Priority Date/Time Associated Diagnosis Comments HEMOGLOBIN A1C Routine 11/01/2024 8:12 AM EDT US RENAL BI Routine 10/20/2024 9:12 AM EDT OCT, RETINA - OU - BOTH EYES Routine 09/28/2024 2:00 PM EDT 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 HEMATOXYLIN AND EOSIN STAIN Routine 08/19/2024 1:38 PM EDT GLUCOSE, WHOLE BLOOD Routine 08/19/2024 10:43 AM EDT ALBUMIN, RANDOM URINE W/CREATININE Routine 07/26/2024 9:18 AM EDT LIPID PANEL, STANDARD Routine 01/09/2024 8:34 AM EDT Primary hypertension from Last 3 Months or Most Recently Relevant to Health Maintenance Results * (ABNORMAL) Hemoglobin A1c (11/01/2024 8:12 AM EDT) Hemoglobin A1c 7.8(H) <6.0 % [facility] Comment:Hemoglobin A1C Refer ence Range Adults: 4.8 - 6.0 % Non diabetic: < 6.0 % Goal: < 7.0 %Additional Action Suggested: > 8.0 %Note: Hemoglobin A1c results are invalid for patients with abnormal amounts of HbF. Blood transfusions may impact the HbA1c concentration in the patient sample. Estimated Average Glucose 177 mg/dL [facility] Comment:eAG = Estimated ave rage glucose which is %A1C expressed asaverage glucose, using the formula of the U6M-WrwswarYwrhdvt Glucose study (ADAG), Diabetes Care, Vol.31,#8,2007 11/01/2024 8:12 AM EDT 11/01/2024 11:17 AM EDT us Generic External Data Provider LAB BLOOD ORDERAB LES Final Result Performing Organization Address City/State/[facility] Co de Phone Number [facility] [address] [place] [phone] * US RENAL BI (10/20/2024 9:12 AM EDT) Anatomical Region Laterality Modality Abdomen Ultrasound 10/20/2024 9:12 AM EDT Narrative 10/20/2024 9:14 AM EDT [address] [address] Ultrasound Report Signed Patient: Kenny Dowell MR#: [id number] : 1955 Acct:[id number] Age/Sex: 68 / M ADM Date: 10/19/24 Loc: HO.US Attending Dr: Shirley CONROY Ordering Physician: Shirley Murillo Date of Service: 10/19/24 Procedure(s): US renal BI Accession Number(s): [id number] cc: Dawn Almaguer MD; Shirley Murillo CLINICAL HISTORY: N28.1 - Cyst of kidney, acquired US Renal Comparison: None provided Findings: Right kidney normal size and echotexture, 11.2 cm length. 2.3 cm and 1.4 cm anechoic right renal cysts are present. Left kidney normal size and echotexture, 10.0 cm length. No collecting system dilatation of either kidney. IMPRESSION: 1. 2.3 cm and 1.4 cm simple right renal cysts. 2. Normal sonographic appearance of the left kidney. This document has been electronically signed by: Faith Pritchett on 10/20/2024 09:12:54 Dictated By: Faith Pritchett MD Signed By: <Electronically signed by Faith Pritchett MD in OV> 10/20/24913 DD/ 1 TD/TT: 10/20/24911 Rehab Manager: Procedure Note Donotuseinterpreter, Image - 10/20/2024 [place] [address] Ultrasound Report Signed Patient: Tamika Dowell#: M [id number] : 6Acct:[id number] Age/Sex: 68 / MADM Date: 10/19/24 Loc: HO.US Attending Dr: Shirley CONROY Ordering Physician: Shirley Murillo Date of Service: 10/19/24 Procedure(s): US renal BI Accession Number(s): [id number] cc: Dawn Almaguer MD; Shirley Murillo CLINICAL HISTORY: N28.1 - Cyst of kidney, acquired US Renal Comparison: None provided Findings: Right kidney normal size and echotexture, 11.2 cm length. 2.3 cm and 1.4 cm anechoic right renal cysts are present. Left kidney normal size and echotexture, 10.0 cm length. No collecting system dilatation of either kidney. IMPRESSION: 1. 2.3 cm and 1.4 cm simple right renal cysts. 2. Normal sonographic appearance of the left kidney. This document has been electronically signed by: Faith Pritchett on 10/20/2024 09:12:54 Dictated By: Faith Pritchett MD Signed By: <Electronically signed by Faith Pritchett MD in OV> 10/20/24913 DD/ 1 TD/TT: 10/20/24911 Rehab Manager: [facility] External Provider IMG US PROCEDURES Final Result * OCT, Retina - OU - Both [...] 07/2023 scans. Will continue to monitor annually. Jacquelyn Cordova OD OPHTH TOMOGRAPHY Final Result * Hematoxylin and Eosin Stain (08/19/2024 1:38 PM EDT) 08/19/2024 1:38 PM EDT 08/19/2024 2:[address] PM EDT [facility] - 08/23/2024 3:16 PM EDT ----- ------- Name: Kenny Dowell Age/Sex: 68/M : 1955 Unit#: [id number] Attend Dr: Tena Prakash MD Re08/19/[address] [facility] Location: [facility] Disch: ----- ------- SPEC : [id number] RECD: 08/19/24 STATUS: LISA BRUNO NUM: [id number] VANESSA: 08/19/[address] [facility] [address]: Tena Prakash MD ENTERED: 08/19/24281 SP TYPE: Surgical OTHR DR: Dawn Almaguer MD ORDERED: HE Stain/12, Gross Micro L4/4, IHC/2, Special st. 2/, H. pylori, AB/PAS/4 Diagnosis A. Duodenum, biopsy: Focally active duodenitis. [...] ON NEXT PAGE ----- ------- Name: Elaina RamosKenny Age/Sex: 68/M : 1955 Unit#: [id number] Attend Dr: Tena Prakash MD Re08/19/[address]: [facility] Location: [facility] Disch: ----- ------- SPEC : [id number] RECD: 08/19/24-1829 STATUS: LISA DAMION NUM: [id number] VANESSA: 08/19/24-[address] [facility] [address]: Tena Prakash MD ENTERED: 08/19/242185 SP TYPE: Surgical OTHR DR: Dawn Almaguer MD ORDERED: HE Stain/12, Gross Micro L4/4, IHC/2, Special st. 2/, H. pylori, AB/PAS/4 Gross Description (Continued) tissue [...] and D Copies To: Dawn Almaguer MD [address] [facility] [address] [place] [address] [email or web address] ----- ------- Signed (signature on file) Ihsan Cabral MD 08/23/24 1516 ----- ------- END OF REPORT Generic External Data Provider LAB BLOOD ORDERAB LES Final Result Performing Organization Address [facility] Co de Phone Number [facility] [address] [place] [address] [phone] * (ABNORMAL) Glucose, Whole Blood (08/19/2024 10:43 AM EDT) [facility] Signature Glucose, Whole Blood 254(H) 60 - 115 mg/dL [facility] Comment:METER #: [id number] 08/19/2024 10:4 3 AM EDT 08/19/2024 10:48 AM EDT Generic External Data Provider LAB BLOOD ORDERAB LES Final Result Performing Organization Address [facility] Co de Phone Number [facility] [address] [place] [address] [phone] * Albumin, Random Urine W/Creatinine (07/26/2024 9:18 AM EDT) Creatinine, Urine 177.04 mg/dL [facility] Microalbumin Urine 30.0 mg/L [facility] Microalbum Creatinine Ratio Ur 16.9 <30 ug/mg cr [facility] Comment:Albumin/Creatinine R atio Reference Ranges: Normal: < 30 ug/mg creatinine Microalbuminuria: 30 - 300 ug/mg creatinineClinical Albuminuria: > 300 ug/mg creatinine 07/26/2024 9:18 AM EDT 07/26/2024 12:25 PM EDT Dawn Monroy MD LAB URINE ORDERABLES Final Result [facility] [address] [place] [address] [phone] * (ABNORMAL) Lipid Panel, Standard (01/09/2024 8:34 AM EDT) Triglycerides 91 <150 mg/dL [facility] Comment:Desirable Triglyceri de: less than 150 mg/dLBorderline High Triglyceride 150-199 mg/dLHigh Triglyceride: 200-499 mg/dLVery High Triglyceride: greater than or equal to 5OO mg/dL Cholesterol 108 <200 mg/dL [facility] Comment:Desirable Cholestero l: less than 200 mg/dLBorderline High Cholesterol: 200-239 mg/dLHigh Cholesterol: greater than 239 mg/dL LDL Cholesterol Calculated 57 <100 mg/dL [facility] Comment:Desirable LDL: less than 100 mg/dLNear Optimal/Above Optimal LDL: 110- 129 mg/dLBorderline High LDL: 130-159 mg/dLHigh LDL: 160-189 mg/dLVery High LDL: greater than or equal to 190 mg/dL HDL Cholesterol 33(L) >40 mg/dL [facility] Comment:Desirable HDL: great er than 40 mg/dL Note: This HDL assay may give artificially low results in patients with liver disease. Blood Venous blood specimen / Unknown 01/09/2024 8:34 AM EDT 01/09/2024 11:48 AM EDT Dawn Monroy MD LAB BLOOD ORDERABLES Final Result [facility] [address] [place] [address] [phone] from Last 3 Months or Most Recently Relevant to Health Maintenance Insurance [facility] STANDARD [facility] [employer] OPT[employer] (HMO D-SNP) Care Teams Home Care Assistant Relationship Specialty Start Date End Date Dawn Almaguer MD [address] [place] [address] PCP - General Family Medicine 02/25/18 Delia Mast, PharmD [address] [place] [address] Pharmacist Internal Medicine 03/15/24 [place] 05/06/24
== END 2024-11-01 12:07 | disposition home or self-care (01) ==
LOC: HO.HUSH 11:17
PROVIDERS: PCP Internal Medicine; Visit Provider Nurse Practitioner Family
DX: N28.1 Cyst of kidney, acquired (principal); N47.1 Phimosis
CPT/HCPCS: 99213; G2211

== ENCOUNTER 2024-12-30 09:18 | Outpatient (REF) | payer OTHER, SELFPAY ==
--- NOTE | ~2024-12-30 | XR_ITS ---
EXAMINATION: XR CHEST CLINICAL INFORMATION: R06.02 - Shortness of breath COMPARISON: October 25, 2023 TECHNIQUE: 2 views of the chest were obtained. FINDINGS: No significant abnormality is noted involving the heart, lungs, mediastinum, or soft tissues. Flowing osteophytes are present in the mid to lower thoracic spine. XR/XR chest 2V IMPRESSION: No acute disease. 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 Electronically signed by: Camron Laboy MD 12/30/2024 10:56 AM EDT
[2024-12-30 11:25] LABS: Anion Gap 11 (12-20); Blood Urea Nitrogen 28 mg/dL (9-16); Calcium 9.4 mg/dL (8.4-10.2); Carbon Dioxide 26 mmol/L (22-29); Chloride 111 mmol/L (96-108); Estimated Glomerular Filt Rate 46; Potassium 5.2 mmol/L (3.3-5.1); Sodium 143 mmol/L (135-145)
[2024-12-30 11:26] LABS: B Type Natriuretic Peptide 63 pg/mL (<100)
== END 2024-12-30 09:19 | disposition home or self-care (01) ==
LOC: HO.XRAY 09:18
PROVIDERS: PCP Internal Medicine; Visit Provider Internal Medicine Cardiovascular Disease
DX: I48.0 Paroxysmal atrial fibrillation (principal); I73.9 Peripheral vascular disease, unspecified; R06.02 Shortness of breath; E11.65 Type 2 diabetes mellitus with hyperglycemia; R07.89 Other chest pain; Z79.01 Long term (current) use of anticoagulants; Z79.4 Long term (current) use of insulin
CPT/HCPCS: 36415; 71046; 80048; 83880; 93005; 99212

== ENCOUNTER 2024-12-30 09:18 | Outpatient (AMB) | payer OTHER, SELFPAY ==
--- NOTE | 2024-12-30 09:37 | A.OFFVIS_ITS ---
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 History was obtained with help of healthcare interpreter. Patient came without his medicine list and we had to obtain the medicine list from pharmacy to confirm. Patient has prior history of paroxysmal atrial fibrillation, diabetes, hypertension. Patient says that over the last many months he has been having symptoms of palpitation very feels rapid heart rate every night about 8-10 minutes. He had workup in the past but not sure as to what the workup showed. He says the symptoms are bothersome but not life- limiting. He has no associated chest pain or shortness of breath with the palpitations. However he does complain of exertional fatigue and shortness of breath when he does exertional activity. Denies any exertional chest pain. Denies any orthopnea, PND, leg edema. However complains of bilateral leg discomfort walking. He also has bilateral leg swelling and has been prescribed compression stocking which she was not wearing today. He also has a compression boot that he is supposed to use once a day for 1 hour. Takes all his medications. Denies any bleeding issues or neurologic events. [facility] Medical History Paroxysmal atrial fibrillation Renal cyst GERD (gastroesophageal reflux disease) PVD (peripheral vascular disease) BPH (benign prostatic hyperplasia) Atrial fibrillation Hypercholesteremia Hypertension Diabetes mellitus Surgical History Hx of transurethral resection of prostate History of laryngoscopy Hx of hand surgery History of esophagogastroduodenoscopy (EGD) Hx of colonoscopy Social History Household Members: None Housing: Apartment Patient Tobacco Use Status: Former Tobacco user service: No Review of Systems Const Denies chills, Denies daytime sleepiness, Denies fatigue, Denies fever(s), Denies frequent falls, Denies poor appetite, Denies snoring, Denies stops breathing during sleep, Denies weakness, Denies weight gain and Denies weight loss Eyes Denies loss of vision ENT Denies dizziness and Denies hearing loss Card Denies chest pain, Denies claudication, Denies leg edema, Denies lightheadedness, Denies palpitations, Denies dyspnea, Denies dyspnea on exertion and Denies orthopnea Resp Denies cough, Denies excessive phlegm production, Denies dyspnea, Denies dyspnea on exertion, Denies snoring and Denies wheezing GI Denies abdominal pain, Denies hematochezia, Denies change in bowel habits, Denies nausea and Denies vomiting Denies dysuria and Denies urinary frequency Musc Denies arthralgias, Denies muscle weakness and Denies numbness Skin/Breast Denies nail changes and Denies rash Neuro Denies Abnormal speech present, Denies dizziness, Denies frequent falls, Denies loss of vision, Denies memory loss, Denies numbness and Denies weakness Psych Denies depression and Denies memory loss Endo Denies fatigue and Denies palpitations Piyush/Lymph Reports easy bruising and Reports other (anemia) Aller/Immun Denies wheezing Physical Exam Vital Signs: Last Vital Signs Pulse 48 L 12/30/24 09:38 BP 112/70 12/30/24 09:38 BMI result Body Mass Index 30.8 Const General: cooperative, comfortable, no acute distress, alert and awake Nutritional Appearance: overweight Orientation/consciousness: patient oriented x3 Limitations: no limitations HEENT Head: Yes normocephalic and Yes atraumatic Neck Neck: Yes trachea midline, Yes supple and Yes no JVD Resp Effort & Inspection: normal respiratory effort Auscultation: clear to auscultation bilaterally Cardio Jugular venous distension: no JVD Rate: bradycardic Rhythm: regular rhythm Heart sounds: S1 normal heart sound present, S2 normal heart sound present, no click, no gallops, no murmurs and no rubs GI Auscultation: normal bowel sounds Skin General skin exam: no rashes or lesions noted Neuro General: patient oriented x3 and no focal motor deficits Speech: No Abnormal speech present Extrem General: No clubbing, No cyanosis, Yes edema (Mild edema, bilateral varicosities) and Yes venous stasis dermatitis Psych Appearance: grossly normal Office Procedures EKG Details: EKG shows sinus bradycardia at 48 beats per minute with otherwise normal EKG [id number], Complete Assessment & Plan Assessment & Plan (1) Short of breath on exertion: Code(s): R06.02 - Shortness of breath Category: Medical Plan: Shortness of breath on exertion in this elderly gentleman could be related to deconditioning although given his risk factors myocardial ischemia needs to be ruled out. Will suggest exercise myocardial perfusion imaging. Also possible that this could be related to chronotropic incompetence related to metoprolol and Multaq therapy. Exercise treadmill stress test would direct us towards that. At that point time may need to cut down on metoprolol therapy. Also suggest an echocardiogram to assess LV systolic and diastolic function to evaluate for pulmonary hypertension. The no overt signs of congestive heart failure at this time. He has bilateral lower extremity edema related to varicose veins. Advised to pursue compression stockings for the same. He is having symptoms of leg discomfort with walking which could suggest claudication would suggest lower extremity duplex for the same. (2) Paroxysmal atrial fibrillation: Code(s): I48.0 - Paroxysmal atrial fibrillation Category: Medical Plan: Paroxysmal atrial fibrillation predominantly appears to be suppressed on current therapy with Multaq. Seems to be doing well. He is having symptoms of palpitations on a regular basis and this could possibly be related to recurrent atrial fibrillation. Would need to determine the etiology. Will suggest a 7 day Holter monitor for the same. Continue for now treatment. Continue full oral anticoagulation, currently on Pradaxa 150 mg b.i.d.. Semi annual renal function test should be pursued. Consider workup for sleep apnea. Will obtain echocardiogram as above. Continue aggressive risk factor modification with aggressive control of diabetes as well as aggressive control blood pressure which is currently well optimized. Avoidance of stimulants was discussed. Follow up in the clinic in 6 weeks time after above-mentioned test. Thank you for allowing me to partake in his care Orders: Orders XR chest 2V Today R06.02 - Shortness of breath ECG 7 day holter monitor Today I48.0 - Paroxysmal atrial fibrillation CA echo transthoracic complete Today I48.0 - Paroxysmal atrial fibrillation CA stress test Today R06.02 - Shortness of breath US arterial duplex LE BI Today I73.9 - Peripheral vascular disease, unspecified B Type Natriuretic Peptide Today R06.02 - Shortness of breath Basic Metabolic Panel Today R06.02 - Shortness of breath NM cardiolite stress test 2 Weeks R06.02 - Shortness of breath, R07.9 - Chest pain, unspecified Coding Level of Care Code New Pt Level 4 (05988) Complex EM visit Add On G2211 Diagnoses Short of breath on exertion R06.02 Paroxysmal atrial fibrillation I48.0 CPT Codes EKG - CPT: 23942-[id number], Complete ([id number])
[2024-12-30 09:38] VITALS: BP 112/70; PULSE 48; BMI 30.8
--- OUTSIDE RECORDS SUMMARY | 2024-12-30 09:56 | XMS_ITS | Encounter Summary ---
Author Organization [facility] Address [address] [place] [address] Phone Care Team Providers Care Chain Machine Operator Name Role Phone Pcp, Unknown Primary Care Provider Unavailabl e Encounter Details Date Type Department Care Team (Latest Contact Info) Description 12/02/2018 Ancillary Orders [facility] [address] [place] [address] Ina Medrano PA [address] [place] [address] [email or web address] Atrial fibrillation, unspecified type Social History Tobacco Use Types Packs/Day Years Used Date Smoking Tobacco: Never Assessed Sex and Gender Information Value Date Recorded Sex Assigned at Not on file Legal Sex Male 11:33 AM EDT Gender Identity Not on file Sexual Orientation Not on file documented as of this encounter Plan of Treatment Not on file documented as of this encounter Results * Holter Monitor 48 Hours (12/02/2018 12:12 PM EDT) Anatomical Region Laterality Modality Heart Other Narrative 12/02/2018 3:55 PM EDT 48-hour monitor: Baseline rhythm is sinus with minimum heart rate 42, maximum 147, average 72 bpm. There are no long pauses present. Occasional PVCs present. Increased frequency atrial ectopy, averaging about 2700 atrial ectopic beats per 24 hours. These are mainly isolated PACs with occasional couplets and runs of atrial tachycardia, longest duration 54 beats. There is no diary included. There are no patient event markers. Impression: Abnormal 48-hour monitor due to increased frequency atrial ectopy with brief runs of atrial tachycardia, maximum duration 54 beats. No diary returned, no patient event markers. Procedure Note Mark Andrade MD - 12/02/2018 48-hour monitor: Baseline rhythm is sinus with minimum heart rate 42,maximum 147, average 72 bpm. There are no long pauses present.Occasional PVCs present. Increased frequency atrial ectopy, averagingabout 2700 atrial ectopic beats per 24 hours. These are mainly isolatedPACs with occasional couplets and runs of atrial tachycardia, longestduration 54 beats. There is no diary included. There are no patientevent markers. Impression: Abnormal 48-hour monitor due to increased frequency atrialectopy with brief runs of atrial tachycardia, maximum duration 54 beats.No diary returned, no patient event markers. Ina [facility] Final Result documented in this encounter Visit Diagnoses Diagnosis Atrial fibrillation, unspecified type Atrial fibrillation, unspecified type documented in this encounter Care Teams Chain Machine Operator Relationship Specialty Start Date End Date Pcp, Unknown PCP - General 11/18/18 documented as of this encounter Additional Source Comments The information contained in this document represents components of the legal health record. It is not the complete legal health record.[facility]
--- OUTSIDE RECORDS SUMMARY | 2024-12-30 09:56 | XMS_ITS | Encounter Summary ---
Author Organization [facility] Address [address] [place] [phone] Phone Care Team Providers Care Book Jogger Name Role Phone Pcp, Unknown Primary Care Provider Unavailabl e Encounter Details Date Type Department Care Team (Late st Contact Info) Description 04/07/2020 Procedure Pass [facility] [address] [place] [address] [place] [address] Social History Tobacco Use Types Packs/Day Years Used Date Smoking Tobacco: Never Assessed Sex and Gender Information Value Date Recorded Sex Assigned at Not on file Legal Sex Male 11:33 AM EDT Gender Identity Not on file Sexual Orientation Not on file documented as of this encounter Plan of Treatment Not on file documented as of this encounter Visit Diagnoses Not on filedocumented in this encounter Care Teams Book Jogger Relationship Specialty Start Date End Date Pcp, Unknown PCP - General 11/18/18 documented as of this encounter Additional Source Comments The information contained in this document represents components of the legal health record. It is not the complete legal health record.[facility]
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
--- OUTSIDE RECORDS SUMMARY | 2024-12-30 09:56 | XMS_ITS | Encounter Summary ---
Author Organization [employer] Address [address] [facility] 7t [place] [address] Care Team Providers Care Gas Well Pumper Name Role Phone Dawn Almaguer MD Primary Care Provide r Delia Mast PharmD Unavailable [phone] Reason for Visit * Reason Comments Med Refill Encounter Details Date Type Department Care Team (Late st Contact Info) Description 02/07/2024 Refill [facility] [address] [place], [place] [phone] Dawn Almaguer MD [address] [place], [place] [phone] Heartburn Social History Tobacco Use Types Packs/Day [...] Description 12/31/2024 2:30 PM EDT Medication Management [facility] [address] [place] [address] Delia Mast PharmD [address] [place] [address] documented as of this encounter Visit Diagnoses Diagnosis Heartburn documented in this encounter Additional Health Concerns Assessment Noted Time PHQ-9 Depression Total Score: 0 07/01/19 24 1:29 PM EST documented as of this encounter Care Teams Gas Well Pumper Relationship Specialty Start Date End Date Dawn Almaguer MD [address] [place] [place] [phone] PCP - General Family Medicine 02/25/18 Delia Mast, LivierD [address] [place] [place] [phone] Pharmacist Internal Medicine 03/15/24 Citally 05/06/24 documented as of this encounter
--- OUTSIDE RECORDS SUMMARY | 2024-12-30 09:56 | XMS_ITS | Encounter Summary ---
Author Organization [facility] Address [address] [place] [address] Phone Care Team Providers Care Cut File Clerk Name Role Phone Pcp, Unknown Primary Care Provider Unavailabl e Encounter Details Date Type Department Care Team (Late st Contact Info) Description 05/24/2019 Ancillary Orders [facility] [address] [place] [address] Ina Medrano PA [address] [place] [address] [email or web address] Social History Tobacco Use Types Packs/Day Years [...] encounter Results * Holter Monitor 48 Hours (05/24/2019 11:50 AM EST) Anatomical Region Laterality Modality Heart Other Narrative 05/24/2019 1:21 PM EST Holter monitor report Indication palpitations Findings: The underlying rhythm is a sinus rhythm with an average heart rate 56 bpm, minimum heart rate 34 bpm, maximal heart rate 151 bpm. There was very frequent atrial ectopy occurring 12% of total beats. Most of these were isolated PACs there were some atrial couplets as well as some runs of atrial tachycardia. There was also evidence of atrial fibrillation occurring on May 17 starting at 1849 and ending at 1853. The rate was about 140 bpm. Conclusion: There is evidence of paroxysmal atrial fibrillation. Procedure Note Bernard Matias MD - 01/27/2020 Holter monitor report Indication palpitations Findings: The underlying rhythm is a sinus rhythm with an average heart rate 56 bpm,minimum heart rate 34 bpm, maximal heart rate 151 bpm. There was very frequent atrial ectopy occurring 12% of total beats. Mostof these were isolated PACs there were some atrial couplets as well assome runs of atrial tachycardia. There was also evidence of atrial fibrillation occurring on Apriltarting at 184 and ending at 185. The rate was about 140 bpm. Conclusion: There is evidence of paroxysmal atrial fibrillation. Ina [facility] ORDERA BLES Final Result documented in this encounter Visit Diagnoses Diagnosis Palpitations Palpitations documented in this encounter Care Teams Cut File Clerk Relationship Specialty Start Date End Date Pcp, Unknown PCP - General 11/18/18 documented as of this encounter Additional Source Comments The information contained in this document represents components of the legal health record. It is not the complete legal health record.[facility]
--- OUTSIDE RECORDS SUMMARY | 2024-12-30 09:56 | XMS_ITS | Encounter Summary ---
Author Organization [email or web address] Address [address] [facility] 7t [place] [address] Care Team Providers Care Administrative Project Coordinator Name Role Phone Dawn Almaguer MD Primary Care Provide r Delia Mast PharmD Unavailable [phone]- [phone] Reason for Visit * Reason Comments Med Refill Encounter Details Date Type Department Care Team (Late st Contact Info) Description 07/14/2023 Refill [facility] [address] [place] [address] Bhumika Timmons FNP [address] [place] [address] Type 2 diabetes mellitus with hyperglycemia, with long-term current use of insulin ([facility]) Social History Tobacco Use Types Packs/Day Years [...] Description 12/31/2024 2:30 PM EDT Medication Management [facility] [address] [place] [phone] Delia Mast PharmD [address] [place] [phone] documented as of this encounter Visit Diagnoses Diagnosis Type 2 diabetes mellitus with hyperglycemia, with long-term current use of insulin ([facility]) documented in this encounter Additional Health Concerns Assessment Noted Time PHQ-9 Depression Total Score: 0 07/01/19 24 1:29 PM EST documented as of this encounter Care Teams Administrative Project Coordinator Relationship Specialty Start Date End Date Dawn Almaguer MD [address] [place] [phone] PCP - General Family Medicine 02/25/18 Delia Mast PharmD [address] [place] [phone] Pharmacist Internal Medicine 03/15/24 Ctilaly 05/06/24 documented as of this encounter
--- OUTSIDE RECORDS SUMMARY | 2024-12-30 09:56 | XMS_ITS | Encounter Summary ---
Author Organization [facility] Address [address] [place] [address] Phone Care Team Providers Care Wildlife Refuge Manager Name Role Phone Pcp, Unknown Primary Care Provider Unavailabl e Encounter Details Date Type Department Care Team (Latest Contact Info) Description 04/07/2020 Ancillary Orders [facility] [address] [place] [address] Ina Medrano PA [address] [place] [address] Atrial fibrillation, unspecified type Social History Tobacco [...] encounter Results * Holter Monitor 48 Hours (04/07/2020 11:56 AM EST) Anatomical Region Laterality Modality Heart Other Narrative 04/07/2020 12:55 PM EST 48-hour monitor: The baseline rhythm is sinus with a minimum heart rate of 36, maximum 157, average 63 bpm. The longest pause duration is 1.77 seconds at 5:15 AM, possibly during hours of sleep. Rare PVCs are present. There is an increased frequency of atrial ectopy, about 4500 atrial ectopic beats per 24-hour interval. These are primarily isolated PACs with occasional couplets and runs of atrial tachycardia, longest duration 14 beats. There are 2 episodes of atrial fibrillation, the first 5 minutes duration, and the second 18 minutes duration. Sinus node recovery times are normal. There is no diary submitted. There are no patient event markers. Impression: Abnormal 48-hour monitor due to increased frequency atrial ectopy, details above, and 2 episodes of paroxysmal atrial fibrillation, 5 and then 18 minutes duration. No diary submitted. No patient event markers. Procedure Note Mark Andrade MD - 04/07/2020 48-hour monitor: The baseline rhythm is sinus with a minimum heart rate of36, maximum 157, average 63 bpm. The longest pause duration is 1.77seconds at 5:15 AM, possibly during hours of sleep. Rare PVCs arepresent. There is an increased frequency of atrial ectopy, about 4500atrial ectopic beats per 24-hour interval. These are primarily isolatedPACs with occasional couplets and runs of atrial tachycardia, longestduration 14 beats. There are 2 episodes of atrial fibrillation, the first5 minutes duration, and the second 18 minutes duration. Sinus noderecovery times are normal. There is no diary submitted. There are nopatient event markers. Impression: Abnormal 48-hour monitor due to increased frequency atrialectopy, details above, and 2 episodes of paroxysmal atrial fibrillation, 5and then 18 minutes duration. No diary submitted. No patient eventmarkers. Ina HEARD [facility] ORDERA BLES Final Result documented in this encounter Visit Diagnoses Diagnosis Atrial fibrillation, unspecified type Atrial fibrillation, unspecified type documented in this encounter Care Teams Wildlife Refuge Manager Relationship Specialty Start Date End Date Pcp, Unknown PCP - General 11/18/18 documented as of this encounter Additional Source Comments The information contained in this document represents components of the legal health record. It is not the complete legal health record.[facility]
--- OUTSIDE RECORDS SUMMARY | 2024-12-30 09:56 | XMS_ITS | Encounter Summary ---
Author Organization [facility] Address [address] [place] [phone] Phone Care Team Providers Care Software Quality Assurance Engineer Name Role Phone Pcp, Unknown Primary Care Provider Unavailabl e Encounter Details Date Type Department Care Team (Late st Contact Info) Description 12/02/2018 Ancillary Orders [facility] [address] [place] [address] Mark Andrade MD [address] [place] [address] [email or web address] Social History Tobacco Use Types Packs/Day Years [...] on filedocumented in this encounter Care Teams Software Quality Assurance Engineer Relationship Specialty Start Date End Date Pcp, Unknown PCP - General 11/18/18 documented as of this encounter Additional Source Comments The information contained in this document represents components of the legal health record. It is not the complete legal health record.[facility]
--- OUTSIDE RECORDS SUMMARY | 2024-12-30 09:56 | XMS_ITS | Encounter Summary ---
Author Organization [employer] Address [address] [place] [address] Care Team Providers Care Research Mechanic Name Role Phone Dawn Almaguer MD Primary Care Provide r Delia Mast PharmD Unavailable [phone]- [phone] Encounter Details Date Type Department Care Team ([facility] st Contact Info) Description 07/14/2023 Orders Only [facility] [address] [place], [place] [phone] Bhumika Timmons FNP [address] [place] [address] Type 2 diabetes mellitus with hyperglycemia, with long-term current use of insulin ([facility]) Social History Tobacco Use Types Packs/Day Years [...] Description 12/31/2024 2:30 PM EDT Medication Management [facility] MEDIC[facility] [address] [place], [place] [phone] Delia Mast, PharmD [address] [place] [address] documented as of this encounter Procedures Procedure Name Priority Date/Time Associated Diagnosis Comments URINALYSIS, COMPLETE, WITH REFLEX TO CULTURE Routine 10/24/2023 4:59 PM EDT Type 2 diabetes mellitus with hyperglycemia, with long-term current use of insulin ([facility]) HIGH SENSITIVITY TROPONIN I Routine 10/24/2023 3:23 PM EDT Type 2 diabetes mellitus with hyperglycemia, with long-term current use of insulin ([facility]) SARS COV2/INFLUENZA A/B AND RSV RNA QL NAAT Routine 10/24/2023 3:23 PM EDT Type 2 diabetes mellitus with hyperglycemia, with long-term current use of insulin ([facility]) CBC WITH AUTO DIFFERENTIAL Routine 10/24/2023 3:23 PM EDT Type 2 diabetes mellitus with hyperglycemia, with long-term current use of insulin ([facility]) MAGNESIUM Routine 10/24/2023 3:23 PM EDT Type 2 diabetes mellitus with hyperglycemia, with long-term current use of insulin ([facility]) LIPASE Routine 10/24/2023 3:23 PM EDT Type 2 diabetes mellitus with hyperglycemia, with long-term current use of insulin ([facility]) COMPREHENSIVE METABOLIC PANEL Routine 10/24/2023 3:23 PM EDT Type 2 diabetes mellitus with hyperglycemia, with long-term current use of insulin ([facility]) HIGH SENSITIVITY TROPONIN I Routine 10/23/2023 2:37 PM EDT Type 2 diabetes mellitus with hyperglycemia, with long-term current use of insulin ([facility]) CBC WITH AUTO DIFFERENTIAL Routine 10/23/2023 2:37 PM EDT Type 2 diabetes mellitus with hyperglycemia, with long-term current use of insulin ([facility]) LIPASE Routine 10/23/2023 2:37 PM EDT Type 2 diabetes mellitus with hyperglycemia, with long-term current use of insulin ([facility]) HEPATIC FUNCTION PANEL Routine 2:37 PM EDT Type 2 diabetes mellitus with hyperglycemia, with long-term current use of insulin ([facility]) BASIC METABOLIC PANEL Routine 10/23/2023 2:37 PM EDT Type 2 diabetes mellitus with hyperglycemia, with long-term current use of insulin ([facility]) URINALYSIS, COMPLETE, WITH REFLEX TO CULTURE Routine 10/23/2023 2:32 PM EDT Type 2 diabetes mellitus with hyperglycemia, with long-term current use of insulin ([facility]) documented in this encounter Results * (ABNORMAL) Urinalysis, Complete, with Reflex to Culture (10/24/2023 4:59 PM EDT) Color Urine Yellow [facility] Appearance Urine Clear [facility] PH 5.5 5.0 - 9.0 [facility] Glucose Urine UA >=1000(A) Negative mg/dL [facility] Urine Blood Negative Negative [facility] Specific [place] - Urine >=1.030(H) 1.005 - 1.025 [facility] Urine Protein Negative Neg-Trace mg/dL [facility] Urine Ketones Negative Negative mg/dL [facility] Nitrite Urine Negative Negative [facility] Leukocyte Esterase Urine Negative Negative [facility] RBC Urine 0-2 0 - 2 /HPF [facility] Urine WBC 0-5 0 - 5 /HPF [facility] Urine Squamous Epithelial Cell 0-2 0 - 2 /HPF [facility] Urine Bacteria None Seen None Seen [facility] Hyaline Casts, Urine 0-2 0 - 2 /LPF [facility] 10/24/2023 4:59 PM EDT 10/24/2023 5:01 PM EDT Narrative [facility] - 10/24/2023 5:45 PM EDT [id number], Clean Catch us Generic External Data Provider LAB URINE ORDERAB LES Final Result Performing Organization Address [facility] Co de Phone Number [facility] [address] [place] [phone] * High Sensitivity Troponin I (10/24/2023 3:23 PM EDT) TROPONIN I HIGH SENSITIVITY 4.9 <3.5 - 35.0 ng/L [facility] Comment:The Neal high sens itivity Troponin-I results should beused in conjunction with other diagnostic information suchas ECG, clinical observations and information, and patientsymptoms to aid in the diagnosis of [place]. 10/24/2023 3:23 PM EDT 10/24/2023 5:30 PM EDT us Generic External Data Provider LAB BLOOD ORDERAB LES Final Result Performing Organization Address [facility]/ZIP Co de Phone Number [facility] [address] [place] [address] [phone] * Lipase (10/24/2023 3:23 PM EDT) Lipase 54 8 - 78 U/L [facility] 10/24/2023 3:23 PM EDT 10/24/2023 3:26 PM EDT Generic External Data Provider LAB BLOOD ORDERAB LES Final Result Performing Organization Address City/[facility]/ZIP Co de Phone Number [facility] [address] [place] [address] [phone] * SARS-CoV-2 RNA, Influenza A/B, and RSV RNA, Ql NAAT (10/24/2023 3:23 PM EDT) Influenza A PCR NEGATIVE Negative [facility] Influenza B PCR NEGATIVE Negative [facility] Resp Syncy Virus RNA Qual PCR NEGATIVE Negative [facility] SARS COV2 PCR NEGATIVE Negative [facility] Comment:All test results mus t [...] use by authorized laboratories.Testing performed on the [employer] GeneXpert utilizingreal-time RT-PCR.All SARS CoV2 and positive influenza A/B results arereported to [facility]. 10/24/2023 3:23 PM EDT 10/24/2023 3:26 PM EDT Generic External Data Provider LAB MICROBIOLOGY - GENERAL ORDERABLES Final Result Performing Organization Address City/[facility]/ZIP Co de Phone Number [facility] [address] [place] [phone] * Magnesium (10/24/2023 3:23 PM EDT) Magnesium 1.9 1.6 - 2.6 mg/dL [facility] 10/24/2023 3:23 PM EDT 10/24/2023 3:26 PM EDT us Generic External Data Provider LAB BLOOD ORDERAB LES Final Result [facility] [address] [place] [address] [phone] * (ABNORMAL) Comprehensive Metabolic Panel (10/24/2023 3:23 PM EDT) Sodium 140 135 - 145 mmol/L [facility] Potassium 4.5 3.3 - 5.1 mmol/L [facility] Chloride 107 96 - 108 mmol/L [facility] Carbon Dioxide 22 22 - 29 mmol/L [facility] Anion Gap 16 12 - 20 [facility] Urea Nitrogen (BUN) 37(H) 9 - 16 mg/dL [facility] Creatinine, Serum 1.94(H) 0.5 - 1.4 mg/dL [facility] Creatinine Clr Calc Pharmacy 46.1 [facility] Comment:eGFR (calculated fro m the MDRD study equation) and eCrCl(calculated from the Cockcroft-Gault equation) are based ondifferent parameters and may not yield comparable results.If eCrCl result is absurd, please check patient'sheight/weight. Estimated Glomerular Filt Rate 35 [facility] Comment:NOTE: For -Am erican individuals, multiply the result by 1.210.Chronic Kidney Disease: Estimated GFR < 60 mL/min/1.31l2Ijvwxd Kidney Disease: Estimated GFR < 15 mL/min/1.73m2 Glucose 266(H) 60 - 115 mg/dL [facility] Calcium 9.2 8.4 - 10.2 mg/dL [facility] Bilirubin, Total 0.4 0.0 - 1.0 mg/dL [facility] Aspartate Amino Transferase 25 5 - 37 U/L [facility] Alanine Aminotransferase 20 0 - 40 U/L [facility] Total Protein 7.7 6.5 - 8.0 g/dL [facility] Albumin Level 3.9 3.5 - 5.0 g/dL [facility] Alkaline Phosphatase 54 39 - 117 U/L [facility] 10/24/2023 3:23 PM EDT 10/24/2023 3:26 PM EDT us Generic External Data Provider LAB BLOOD ORDERAB LES Final Result [facility] [address] [place] [phone] * (ABNORMAL) CBC auto differential (10/24/2023 3:23 PM EDT) White Blood Count 9.6 4.8 - 10.8 X10*3/uL [facility] Red Blood Count 4.15(L) 4.60 - 5.80 X10*6/uL [facility] Hemoglobin 12.6(L) 14.0 - 18.0 g/dl [facility] Hematocrit 37.7(L) 42.0 - 52.0 % [facility] Mean Corpuscular Volume 90.8 80.0 - 98.0 fL [facility] Mean Corpuscular Hemoglobin 30.4 27.0 - 33.0 pg [facility] Mean Corpuscular HGB Conc 33.4 31.0 - 36.0 g/dl [facility] Red Cell Distribution Width 14.7 11.0 - 16.0 % [facility] Platelet Count 202 160 - 400 X10*3/uL [facility] Mean Platelet Volume 10.9 9.4 - 12.4 fL [facility] Neutrophils Percent Auto 57.9 45 - 73 % [facility] Imm Gran Pct Auto 0.2 0.0 - 0.4 % [facility] Lymphocytes Percent Auto 26.7 20 - 40 % [facility] Monocytes Percent Auto 9.2 2 - 11 % [facility] Eosinophils Percent Auto 5.1(H) 0 - 4 % [facility] Basophils Percent Auto 0.9 0 - 2 % [facility] NRBC Pct Auto 0.0 0.0 - 0.2 /100WBC [facility] Neutrophils Absolute Auto 5.6 2.0 - 8.3 x10*3/uL [facility] Imm Gran Abs Auto 0.02 0.00 - 0.03 X10*3/uL [facility] Lymphocytes Absolute Auto 2.6 1.2 - 4.9 X10*3/uL [facility] Monocytes Absolute Auto 0.9 0.1 - 1.2 X10*3/uL [facility] Eosinophils Absolute Auto 0.5(H) 0.0 - 0.4 X10*3/uL [facility] Basophils Absolute Auto 0.1 0.0 - 0.2 X10*3/uL [facility] NRBC Abs Auto 0.000 0.0 - 0.012 X10*3/uL [facility] 10/24/2023 3:23 PM EDT 10/24/2023 3:26 PM EDT us Generic External Data Provider LAB BLOOD ORDERAB LES Final Result [facility] [address] [place] [phone] * High Sensitivity Troponin I (10/23/2023 2:37 PM EDT) TROPONIN I HIGH SENSITIVITY 4.9 <3.5 - 35.0 ng/L [facility] Comment:The Neal high sens itivity Troponin-I results should beused in conjunction with other diagnostic information suchas ECG, clinical observations and information, and patientsymptoms to aid in the diagnosis of [place]. 10/23/2023 2:37 PM EDT 10/23/2023 2:40 PM EDT us Generic External Data Provider LAB BLOOD ORDERAB LES Final Result Performing Organization Address City/[facility]/ZIP Co de Phone Number [facility] [address] [place] [phone] * Lipase (10/23/2023 2:37 PM EDT) Lipase 64 8 - 78 U/L [facility] 10/23/2023 2:37 PM EDT 10/23/2023 2:40 PM EDT Generic External Data Provider LAB BLOOD ORDERAB LES Final Result Performing Organization Address [facility] Co de Phone Number [facility] [address] [place] [phone] * (ABNORMAL) Basic Metabolic Panel (10/23/2023 2:37 PM EDT) Pathologist [facility] Sodium 140 135 - 145 mmol/L [facility] Potassium 4.3 3.3 - 5.1 mmol/L [facility] Chloride 107 96 - 108 mmol/L [facility] Carbon Dioxide 19(L) 22 - 29 mmol/L [facility] Anion Gap 18 12 - 20 [facility] Urea Nitrogen (BUN) 40(H) 9 - 16 mg/dL [facility] Creatinine, Serum 2.12(H) 0.5 - 1.4 mg/dL [facility] Creatinine Clr Calc Pharmacy 43.0 [facility] Comment:eGFR (calculated fro m the MDRD study equation) and eCrCl(calculated from the Cockcroft-Gault equation) are based ondifferent parameters and may not yield comparable results.If eCrCl result is absurd, please check patient'sheight/weight. Estimated Glomerular Filt Rate 31 [facility] Comment:NOTE: For -Am erican individuals, multiply the result by 1.210.Chronic Kidney Disease: Estimated GFR < 60 mL/min/1.75s9Evwacc Kidney Disease: Estimated GFR < 15 mL/min/1.73m2 Glucose 293(H) 60 - 115 mg/dL [facility] Calcium 9.5 8.4 - 10.2 mg/dL [facility] 10/23/2023 2:37 PM EDT 10/23/2023 2:40 PM EDT Generic External Data Provider LAB BLOOD ORDERAB LES Final Result Performing Organization Address [facility] de Phone Number [facility] [address] [place] [phone] * Hepatic Function Panel (10/23/2023 2:37 PM EDT) [facility] Bilirubin, Total 0.6 0.0 - 1.0 mg/dL [facility] Bilirubin, Direct 0.2 0.0 - 0.5 mg/dL [facility] Aspartate Amino Transferase 29 5 - 37 U/L [facility] Alanine Aminotransferase 22 0 - 40 U/L [facility] Total Protein 7.8 6.5 - 8.0 g/dL [facility] Albumin Level 3.9 3.5 - 5.0 g/dL [facility] Alkaline Phosphatase 54 39 - 117 U/L [facility] 10/23/2023 2:37 PM EDT 10/23/2023 2:40 PM EDT Generic External Data Provider LAB BLOOD ORDERAB LES Final Result Performing Organization Address [facility] de Phone Number [facility] [address] [place] [phone] * (ABNORMAL) CBC auto differential (10/23/2023 2:37 PM EDT) Pathologist [facility] White Blood Count 9.7 4.8 - 10.8 X10*3/uL [facility] Red Blood Count 4.13(L) 4.60 - 5.80 X10*6/uL [facility] Hemoglobin 12.6(L) 14.0 - 18.0 g/dl [facility] Hematocrit 38.0(L) 42.0 - 52.0 % [facility] Mean Corpuscular Volume 92.0 80.0 - 98.0 fL [facility] Mean Corpuscular Hemoglobin 30.5 27.0 - 33.0 pg [facility] Mean Corpuscular HGB Conc 33.2 31.0 - 36.0 g/dl [facility] Red Cell Distribution Width 14.5 11.0 - 16.0 % [facility] Platelet Count 195 160 - 400 X10*3/uL [facility] Mean Platelet Volume 10.5 9.4 - 12.4 fL [facility] Neutrophils Percent Auto 60.7 45 - 73 % [facility] Imm Gran Pct Auto 0.3 0.0 - 0.4 % [facility] Lymphocytes Percent Auto 23.8 20 - 40 % [facility] Monocytes Percent Auto 10.9 2 - 11 % [facility] Eosinophils Percent Auto 3.5 0 - 4 % [facility] Basophils Percent Auto 0.8 0 - 2 % [facility] NRBC Pct Auto 0.0 0.0 - 0.2 /100WBC [facility] Neutrophils Absolute Auto 5.9 2.0 - 8.3 x10*3/uL [facility] Imm Gran Abs Auto 0.03 0.00 - 0.03 X10*3/uL [facility] Lymphocytes Absolute Auto 2.3 1.2 - 4.9 X10*3/uL [facility] Monocytes Absolute Auto 1.1 0.1 - 1.2 X10*3/uL [facility] Eosinophils Absolute Auto 0.3 0.0 - 0.4 X10*3/uL [facility] Basophils Absolute Auto 0.1 0.0 - 0.2 X10*3/uL [facility] NRBC Abs Auto 0.000 0.0 - 0.012 X10*3/uL [facility] 10/23/2023 2:37 PM EDT 10/23/2023 2:40 PM EDT us Generic External Data Provider LAB BLOOD ORDERAB LES Final Result [facility] [address] [place] [phone] * (ABNORMAL) Urinalysis, Complete, with Reflex to Culture (10/23/2023 2:32 PM EDT) Color Urine Yellow [facility] Appearance Urine Clear [facility] PH 5.0 5.0 - 9.0 [facility] Glucose Urine UA >=1000(A) Negative mg/dL [facility] Urine Blood Negative Negative [facility] Specific [place] - Urine 1.020 1.005 - 1.025 [facility] Urine Protein Negative Neg-Trace mg/dL [facility] Urine Ketones Negative Negative mg/dL [facility] Nitrite Urine Negative Negative [facility] Leukocyte Esterase Urine Negative Negative [facility] RBC Urine 0-2 0 - 2 /HPF [facility] Urine WBC 0-5 0 - 5 /HPF [facility] Urine Squamous Epithelial Cell 0-2 0 - 2 /HPF [facility] Urine Bacteria None Seen None Seen [facility] Hyaline Casts, Urine 0-2 0 - 2 /LPF [facility] 10/23/2023 2:32 PM EDT 10/23/2023 2:40 PM EDT Narrative [facility] - 10/23/2023 3:07 PM EDT Urine, Clean Catch us Generic External Data Provider LAB URINE ORDERAB LES Final Result [facility] [address] [place] [phone] documented in this encounter Visit Diagnoses Diagnosis Type 2 diabetes mellitus with hyperglycemia, with long-term current use of insulin ([facility]) documented in this encounter Additional Health Concerns Assessment Noted Time PHQ-9 Depression Total Score: 0 07/01/19 24 1:29 PM EST documented as of this encounter Care Teams Research Mechanic Relationship Specialty Start Date End Date Dawn Almaguer MD [address] [place] [address] PCP - General Family Medicine 02/25/18 Delia Mast PharmD [address] [place] [address] Pharmacist Internal Medicine 03/15/24 [place] 05/06/24 documented as of this encounter
--- OUTSIDE RECORDS SUMMARY | 2024-12-30 09:56 | XMS_ITS | Encounter Summary ---
Author Organization [employer] Address [address] [facility] [address] [place] [address] Care Team Providers Care Playground Attendant Name Role Phone Dawn Almaguer MD Primary Care Provide r Delia Mast PharmD Unavailable [phone] Encounter Details Date Type Department Care Team (Late Contact Info) Description 05/22/2022 Orders Only [facility] [address] [place] [address] Payton Qureshi MD [address] [place] [address] Type 2 diabetes mellitus with hyperglycemia, with long-term current use of insulin ([facility]) (Primary Dx) Social History Tobacco Use Types [...] 2:30 PM EDT Medication Management [facility] [address] [place] [address] Delia Mast, PharmD [address] [place] [address] documented as of this encounter Visit Diagnoses Diagnosis Type 2 diabetes mellitus with hyperglycemia, with long-term current use of insulin ([facility])- Primary documented in this encounter Care Teams Playground Attendant Relationship Specialty Start Date End Date Dawn Almaguer MD [address] [place] [address] PCP - General Family Medicine 02/25/18 Delia Mast PharmD [address] [place] [address] Pharmacist Internal Medicine 03/15/24 [place] 05/06/24 documented as of this encounter
--- OUTSIDE RECORDS SUMMARY | 2024-12-30 09:56 | XMS_ITS | Clinical Summary ---
Author Organization [facility] Address [address] [facility] [address] [place] [phone] Phone Care Team Providers Care Mortar Maker Name Role Phone Pcp, Unknown Primary Care Provider Unavailabl e Social History Tobacco Use Types Packs/Day Years Used Date Smoking Tobacco: Never Assessed Education Answer Date Recorded Are you interested in more education? Not on norris e 08/23/2022 Are you concerned about learning? Not on file 08/23/2022 No 08/23/2022 No 08/23/2022 Digital Access Answer Date Recorded No 09/24/2022 No 09/24/2022 No 09/24/2022 Reliable internet access at home? Not on file 09/24/2022 Device with a working camera? Not on file Sex and Gender Information Value Date Recorded Sex Assigned at Not on file Legal Sex Male 11:33 AM EDT Gender Identity Not on file Sexual Orientation Not on file Plan of Treatment Not on file Medical Devices Not on file Insurance [facility] NON [facility] PCP [employer] WELL[employer]ENSE NON NSPG PCP S[employer] CONNECTORCARE WELL[employer]ENSE NON NSPG PCP S[employer] CONNECTORCARE WELL[place]ENSE NON NSPG PCP SILVER CLARITY CONNECTORCARE WELL[employer]ENSE NON NSPG PCP SILVER CLARITY CONNECTORCARE WELL[place]ENSE NON NSPG PCP SILVER CLARITY CONNECTORCARE [place] NON NSPG PCP [place]CARE [place] NON NSPG PCP S[employer] CLARITY CONNECTORCARE Care Teams Mortar Maker Relationship Specialty Start Date End Date Pcp, Unknown PCP - General 11/18/18 Additional Source Comments The information contained in this document represents components of the legal health record. It is not the complete legal health record.[facility]
--- OUTSIDE RECORDS SUMMARY | 2024-12-30 09:56 | XMS_ITS | Encounter Summary ---
Author Organization [employer] Address [address] [facility] [address]t [place] [address] Care Team Providers Care Baseball Coach Name Role Phone Dawn Almaguer MD Primary Care Provide r Delia Mast PharmD Unavailable [phone]- [phone] Encounter Details Date Type Department Care Team (Late st Contact Info) Description 07/02/2024 Orders Only [facility] MEDICINE [address] [place], [place] [phone] Dawn Almaguer MD [address] [place], [place] [phone] Social History Tobacco Use Types Packs/Day Years [...] 2:30 PM EDT Medication Management [facility] [address] [place] [address] Delia Mast PharmD [address] [place] [address] documented as of this encounter Visit Diagnoses Not on filedocumented in this encounter Additional Health Concerns Assessment Noted Time PHQ-9 Depression Total Score: 0 07/01/19 24 1:29 PM EST documented as of this encounter Care Teams Baseball Coach Relationship Specialty Start Date End Date Dawn Almaguer MD [address] [place] [phone] PCP - General Family Medicine 02/25/18 Delia Mast, LivierD [address] [place] [phone] Pharmacist Internal Medicine 03/15/24 [place] 05/06/24 documented as of this encounter
== END 2024-12-30 10:18 | disposition home or self-care (01) ==
LOC: HO.HCS 09:19
PROVIDERS: PCP Internal Medicine; Visit Provider Internal Medicine Cardiovascular Disease
DX: R06.02 Shortness of breath (principal); I48.0 Paroxysmal atrial fibrillation; R00.1 Bradycardia, unspecified
CPT/HCPCS: 93010; 99214; G2211

== ENCOUNTER → 2024-12-30 10:34 | Outpatient (BNV) | payer OTHER, SELFPAY | PROVIDERS: PCP Internal Medicine; Visit Provider Radiology Diagnostic Radiology | DX: R06.02 Shortness of breath (principal) | CPT/HCPCS: 71046 ==

== ENCOUNTER 2025-01-19 09:22 | Outpatient (REF) | payer OTHER, SELFPAY ==
--- OUTSIDE RECORDS SUMMARY | 2025-01-19 11:04 | XMS_ITS | Encounter Summary ---
Author Organization [employer] Address [address] [facility] [address] [place] [address] Care Team Providers Care Rigger Name Role Phone Dawn Almaguer MD Primary Care Provide r Delia Mast PharmD Unavailable [phone]- [phone] Reason for Visit * Reason Comments Med Refill Encounter Details Date Type Department Care Team (Late st Contact Info) Description 02/07/2024 Refill [facility] MED[facility]INE [address] [place], [place] [phone] Dawn Almaguer MD [address] [place], [place] [phone] Heartburn Social History Tobacco Use Types Packs/Day [...] Care Team (Late st Contact Info) Description 01/28/2025 2:30 PM EDT Medication Management [facility] [address] [place] [phone] Delia Mast PharmD [address] [place] [phone] 02/28/2025 1:45 PM EST Office Visit [facility] [address] [place] [phone] Dawn Almaguer MD [address] [place] [phone] documented as of this encounter Visit Diagnoses Diagnosis Heartburn documented in this encounter Additional Health Concerns Assessment Noted Time PHQ-9 Depression Total Score: 0 07/01/19 24 1:29 PM EST documented as of this encounter Care Teams Rigger Relationship Specialty Start Date End Date Dawn Almaguer MD [address] [place] [phone] PCP - General Family Medicine 02/25/18 Delia Mast, PharmD [address] [place] [address] Pharmacist Internal Medicine 03/15/24 [place] 05/06/24 documented as of this encounter
--- OUTSIDE RECORDS SUMMARY | 2025-01-19 11:04 | XMS_ITS | Encounter Summary ---
Author Organization [facility] Address [address] [facility] [address] [place] [address] Phone Care Team Providers Care Linotype Mechanic Name Role Phone Pcp, Unknown Primary Care Provider Unavailabl e Encounter Details Date Type Department Care Team (Latest Contact Info) Description 12/02/2018 Ancillary Orders [facility] [address] [place] [address] Ina Medrano PA [address] [place] [address] [email or web address], unspecified type Social History Tobacco [...] type documented in this encounter Care Teams Linotype Mechanic Relationship Specialty Start Date End Date Pcp, Unknown PCP - General 11/18/18 documented as of this encounter Additional Source Comments The information contained in this document represents components of the legal health record. It is not the complete legal health record.[facility]
--- OUTSIDE RECORDS SUMMARY | 2025-01-19 11:04 | XMS_ITS | Encounter Summary ---
Author Organization [facility] Address [address] [place] [address] Phone Care Team Providers Care Lombardi Developer Name Role Phone Pcp, Unknown Primary Care Provider Unavailabl e Encounter Details Date Type Department Care Team (Latest Contact Info) Description 04/07/2020 Ancillary Orders [facility] [address] [place] [address] Ina Medrano PA [address] [place] [address] [email or web address], unspecified type Social History Tobacco [...] type documented in this encounter Care Teams Lombardi Developer Relationship Specialty Start Date End Date Pcp, Unknown PCP - General 11/18/18 documented as of this encounter Additional Source Comments The information contained in this document represents components of the legal health record. It is not the complete legal health record.[facility]
--- OUTSIDE RECORDS SUMMARY | 2025-01-19 11:04 | XMS_ITS | Encounter Summary ---
Author Organization [employer] Address [address] 7[address] [place] [address] Care Team Providers Care Registered Nurse Practitioner Name Role Phone Dawn Almaguer MD Primary Care Provide r Delia Mast PharmD Unavailable [phone]- [phone] Encounter Details Date Type Department Care Team ([facility] st Contact Info) Description 07/14/2023 Orders Only [facility] MED [facility] PEDS [address] [place], [place] [phone] Bhumika Timmons FNP [address] [place] [address] Type 2 diabetes mellitus with hyperglycemia, with long-term current use of insulin ([facility]) Social History Tobacco Use Types Packs/Day Years [...] Description 01/28/2025 2:30 PM EDT Medication Management [facility] MEDICINE [address] [place] [phone] Delia Mast, PharmD [address] [place] [phone] 02/28/2025 1:45 PM EST Office Visit [facility] [address] [place] [address] [phone] Dawn Almaguer MD [address] [place], [place] [phone] documented as of this encounter Procedures Procedure Name Priority Date/Time Associated Diagnosis Comments URINALYSIS, COMPLETE, WITH REFLEX TO CULTURE Routine 10/24/2023 4:59 PM EDT Type 2 diabetes mellitus with hyperglycemia, with long-term current use of insulin ([facility]) HIGH SENSITIVITY TROPONIN I Routine 10/24/2023 3:23 PM EDT Type 2 diabetes mellitus with hyperglycemia, with long-term current use of insulin ([facility]) SARS COV2/INFLUENZA A/B AND RSV RNA QL [...] (10/24/2023 4:59 PM EDT) Color Urine Yellow [facility] Appearance Urine Clear [facility] PH 5.5 5.0 - 9.0 [facility] Glucose Urine UA >=1000(A) Negative mg/dL [facility] Urine Blood Negative Negative [facility] Specific [place] - Urine >=1.030(H) 1.005 - 1.025 [facility] Urine Protein Negative Neg-Trace mg/dL [facility] Urine Ketones Negative Negative mg/dL [facility] Nitrite Urine Negative Negative [facility] Leukocyte Esterase Urine Negative Negative [facility] RBC Urine 0-2 0 - 2 /HPF [facility] Urine WBC 0-5 0 - 5 /HPF [facility] Urine Squamous Epithelial Cell 0-2 0 - 2 /HPF [facility] Urine Bacteria None Seen None Seen [facility] Hyaline Casts, Urine 0-2 0 - 2 /LPF [facility] 10/24/2023 4:59 PM EDT 10/24/2023 5:01 PM EDT Narrative [facility] - 10/24/2023 5:45 PM EDT [id number], Clean Catch us Generic External Data Provider LAB URINE ORDERAB LES Final Result [facility] [address] [place] [address] [phone] * High Sensitivity Troponin I (10/24/2023 3:23 PM EDT) [facility] TROPONIN I HIGH SENSITIVITY 4.9 <3.5 - 35.0 ng/L [facility] Comment:The Neal high sens itivity Troponin-I results should beused in conjunction with other diagnostic information suchas ECG, clinical observations and information, and patientsymptoms to aid in the diagnosis of [place]. 10/24/2023 3:23 PM EDT 10/24/2023 5:30 PM EDT Generic External Data Provider LAB BLOOD ORDERAB LES Final Result [facility] [address] [place] [address] [phone] * Lipase (10/24/2023 3:23 PM EDT) Lipase 54 8 - 78 U/L [facility] 10/24/2023 3:23 PM EDT 10/24/2023 3:26 PM EDT Generic External Data Provider LAB BLOOD ORDERAB LES Final Result Performing Organization Address [facility]/ZIP Co de Phone Number [facility] [address] [place] [address] [phone] * SARS-CoV-2 RNA, Influenza A/B, and RSV RNA, Ql NAAT (10/24/2023 3:23 PM EDT) Influenza A PCR NEGATIVE Negative [facility] Influenza B PCR NEGATIVE Negative [facility] Resp Syncy Virus RNA Qual PCR NEGATIVE Negative [facility] SARS COV2 PCR NEGATIVE Negative [facility] Comment:All test results mus [...] use by authorized laboratories.Testing performed on the [employer] GeneXpert utilizingreal-time RT-PCR.All SARS CoV2 and positive influenza A/B results arereported to [facility]. 10/24/2023 3:23 PM EDT 10/24/2023 3:26 PM EDT Generic External Data Provider LAB MICROBIOLOGY - GENERAL ORDERABLES Final Result Performing Organization Address City/[facility]/ZIP Co de Phone Number [facility] [address] [place] [address] [phone] * Magnesium (10/24/2023 3:23 PM EDT) Magnesium 1.9 1.6 - 2.6 mg/dL [facility] 10/24/2023 3:23 PM EDT 10/24/2023 3:26 PM EDT Generic External Data Provider LAB BLOOD ORDERAB LES Final Result Performing Organization Address [facility] de Phone Number [facility] [address] [place] [address] [phone] * (ABNORMAL) Comprehensive Metabolic Panel (10/24/2023 3:23 PM EDT) Pathologist [facility] Sodium 140 135 - 145 mmol/L [facility] Potassium 4.5 3.3 - 5.1 mmol/L [facility] Chloride 107 96 - 108 mmol/L [facility] Carbon Dioxide 22 22 - 29 mmol/L [facility] Anion Gap 16 12 - 20 [facility] Urea Nitrogen (BUN) 37(H) 9 - 16 mg/dL [facility] Creatinine, Serum 1.94(H) 0.5 - 1.4 mg/dL [facility] Creatinine Clr Calc Pharmacy 46.1 [facility] Comment:eGFR (calculated fro m the MDRD study equation) and eCrCl(calculated from the Cockcroft-Gault equation) are based ondifferent parameters and may not yield comparable results.If eCrCl result is absurd, please check patient'sheight/weight. Estimated Glomerular Filt Rate 35 [facility] Comment:NOTE: For -Am erican individuals, multiply the result by 1.210.Chronic Kidney Disease: Estimated GFR < 60 mL/min/[id number] Kidney Disease: Estimated GFR < 15 mL/min/1.73m2 Glucose 266(H) 60 - 115 mg/dL [facility] Calcium 9.2 8.4 - 10.2 mg/dL [facility] Bilirubin, Total 0.4 0.0 - 1.0 mg/dL [facility] Aspartate Amino Transferase 25 5 - 37 U/L [facility] Alanine Aminotransferase 20 0 - 40 U/L [facility] Total Protein 7.7 6.5 - 8.0 g/dL [facility] Albumin Level 3.9 3.5 - 5.0 g/dL [facility] Alkaline Phosphatase 54 39 - 117 U/L [facility] 10/24/2023 3:23 PM EDT 10/24/2023 3:26 PM EDT us Generic External Data Provider LAB BLOOD ORDERAB LES Final Result [facility] [address] [place] [phone] * (ABNORMAL) CBC auto differential (10/24/2023 3:23 PM EDT) White Blood Count 9.6 4.8 - 10.8 X10*3/uL [facility] Red Blood Count 4.15(L) 4.60 - 5.80 X10*6/uL [facility] Hemoglobin 12.6(L) 14.0 - 18.0 g/dl [facility] Hematocrit 37.7(L) 42.0 - 52.0 % [facility] Mean Corpuscular Volume 90.8 80.0 - 98.0 fL [facility] Mean Corpuscular Hemoglobin 30.4 27.0 - 33.0 pg [facility] Mean Corpuscular HGB Conc 33.4 31.0 - 36.0 g/dl [facility] Red Cell Distribution Width 14.7 11.0 - 16.0 % [facility] Platelet Count 202 160 - 400 X10*3/uL [facility] Mean Platelet Volume 10.9 9.4 - 12.4 fL [facility] Neutrophils Percent Auto 57.9 45 - 73 % [facility] Imm Gran Pct Auto 0.2 0.0 - 0.4 % [facility] Lymphocytes Percent Auto 26.7 20 - 40 % [facility] Monocytes Percent Auto 9.2 2 - 11 % [facility] Eosinophils Percent Auto 5.1(H) 0 - 4 % [facility] Basophils Percent Auto 0.9 0 - 2 % [facility] NRBC Pct Auto 0.0 0.0 - 0.2 /100WBC [facility] Neutrophils Absolute Auto 5.6 2.0 - 8.3 x10*3/uL [facility] Imm Gran Abs Auto 0.02 0.00 - 0.03 X10*3/uL [facility] Lymphocytes Absolute Auto 2.6 1.2 - 4.9 X10*3/uL [facility] Monocytes Absolute Auto 0.9 0.1 - 1.2 X10*3/uL [facility] Eosinophils Absolute Auto 0.5(H) 0.0 - 0.4 X10*3/uL [facility] Basophils Absolute Auto 0.1 0.0 - 0.2 X10*3/uL [facility] NRBC Abs Auto 0.000 0.0 - 0.012 X10*3/uL [facility] 10/24/2023 3:23 PM EDT 10/24/2023 3:26 PM EDT us Generic External Data Provider LAB BLOOD ORDERAB LES Final Result [facility] [address] [place] [address] [phone] * High Sensitivity Troponin I (10/23/2023 2:37 PM EDT) TROPONIN I HIGH SENSITIVITY 4.9 <3.5 - 35.0 ng/L [facility] Comment:The Neal high sens itivity Troponin-I results should beused in conjunction with other diagnostic information suchas ECG, clinical observations and information, and patientsymptoms to aid in the diagnosis of [place]. 10/23/2023 2:37 PM EDT 10/23/2023 2:40 PM EDT Generic External Data Provider LAB BLOOD ORDERAB LES Final Result Performing Organization Address [facility]/ZIP Co de Phone Number [facility] [address] [place] [phone] * Lipase (10/23/2023 2:37 PM EDT) Pathologist [facility] Lipase 64 8 - 78 U/L [facility] 10/23/2023 2:37 PM EDT 10/23/2023 2:40 PM EDT Generic External Data Provider LAB BLOOD ORDERAB LES Final Result Performing Organization Address [facility]/ZIP Co de Phone Number [facility] [address] [place] [phone] * (ABNORMAL) Basic Metabolic Panel (10/23/2023 2:37 PM EDT) Pathologist [facility] Sodium 140 135 - 145 mmol/L [facility] Potassium 4.3 3.3 - 5.1 mmol/L [facility] Chloride 107 96 - 108 mmol/L [facility] Carbon Dioxide 19(L) 22 - 29 mmol/L [facility] Anion Gap 18 12 - 20 [facility] Urea Nitrogen (BUN) 40(H) 9 - 16 mg/dL [facility] Creatinine, Serum 2.12(H) 0.5 - 1.4 mg/dL [facility] Creatinine Clr Calc Pharmacy 43.0 [facility] Comment:eGFR (calculated fro m the MDRD study equation) and eCrCl(calculated from the Cockcroft-Gault equation) are based ondifferent parameters and may not yield comparable results.If eCrCl result is absurd, please check patient'sheight/weight. Estimated Glomerular Filt Rate 31 [facility] Comment:NOTE: For -Am erican individuals, multiply the result by 1.210.Chronic Kidney Disease: Estimated GFR < 60 mL/min/1.47a7Zblyzy Kidney Disease: Estimated GFR < 15 mL/min/1.73m2 Glucose 293(H) 60 - 115 mg/dL [facility] Calcium 9.5 8.4 - 10.2 mg/dL [facility] 10/23/2023 2:37 PM EDT 10/23/2023 2:40 PM EDT Generic External Data Provider LAB BLOOD ORDERAB LES Final Result Performing Organization Address [facility] Co de Phone Number [facility] [address] [place] [phone] * Hepatic Function Panel (10/23/2023 2:37 PM EDT) Bilirubin, Total 0.6 0.0 - 1.0 mg/dL [facility] Bilirubin, Direct 0.2 0.0 - 0.5 mg/dL [facility] Aspartate Amino Transferase 29 5 - 37 U/L [facility] Alanine Aminotransferase 22 0 - 40 U/L [facility] Total Protein 7.8 6.5 - 8.0 g/dL [facility] Albumin Level 3.9 3.5 - 5.0 g/dL [facility] Alkaline Phosphatase 54 39 - 117 U/L [facility] 10/23/2023 2:37 PM EDT 10/23/2023 2:40 PM EDT Generic External Data Provider LAB BLOOD ORDERAB LES Final Result Performing Organization Address [facility] Co de Phone Number [facility] [address] [place] [phone] * (ABNORMAL) CBC auto differential (10/23/2023 2:37 PM EDT) White Blood Count 9.7 4.8 - 10.8 X10*3/uL [facility] Red Blood Count 4.13(L) 4.60 - 5.80 X10*6/uL [facility] Hemoglobin 12.6(L) 14.0 - 18.0 g/dl [facility] Hematocrit 38.0(L) 42.0 - 52.0 % [facility] Mean Corpuscular Volume 92.0 80.0 - 98.0 fL [facility] Mean Corpuscular Hemoglobin 30.5 27.0 - 33.0 pg [facility] Mean Corpuscular HGB Conc 33.2 31.0 - 36.0 g/dl [facility] Red Cell Distribution Width 14.5 11.0 - 16.0 % [facility] Platelet Count 195 160 - 400 X10*3/uL [facility] Mean Platelet Volume 10.5 9.4 - 12.4 fL [facility] Neutrophils Percent Auto 60.7 45 - 73 % [facility] Imm Gran Pct Auto 0.3 0.0 - 0.4 % [facility] Lymphocytes Percent Auto 23.8 20 - 40 % [facility] Monocytes Percent Auto 10.9 2 - 11 % [facility] Eosinophils Percent Auto 3.5 0 - 4 % [facility] Basophils Percent Auto 0.8 0 - 2 % [facility] NRBC Pct Auto 0.0 0.0 - 0.2 /100WBC [facility] Neutrophils Absolute Auto 5.9 2.0 - 8.3 x10*3/uL [facility] Imm Gran Abs Auto 0.03 0.00 - 0.03 X10*3/uL [facility] Lymphocytes Absolute Auto 2.3 1.2 - 4.9 X10*3/uL [facility] Monocytes Absolute Auto 1.1 0.1 - 1.2 X10*3/uL [facility] Eosinophils Absolute Auto 0.3 0.0 - 0.4 X10*3/uL [facility] Basophils Absolute Auto 0.1 0.0 - 0.2 X10*3/uL [facility] NRBC Abs Auto 0.000 0.0 - 0.012 X10*3/uL [facility] 10/23/2023 2:37 PM EDT 10/23/2023 2:40 PM EDT us Generic External Data Provider LAB BLOOD ORDERAB LES Final Result Performing Organization Address City/[facility] Co de Phone Number [facility] [address] [place] [phone] * (ABNORMAL) Urinalysis, Complete, with Reflex to Culture (10/23/2023 2:32 PM EDT) Color Urine Yellow [facility] Appearance Urine Clear [facility] PH 5.0 5.0 - 9.0 [facility] Glucose Urine UA >=1000(A) Negative mg/dL [facility] Urine Blood Negative Negative [facility] Specific [place] - Urine 1.020 1.005 - 1.025 [facility] Urine Protein Negative Neg-Trace mg/dL [facility] Urine Ketones Negative Negative mg/dL [facility] Nitrite Urine Negative Negative [facility] Leukocyte Esterase Urine Negative Negative [facility] RBC Urine 0-2 0 - 2 /HPF [facility] Urine WBC 0-5 0 - 5 /HPF [facility] Urine Squamous Epithelial Cell 0-2 0 - 2 /HPF [facility] Urine Bacteria None Seen None Seen [facility] Hyaline Casts, Urine 0-2 0 - 2 /LPF [facility] 10/23/2023 2:32 PM EDT 10/23/2023 2:40 PM EDT Narrative [facility] - 10/23/2023 3:07 PM EDT Urine, Clean Catch us Generic External Data Provider LAB URINE ORDERAB LES Final Result Performing Organization Address City/[facility]/ZIP Co de Phone Number [facility] [address] [place] [address] [phone] documented in this encounter Visit Diagnoses Diagnosis Type 2 diabetes mellitus with hyperglycemia, with long-term current use of insulin ([facility]) documented in this encounter Additional Health Concerns Assessment Noted Time PHQ-9 Depression Total Score: 0 07/01/19 24 1:29 PM EST documented as of this encounter Care Teams Registered Nurse Practitioner Relationship Specialty Start Date End Date Dawn Almaguer MD [address] [place] [phone] PCP - General Family Medicine 02/25/18 Delia Mast, LivierD [address] [place] [phone] Pharmacist Internal Medicine 03/15/24 Citlaly 05/06/24 documented as of this encounter
--- OUTSIDE RECORDS SUMMARY | 2025-01-19 11:04 | XMS_ITS | Encounter Summary ---
Author Organization [employer] Address [address] [facility] [address] [place] [address] Care Team Providers Care Business Systems Manager Name Role Phone Dawn Almaguer MD Primary Care Provide r Delia Mast PharmD Unavailable [phone]- [phone] Reason for Visit * Reason Comments Med Refill Encounter Details Date Type Department Care Team (Late st Contact Info) Description 07/14/2023 Refill [facility] [address] [place] [address] Bhumika Timmons FNP [address] [place] [address] Type 2 diabetes mellitus with hyperglycemia, with long-term current use of insulin ([facility]) Social History Tobacco Use [...] Description 01/28/2025 2:30 PM EDT Medication Management [facility] [address] [place] [phone] Delia Mast PharmD [address] [place] [phone] 02/28/2025 1:45 PM EST Office Visit [facility] [address] [place] [phone] Dawn Almaguer MD [address] [place] [address] [phone] documented as of this encounter Visit Diagnoses Diagnosis Type 2 diabetes mellitus with hyperglycemia, with long-term current use of insulin ([facility]) documented in this encounter Additional Health Concerns Assessment Noted Time PHQ-9 Depression Total Score: 0 07/01/19 24 1:29 PM EST documented as of this encounter Care Teams Business Systems Manager Relationship Specialty Start Date End Date Dawn Almaguer MD [address] [place] [phone] PCP - General Family Medicine 02/25/18 Delia Mast PharmD [address] [place] [address] Pharmacist Internal Medicine 03/15/24 Citlaly 05/06/24 documented as of this encounter
--- OUTSIDE RECORDS SUMMARY | 2025-01-19 11:04 | XMS_ITS | Encounter Summary ---
Author Organization [employer] Address [address] [facility] 7t [place] [address] Care Team Providers Care Yard Switch Operator Name Role Phone Dawn Almaguer MD Primary Care Provide r Delia Mast PharmD Unavailable [phone] Encounter Details Date Type Department Care Team (Late st Contact Info) Description 05/22/2022 Orders Only [facility] MEDICINE [address] [place] [address] Payton Qureshi MD [address] [place] [address] Type 2 diabetes mellitus with hyperglycemia, with long-term current use of insulin ([facility]) (Primary Dx) Social History Tobacco Use Types [...] Description 01/28/2025 2:30 PM EDT Medication Management [facility] MEDICINE [address] [place] [address] Delia Mast, PharmD [address] [place] [address] 02/28/2025 1:45 PM EST Office Visit [facility] MEDICINE [address] [place], [place] [phone] Dawn Almaguer MD [address] [place] [address] [phone] documented as of this encounter Visit Diagnoses Diagnosis Type 2 diabetes mellitus with hyperglycemia, with long-term current use of insulin ([facility])- Primary documented in this encounter Care Teams Yard Switch Operator Relationship Specialty Start Date End Date Dawn Almaguer MD [address] [place] [address] [phone] PCP - General Family Medicine 02/25/18 Delia Mast, PharmD [address] [place] [phone] Pharmacist Internal Medicine 03/15/24 Citlaly 05/06/24 documented as of this encounter
--- OUTSIDE RECORDS SUMMARY | 2025-01-19 11:04 | XMS_ITS | Encounter Summary ---
Author Organization [facility] Address [address] [place] [address] Phone Care Team Providers Care Winch Truck Operator Name Role Phone Pcp, Unknown Primary Care Provider Unavailabl e Encounter Details Date Type Department Care Team (Late st Contact Info) Description 05/24/2019 Ancillary Orders [facility] [address] [place] [address] Ina Medrano PA [address] [place] [address] [email or web address] Palpitations Social History Tobacco Use Types Packs/Day [...] Palpitations documented in this encounter Care Teams Winch Truck Operator Relationship Specialty Start Date End Date Pcp, Unknown PCP - General 11/18/18 documented as of this encounter Additional Source Comments The information contained in this document represents components of the legal health record. It is not the complete legal health record.[facility]
--- OUTSIDE RECORDS SUMMARY | 2025-01-19 11:04 | XMS_ITS | Clinical Summary ---
Author Organization [employer] Address [address] [facility] [address] [place] [address] Care Team Providers Care Bell Staff Name Role Phone Dawn Almaguer MD Primary Care Provide r Delia Mast PharmD Unavailable +- [phone] Allergies No known active allergies Medications atorvastatin [...] hyperglycemia, with long-term current use of insulin ([facility]) Use as needed for low blood sugar 45 g 11 024 Active empagliflozin-m etFORMIN (Synjardy) 12.5-1000 MGIndications:T ype 2 diabetes mellitus with hyperglycemia, with long-term current use of insulin (CMS/[facility]) Take 1 tablet by mouth with breakfast and with evening meal. 180 tablet 3 024 Active TRUEplus Lancets 33G miscIndications :Type 2 diabetes mellitus with hyperglycemia, with long-term current use of insulin (CMS/[facility]) Check blood sugar 3 times a day 100 each 11 025 Active metoprolol tartrate (Lopressor) 25 MG tabletIndicatio ns:Primary hypertension Take one half tablet by mouth twice daily 90 tablet 025 Active Continuous Glucose Outpatient Coder (FreeStyle Monica 3 [place]) device 1 each Once per day. Use as directed for CGM 1 each 025 Active Continuous Glucose Sensor (FreeStyle Monica 3 Plus Sensor) misc 1 each every 15 days. Apply 1 every 15 days as directed for CGM 2 each 025 Active glucose blood (FreeStyle Precision Charan Test) test stripIndication s:Type 2 diabetes mellitus with hyperglycemia, with long-term current use of insulin ([facility]) Use to test blood sugar 2 times daily 100 each 025 2025 Active Dulaglutide (Trulicity) 4.5 MG/0.5ML solution auto-injectorIn dications:Type 2 diabetes mellitus with hyperglycemia, with long-term current use of insulin ([facility]) Inject 4.5 mg under the skin every 7 (seven) days. 2 mL 3 025 Active clotrimazole-be tamethasone (Lotrisone) cream APPLY TOPICALLY 2 TIMES A DAY FOR 4 WEEKS APPLY THIN COAT 2 TIMES PER DAY 025 Active ciclopirox (Penlac) 8 % solutionIndicat ions:Onychomyco sis Apply topically at bedtime. 6 mL 1 025 Active D3 Super Strength 50 MCG (1999 UT) capsuleIndicati ons:Vitamin D deficiency TAKE 1 CAPSULE BY MOUTH EVERY MORNING 90 capsule 1 025 Active insulin pen needle (B-D UF III MINI PEN NEEDLES) 31G x 5 mm miscIndications :Type 2 diabetes mellitus with hyperglycemia, with long-term current use of insulin ([facility]) Use as instructed with insulin administration twice daily 100 each 3 025 Active insulin glargine (Lantus SoloStar) 100 UNIT/ML penIndications: Type 2 diabetes mellitus with hyperglycemia, with long-term current use of insulin ([facility]) Inject subcutaneously 20 units once daily 025 Active insulin lispro (HumaLOG KWIKPEN) 100 UNIT/ML injectionIndica tions:Type 2 diabetes mellitus with hyperglycemia, with long-term current use of insulin (CMS/HCC) Inject subcutaneously 6 units once daily before dinner. Do not use if skipping meal. 025 Active insulin lispro (HumaLOG KWIKPEN) 100 UNIT/ML injectionIndica tions:Type 2 diabetes mellitus with hyperglycemia, with long-term current use of insulin (CMS/HCC) Inject subcutaneously 4 units once daily before dinner. Do not use if skipping meal. 15 mL 025 2024 Discontinued insulin glargine (Lantus SoloStar) 100 UNIT/ML penIndications: Type 2 diabetes mellitus with hyperglycemia, with long-term current use of insulin (CMS/HCC) Inject subcutaneously 16 units once daily 15 mL 025 2024 Discontinued Active Problems Problem Noted Date [...] 09/04/2020 CREATININE 1.15 10/25/2023 -Changes: I dscontinue jansonal, I will put him instead n metformin [...] AM EST): Patient reports he went to [place] and forgot his insulin he stop using [...] to follow with cardiology, move practice to [facility] for convenience He is on Multaq 400mg [...] Encounters Date Type Department Care Team Description 01/04/2025 Telephone [facility] [address] [place] [address] Dawn Almaguer MD NOV RECALL 12/31/2024 Travel 12/30/2024 Orders Only [facility] External Provider, [facility] 12/21/2024 11:15 AM EDT Office Visit [facility] [address] [place] [address] Meliza Reid MD Paroxysmal A-fib ([facility]) (Primary Dx); Dietary counseling; Exercise counseling; Class 1 obesity with serious comorbidity and body mass index (BMI) of 31.0 to 31.9 in adult, unspecified obesity type 12/21/2024 Travel 12/17/[address] [address] Delia Mast, PharmD Care Coordination; Referral 12/17/2024 Travel 12/10/[address] [address] Dawn Almaguer MD Vitamin D deficiency 11/30/[address] [address] Dawn Almaguer MD 11/26/2024 3:30 PM EDT Office Visit [address] [address] Dawn Almaguer MD Venous stasis dermatitis (Primary Dx); Type 2 diabetes mellitus with hyperglycemia, with long-term current use of insulin ([facility]); Paroxysmal A-fib ([facility]); Hyperlipidemia associated with type 2 diabetes mellitus ([facility]); Onychomycosis; Chronic left-sided low back pain with left-sided sciatica; Diastolic dysfunction 11/26/2024 Travel 11/25/[address] [address] Dawn Almaguer MD Chart Prep 11/08/2024 Travel 11/01/2024 Orders Only GENERIC EXTERNAL DATA DEPARTMENT Provider, Generic External Data 10/19/2024 Orders Only [facility] External Provider, [facility] from Last 3 Months Immunizations Immunization Administration [...] Sign Reading Time Taken Comments Blood Pressure 112/62 12/31/2024 2:10 PM EDT Pulse 63 12/31/2024 2:10 PM EDT Temperature 36.5 C (97.7 F) 12/21/2024 [...] Description 01/28/2025 2:30 PM EDT Medication Management [facility] [address] [place] [phone] Delia Mast, PharmD [address] [place] [phone] 02/28/2025 1:45 PM EST Office Visit [facility] [address] [place] [phone] Dawn Almaguer MD [address] [place] [address] Health Maintenance Due Date Last Done Comments CT Colonography 1955 FIT DNA/Cologuard 1955 FIT 1955 FOBT 1955 Sigmoidoscopy 1955 Hepatitis C Screening 11/14/1973 Zoster Vaccines (2 of 2) 09/17/2022 07/23/2022 Diabetes: Foot Exam 08/08/2023 08/07/2022, COVID-19 Vaccine ( season) 2024 08/28/2021, 08/28/2021, [...] Procedure Name Priority Date/Time Associated Diagnosis Comments XR CHEST 2 VIEWS Routine 12/30/2024 10:3 4 AM EDT B TYPE NATRIURETIC PEPTIDE (BNP) Routine 12/30/2024 10:32 AM EDT BASIC METABOLIC PANEL Routine 12/30/2024 10:32 AM EDT POCT GLYCATED HEMOGLOBIN, TOTAL Routine 12/17/2024 3:44 PM EDT Type 2 diabetes mellitus with hyperglycemia, with long-term current use of insulin ([facility]) POCT GLYCATED HEMOGLOBIN, TOTAL Routine 11/26/2024 3:36 PM EDT Type 2 diabetes mellitus with hyperglycemia, with long-term current use of insulin ([facility]) POCT GLUCOSE Routine 11/26/2024 3:36 PM EDT Type 2 diabetes mellitus with hyperglycemia, with long-term current use of insulin ([facility]) PSA, TOTAL Routine 11/01/2024 8:12 AM EDT HEMOGLOBIN A1C Routine 11/01/2024 8:12 AM EDT US RENAL BI Routine 10/20/2024 9:12 AM EDT ALBUMIN, RANDOM URINE W/CREATININE Routine 07/26/2024 9:18 AM EDT LIPID PANEL, STANDARD Routine 01/09/2024 8:34 AM EDT Primary hypertension HM COLONOSCOPY Routine 08/19/2017 from Last 3 Months or Most Recently Relevant to Health Maintenance Results * XR Chest 2 Views (12/30/2024 10:34 AM EDT) Anatomical Region Laterality Modality Chest Radiographic Ale ging 12/30/2024 10:3 4 AM EDT Narrative 12/30/2024 10:59 AM EDT [address] [address] XRay Report Signed Patient: Kenny Dowell MR#: Kassi [id number] : 1955 Acct:[id number] Age/Sex: 69 / M ADM Date: 12/30/24 Loc: HO.XRAY Attending Dr: Deonte Jones MD Ordering Physician: Deonte Jones MD Date of Service: 12/30/24 Procedure(s): XR chest 2V Accession Number(s): [id number] cc: Dawn Almaguer MD; Deonte Jones MD Reason for Exam: R06.02 - Shortness of breath EXAMINATION: XR CHEST CLINICAL INFORMATION: R06.02 - Shortness of breath COMPARISON: October 25, 2023 TECHNIQUE: 2 views of the chest were obtained. FINDINGS: No significant abnormality is noted involving the heart, lungs, mediastinum, or soft tissues. Flowing osteophytes are present in the mid to lower thoracic spine. XR/XR chest 2V IMPRESSION: No acute disease. 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 Electronically signed by: Camron Laboy MD 12/30/2024 10:56 AM EDT Dictated By: Camron Laboy MD Signed By: <Electronically signed by Camron Laboy MD in OV> 12/30/24 1056 DD/ 1034 TD/TT: 12/30/24 1047 Acoustics Teacher: Procedure Note Donotuseinterpreter, Image - 12/30/[address] [address] XRay Report Signed Patient: Tamika Dowell#: Kassi [id number] : 6Acct:[id number] Age/Sex: 69 / MADM Date: 12/30/24 Loc: [facility] Attending Dr: Deonte Jones MD Ordering Physician: Deonte Jones MD Date of Service: 12/30/24 Procedure(s): XR chest 2V Accession Number(s): [id number] cc: Dawn Almaguer MD; Deonte Jones MD Reason for Exam: R06.02 - Shortness of breath EXAMINATION: XR CHEST CLINICAL INFORMATION: R06.02 - Shortness of breath COMPARISON: October 25, 2023 TECHNIQUE: 2 views of the chest were obtained. FINDINGS: No significant abnormality is noted involving the heart, lungs, mediastinum, or soft tissues. Flowing osteophytes are present in the mid to lower thoracic spine. XR/XR chest 2V IMPRESSION: No acute disease. 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 Electronically signed by: Camron Laboy MD 12/30/2024 10:56 AM EDT Dictated By: Camron Laboy MD Signed By: <Electronically signed by Camron Laboy MD in OV> 12/30/24 1056 DD/ 1034 TD/TT: 12/30/24 1047 Acoustics Teacher: [facility] External Provider IMG XR PROCEDURES Final Result * B Type Natriuretic Peptide (BNP) (12/30/2024 10:32 AM EDT) B Type Natriuretic Peptide 63 <100 pg/mL [facility] 12/30/2024 10:3 2 AM EDT 12/30/2024 10:32 AM EDT Generic External Data Provider LAB BLOOD ORDERAB LES Final Result Performing Organization Address [facility] de Phone Number [facility] [address] [place] [address] [phone] * (ABNORMAL) Basic Metabolic Panel (12/30/2024 10:32 AM EDT) Pathologist [facility] Sodium 143 135 - 145 mmol/L [facility] Potassium 5.2(H) 3.3 - 5.1 mmol/L [facility] Chloride 111(H) 96 - 108 mmol/L [facility] Carbon Dioxide 26 22 - 29 mmol/L [facility] Anion Gap 11(L) 12 - 20 [facility] Urea Nitrogen (BUN) 28(H) 9 - 16 mg/dL [facility] Creatinine, Serum 1.52(H) 0.5 - 1.4 mg/dL [facility] Estimated Glomerular Filt Rate 46 [facility] Comment:Chronic Kidney Disea se: Estimated GFR < 60 mL/min/1.22i1Eytlnr Kidney Disease: Estimated GFR < 15 mL/min/1.73m2 Glucose 165(H) 60 - 115 mg/dL [facility] Calcium 9.4 8.4 - 10.2 mg/dL [facility] 12/30/2024 10:3 2 AM EDT 12/30/2024 10:32 AM EDT Generic External Data Provider LAB BLOOD ORDERAB LES Final Result Performing Organization Address [facility] Co de Phone Number [facility] [address] [place] [address] [phone] * (ABNORMAL) POCT A1c (12/17/2024 3:44 PM EDT) Only the most recent of2 resultswithin the time period is included. Hemoglobin A1C 8.5(A) 4.0 - 5.7 % QC Media Lot # [id number] Lot# Expiration Date ,019,076 Blood 12/17/2024 3:44 PM EDT Dawn Monroy MD POINT OF CARE TEST EN TER/EDIT ORDERABLES Final Result * (ABNORMAL) POCT Glucose (11/26/2024 3:36 PM EDT) Glucose Blood, POC 222(A) 60 - 200 mg/dL QC Media Lot # [id number] Lot# Expiration Date [id number] Blood Capillary blood specimen / Unknown 11/26/2024 3:36 PM EDT Dawn Monroy MD POINT OF CARE TEST EN TER/EDIT ORDERABLES Final Result * PSA,Total (11/01/2024 8:12 AM EDT) Prostate Specific Antigen 0.34 <0.05 - 4.0 ng/mL [facility] Comment:PSA methodology: John Villarreal i ChemiluminescentMicroparticle Immunoassay (CMIA) 11/01/2024 8:12 AM EDT 11/01/2024 11:17 AM EDT Generic External Data Provider LAB BLOOD ORDERAB LES Final Result Performing Organization Address City/State/[facility] Co de Phone Number [facility] [address] [place] [phone] * (ABNORMAL) Hemoglobin A1c (11/01/2024 8:12 AM EDT) Hemoglobin A1c 7.8(H) <6.0 % [facility] Comment:Hemoglobin A1C Refer ence Range Adults: 4.8 - 6.0 % Non diabetic: < 6.0 % Goal: < 7.0 %Additional Action Suggested: > 8.0 %Note: Hemoglobin A1c results are invalid for patients with abnormal amounts of HbF. Blood transfusions may impact the HbA1c concentration in the patient sample. Estimated Average Glucose 177 mg/dL [facility] Comment:eAG = Estimated ave rage glucose which is %A1C expressed asaverage glucose, using the formula of the N1B-LluteumPcwutct Glucose study (ADAG), Diabetes Care, Vol.31,#8,Nov. 2007 11/01/2024 8:12 AM EDT 11/01/2024 11:17 AM EDT us Generic External Data Provider LAB BLOOD ORDERAB LES Final Result Performing Organization Address City/State/[facility] Co de Phone Number [facility] [address] [place] [phone] * US RENAL BI (10/20/2024 9:12 AM EDT) Anatomical Region Laterality Modality Abdomen Ultrasound 10/20/2024 9:12 AM EDT Narrative 10/20/2024 9:14 AM EDT [address] [address] Ultrasound Report Signed Patient: Kenny Dowell MR#: [id number] : 1955 Acct:[id number] Age/Sex: 68 / M ADM Date: 10/19/24 Loc: HO.US Attending Dr: Shirley CONROY Ordering Physician: Shirley Murillo Date of Service: 10/19/24 Procedure(s): US renal BI Accession Number(s): [id number] cc: Dawn Almaguer MD; Shirley Murillo CLINICAL [...] in OV> 10/20/[address] DD/ 1 TD/TT: 10/20/249[address] Acoustics Teacher: Procedure Note Donotuseinterpreter, Image - 10/20/[address] [address] Ultrasound Report Signed Patient: Tamika Dowell#: [id number] : 6Acct:[id number] Age/Sex: 68 / MADM Date: 10/19/24 Loc: HO.US [facility] Ordering Physician: Shirley Murillo Date of Service: 10/19/24 Procedure(s): US renal BI Accession Number(s): [id number] cc: Dawn Almaguer MD; Shirley Murillo [facility] CLINICAL HISTORY: N28.1 - Cyst of kidney, [...] in OV> 10/20/[address] DD/ 1 TD/TT: 10/20/24911 Acoustics Teacher: us [facility] External Provider IMG US PROCEDURES Final Result * Albumin, Random Urine W/Creatinine (07/26/2024 9:18 AM EDT) Creatinine, Urine 177.04 mg/dL [facility] Microalbumin Urine 30.0 mg/L [facility] Microalbum Creatinine Ratio Ur 16.9 <30 ug/mg cr [facility] Comment:Albumin/Creatinine R atio Reference Ranges: Normal: < 30 ug/mg creatinine Microalbuminuria: 30 - 300 ug/mg creatinineClinical Albuminuria: > 300 ug/mg creatinine 07/26/2024 9:18 AM EDT 07/26/2024 12:25 PM EDT us Dawn Monroy MD LAB URINE ORDERABLES Final Result Performing Organization Address [facility] Co de Phone Number [facility] [address] [place] [phone] * (ABNORMAL) Lipid Panel, Standard (01/09/2024 8:34 AM EDT) Triglycerides 91 <150 mg/dL [facility] Comment:Desirable Triglyceri de: less than 150 mg/dLBorderline High Triglyceride 150-199 mg/dLHigh Triglyceride: 200-499 mg/dLVery High Triglyceride: greater than or equal to 5OO mg/dL Cholesterol 108 <200 mg/dL [facility] Comment:Desirable Cholestero l: less than 200 mg/dLBorderline High Cholesterol: 200-239 mg/dLHigh Cholesterol: greater than 239 mg/dL LDL Cholesterol Calculated 57 <100 mg/dL [facility] Comment:Desirable LDL: less than 100 mg/dLNear Optimal/Above Optimal LDL: 110- 129 mg/dLBorderline High LDL: 130-159 mg/dLHigh LDL: 160-189 mg/dLVery High LDL: greater than or equal to 190 mg/dL HDL Cholesterol 33(L) >40 mg/dL [facility] Comment:Desirable HDL: great er than 40 mg/dL Note: This HDL assay may give artificially low results in patients with liver disease. Blood Venous blood specimen / Unknown 01/09/2024 8:34 AM EDT 01/09/2024 11:48 AM EDT us Dawn Monroy MD LAB BLOOD ORDERABLES Final Result Performing Organization Address [facility] Co de Phone Number [facility] [address] [place] [address] [phone] * Colonoscopy (08/19/2017) Colonoscopy Normal Normal Narrative Carolynn Mary - 08/19/2017 Recommended 10 years. See see notes in Fovea . Colonoscopy order added us Historical Provider HEALTH MAINTENANCE Final Result from Last 3 Months or Most Recently Relevant to Health Maintenance Insurance [facility] STANDARD FORMERLY [facility] ASSISTED OPTIONS (HMO D-SNP) [address] [place] [phone] Care Teams Bell Staff Relationship Specialty Start Date End Date Dawn Almaguer MD [address] [place] [phone] PCP - General Family Medicine 02/25/18 Delia Mast, PharmD [address] [place] [address] Pharmacist Internal Medicine 03/15/24 [place] 05/06/24
--- OUTSIDE RECORDS SUMMARY | 2025-01-19 11:04 | XMS_ITS | Encounter Summary ---
Author Organization [facility] Address [address] [place] [phone] Phone Care Team Providers Care Carpenter Streetcar Name Role Phone Pcp, Unknown Primary Care Provider Unavailabl e Encounter Details Date Type Department Care Team (Late st Contact Info) Description 04/07/2020 Procedure Pass [facility] [address] [place] [address] [place] [address] Social History Tobacco Use Types [...] on filedocumented in this encounter Care Teams Carpenter Streetcar Relationship Specialty Start Date End Date Pcp, Unknown PCP - General 11/18/18 documented as of this encounter Additional Source Comments The information contained in this document represents components of the legal health record. It is not the complete legal health record.[facility]
--- OUTSIDE RECORDS SUMMARY | 2025-01-19 11:04 | XMS_ITS | Encounter Summary ---
Author Organization [employer] Address [address] [facility] [address] [place] [address] Care Team Providers Care Assistant Manager Bilingual Name Role Phone Dawn Almaguer MD Primary Care Provide r Delia Mast PharmD Unavailable [phone]- [phone] Encounter Details Date Type Department Care Team (Late st Contact Info) Description 07/02/2024 Orders Only [facility] [address] [place], [place] [phone] Dawn Almaguer MD [address], [place] [phone] Social History Tobacco Use Types Packs/Day Years [...] 2:30 PM EDT Medication Management [facility] MEDICINE [address] [place] [phone] Delia Mast PharmD [address] [place] [phone] 02/28/2025 1:45 PM EST Office Visit [facility] [address] [place] [phone] Dawn Almaguer MD [address] [place] [phone] documented as of this encounter Visit Diagnoses Not on filedocumented in this encounter Additional Health Concerns Assessment Noted Time PHQ-9 Depression Total Score: 0 07/01/19 24 1:29 PM EST documented as of this encounter Care Teams Assistant Manager Bilingual Relationship Specialty Start Date End Date Dawn Almaguer MD [address] [place] [phone] PCP - General Family Medicine 02/25/18 Delia Mast, PharmD [address] [place] [phone] Pharmacist Internal Medicine 03/15/24 [place] 05/06/24 documented as of this encounter
--- OUTSIDE RECORDS SUMMARY | 2025-01-19 11:04 | XMS_ITS | Clinical Summary ---
Author Organization [facility] Address [address] [facility] [address] [place] [phone] Phone Care Team Providers Care Housekeeping And Laundry Team Leader Name Role Phone Pcp, Unknown Primary Care [...] file Medical Devices Not on file Insurance [facility] NON KIT [facility] PCP [facility] NON NSPG PCP [employer] NON NSPG PCP S[employer] NON NSPG PCP [employer] NON NSPG PCP [employer] NON NSPG PCP S[employer] NON NSPG PCP S[employer] NON NSPG PCP [employer] NON NSPG PCP [facility] [employer] Care Teams Housekeeping And Laundry Team Leader Relationship Specialty Start Date End Date Pcp, Unknown PCP - General 11/18/18 Additional Source Comments The information contained in this document represents components of the legal health record. It is not the complete legal health record.[facility]
--- OUTSIDE RECORDS SUMMARY | 2025-01-19 11:05 | XMS_ITS | Encounter Summary ---
Author Organization [facility] Address [address] [place] [phone] Phone Care Team Providers Care Aluminum Polisher Name Role Phone Pcp, Unknown Primary Care Provider Unavailabl e Encounter Details Date Type Department Care Team (Late st Contact Info) Description 12/02/2018 Ancillary Orders [facility] [address] [place] [address] Mark Andrade MD [address] [place] [phone] [email or web address] Social History Tobacco Use Types Packs/Day Years [...] on filedocumented in this encounter Care Teams Aluminum Polisher Relationship Specialty Start Date End Date Pcp, Unknown PCP - General 11/18/18 documented as of this encounter Additional Source Comments The information contained in this document represents components of the legal health record. It is not the complete legal health record.[facility]
[2025-01-19 12:39] LABS: Alanine Aminotransferase 23 U/L (0-40); Albumin Level 4.1 g/dL (3.5-5.0); Alkaline Phosphatase 58 U/L (39-117); Anion Gap 13 (12-20); Aspartate Amino Transferase 40 U/L (5-37); Blood Urea Nitrogen 21 mg/dL (9-16); Calcium 8.8 mg/dL (8.4-10.2); Carbon Dioxide 27 mmol/L (22-29); Chloride 109 mmol/L (96-108); Cholesterol 94 mg/dL (<200); Estimated Glomerular Filt Rate 57; HDL Cholesterol 32 mg/dL (>40); Potassium 4.5 mmol/L (3.3-5.1); Sodium 144 mmol/L (135-145); Total Protein 7.7 g/dL (6.5-8.0); Triglycerides 64 mg/dL (<150)
[2025-01-19 12:42] LABS: Hemoglobin A1C 399.3925 umol/L; Total Hemoglobin (HGBA1C) 5553.8746 umol/L
[2025-01-19 13:12] LABS: Microalbum/Creatinine Ratio Ur 14.2 ug/mg cr (<30)
== END 2025-01-19 09:23 | disposition home or self-care (01) ==
LOC: HO.HHCL 09:22
PROVIDERS: PCP Internal Medicine; Visit Provider Nurse Practitioner Family
DX: E11.65 Type 2 diabetes mellitus with hyperglycemia (principal); E11.69 Type 2 diabetes mellitus with other specified complication; Z79.4 Long term (current) use of insulin
CPT/HCPCS: 36415; 80053; 80061; 82043; 82248; 82570; 83036

== ENCOUNTER → 2025-02-03 12:06 | Outpatient (REF) | payer OTHER, SELFPAY ==
--- NOTE | 2025-02-03 12:10 | CA_ITS ---
Transthoracic Echocardiogram Patient (Last, First, Middle): Kenny Dowell, Gender: Male Date of : 1955 Age: 69 Procedure Date: 02/03/2025 Procedure Type: Transthoracic Echocardiogram Location: OP Height: 182.88 cm Weight: 102.97 kg BSA: 2.25 m2 Heart Rate: bpm BP: 110 / 70 mmHg Administrative Job Titles: TO Referring MD: Deonte Jones MD Dural Mechanic: Deonte Jones MD Symptoms: I48.0 - Paroxysmal atrial fibrillation Study Quality: Adequate ECG Rhythm: Sinus Conclusions: - 1. Normal LV ejection fraction of 60 65% 2. Mildly dilated left atrium 3. Mild calcific aortic and mitral valve changes noted with mild mitral regurgitation 4. Normal LV systolic pressure 5. No gross pericardial effusion Findings Left Ventricle Normal left ventricular size, thickness, and systolic function. The visually estimated ejection fraction is between 60-65%. Spectral Doppler is indicative of a normal filling pattern. Peak GLS is -18.6%, within normal limits. Right Ventricle Normal right ventricular cavity size and systolic function. Atria The left atrium is mildly dilated. There is no evidence of interatrial shunt. The right atrium is normal in size. Aortic Valve There is mild calcification of the aortic valve. There is mild thickening of the aortic valve. There is no aortic valve stenosis. There is no aortic valve regurgitation. Mitral Valve There is moderate anterior and mild posterior mitral leaflet thickening. There is mild anterior mitral annular calcification. There is mild mitral valve regurgitation. There is no mitral valve stenosis. Pulmonic Valve The pulmonic valve is likely normal. Tricuspid Valve Likely normal tricuspid valve structure and function. There is trace tricuspid valve regurgitation. The right ventricular systolic pressure is normal. The right ventricular systolic pressure is 24 mmHg. Normal right atrial pressure. There is no evidence of pulmonary hypertension. Great Vessels The pulmonary artery was not well visualized. There is mild dilatation of the ascending aorta measuring 3.80 cm. Venous The inferior vena cava is normal in size and collapses greater than 50% with inspiration. Pericardium/Pleural There is no evidence of pericardial effusion. Measurements 2D Linear Measurements IVSd: 1.10 0.6-0.9/0.6-1.0 cm LVIDd: 5.58 3.9-5.3/4.2-5.9 cm LVIDd Index: 2.48 2.4-3.2/2.2-3.1 cm/m2 LVIDs: 3.36 2.0-3.6 cm LVPWd: 1.13 0.7-1.1 cm LA Diam: 4.50 2.7-3.8/3.0-4.0 cm LAIDs Index: 2.00 1.5-2.3 cm/m2 LV Mass: 314.74 67-162/88-224 g LV Mass Index: 139.89 43-95/49-115 g/m2 LVOT Diam: 2.50 3.0+(-)1.3 cm 2D Systolic Function EF 4C: 67.50 >55% EF 2C: 60.90 >55% EF BiP: 63.20 >55% Mitral Valve MV Pk E: 0.69 MV PK A: 0.50 MV Decel Time: 222.00 E/A: 1.40 E'Lateral: 10.20 E'Medial: 5.66 E/E' Med: 12.10 E/E' Lat: 6.70 PHT: 65.00 MVA PHT: 3.38 Decel [place]: 3.09 Aortic Valve AoV Pk Javier: 1.49 AoV Pk Grad: 9.00 LVOT LVOT Pk Javier: 1.06 LVOT Mn Javier: 0.68 LVOT VTI: 0.25 LVOT Pk Grad: 4.00 LVOT Mn Grad: 2.00 LVOT Diam: 2.50 LVOT Area: 4.91 Diastolic Function MV Pk E: 0.69 MV Pk A: 0.50 E/A: 1.40 E'Medial: 5.66 E/E' Med: 12.10 E' Laterial: 10.20 E/E' Lat: 6.70 Right Ventricle TAPSE (mm): 26.50 TVS' Javier: 11.30 Tricuspid Valve TR Pk Javier: 2.28 TR Pk Grad: 21.00 RA Press: 3.00 RVSP: 24.00 Great Vessels Aorta Sinus of Valsalva: 3.65 2.0-3.5 cm Ao Asc: 3.80 2.1-3.4 cm Ao Arch: 2.90 Updated in Other Vendor System with Status of Final Deonte Jones MD electronically signed on 02/04/2025 12:41:27 PM with status of Final
== END ==
LOC: HO.CARD 12:06
PROVIDERS: PCP Internal Medicine; Visit Provider Internal Medicine Cardiovascular Disease
DX: I48.0 Paroxysmal atrial fibrillation (principal)
CPT/HCPCS: 93242; 93306

== ENCOUNTER → 2025-02-03 12:10 | Outpatient (BNV) | payer OTHER, SELFPAY | PROVIDERS: PCP Internal Medicine; Visit Provider Internal Medicine Cardiovascular Disease | DX: I34.0 Nonrheumatic mitral (valve) insufficiency (principal); I35.8 Other nonrheumatic aortic valve disorders; I51.7 Cardiomegaly | CPT/HCPCS: 93306; 93356 ==

== ENCOUNTER → 2025-02-21 07:55 | Outpatient (REF) | payer OTHER, SELFPAY ==
--- NOTE | ~2025-02-21 | NM_ITS ---
EXERCISE MYOCARDIAL PERFUSION STUDY INDICATION: Chest pain TECHNIQUE: The patient was brought in for an exercise perfusion study on 02/21/2025. Patient performed exercise as per Sree protocol and was injected 35 mCi of sestamibi once target heart rate was achieved. Images were obtained using the SPECT gamma camera interlaced with the gating device. Images were obtained in supine position. Resting perfusion study was performed on 02/22/2025. Patient was administered 35 mCi of sestamibi intravenously at rest. Images were then obtained in supine position. Total DLP 140 mGy-cm. Images were processed with the software and compared side to side in short axis, horizontal long axis and vertical long axis views. FINDINGS: Raw aquisition reviewed. The stress perfusion study showed decreased tracer uptake in the basal part of inferior wall. With CT attenuation correction, there is improvement suggestive of diaphragmatic attenuation artifact. The gated study shows normal LV systolic function with calculated LVEF of 65%. LV cavity is normal in size. The gated study shows normal wall thickening and contraction of segments. Resting study shows decreased tracer uptake in the basal part of inferior wall. There is improvement with CT attenuation correction suggestive of diaphragmatic attenuation artifact. Gating at rest reveals normal wall motion with ejection fraction at 58%. The findings are consistent with fixed basal inferior defect, probably from diaphragmatic attenuation artifact. No clear reversible defects. NM/NM cardiolite stress test IMPRESSION: 1. Myocardial perfusion imaging study shows likely normal myocardial perfusion. 2. Gated LVEF is 65% during stress and 58% during rest. 3. Transient ischemic dilatation not present. EKG component of the test reported separately. Electronically signed by: Brian Menchaca MD 02/23/2025 12:41 PM EDT
--- NOTE | 2025-02-21 07:58 | CA_ITS ---
Acquisition Time: 2025-02-21 08:55:37 Total Exercise Time: 00:06:59 Test Indications: CHEST PAIN SOB Medications: Insulin ATROVASTATIN METOPROLOL Protocol: UNIQUE Max HR: 137 BPM 90% of Pred: 151 BPM Max BP: 130/70 mmHG Max Work Load: 7.9 METS Exercise stress test with exercise 6 mins 59 secs of Unique Protocol at a reduced speed of 3.0 mph, achieving 85% MPHR, with reports of 6/10 left sided squeezing chest pain and SOB, with isolated PACs and PVCs, with nomotensive response to exercise. Without any EKG changes meeting criteria for ischemia. In recovery, chest pain resolved and breathing improved to baseline. Nuclear images pending. Test reviewed with Dr. Menchaca. Referred By: Deonte Jones Electronically Signed By: Anthony Arguello
--- OUTSIDE RECORDS SUMMARY | 2025-02-21 07:58 | XMS_ITS | Clinical Summary ---
Author Organization [employer] Address [address] [facility] [address] [place] [address] Care Team Providers Care Soda Clerk Name Role Phone Dawn Almaguer MD Primary Care Provide r Delia Mast PharmD Unavailable [phone] Allergies No known active allergies Medications atorvastatin [...] hyperglycemia, with long-term current use of insulin ([facility]) Use as needed for low blood sugar 45 g 11 024 Active empagliflozin-m etFORMIN (Synjardy) 12.5-1000 MGIndications:T ype 2 diabetes mellitus with hyperglycemia, with long-term current use of insulin ([facility]) Take 1 tablet by mouth with breakfast and with evening meal. 180 tablet 3 024 Active TRUEplus Lancets 33G miscIndications :Type 2 diabetes mellitus with hyperglycemia, with long-term current use of insulin ([facility]) Check blood sugar 3 times a day 100 each 11 025 Active metoprolol tartrate (Lopressor) 25 MG tabletIndicatio ns:Primary hypertension Take one half tablet by mouth twice daily 90 tablet 025 Active Continuous Glucose [employer] (FreeStyle Monica 3 [place]) device 1 each Once per day. Use as directed for CGM 1 each 025 Active Continuous Glucose Sensor (FreeStyle Monica 3 Plus Sensor) misc 1 each every 15 days. Apply 1 every 15 days as directed for CGM 2 each 025 Active glucose blood (FreeStyle Precision Charan Test) test stripIndication s:Type 2 diabetes mellitus with hyperglycemia, with long-term current use of insulin ([facility]) Use to test blood sugar 2 times daily 100 each 11 025 2025 Active clotrimazole-be tamethasone (Lotrisone) cream APPLY TOPICALLY 2 TIMES A DAY FOR 4 WEEKS APPLY THIN COAT 2 TIMES PER DAY Active ciclopirox (Penlac) 8 % solutionIndicat ions:Onychomyco [...] hyperglycemia, with long-term current use of insulin ([facility]) Use as instructed with insulin administration twice daily 100 each 3 025 Active insulin lispro (HumaLOG KWIKPEN) 100 UNIT/ML injectionIndica tions:Type 2 diabetes mellitus with hyperglycemia, with long-term current use of insulin ([facility]) Inject twice daily subcutaneously 4 units before breakfast and 8 units once daily before dinner. Do not use if skipping meal. 15 mL 1 025 Active insulin glargine (Lantus SoloStar) 100 UNIT/ML penIndications: Type 2 diabetes mellitus with hyperglycemia, with long-term current use of insulin ([facility]) Inject subcutaneously 24 units once daily 15 mL 1 025 Active Tirzepatide (Mounjaro) 5 MG/0.5ML solution auto-injectorIn dications:Type 2 diabetes mellitus with hyperglycemia, with long-term current use of insulin (HCC) Inject 5 mg under the skin every 7 (seven) days. 2 mL Active Dulaglutide (Trulicity) 4.5 MG/0.5ML solution auto-injectorIn dications:Type 2 diabetes mellitus with hyperglycemia, with long-term current use of insulin (HCC) Inject 4.5 mg under the skin every 7 (seven) days. 2 mL 3 025 2024 Discontinued(I neffective) insulin glargine (Lantus SoloStar) 100 UNIT/ML penIndications: Type 2 diabetes mellitus with hyperglycemia, with long-term current use of insulin (HCC) Inject subcutaneously 20 units once daily 025 2024 Discontinued insulin lispro (HumaLOG KWIKPEN) 100 UNIT/ML injectionIndica tions:Type 2 diabetes mellitus with hyperglycemia, with long-term current use of insulin (HCC) Inject subcutaneously 6 units once daily before dinner. Do not use if skipping meal. 2024 Discontinued Active Problems Problem Noted Date [...] to follow with cardiology, move practice [place] [facility] for convenience He is on Multaq 400mg [...] Date Diagnosed Date Resolved Date Morbid obesity (CMS/HCC) 04/08/201704/2024 Hypertensive disorder 04/08/20172024 Assessment & Plan (02/10/2024 [...] Encounters Date Type Department Care Team Description 01/28/2025 Travel 01/19/2025 Orders Only GENERIC EXTERNAL DATA DEPARTMENT Provider, Generic External Data 01/04/2025 Telephone [facility] [address] [place], [place] [phone] Dawn Almaguer MD NOV RECALL 12/31/2024 Travel 12/30/2024 Orders Only [facility] External Provider, [facility] 12/21/2024 11:15 AM EDT Office Visit [address] [phone] Meliza Reid MD Paroxysmal A-fib ([facility]) (Primary Dx); Dietary counseling; Exercise counseling; Class 1 obesity with serious comorbidity and body mass index (BMI) of 31.0 to 31.9 in adult, unspecified obesity type 12/21/2024 Travel 12/17/[address] [address] Delia Mast, Rosa Care Coordination; Referral 12/17/2024 Travel 12/10/[address] [address] Dawn Almaguer MD Vitamin D deficiency 11/30/[address] [phone] Dawn Almaguer MD 11/26/2024 3:30 PM EDT Office Visit [address] [phone] Dawn Almaguer MD Venous stasis dermatitis (Primary Dx); Type 2 diabetes mellitus with hyperglycemia, with long-term current use of insulin ([facility]/HCC); Paroxysmal A-fib ([facility]/HCC); Hyperlipidemia associated with type 2 diabetes mellitus ([facility]/HCC); Onychomycosis; Chronic left-sided low back pain with left-sided sciatica; Diastolic dysfunction 11/26/2024 Travel 11/25/2024 Telephone [facility] [address] [place], [place] [phone] Dawn Almaguer MD Chart Prep from Last 3 Months Immunizations Immunization Administration [...] housing situation today? I have riaz tai 02/10/[address] you li [...] Answer Date Recorded Internet Access Q1 Yes 02/10/2025 Internet Access Q2 Not on file 02/10/2025 Sex and Gender Information Value Date Recorded Sex Assigned at Male 02/25/2022 10:14 AM EDT Legal Sex Male 10:14 AM EDT Gender Identity Male 02/25/2022 10:14 AM EDT Sexual Orientation Straight 02/25/2022 10 :14 AM EDT Last Filed Vital Signs Vital Sign Reading Time Taken Comments Blood Pressure 118/60 01/28/2025 2:22 PM EDT Pulse 52 01/28/2025 2:22 PM EDT Temperature 36.5 C (97.7 F) [...] Care Team (Late st Contact Info) Description 02/22/2025 2:30 PM EDT Medication Management [facility] [address] [place] [phone] Delia Mast, PharmD [address] [place] [phone] 02/28/2025 1:45 PM EST Office Visit [facility] [address] [place] [address] [place] [address] Dawn Almaguer MD [address] [place] [address] Health Maintenance Due Date Last Done Comments CT Colonography 1955 FIT DNA/Cologuard 1955 FIT 1955 FOBT 1955 Sigmoidoscopy 1955 Alcohol/Substance Use Screening 1967 Hepatitis C Screening 11/14/1973 Zoster Vaccines (2 of 2) 09/17/2022 07/23/2022 Diabetes: Foot Exam 08/08/2023 08/07/2022, COVID-19 Vaccine ( season) 2024 08/28/2021, 08/28/2021, 08/16/2020, Additional history exists Influenza Vaccine (#1) 2024 01/17/2022 Diabetes: Hemoglobin A1C 04/20/2025 025, 12/17/2024, 11/26/2024, Additional history exists SDOH Screening 04/29/2025 04/29/2024 Depression Screening 11/26/2025 11/26/2024, 11/27/19 25 Tobacco Screening 12/22/2025 12/22/2024 Diabetes: Urine Protein Screening 01/19/2026 01/19/2025, 07/26/2024, 09/04/2020, Additional history exists Lipid Panel 01/19/2026 01/19/2025, 12/27, 05/23/2022, Additional history exists Eye Exam 09/28/2026 09/28/2024, 06/0 06/2024, 09/28/2024, [...] Date/Time Associated Diagnosis Comments HEMOGLOBIN A1C Routine 01/19/2025 9:30 AM EDT HEPATIC FUNCTION PANEL Routine 9:30 AM EDT Hyperlipidemia associated with type 2 diabetes mellitus (CMS/HCC) COMPREHENSIVE METABOLIC PANEL Routine 01/19/2025 9:30 AM EDT Type 2 diabetes mellitus with hyperglycemia, with long-term current use of insulin (CMS/[facility]) ALBUMIN, RANDOM URINE W/CREATININE Routine 01/19/2025 9:30 AM EDT Type 2 diabetes mellitus with hyperglycemia, with long-term current use of insulin (CMS/HCC) LIPID PANEL, STANDARD Routine 01/19/2025 9:30 AM EDT Type 2 diabetes mellitus with hyperglycemia, with long-term current use of insulin (CMS/HCC) XR CHEST 2 VIEWS Routine 12/30/2024 10:3 4 AM EDT B TYPE NATRIURETIC PEPTIDE (BNP) Routine 12/30/2024 10:32 AM EDT BASIC METABOLIC PANEL Routine 12/30/2024 10:32 AM EDT POCT GLYCATED HEMOGLOBIN, TOTAL Routine 12/17/2024 3:44 PM EDT Type 2 diabetes mellitus with hyperglycemia, with long-term current use of insulin ([facility]) POCT GLYCATED HEMOGLOBIN, TOTAL Routine 11/26/2024 3:36 PM EDT Type 2 diabetes mellitus with hyperglycemia, with long-term current use of insulin ([facility]) POCT GLUCOSE Routine 11/26/2024 3:36 PM EDT Type 2 diabetes mellitus with hyperglycemia, with long-term current use of insulin ([facility]) HM COLONOSCOPY Routine 08/19/2017 from Last 3 Months or Most Recently Relevant to Health Maintenance Results * Albumin, Random Urine W/Creatinine (01/19/2025 9:30 AM EDT) Creatinine, Urine 140.10 mg/dL [facility] Microalbumin Urine 20.0 mg/L [facility] Microalbum Creatinine Ratio Ur 14.2 <30 ug/mg cr [facility] Comment:Albumin/Creatinine R atio Reference Ranges: Normal: < 30 ug/mg creatinine Microalbuminuria: 30 - 300 ug/mg creatinineClinical Albuminuria: > 300 ug/mg creatinine Urine (Urine, Random) 01/19/2025 9:30 AM EDT 01/19/2025 11:43 AM EDT us Dawn Monroy MD LAB URINE ORDERABLES Final Result [facility] [address] [place] [phone] * (ABNORMAL) Hemoglobin A1c (01/19/2025 9:30 AM EDT) Hemoglobin A1c 8.7(H) <6.0 % [facility] Comment:Hemoglobin A1C Refer ence Range Adults: 4.8 - 6.0 % Non diabetic: < 6.0 % Goal: < 7.0 %Additional Action Suggested: > 8.0 %Note: Hemoglobin A1c results are invalid for patients with abnormal amounts of HbF. Blood transfusions may impact the HbA1c concentration in the patient sample. Estimated Average Glucose 203 mg/dL [facility] Comment:eAG = Estimated ave rage glucose which is %A1C expressed asaverage glucose, using the formula of the R1V-ZwhqhbtBbaiutg Glucose study (ADAG), Diabetes Care, Vol.31,#8,2007 01/19/2025 9:30 AM EDT 01/19/2025 11:28 AM EDT us Generic External Data Provider LAB BLOOD ORDERAB LES Final Result Performing Organization Address City/[facility]/ZIP Co de Phone Number [facility] [address] [place] [phone] * Hepatic Function Panel (01/19/2025 9:30 AM EDT) Bilirubin, Direct 0.3 0.0 - 0.5 mg/dL [facility] Blood Venous blood specimen / Unknown 01/19/2025 9:30 AM EDT 01/19/2025 11:21 AM EDT us Dawn Monroy MD LAB BLOOD ORDERABLES Final Result Performing Organization Address City/[facility]/ZIP Co de Phone Number [facility] [address] [place] [phone] * (ABNORMAL) Lipid Panel, Standard (01/19/2025 9:30 AM EDT) Triglycerides 64 <150 mg/dL [facility] Comment:Desirable Triglyceri de: less than 150 mg/dLBorderline High Triglyceride 150-199 mg/dLHigh Triglyceride: 200-499 mg/dLVery High Triglyceride: greater than or equal to 5OO mg/dL Cholesterol 94 <200 mg/dL [facility] Comment:Desirable Cholestero l: less than 200 mg/dLBorderline High Cholesterol: 200-239 mg/dLHigh Cholesterol: greater than 239 mg/dL LDL Cholesterol Calculated 50 <100 mg/dL [facility] Comment:Desirable LDL: less than 100 mg/dLNear Optimal/Above Optimal LDL: 110- 129 mg/dLBorderline High LDL: 130-159 mg/dLHigh LDL: 160-189 mg/dLVery High LDL: greater than or equal to 190 mg/dL HDL Cholesterol 32(L) >40 mg/dL [facility] Comment:Desirable HDL: great er than 40 mg/dL Note: This HDL assay may give artificially low results in patients with liver disease. Blood Venous blood specimen / Unknown 01/19/2025 9:30 AM EDT 01/19/2025 11:21 AM EDT us Dawn Monroy MD LAB BLOOD ORDERABLES Final Result [facility] [address] [place] [phone] * (ABNORMAL) Comprehensive Metabolic Panel (01/19/2025 9:30 AM EDT) Sodium 144 135 - 145 mmol/L [facility] Potassium 4.5 3.3 - 5.1 mmol/L [facility] Chloride 109(H) 96 - 108 mmol/L [facility] Carbon Dioxide 27 22 - 29 mmol/L [facility] Anion Gap 13 12 - 20 [facility] Urea Nitrogen (BUN) 21(H) 9 - 16 mg/dL [facility] Creatinine, Serum 1.26 0.5 - 1.4 mg/dL [facility] Estimated Glomerular Filt Rate 57 [facility] Comment:Chronic Kidney Disea se: Estimated GFR < 60 mL/min/1.03x9Bdcycd Kidney Disease: Estimated GFR < 15 mL/min/1.73m2 Glucose 125(H) 60 - 115 mg/dL [facility] Calcium 8.8 8.4 - 10.2 mg/dL [facility] Bilirubin, Total 0.7 0.0 - 1.0 mg/dL [facility] Aspartate Amino Transferase 40(H) 5 - 37 U/L [facility] Alanine Aminotransferase 23 0 - 40 U/L [facility] Total Protein 7.7 6.5 - 8.0 g/dL [facility] Albumin Level 4.1 3.5 - 5.0 g/dL [facility] Alkaline Phosphatase 58 39 - 117 U/L [facility] Blood Venous blood specimen / Unknown 01/19/2025 9:30 AM EDT 01/19/2025 11:21 AM EDT us Dawn Monroy MD LAB BLOOD ORDERABLES Final Result [facility] [address] [place] [phone] * XR Chest 2 Views (12/30/2024 10:34 AM EDT) Anatomical Region Laterality Modality Chest Radiographic Ale ging 12/30/2024 10:3 4 AM EDT Narrative 12/30/2024 10:59 AM EDT [address] [phone] XRay Report Signed Patient: Kenny Dowell MR#: Kassi [id number] : 1955 Acct:[id number] Age/Sex: 69 / M ADM Date: 12/30/24 Loc: [facility] Attending Dr: Deonte Jones MD Ordering Physician: Deonte Jones MD Date of Service: 12/30/24 Procedure(s): XR chest 2V Accession Number(s): [id number] cc: Dawn Almaguer MD; Deonte Jones MD [...] Camron Laboy MD 12/30/2024 10:56 AM EDT RP Dictated By: Camron Laboy MD Signed By: <Electronically signed by Camron Laboy MD in OV> 12/30/24 1056 DD/ 1034 TD/TT: 12/30/24 1047 Spray Machine Loader: Procedure Note Donotuseinterpreter, Image - 12/30/[address] [address] XRay Report Signed Patient: Tamika Dowell#: M [id number] : 1955cct:[id number] Age/Sex: 69 / MADM Date: 12/30/24 Loc: [facility] Attending Dr: Deonte Jones MD Ordering Physician: Deonte Jones MD Date of Service: 12/30/24 Procedure(s): XR chest 2V Accession Number(s): [id number] cc: Dawn Almaguer MD; Deonte Jones MD [...] Camron Laboy MD 12/30/2024 10:56 AM EDT RP Dictated By: Camron Laboy MD Signed By: <Electronically signed by Camron Laboy MD in OV> 12/30/24 1056 DD/ 1034 TD/TT: 12/30/24 1047 Spray Machine Loader: us [facility] External Provider IMG XR PROCEDURES Final Result * B Type Natriuretic Peptide (BNP) (12/30/2024 10:32 AM EDT) B Type Natriuretic Peptide 63 <100 pg/mL [facility] 12/30/2024 10:3 2 AM EDT 12/30/2024 10:32 AM EDT Generic External Data Provider LAB BLOOD ORDERAB LES Final Result Performing Organization Address [facility] [place]/[facility]/ZIP Co de Phone Number [facility] [address] [place] [phone] * (ABNORMAL) Basic Metabolic Panel (12/30/2024 10:32 AM EDT) Pathologist [facility] Sodium 143 135 - 145 mmol/L [facility] Potassium 5.2(H) 3.3 - 5.1 mmol/L [facility] Chloride 111(H) 96 - 108 mmol/L [facility] Carbon Dioxide 26 22 - 29 mmol/L [facility] Anion Gap 11(L) 12 - 20 [facility] Urea Nitrogen (BUN) 28(H) 9 - 16 mg/dL [facility] Creatinine, Serum 1.52(H) 0.5 - 1.4 mg/dL [facility] Estimated Glomerular Filt Rate 46 [facility] Comment:Chronic Kidney Disea se: Estimated GFR < 60 mL/min/1.89b0Tzvrbw Kidney Disease: Estimated GFR < 15 mL/min/1.73m2 Glucose 165(H) 60 - 115 mg/dL [facility] Calcium 9.4 8.4 - 10.2 mg/dL [facility] 12/30/2024 10:3 2 AM EDT 12/30/2024 10:32 AM EDT Generic External Data Provider LAB BLOOD ORDERAB LES Final Result Performing Organization Address City/[facility]/ZIP Co de Phone Number [facility] [address] [place] [phone] * (ABNORMAL) POCT A1c (12/17/2024 3:44 PM EDT) Only the most recent of2 resultswithin the time period is included. Hemoglobin A1C 8.5(A) 4.0 - 5.7 % QC Media Lot # [id number] Lot# Expiration Date [id number] Blood 12/17/2024 3:44 PM EDT Dawn Monroy MD POINT OF CARE TEST EN TER/EDIT ORDERABLES Final Result * (ABNORMAL) POCT Glucose (11/26/2024 3:36 PM EDT) Glucose Blood, POC 222(A) 60 - 200 mg/dL QC Media Lot # [id number] Lot# Expiration Date [id number] Blood Capillary blood specimen / Unknown 11/26/2024 3:36 PM EDT Dawn Monroy MD POINT OF CARE TEST EN TER/EDIT ORDERABLES Final Result * Hm Colonoscopy (08/19/2017) Colonoscopy Normal Normal Narrative Carolynn Mary - 08/19/2017 Recommended 10 years. See see notes in Fovea . Colonoscopy order added [place] Provider HEALTH MAINTENANCE Final Result from Last 3 Months or Most Recently Relevant to Health Maintenance Insurance [facility] ST[employer] [facility] [employer] (HMO D-SNP) Care Teams Soda Clerk Relationship Specialty Start Date End Date Dawn Almaguer MD [address] [place] [address] PCP - General Family Medicine 02/25/18 Delia Mast, LivierD [address] [place] [address] Pharmacist Internal Medicine 03/15/24 [place] 05/06/24
--- OUTSIDE RECORDS SUMMARY | 2025-02-21 07:58 | XMS_ITS | Clinical Summary ---
Author Organization [facility] Address [address] [facility] [address] [place] [phone] Phone Care Team Providers Care Embroidery Patternmaker Name Role Phone Pcp, Unknown Primary Care [...] file Medical Devices Not on file Insurance [facility] NON NSPG PCP [facility] [employer] [facility] [employer] NON NSPG PCP S[facility] [employer] NON NSPG PCP [facility] NON NSPG PCP [employer] NON NSPG PCP [employer] [place] NON NSPG PCP S[employer] NON NSPG PCP S[employer] [place] NON NSPG PCP [facility] [employer] Care Teams Embroidery Patternmaker Relationship Specialty Start Date End Date Pcp, Unknown PCP - General 11/18/18 Additional Source Comments The information contained in this document represents components of the legal health record. It is not the complete legal health record.[facility]
--- OUTSIDE RECORDS SUMMARY | 2025-02-21 07:58 | XMS_ITS | Encounter Summary ---
Author Organization [facility] Address [address] [place] [address] Phone Care Team Providers Care Decision Science Analyst Name Role Phone Pcp, Unknown Primary Care Provider Unavailabl e Encounter Details Date Type Department Care Team (Latest Contact Info) Description 04/07/2020 Ancillary Orders [facility] [address] [place] [address] Ina Medrano PA [address] [place] [address] [email or web address] fibrillation, unspecified type Social History Tobacco [...] type documented in this encounter Care Teams Decision Science Analyst Relationship Specialty Start Date End Date Pcp, Unknown PCP - General 11/18/18 documented as of this encounter Additional Source Comments The information contained in this document represents components of the legal health record. It is not the complete legal health record.[facility]
--- OUTSIDE RECORDS SUMMARY | 2025-02-21 07:58 | XMS_ITS | Encounter Summary ---
Author Organization [facility] Address [address] [place] [address] Phone Care Team Providers Care Real Estate Officer Name Role Phone Pcp, Unknown Primary Care Provider Unavailabl e Encounter Details Date Type Department Care Team (Latest Contact Info) Description 12/02/2018 Ancillary Orders [facility] [address] [place] [address] Ina Medrano PA [address] [place] [address] [email or web address] Atrial fibrillation, unspecified type Social History Tobacco [...] type documented in this encounter Care Teams Real Estate Officer Relationship Specialty Start Date End Date Pcp, Unknown PCP - General 11/18/18 documented as of this encounter Additional Source Comments The information contained in this document represents components of the legal health record. It is not the complete legal health record.[facility]
--- OUTSIDE RECORDS SUMMARY | 2025-02-21 07:58 | XMS_ITS | Encounter Summary ---
Author Organization [employer] [facility] [employer] [facility] Address [address] 7[address] [place] [address] Care Team Providers Care Customer Support Professional Name Role Phone Dawn Almaguer MD Primary Care Provide r Delia Mast PharmD Unavailable +- [phone] Encounter Details Date Type Department Care Team ([facility] st Contact Info) Description 07/14/2023 Orders Only [facility] [address] [place], [place] [phone] Bhumika Timmons FNP [address] [place] [address] Type 2 diabetes mellitus with hyperglycemia, with long-term current use of insulin ([facility]) Social History Tobacco Use Types Packs/Day [...] Description 02/22/2025 2:30 PM EDT Medication Management [facility] MEDICINE [address] [place] [phone] Delia Mast, PharmD [address] [place] [phone] 02/28/2025 1:45 PM EST Office Visit [facility] [address] [place] [address] [phone] Dawn Almaguer MD [address] [place], [place] [phone] documented as of this encounter Procedures Procedure Name Priority Date/Time Associated Diagnosis Comments URINALYSIS, COMPLETE, WITH REFLEX TO CULTURE Routine 10/24/2023 4:59 PM EDT Type 2 diabetes mellitus with hyperglycemia, with long-term current use of insulin ([facility]) HIGH SENSITIVITY TROPONIN I Routine 10/24/2023 3:23 PM EDT Type 2 diabetes mellitus with hyperglycemia, with long-term current use of insulin ([facility]) SARS COV2/INFLUENZA A/B AND RSV RNA QL [...] (10/24/2023 4:59 PM EDT) Color Urine Yellow [facility] Appearance Urine Clear [facility] PH 5.5 5.0 - 9.0 [facility] Glucose Urine UA >=1000(A) Negative mg/dL [facility] Urine Blood Negative Negative [facility] Specific [place] - Urine >=1.030(H) 1.005 - 1.025 [facility] Urine Protein Negative Neg-Trace mg/dL [facility] Urine Ketones Negative Negative mg/dL [facility] Nitrite Urine Negative Negative [facility] Leukocyte Esterase Urine Negative Negative [facility] RBC Urine 0-2 0 - 2 /HPF [facility] Urine WBC 0-5 0 - 5 /HPF [facility] Urine Squamous Epithelial Cell 0-2 0 - 2 /HPF [facility] Urine Bacteria None Seen None Seen [facility] Hyaline Casts, Urine 0-2 0 - 2 /LPF [facility] 10/24/2023 4:59 PM EDT 10/24/2023 5:01 PM EDT Narrative [facility] - 10/24/2023 5:45 PM EDT [id number], Clean Catch us Generic External Data Provider LAB URINE ORDERAB LES Final Result [facility] [address] [place] [address] [phone] * High Sensitivity Troponin I (10/24/2023 3:23 PM EDT) [facility] TROPONIN I HIGH SENSITIVITY 4.9 <3.5 - 35.0 ng/L [facility] Comment:The Neal high sens itivity Troponin-I results should beused in conjunction with other diagnostic information suchas ECG, clinical observations and information, and patientsymptoms to aid in the diagnosis of ND. 10/24/2023 3:23 PM EDT 10/24/2023 5:30 PM EDT Generic External Data Provider LAB BLOOD ORDERAB LES Final Result [facility] [address] [place] [address] [phone] * Lipase (10/24/2023 3:23 PM EDT) Lipase 54 8 - 78 U/L [facility] 10/24/2023 3:23 PM EDT 10/24/2023 3:26 PM EDT Generic External Data Provider LAB BLOOD ORDERAB LES Final Result Performing Organization Address [facility]/ZIP Co de Phone Number [facility] [address] [place] [address] [phone] * SARS-CoV-2 RNA, Influenza A/B, and RSV RNA, Ql NAAT (10/24/2023 3:23 PM EDT) Influenza A PCR NEGATIVE Negative [facility] Influenza B PCR NEGATIVE Negative [facility] Resp Syncy Virus RNA Qual PCR NEGATIVE Negative [facility] SARS COV2 PCR NEGATIVE Negative [facility] Comment:All test results mus t [...] use by authorized laboratories.Testing performed on the [employer] GeneXpert utilizingreal-time RT-PCR.All SARS CoV2 and positive influenza A/B results arereported to [facility]. 10/24/2023 3:23 PM EDT 10/24/2023 3:26 PM EDT Generic External Data Provider LAB MICROBIOLOGY - GENERAL ORDERABLES Final Result Performing Organization Address City/[facility]/ZIP Co de Phone Number [facility] [address] [place] [address] [phone] * Magnesium (10/24/2023 3:23 PM EDT) Magnesium 1.9 1.6 - 2.6 mg/dL [facility] 10/24/2023 3:23 PM EDT 10/24/2023 3:26 PM EDT Generic External Data Provider LAB BLOOD ORDERAB LES Final Result Performing Organization Address [facility] de Phone Number [facility] [address] [place] [address] [phone] * (ABNORMAL) Comprehensive Metabolic Panel (10/24/2023 3:23 PM EDT) Pathologist [facility] Sodium 140 135 - 145 mmol/L [facility] Potassium 4.5 3.3 - 5.1 mmol/L [facility] Chloride 107 96 - 108 mmol/L [facility] Carbon Dioxide 22 22 - 29 mmol/L [facility] Anion Gap 16 12 - 20 [facility] Urea Nitrogen (BUN) 37(H) 9 - 16 mg/dL [facility] Creatinine, Serum 1.94(H) 0.5 - 1.4 mg/dL [facility] Creatinine Clr Calc Pharmacy 46.1 [facility] Comment:eGFR (calculated fro m the MDRD study equation) and eCrCl(calculated from the Cockcroft-Gault equation) are based ondifferent parameters and may not yield comparable results.If eCrCl result is absurd, please check patient'sheight/weight. Estimated Glomerular Filt Rate 35 [facility] Comment:NOTE: For -Am erican individuals, multiply the result by 1.210.Chronic Kidney Disease: Estimated GFR < 60 mL/min/[id number] Kidney Disease: Estimated GFR < 15 mL/min/1.73m2 Glucose 266(H) 60 - 115 mg/dL [facility] Calcium 9.2 8.4 - 10.2 mg/dL [facility] Bilirubin, Total 0.4 0.0 - 1.0 mg/dL [facility] Aspartate Amino Transferase 25 5 - 37 U/L [facility] Alanine Aminotransferase 20 0 - 40 U/L [facility] Total Protein 7.7 6.5 - 8.0 g/dL [facility] Albumin Level 3.9 3.5 - 5.0 g/dL [facility] Alkaline Phosphatase 54 39 - 117 U/L [facility] 10/24/2023 3:23 PM EDT 10/24/2023 3:26 PM EDT us Generic External Data Provider LAB BLOOD ORDERAB LES Final Result [facility] [address] [place] [phone] * (ABNORMAL) CBC auto differential (10/24/2023 3:23 PM EDT) White Blood Count 9.6 4.8 - 10.8 X10*3/uL [facility] Red Blood Count 4.15(L) 4.60 - 5.80 X10*6/uL [facility] Hemoglobin 12.6(L) 14.0 - 18.0 g/dl [facility] Hematocrit 37.7(L) 42.0 - 52.0 % [facility] Mean Corpuscular Volume 90.8 80.0 - 98.0 fL [facility] Mean Corpuscular Hemoglobin 30.4 27.0 - 33.0 pg [facility] Mean Corpuscular HGB Conc 33.4 31.0 - 36.0 g/dl [facility] Red Cell Distribution Width 14.7 11.0 - 16.0 % [facility] Platelet Count 202 160 - 400 X10*3/uL [facility] Mean Platelet Volume 10.9 9.4 - 12.4 fL [facility] Neutrophils Percent Auto 57.9 45 - 73 % [facility] Imm Gran Pct Auto 0.2 0.0 - 0.4 % [facility] Lymphocytes Percent Auto 26.7 20 - 40 % [facility] Monocytes Percent Auto 9.2 2 - 11 % [facility] Eosinophils Percent Auto 5.1(H) 0 - 4 % [facility] Basophils Percent Auto 0.9 0 - 2 % [facility] NRBC Pct Auto 0.0 0.0 - 0.2 /100WBC [facility] Neutrophils Absolute Auto 5.6 2.0 - 8.3 x10*3/uL [facility] Imm Gran Abs Auto 0.02 0.00 - 0.03 X10*3/uL [facility] Lymphocytes Absolute Auto 2.6 1.2 - 4.9 X10*3/uL [facility] Monocytes Absolute Auto 0.9 0.1 - 1.2 X10*3/uL [facility] Eosinophils Absolute Auto 0.5(H) 0.0 - 0.4 X10*3/uL [facility] Basophils Absolute Auto 0.1 0.0 - 0.2 X10*3/uL [facility] NRBC Abs Auto 0.000 0.0 - 0.012 X10*3/uL [facility] 10/24/2023 3:23 PM EDT 10/24/2023 3:26 PM EDT us Generic External Data Provider LAB BLOOD ORDERAB LES Final Result [facility] [address] [place] [address] [phone] * High Sensitivity Troponin I (10/23/2023 2:37 PM EDT) TROPONIN I HIGH SENSITIVITY 4.9 <3.5 - 35.0 ng/L [facility] Comment:The Neal high sens itivity Troponin-I results should beused in conjunction with other diagnostic information suchas ECG, clinical observations and information, and patientsymptoms to aid in the diagnosis of ND. 10/23/2023 2:37 PM EDT 10/23/2023 2:40 PM EDT Generic External Data Provider LAB BLOOD ORDERAB LES Final Result Performing Organization Address [facility]/ZIP Co de Phone Number [facility] [address] [place] [phone] * Lipase (10/23/2023 2:37 PM EDT) Pathologist [facility] Lipase 64 8 - 78 U/L [facility] 10/23/2023 2:37 PM EDT 10/23/2023 2:40 PM EDT Generic External Data Provider LAB BLOOD ORDERAB LES Final Result Performing Organization Address [facility]/ZIP Co de Phone Number [facility] [address] [place] [phone] * (ABNORMAL) Basic Metabolic Panel (10/23/2023 2:37 PM EDT) Pathologist [facility] Sodium 140 135 - 145 mmol/L [facility] Potassium 4.3 3.3 - 5.1 mmol/L [facility] Chloride 107 96 - 108 mmol/L [facility] Carbon Dioxide 19(L) 22 - 29 mmol/L [facility] Anion Gap 18 12 - 20 [facility] Urea Nitrogen (BUN) 40(H) 9 - 16 mg/dL [facility] Creatinine, Serum 2.12(H) 0.5 - 1.4 mg/dL [facility] Creatinine Clr Calc Pharmacy 43.0 [facility] Comment:eGFR (calculated fro m the MDRD study equation) and eCrCl(calculated from the Cockcroft-Gault equation) are based ondifferent parameters and may not yield comparable results.If eCrCl result is absurd, please check patient'sheight/weight. Estimated Glomerular Filt Rate 31 [facility] Comment:NOTE: For -Am erican individuals, multiply the result by 1.210.Chronic Kidney Disease: Estimated GFR < 60 mL/min/[id number] Kidney Disease: Estimated GFR < 15 mL/min/1.73m2 Glucose 293(H) 60 - 115 mg/dL [facility] Calcium 9.5 8.4 - 10.2 mg/dL [facility] 10/23/2023 2:37 PM EDT 10/23/2023 2:40 PM EDT Generic External Data Provider LAB BLOOD ORDERAB LES Final Result Performing Organization Address [facility] Co de Phone Number [facility] [address] [place] [phone] * Hepatic Function Panel (10/23/2023 2:37 PM EDT) Bilirubin, Total 0.6 0.0 - 1.0 mg/dL [facility] Bilirubin, Direct 0.2 0.0 - 0.5 mg/dL [facility] Aspartate Amino Transferase 29 5 - 37 U/L [facility] Alanine Aminotransferase 22 0 - 40 U/L [facility] Total Protein 7.8 6.5 - 8.0 g/dL [facility] Albumin Level 3.9 3.5 - 5.0 g/dL [facility] Alkaline Phosphatase 54 39 - 117 U/L [facility] 10/23/2023 2:37 PM EDT 10/23/2023 2:40 PM EDT Generic External Data Provider LAB BLOOD ORDERAB LES Final Result Performing Organization Address [facility] Co de Phone Number [facility] [address] [place] [phone] * (ABNORMAL) CBC auto differential (10/23/2023 2:37 PM EDT) White Blood Count 9.7 4.8 - 10.8 X10*3/uL [facility] Red Blood Count 4.13(L) 4.60 - 5.80 X10*6/uL [facility] Hemoglobin 12.6(L) 14.0 - 18.0 g/dl [facility] Hematocrit 38.0(L) 42.0 - 52.0 % [facility] Mean Corpuscular Volume 92.0 80.0 - 98.0 fL [facility] Mean Corpuscular Hemoglobin 30.5 27.0 - 33.0 pg [facility] Mean Corpuscular HGB Conc 33.2 31.0 - 36.0 g/dl [facility] Red Cell Distribution Width 14.5 11.0 - 16.0 % [facility] Platelet Count 195 160 - 400 X10*3/uL [facility] Mean Platelet Volume 10.5 9.4 - 12.4 fL [facility] Neutrophils Percent Auto 60.7 45 - 73 % [facility] Imm Gran Pct Auto 0.3 0.0 - 0.4 % [facility] Lymphocytes Percent Auto 23.8 20 - 40 % [facility] Monocytes Percent Auto 10.9 2 - 11 % [facility] Eosinophils Percent Auto 3.5 0 - 4 % [facility] Basophils Percent Auto 0.8 0 - 2 % [facility] NRBC Pct Auto 0.0 0.0 - 0.2 /100WBC [facility] Neutrophils Absolute Auto 5.9 2.0 - 8.3 x10*3/uL [facility] Imm Gran Abs Auto 0.03 0.00 - 0.03 X10*3/uL [facility] Lymphocytes Absolute Auto 2.3 1.2 - 4.9 X10*3/uL [facility] Monocytes Absolute Auto 1.1 0.1 - 1.2 X10*3/uL [facility] Eosinophils Absolute Auto 0.3 0.0 - 0.4 X10*3/uL [facility] Basophils Absolute Auto 0.1 0.0 - 0.2 X10*3/uL [facility] NRBC Abs Auto 0.000 0.0 - 0.012 X10*3/uL [facility] 10/23/2023 2:37 PM EDT 10/23/2023 2:40 PM EDT us Generic External Data Provider LAB BLOOD ORDERAB LES Final Result Performing Organization Address City/[facility] Co de Phone Number [facility] [address] [place] [phone] * (ABNORMAL) Urinalysis, Complete, with Reflex to Culture (10/23/2023 2:32 PM EDT) Color Urine Yellow [facility] Appearance Urine Clear [facility] PH 5.0 5.0 - 9.0 [facility] Glucose Urine UA >=1000(A) Negative mg/dL [facility] Urine Blood Negative Negative [facility] Specific [place] - Urine 1.020 1.005 - 1.025 [facility] Urine Protein Negative Neg-Trace mg/dL [facility] Urine Ketones Negative Negative mg/dL [facility] Nitrite Urine Negative Negative [facility] Leukocyte Esterase Urine Negative Negative [facility] RBC Urine 0-2 0 - 2 /HPF [facility] Urine WBC 0-5 0 - 5 /HPF [facility] Urine Squamous Epithelial Cell 0-2 0 - 2 /HPF [facility] Urine Bacteria None Seen None Seen [facility] Hyaline Casts, Urine 0-2 0 - 2 /LPF [facility] 10/23/2023 2:32 PM EDT 10/23/2023 2:40 PM EDT Narrative [facility] - 10/23/2023 3:07 PM EDT Urine, Clean Catch us Generic External Data Provider LAB URINE ORDERAB LES Final Result Performing Organization Address City/[facility]/ZIP Co de Phone Number [facility] [address] [place] [address] [phone] documented in this encounter Visit Diagnoses Diagnosis Type 2 diabetes mellitus with hyperglycemia, with long-term current use of insulin (HCC) documented in this encounter Additional Health Concerns Assessment Noted Time PHQ-9 Depression Total Score: 0 07/01/19 24 1:29 PM EST documented as of this encounter Care Teams Customer Support Professional Relationship Specialty Start Date End Date Dawn Almaguer MD [address] [place] [address] PCP - General Family Medicine 02/25/18 Delia Mast, LivierD [address] [place] [address] Pharmacist Internal Medicine 03/15/24 [place] 05/06/24 documented as of this encounter
--- OUTSIDE RECORDS SUMMARY | 2025-02-21 07:58 | XMS_ITS | Encounter Summary ---
Author Organization [employer] Address [address] [facility] [address] [place] [address] Care Team Providers Care Clerk Funeral Detail Name Role Phone Dawn Almaguer MD Primary Care Provide r Delia Mast PharmD Unavailable [phone]- [phone] Reason for Visit * Reason Comments Med Refill Encounter Details Date Type Department Care Team (Late st Contact Info) Description 07/14/2023 Refill [facility] [address] [place] [address] Bhumika Timmons FNP [address] [place] [address] Type 2 diabetes mellitus with hyperglycemia, with long-term current use of insulin ([facility]) Social History Tobacco Use Types Packs/Day [...] Description 02/22/2025 2:30 PM EDT Medication Management [facility] [address] [place] [phone] Delia Mast PharmD [address] [place] [phone] 02/28/2025 1:45 PM EST Office Visit [facility] [address] [place] [phone] Dawn Almaguer MD [address] [place] [address] [phone] documented as of this encounter Visit Diagnoses Diagnosis Type 2 diabetes mellitus with hyperglycemia, with long-term current use of insulin (HCC) documented in this encounter Additional Health Concerns Assessment Noted Time PHQ-9 Depression Total Score: 0 07/01/19 24 1:29 PM EST documented as of this encounter Care Teams Clerk Funeral Detail Relationship Specialty Start Date End Date Dawn Almaguer MD [address] [place] [phone] PCP - General Family Medicine 02/25/18 Delia Mast PharmD [address] [place] [address] Pharmacist Internal Medicine 03/15/24 [place] 05/06/24 documented as of this encounter
--- OUTSIDE RECORDS SUMMARY | 2025-02-21 07:58 | XMS_ITS | Encounter Summary ---
Author Organization [facility] Address [address] [place] [phone] Phone Care Team Providers Care Maintenance Man Name Role Phone Pcp, Unknown Primary Care Provider Unavailabl e Encounter Details Date Type Department Care Team (Late st Contact Info) Description 04/07/2020 Procedure Pass [facility] [address] [place] [address] [place] [address] Social History Tobacco Use Types [...] on filedocumented in this encounter Care Teams Maintenance Man Relationship Specialty Start Date End Date Pcp, Unknown PCP - General 11/18/18 documented as of this encounter Additional Source Comments The information contained in this document represents components of the legal health record. It is not the complete legal health record.[facility]
--- OUTSIDE RECORDS SUMMARY | 2025-02-21 07:58 | XMS_ITS | Encounter Summary ---
Author Organization [employer] Address [address] [facility] 7t [place] [address] Care Team Providers Care Route Rider Name Role Phone Dawn Almaguer MD Primary Care Provide r Delia Mast PharmD Unavailable [phone]- [phone] Encounter Details Date Type Department Care Team (Late st Contact Info) Description 07/02/2024 Orders Only [facility] [address] [place], [place] [phone] Dawn Almaguer MD [address] [place], [place] [phone] Social History Tobacco Use Types Packs/Day Years [...] Description 02/22/2025 2:30 PM EDT Medication Management [facility] [address] [place] [phone] Delia Mast PharmD [address] [place] [phone] 02/28/2025 1:45 PM EST Office Visit [facility] [address] [place] [phone] Dawn Almaguer MD [address] [place] [phone] documented as of this encounter Visit Diagnoses Not on filedocumented in this encounter Additional Health Concerns Assessment Noted Time PHQ-9 Depression Total Score: 0 07/01/19 24 1:29 PM EST documented as of this encounter Care Teams Route Rider Relationship Specialty Start Date End Date Dawn Almaguer MD [address] [place] [phone] PCP - General Family Medicine 02/25/18 Delia Mast, PharmD [address] [place] [phone] Pharmacist Internal Medicine 03/15/24 [place] 05/06/24 documented as of this encounter
--- OUTSIDE RECORDS SUMMARY | 2025-02-21 07:58 | XMS_ITS | Encounter Summary ---
Author Organization [employer] Address [address] [facility] 7t [place] [address] Care Team Providers Care Traffic Engineering Technician Name Role Phone Dawn Almaguer MD Primary Care Provide r Delia Mast PharmD Unavailable [phone]- [phone] Reason for Visit * Reason Comments Med Refill Encounter Details Date Type Department Care Team (Late st Contact Info) Description 02/07/2024 Refill [facility] [address] [place], [place] [phone] Dawn Almaguer MD 230 [place], [place] [phone] Heartburn Social History Tobacco Use Types Packs/Day [...] Description 02/22/2025 2:30 PM EDT Medication Management [facility] [address] [place] [phone] Delia Mast PharmD [address] [place] [phone] 02/28/2025 1:45 PM EST Office Visit [facility] [address] [place] [phone] Dawn Almaguer MD [address] [place] [phone] documented as of this encounter Visit Diagnoses Diagnosis Heartburn documented in this encounter Additional Health Concerns Assessment Noted Time PHQ-9 Depression Total Score: 0 07/01/19 24 1:29 PM EST documented as of this encounter Care Teams Traffic Engineering Technician Relationship Specialty Start Date End Date Dawn Almaguer MD [address] [place] [phone] PCP - General Family Medicine 02/25/18 Delia Mast, PharmD [address] [place] [phone] Pharmacist Internal Medicine 03/15/24 [place] 05/06/24 documented as of this encounter
--- OUTSIDE RECORDS SUMMARY | 2025-02-21 07:58 | XMS_ITS | Encounter Summary ---
Author Organization [facility] Address [address] [place] [address] Phone Care Team Providers Care Liner Machine Operator Helper Name Role Phone Pcp, Unknown Primary Care Provider Unavailabl e Encounter Details Date Type Department Care Team (Late st Contact Info) Description 05/24/2019 Ancillary Orders [facility] [address] [place] [address] Ina Medrano PA [address] [place] [address] [email or web address] Social History Tobacco Use Types Packs/Day [...] Palpitations documented in this encounter Care Teams Liner Machine Operator Helper Relationship Specialty Start Date End Date Pcp, Unknown PCP - General 11/18/18 documented as of this encounter Additional Source Comments The information contained in this document represents components of the legal health record. It is not the complete legal health record.[facility]
--- OUTSIDE RECORDS SUMMARY | 2025-02-21 07:59 | XMS_ITS | Encounter Summary ---
Author Organization [facility] Address [address] [place] [phone] Phone Care Team Providers Care Curer Foam Rubber Name Role Phone Pcp, Unknown Primary Care Provider Unavailabl e Encounter Details Date Type Department Care Team (Late st Contact Info) Description 12/02/2018 Ancillary Orders [facility] [address] [place] [address] Mark Andrade MD [address] [place] [address] Social History Tobacco Use Types Packs/Day Years [...] on filedocumented in this encounter Care Teams Curer Foam Rubber Relationship Specialty Start Date End Date Pcp, Unknown PCP - General 11/18/18 documented as of this encounter Additional Source Comments The information contained in this document represents components of the legal health record. It is not the complete legal health record.[facility]
--- OUTSIDE RECORDS SUMMARY | 2025-02-21 07:59 | XMS_ITS | Clinical Summary ---
Author Organization [address] [facility] Address [address] [place] [address] Phone Care Team Providers Care Medical Driver Name Role Phone Dawn Almaguer MD Primary Care Provide r Medical History Medical History Date Comments HTN (hypertension) 03/17/2013 DX:HTN (hyper tension) Historical Medical DX 03/17/2013 DX:Hyperli pidemia LDL goal < 70 DM2 (diabetes mellitus, type 2) (CMS/[facility] V24, CMS/[facility] V28) 03/17/2013 DX:DM2 (diabetes mellitus, type 2) ([facility]) Paroxysmal A-fib (CMS/HCC V2 4, CMS/HCC V28) 03/17/2013 DX:Paroxysmal A-fib ([facility]) Venous insufficiency 03/17/2013 DX:Venous i nsufficiency; COMMENT: Left SFJ valve incompetent Family History Medical History Relation Name Comments CABG Father CABG Sister 1 Relation Name Status Comments Father Sister 1 Sister 2 Social History Tobacco Use Types Packs/Day Years Used Date Smoking Tobacco: Former Smokeless Tobacco: Never Alcohol Use Standard Drinks/Week Comments Not Asked 0 (1 standard drink = 0.6 oz pur e alcohol) Sex and Gender Information Value Date Recorded Sex Assigned at Not on file Legal Sex Male 2:18 PM EST Gender Identity Not on file Sexual Orientation Not on file Obstetrics History Plan of Treatment Upcoming Encounters Date Type Department Care Team ([facility] Contact Info) Description 03/31/2025 2:15 PM EST Consult Orthopedic Surgery - [place] [address] [phone] Nate Marina, DPM [address] [phone] Health Maintenance Due Date Last Done Comments Colorectal Cancer Screening: Colonoscopy 1955 Diabetes: Annual GFR (Glomer ular Filtration Rate) 1955 Diabetes: Annual Foot Exam 11/14/1965 Diabetes: Annual Retina Eye Exam 11/14/1965 DTaP,Tdap,and Td Vaccines (1 - Tdap) 11/14/1974 Pneumococcal Vaccine: 50+ Ye ars (1 of 2 - PCV) 11/14/1974 Zoster Vaccines (1 of 2) 11/14/2005 Depression Screening 04/28/2024 Abdominal Aortic Aneurysm (A AA) Screen 12/01/2024 Cholesterol Screening (Lipid Panel) 12/01/2024 Diabetes: Annual Urine Albumin-Creatinine Ratio (uACR) 12/01/2024 Diabetes: Blood Sugar Contro l Test (HGBA1C) 12/01/2024 Falls Risk Assessment 12/01/2024 Hepatitis C Screening 12/01/2024 Hypertension/CHF/CAD Annual BMP Blood Test 12/01/2024 Medicare Annual Wellness Visit 12/01/2024 Social Influencers of Health Screening 12/01/2024 COVID-19 Vaccine (1 - 2023-2 5 season) 2024 Influenza Vaccine (#1) 2024 RSV Immunization Adult Patie nts (1 - 1-dose 75+ series) 11/14/2030 HIB Vaccines Aged Out No longer eligi ble based on patient's age to complete this topic HPV Vaccines Aged Out No longer eligi ble based on patient's age to complete this topic Hepatitis A Vaccines Aged Out No long er eligible based on patient's age to complete this topic Hepatitis B Vaccines Aged Out No long er eligible based on patient's age to complete this topic IPV Vaccines Aged Out No longer eligi ble based on patient's age to complete this topic MMR Vaccines Aged Out No longer eligi ble based on patient's age to complete this topic Meningococcal ACWY Vaccine Aged Out N o longer eligible based on patient's age to complete this topic Meningococcal B Vaccine Aged Out No l onger eligible based on patient's age to complete this topic RSV Immunization Patients Un baron 20 months Aged Out No longer eligible b ased on patient's age to complete this topic Varicella Vaccines Aged Out No longer eligible based on patient's age to complete this topic [place] [address] [employer] MEDICARE Member Subscriber Plan / Payer (Ef fective 2023-Present) Name:KENNY BRADSHAW Relation to Subscriber:Self Name:Kenny Delaney Payer ID:[id number] Group ID:[id number] Type:Not on file Address: [place] [address] [address] [id number] Care Teams Medical Driver Relationship Specialty Start Date End Date Dawn Almaguer MD [address] [place] [phone] PCP - General Internal Medicine 12/01/24
--- OUTSIDE RECORDS SUMMARY | 2025-02-21 07:59 | XMS_ITS | Encounter Summary ---
Author Organization [employer] Address [address] [facility] 7t [place] [address] Care Team Providers Care Feed Manager Name Role Phone Dawn Almaguer MD Primary Care Provide r Delia Mast PharmD Unavailable [phone] Encounter Details Date Type Department Care Team (Late Contact Info) Description 05/22/2022 Orders Only [facility] [address] [place] [address] Payton Qureshi MD [address] [place] [address] Type 2 diabetes mellitus with hyperglycemia, with long-term current use of insulin ([facility]) (Primary Dx) Social History Tobacco Use Types [...] Description 02/22/2025 2:30 PM EDT Medication Management [facility] [address] [place] [address] Delia Mast, PharmD [address] [place] [address] 02/28/2025 1:45 PM EST Office Visit [facility] [address] [place] [address] [phone] Dawn Almaguer MD [address] [place] [address] [phone] documented as of this encounter Visit Diagnoses Diagnosis Type 2 diabetes mellitus with hyperglycemia, with long-term current use of insulin (HCC)- Primary documented in this encounter Care Teams Feed Manager Relationship Specialty Start Date End Date Dawn Almaguer MD [address] [place] [address] [phone] PCP - General Family Medicine 02/25/18 Delia Mast, PharmD [address] [place] [phone] Pharmacist Internal Medicine 03/15/24 [place] 05/06/24 documented as of this encounter
== END ==
LOC: HO.CARD 07:55
PROVIDERS: PCP Internal Medicine; Visit Provider Internal Medicine Cardiovascular Disease
DX: R06.02 Shortness of breath (principal); R07.9 Chest pain, unspecified; Z79.899 Other long term (current) drug therapy
CPT/HCPCS: 78452; 93005; 93017; 99212; A9500

== ENCOUNTER 2025-02-21 14:00 | Outpatient (AMB) | payer OTHER, SELFPAY ==
[2025-02-21 14:20] VITALS: BP 114/60; PULSE 68; BMI 31.3
--- NOTE | 2025-02-21 14:20 | MHC.OFFVIS ---
Vital Signs 02/21/25 14:20 Height 6 ft Weight 231 lb 0.711 oz BMI 31.3 BP 114/60 Blood Pressure Location Lt brachial Position Sitting Pulse 68 Pulse Source Monitor Intake Visit Reasons: follow up after testings Rental Car Deliverer Required: Yes Rental Car Deliverer Language: Fire Prevention Engineer Name: heavenly johnson [phone] Allergies No Known Allergies Allergy (Mild, Verified 02/21/25 14:22) NKA Medication List - Last Reconciled 02/22/25 by NAINA Dimas atorvastatin 80 mg PO DAILY cholecalciferol (vitamin D3) (Vitamin D3) 50 mcg PO DAILY clotrimazole-betamethasone 1-0.05 % 1 appl topical BID 4 weeks dabigatran etexilate 150 mg PO BID Held on 08/19/24. Instructions: Resume on 08/20/24. Hold today. Resume tomorrow. dronedarone (Multaq) 400 mg PO BID dulaglutide (Trulicity) 1.5 mg subcut QWEEK empagliflozin-metformin 12.5-1,000 mg (Synjardy) 1 tab PO BID flash glucose sensor (FreeStyle [place] 2 Sensor kit) As directed glipizide ER 10 mg PO BID insulin glargine (Lantus Solostar U-100 Insulin) 16 units subcut DAILY metoprolol tartrate 25 mg PO BID omeprazole 20 mg PO BID 90 days pen needle, diabetic (BD Ultra-Fine Mini Pen Needle) As directed tamsulosin (Flomax) 0.4 mg PO BEDTIME 90 days HPI HPI follow up after testings: Details: Kenny is a 69 year old male with past medical history of HTN, DM, HLD, PVD, PAF who presents for follow up after recent echocardiogram and holter monitor. He did have the exercise portion of nuclear stress test today - nuclear images not completed as of yet. Today he reports he has been doing generally well. He does have some shortness of breath with activity and fatigues easily which is not new. No PND, orthopnea. He does get bilateral lower leg swelling and says he wears compression socks however they are not on today. No chest discomfort at rest or with activity. On the treadmill today he is reported to have had chest discomfort which he is tell me was actual shortness of breath. He says his chest will feel agitated for a few minutes. This can happen 1 - 2 times a week. Compliant with all meds. No bleeding issues reported. [facility] Medical History (Updated 02/22/25 @ 18:14 by Shira Lizama NP-C) Hypertension Paroxysmal atrial fibrillation Renal cyst GERD (gastroesophageal reflux disease) PVD (peripheral vascular disease) BPH (benign prostatic hyperplasia) Atrial fibrillation Hypercholesteremia Diabetes mellitus Surgical History Hx of transurethral resection of prostate History of laryngoscopy Hx of hand surgery History of esophagogastroduodenoscopy (EGD) Hx of colonoscopy Social History Household Members: None Housing: Apartment Patient Tobacco Use Status: Former Tobacco user service: No Review of Systems Const All systems reviewed & are unremarkable except as noted in HPI and below ENT Denies dizziness Card Denies chest pain, Denies chest pain at rest, Denies chest pain with activity, Denies rapid heart rate, Denies pedal edema, Denies edema, Denies leg edema, Denies lightheadedness, Denies palpitations, Denies dyspnea, Denies dyspnea on exertion and Denies orthopnea Resp Denies cough, Denies dyspnea and Denies dyspnea on exertion GI Denies hematochezia and Denies change in stool character Musc Denies abnormal gait, Denies limited range of motion, Denies muscle cramps, Denies muscle weakness, Denies numbness, Denies radiating pain into limb, Denies stiffness and Denies tingling Neuro Denies abnormal gait, Denies dizziness, Denies numbness and Denies tingling Endo Denies palpitations Physical Exam Vital Signs: Last Vital Signs Pulse 68 02/21/25 14:20 BP 114/60 02/21/25 14:20 BMI result Body Mass Index 31.3 Const General: cooperative, healthy appearing, comfortable and no acute distress Orientation/consciousness: patient oriented x3 Eyes Sclerae: sclerae normal Neck Neck: Yes normal visual inspection and Yes no JVD Resp Effort & Inspection: normal respiratory effort Auscultation: clear to auscultation bilaterally, no crackles, no rales, no rhonchi and no wheezes Cardio Rate: regular rate Rhythm: regular rhythm Heart sounds: S1 normal heart sound present, S2 normal heart sound present, no gallops, no murmurs and no rubs Skin General skin exam: no rashes or lesions noted Neuro General: patient oriented x3 Extrem General: Yes normal to inspection, No no pedal edema and No calf tenderness Psych Appearance: grossly normal Mental Status: mental status grossly normal Speech and movement: Normal speech and movement present Office Procedures EKG Details: Today, read by me, normal sinus rhythm, rate 68, QTC 404 milliseconds [id number], Complete Assessment & Plan Assessment & Plan (1) Paroxysmal atrial fibrillation: Code(s): I48.0 - Paroxysmal atrial fibrillation Category: Medical Plan: History of PAF, treated with rhythm control using Multaq. He is on Metoprolol for rate control and Pradaxa for anticoagulation. He reports chest agitation at times. EKG today SR. Holter monitor done 02/03/25 for 6.5 days shows SR, with average rate 64, rate < 60 28% of the time, rare PACs and PVCs. Echo 02/03/25 shows EF 60-65%, mildly dilated LA, mild calcific changes of AV and MV with mild MR. Results reviewed with him. No med changes made. Office EKG in 3 mo. Cardiology follow up with EKG in 6 mo. (2) Hypertension: Code(s): I10 - Essential (primary) hypertension Category: Medical Qualifiers: Hypertension type: primary hypertension Qualified Code(s): I10 - Essential (primary) hypertension Plan: BP goal < 130/80. Well controlled at this time. No med changes made. (3) PVD (peripheral vascular disease): Code(s): I73.9 - Peripheral vascular disease, unspecified Category: Medical Plan: Bilateral lower leg edema with visable vericosities. Use of compression stocking, low salt diet, leg elevation reviewed. (4) Short of breath on exertion: Code(s): R06.02 - Shortness of breath Category: Medical Plan: Reports of sob and fatigue with activity. Echo as above. Nuclear stress test being completed tomorrow. - Plan to call him with results. His sob could be related to deconditioning with his obesity and sedentary lifestyle. Plan Time spent on chart review, documentation, interview, assessment Coding Level of Care Code Est Pt Level 4 (40296) Complex EM visit Add On G2211 Diagnoses Paroxysmal atrial fibrillation I48.0 Primary hypertension I10 Hypertension type: primary hypertension PVD (peripheral vascular disease) I73.9 Short of breath on exertion R06.02 CPT Codes EKG - CPT: [id number], Complete ([id number]) Time Spent (min) 32
--- OUTSIDE RECORDS SUMMARY | 2025-02-21 17:42 | XMS_ITS | Encounter Summary ---
Author Organization [employer] Address [address] [facility] 7t [place] [address] Care Team Providers Care Register Of Deeds Name Role Phone Dawn Almaguer MD Primary Care Provide r Delia Mast PharmD Unavailable [phone]- [phone] Encounter Details Date Type Department Care Team ([facility] st Contact Info) Description 07/14/2023 Orders Only [facility] MED & PEDS [address], [place] [phone] Bhumika Timmons FNP [address] [place] [address] Type 2 diabetes mellitus with hyperglycemia, with long-term current use of insulin ([facility]) Social History Tobacco Use Types [...] Description 02/22/2025 2:30 PM EDT Medication Management [facility] MEDICINE [address] [place] [phone] Delia Mast, PharmD [address] [place] [phone] 02/28/2025 1:45 PM EST Office Visit [facility] [address] [place] [phone] Dawn Almaguer MD [address], [place] [phone] documented as of this encounter Procedures Procedure Name Priority Date/Time Associated Diagnosis Comments URINALYSIS, COMPLETE, WITH REFLEX TO CULTURE Routine 10/24/2023 4:59 PM EDT Type 2 diabetes mellitus with hyperglycemia, with long-term current use of insulin ([facility]) HIGH SENSITIVITY TROPONIN I Routine 10/24/2023 3:23 PM EDT Type 2 diabetes mellitus with hyperglycemia, with long-term current use of insulin ([facility]) SARS COV2/INFLUENZA A/B AND RSV [...] (10/24/2023 4:59 PM EDT) Color Urine Yellow [facility] Appearance Urine Clear [facility] PH 5.5 5.0 - 9.0 [facility] Glucose Urine UA >=1000(A) Negative mg/dL [facility] Urine Blood Negative Negative [facility] Specific Gaston - Urine >=1.030(H) 1.005 - 1.025 [facility] Urine Protein Negative Neg-Trace mg/dL [facility] Urine Ketones Negative Negative mg/dL [facility] Nitrite Urine Negative Negative [facility] Leukocyte Esterase Urine Negative Negative [facility] RBC Urine 0-2 0 - 2 /HPF [facility] Urine WBC 0-5 0 - 5 /HPF [facility] Urine Squamous Epithelial Cell 0-2 0 - 2 /HPF [facility] Urine Bacteria None Seen None Seen [facility] Hyaline Casts, Urine 0-2 0 - 2 /LPF [facility] 10/24/2023 4:59 PM EDT 10/24/2023 5:01 PM EDT Narrative [facility] - 10/24/2023 5:45 PM EDT [id number], Clean Catch us Generic External Data Provider LAB URINE ORDERAB LES Final Result [facility] [address] [place] [phone] * High Sensitivity Troponin I (10/24/2023 3:23 PM EDT) [facility] TROPONIN I HIGH SENSITIVITY 4.9 <3.5 - 35.0 ng/L [facility] Comment:The Neal high sens itivity Troponin-I results should beused in conjunction with other diagnostic information suchas ECG, clinical observations and information, and patientsymptoms to aid in the diagnosis of VA. 10/24/2023 3:23 PM EDT 10/24/2023 5:30 PM EDT Generic External Data Provider LAB BLOOD ORDERAB LES Final Result [facility] [address] [place] [address] [phone] * Lipase (10/24/2023 3:23 PM EDT) Lipase 54 8 - 78 U/L [facility] 10/24/2023 3:23 PM EDT 10/24/2023 3:26 PM EDT Generic External Data Provider LAB BLOOD ORDERAB LES Final Result Performing Organization Address [facility]/ZIP Co de Phone Number [facility] [address] [place] [address] [phone] * SARS-CoV-2 RNA, Influenza A/B, and RSV RNA, Ql NAAT (10/24/2023 3:23 PM EDT) Influenza A PCR NEGATIVE Negative [facility] Influenza B PCR NEGATIVE Negative [facility] Resp Syncy Virus RNA Qual PCR NEGATIVE Negative [facility] SARS COV2 PCR NEGATIVE Negative [facility] Comment:All test results mus t [...] use by authorized laboratories.Testing performed on the [employer] GeneXpert utilizingreal-time RT-PCR.All SARS CoV2 and positive influenza A/B results arereported to [facility]. 10/24/2023 3:23 PM EDT 10/24/2023 3:26 PM EDT Generic External Data Provider LAB MICROBIOLOGY - GENERAL ORDERABLES Final Result Performing Organization Address City/[facility]/ZIP Co de Phone Number [facility] [address] [place] [address] [phone] * Magnesium (10/24/2023 3:23 PM EDT) Magnesium 1.9 1.6 - 2.6 mg/dL [facility] 10/24/2023 3:23 PM EDT 10/24/2023 3:26 PM EDT Generic External Data Provider LAB BLOOD ORDERAB LES Final Result Performing Organization Address [facility] de Phone Number [facility] [address] [place] [address] [phone] * (ABNORMAL) Comprehensive Metabolic Panel (10/24/2023 3:23 PM EDT) Pathologist [facility] Sodium 140 135 - 145 mmol/L [facility] Potassium 4.5 3.3 - 5.1 mmol/L [facility] Chloride 107 96 - 108 mmol/L [facility] Carbon Dioxide 22 22 - 29 mmol/L [facility] Anion Gap 16 12 - 20 [facility] Urea Nitrogen (BUN) 37(H) 9 - 16 mg/dL [facility] Creatinine, Serum 1.94(H) 0.5 - 1.4 mg/dL [facility] Creatinine Clr Calc Pharmacy 46.1 [facility] Comment:eGFR (calculated fro m the MDRD study equation) and eCrCl(calculated from the Cockcroft-Gault equation) are based ondifferent parameters and may not yield comparable results.If eCrCl result is absurd, please check patient'sheight/weight. Estimated Glomerular Filt Rate 35 [facility] Comment:NOTE: For -Am erican individuals, multiply the result by 1.210.Chronic Kidney Disease: Estimated GFR < 60 mL/min/1.77o4Coejtv Kidney Disease: Estimated GFR < 15 mL/min/1.73m2 Glucose 266(H) 60 - 115 mg/dL [facility] Calcium 9.2 8.4 - 10.2 mg/dL [facility] Bilirubin, Total 0.4 0.0 - 1.0 mg/dL [facility] Aspartate Amino Transferase 25 5 - 37 U/L [facility] Alanine Aminotransferase 20 0 - 40 U/L [facility] Total Protein 7.7 6.5 - 8.0 g/dL [facility] Albumin Level 3.9 3.5 - 5.0 g/dL [facility] Alkaline Phosphatase 54 39 - 117 U/L [facility] 10/24/2023 3:23 PM EDT 10/24/2023 3:26 PM EDT us Generic External Data Provider LAB BLOOD ORDERAB LES Final Result [facility] [address] [place] [phone] * (ABNORMAL) CBC auto differential (10/24/2023 3:23 PM EDT) White Blood Count 9.6 4.8 - 10.8 X10*3/uL [facility] Red Blood Count 4.15(L) 4.60 - 5.80 X10*6/uL [facility] Hemoglobin 12.6(L) 14.0 - 18.0 g/dl [facility] Hematocrit 37.7(L) 42.0 - 52.0 % [facility] Mean Corpuscular Volume 90.8 80.0 - 98.0 fL [facility] Mean Corpuscular Hemoglobin 30.4 27.0 - 33.0 pg [facility] Mean Corpuscular HGB Conc 33.4 31.0 - 36.0 g/dl [facility] Red Cell Distribution Width 14.7 11.0 - 16.0 % [facility] Platelet Count 202 160 - 400 X10*3/uL [facility] Mean Platelet Volume 10.9 9.4 - 12.4 fL [facility] Neutrophils Percent Auto 57.9 45 - 73 % [facility] Imm Gran Pct Auto 0.2 0.0 - 0.4 % [facility] Lymphocytes Percent Auto 26.7 20 - 40 % [facility] Monocytes Percent Auto 9.2 2 - 11 % [facility] Eosinophils Percent Auto 5.1(H) 0 - 4 % [facility] Basophils Percent Auto 0.9 0 - 2 % [facility] NRBC Pct Auto 0.0 0.0 - 0.2 /100WBC [facility] Neutrophils Absolute Auto 5.6 2.0 - 8.3 x10*3/uL [facility] Imm Gran Abs Auto 0.02 0.00 - 0.03 X10*3/uL [facility] Lymphocytes Absolute Auto 2.6 1.2 - 4.9 X10*3/uL [facility] Monocytes Absolute Auto 0.9 0.1 - 1.2 X10*3/uL [facility] Eosinophils Absolute Auto 0.5(H) 0.0 - 0.4 X10*3/uL [facility] Basophils Absolute Auto 0.1 0.0 - 0.2 X10*3/uL [facility] NRBC Abs Auto 0.000 0.0 - 0.012 X10*3/uL [facility] 10/24/2023 3:23 PM EDT 10/24/2023 3:26 PM EDT us Generic External Data Provider LAB BLOOD ORDERAB LES Final Result [facility] [address] [place] [address] [phone] * High Sensitivity Troponin I (10/23/2023 2:37 PM EDT) TROPONIN I HIGH SENSITIVITY 4.9 <3.5 - 35.0 ng/L [facility] Comment:The Neal high sens itivity Troponin-I results should beused in conjunction with other diagnostic information suchas ECG, clinical observations and information, and patientsymptoms to aid in the diagnosis of VA. 10/23/2023 2:37 PM EDT 10/23/2023 2:40 PM EDT Generic External Data Provider LAB BLOOD ORDERAB LES Final Result Performing Organization Address [facility]/ZIP Co de Phone Number [facility] [address] [place] [phone] * Lipase (10/23/2023 2:37 PM EDT) Pathologist [facility] Lipase 64 8 - 78 U/L [facility] 10/23/2023 2:37 PM EDT 10/23/2023 2:40 PM EDT Generic External Data Provider LAB BLOOD ORDERAB LES Final Result Performing Organization Address [facility]/ZIP Co de Phone Number [facility] [address] [place] [phone] * (ABNORMAL) Basic Metabolic Panel (10/23/2023 2:37 PM EDT) Pathologist [facility] Sodium 140 135 - 145 mmol/L [facility] Potassium 4.3 3.3 - 5.1 mmol/L [facility] Chloride 107 96 - 108 mmol/L [facility] Carbon Dioxide 19(L) 22 - 29 mmol/L [facility] Anion Gap 18 12 - 20 [facility] Urea Nitrogen (BUN) 40(H) 9 - 16 mg/dL [facility] Creatinine, Serum 2.12(H) 0.5 - 1.4 mg/dL [facility] Creatinine Clr Calc Pharmacy 43.0 [facility] Comment:eGFR (calculated fro m the MDRD study equation) and eCrCl(calculated from the Cockcroft-Gault equation) are based ondifferent parameters and may not yield comparable results.If eCrCl result is absurd, please check patient'sheight/weight. Estimated Glomerular Filt Rate 31 [facility] Comment:NOTE: For -Am erican individuals, multiply the result by 1.210.Chronic Kidney Disease: Estimated GFR < 60 mL/min/1.67n9Moownw Kidney Disease: Estimated GFR < 15 mL/min/1.73m2 Glucose 293(H) 60 - 115 mg/dL [facility] Calcium 9.5 8.4 - 10.2 mg/dL [facility] 10/23/2023 2:37 PM EDT 10/23/2023 2:40 PM EDT Generic External Data Provider LAB BLOOD ORDERAB LES Final Result Performing Organization Address [facility] Co de Phone Number [facility] [address] [place] [phone] * Hepatic Function Panel (10/23/2023 2:37 PM EDT) Bilirubin, Total 0.6 0.0 - 1.0 mg/dL [facility] Bilirubin, Direct 0.2 0.0 - 0.5 mg/dL [facility] Aspartate Amino Transferase 29 5 - 37 U/L [facility] Alanine Aminotransferase 22 0 - 40 U/L [facility] Total Protein 7.8 6.5 - 8.0 g/dL [facility] Albumin Level 3.9 3.5 - 5.0 g/dL [facility] Alkaline Phosphatase 54 39 - 117 U/L [facility] 10/23/2023 2:37 PM EDT 10/23/2023 2:40 PM EDT Generic External Data Provider LAB BLOOD ORDERAB LES Final Result Performing Organization Address [facility] Co de Phone Number [facility] [address] [place] [phone] * (ABNORMAL) CBC auto differential (10/23/2023 2:37 PM EDT) White Blood Count 9.7 4.8 - 10.8 X10*3/uL [facility] Red Blood Count 4.13(L) 4.60 - 5.80 X10*6/uL [facility] Hemoglobin 12.6(L) 14.0 - 18.0 g/dl [facility] Hematocrit 38.0(L) 42.0 - 52.0 % [facility] Mean Corpuscular Volume 92.0 80.0 - 98.0 fL [facility] Mean Corpuscular Hemoglobin 30.5 27.0 - 33.0 pg [facility] Mean Corpuscular HGB Conc 33.2 31.0 - 36.0 g/dl [facility] Red Cell Distribution Width 14.5 11.0 - 16.0 % [facility] Platelet Count 195 160 - 400 X10*3/uL [facility] Mean Platelet Volume 10.5 9.4 - 12.4 fL [facility] Neutrophils Percent Auto 60.7 45 - 73 % [facility] Imm Gran Pct Auto 0.3 0.0 - 0.4 % [facility] Lymphocytes Percent Auto 23.8 20 - 40 % [facility] Monocytes Percent Auto 10.9 2 - 11 % [facility] Eosinophils Percent Auto 3.5 0 - 4 % [facility] Basophils Percent Auto 0.8 0 - 2 % [facility] NRBC Pct Auto 0.0 0.0 - 0.2 /100WBC [facility] Neutrophils Absolute Auto 5.9 2.0 - 8.3 x10*3/uL [facility] Imm Gran Abs Auto 0.03 0.00 - 0.03 X10*3/uL [facility] Lymphocytes Absolute Auto 2.3 1.2 - 4.9 X10*3/uL [facility] Monocytes Absolute Auto 1.1 0.1 - 1.2 X10*3/uL [facility] Eosinophils Absolute Auto 0.3 0.0 - 0.4 X10*3/uL [facility] Basophils Absolute Auto 0.1 0.0 - 0.2 X10*3/uL [facility] NRBC Abs Auto 0.000 0.0 - 0.012 X10*3/uL [facility] 10/23/2023 2:37 PM EDT 10/23/2023 2:40 PM EDT us Generic External Data Provider LAB BLOOD ORDERAB LES Final Result Performing Organization Address City/[facility] Co de Phone Number [facility] [address] [place] [phone] * (ABNORMAL) Urinalysis, Complete, with Reflex to Culture (10/23/2023 2:32 PM EDT) Color Urine Yellow [facility] Appearance Urine Clear [facility] PH 5.0 5.0 - 9.0 [facility] Glucose Urine UA >=1000(A) Negative mg/dL [facility] Urine Blood Negative Negative [facility] Specific [place] - Urine 1.020 1.005 - 1.025 [facility] Urine Protein Negative Neg-Trace mg/dL [facility] Urine Ketones Negative Negative mg/dL [facility] Nitrite Urine Negative Negative [facility] Leukocyte Esterase Urine Negative Negative [facility] RBC Urine 0-2 0 - 2 /HPF [facility] Urine WBC 0-5 0 - 5 /HPF [facility] Urine Squamous Epithelial Cell 0-2 0 - 2 /HPF [facility] Urine Bacteria None Seen None Seen [facility] Hyaline Casts, Urine 0-2 0 - 2 /LPF [facility] 10/23/2023 2:32 PM EDT 10/23/2023 2:40 PM EDT Narrative [facility] - 10/23/2023 3:07 PM EDT Urine, Clean Catch us Generic External Data Provider LAB URINE ORDERAB LES Final Result Performing Organization Address City/[facility]/ZIP Co de Phone Number [facility] [address] [place] [address] [phone] documented in this encounter Visit Diagnoses Diagnosis Type 2 diabetes mellitus with hyperglycemia, with long-term current use of insulin (HCC) documented in this encounter Additional Health Concerns Assessment Noted Time PHQ-9 Depression Total Score: 0 07/01/19 24 1:29 PM EST documented as of this encounter Care Teams Register Of Deeds Relationship Specialty Start Date End Date Dawn Almaguer MD [address] [place] [address] PCP - General Family Medicine 02/25/18 Delia Mast, LivierD [address] [place] [address] Pharmacist Internal Medicine 03/15/24 [place] 05/06/24 documented as of this encounter
--- OUTSIDE RECORDS SUMMARY | 2025-02-21 17:42 | XMS_ITS | Clinical Summary ---
Author Organization [facility] Address [address] [place] [address] Phone Care Team Providers Care Dental Associate Name Role Phone Dawn Almaguer MD Primary Care Provide r Medical History Medical History Date Comments HTN (hypertension) 03/17/2013 DX:HTN (hyper tension) Historical Medical DX 03/17/2013 DX:Hyperli pidemia LDL goal < 70 DM2 (diabetes mellitus, type 2) (CMS/[facility] V24, CMS/[facility] V28) 03/17/2013 DX:DM2 (diabetes mellitus, type 2) ([facility]) Paroxysmal A-fib ([facility]/HCC V2 4, CMS/[facility] V28) 03/17/2013 DX:Paroxysmal A-fib ([facility]) Venous insufficiency 03/17/2013 DX:Venous i nsufficiency; COMMENT: [...] Upcoming Encounters Date Type Department Care Team ([facility] st Contact Info) Description 03/31/2025 2:15 PM EST Consult Orthopedic Surgery - [place] [address] [facility] [address] [place] [phone] Nate Marina, DPM [address] [place] [phone] Health Maintenance Due Date Last Done Comments [...] patient[place] age [place] [id number] [employer] MEDICARE Member Subscriber Plan / Payer (Ef fective 2023-Present) Name:KENNY BRADSHAW Relation to Subscriber:Self Name:Kenny Delaney Payer ID:[id number] Group ID:[id number] Type:Not on file Address: [place] [address] [address] [id number] Care Teams Dental Associate Relationship Specialty Start Date End Date Dawn Almaguer MD [address] [place] [phone] PCP - General Internal Medicine 12/01/24
--- OUTSIDE RECORDS SUMMARY | 2025-02-21 17:42 | XMS_ITS | Encounter Summary ---
Author Organization [email or web address] Address [address] [facility] [address] [place] [address] Care Team Providers Care Mobile Ui Developer Name Role Phone Dawn Almaguer MD Primary Care Provide r Delia Mast PharmD Unavailable [phone] Encounter Details Date Type Department Care Team (Late Contact Info) Description 05/22/2022 Orders Only [facility] MEDICINE [address] [place] [address] Payton Qureshi MD [address] [place] [address] Type 2 diabetes mellitus with hyperglycemia, with long-term current use of insulin ([facility]) (Primary Dx) Social History Tobacco Use Types [...] Description 02/22/2025 2:30 PM EDT Medication Management [facility] [address] [place] [address] Delia Mast, PharmD [address] [place] [address] 02/28/2025 1:45 PM EST Office Visit [facility] [address] [place] [phone] Dawn Almaguer MD [address] [place] [address] [phone] documented as of this encounter Visit Diagnoses Diagnosis Type 2 diabetes mellitus with hyperglycemia, with long-term current use of insulin (HCC)- Primary documented in this encounter Care Teams Mobile Ui Developer Relationship Specialty Start Date End Date Dawn Almaguer MD [address] [place] [address] [phone] PCP - General Family Medicine 02/25/18 Delia Mast, PharmD [address] [place] [phone] Pharmacist Internal Medicine 03/15/24 [place] 05/06/24 documented as of this encounter
--- OUTSIDE RECORDS SUMMARY | 2025-02-21 17:42 | XMS_ITS | Clinical Summary ---
Author Organization [facility] [employer] Address [address] [facility] 7t [place] [address] Care Team Providers Care Contractor Buyer Name Role Phone Dawn Almaguer MD Primary Care Provide r Delia Mast PharmD Unavailable [phone] Allergies No known active allergies Medications atorvastatin [...] with long-term current use of insulin ([facility]) Use as needed for low blood sugar 45 g 11 024 Active empagliflozin-m etFORMIN (Synjardy) 12.5-1000 MGIndications:T ype 2 diabetes mellitus with hyperglycemia, with long-term current use of insulin ([facility]) Take 1 tablet by mouth with breakfast and with evening meal. 180 tablet 3 024 Active TRUEplus Lancets 33G miscIndications :Type 2 diabetes mellitus with hyperglycemia, with long-term current use of insulin ([facility]) Check blood sugar 3 times a day 100 each 11 025 Active metoprolol tartrate (Lopressor) 25 MG tabletIndicatio ns:Primary hypertension Take one half tablet by mouth twice daily 90 tablet 025 Active Continuous Glucose Presales Consultant (FreeStyle Monica 3 [place]) device 1 each Once per day. Use as directed for CGM 1 each 025 Active Continuous Glucose Sensor (FreeStyle Monica 3 Plus Sensor) misc 1 each every 15 days. Apply 1 every 15 days as directed for CGM 2 each 025 Active glucose blood (FreeStyle Precision Charan Test) test stripIndication s:Type 2 diabetes mellitus with hyperglycemia, with long-term current use of insulin ([facility]) Use to test blood sugar 2 times [...] with long-term current use of insulin ([facility]) Use as instructed with insulin administration twice daily 100 each 3 025 Active insulin lispro (HumaLOG KWIKPEN) 100 UNIT/ML injectionIndica tions:Type 2 diabetes mellitus with hyperglycemia, with long-term current use of insulin ([facility]) Inject twice daily subcutaneously 4 units before breakfast and 8 units once daily before dinner. Do not use if skipping meal. 15 mL 1 025 Active insulin glargine (Lantus SoloStar) 100 UNIT/ML penIndications: Type 2 diabetes mellitus with hyperglycemia, with long-term current use of insulin ([facility]) Inject subcutaneously 24 units once daily 15 [...] AM EST): Patient reports he went to [place] and forgot his insulin he stop using [...] to follow with cardiology, move practice [place] [facility] [place] convenience He is on Multaq 400mg [...] Encounters Date Type Department Care Team Description 02/21/2025 Patient Outreach [address] [address] Dawn Almaguer MD Pre-visit Planning (SDOH screening is completed) 01/28/2025 Travel 01/19/2025 Orders Only GENERIC EXTERNAL DATA DEPARTMENT Provider, Generic External Data 01/04/2025 Telephone [facility] [address] [place], [place] [phone] Dawn Almaguer MD NOV RECALL 12/31/2024 Travel 12/30/2024 Orders Only [facility] External Provider, [facility] 12/21/2024 11:15 AM EDT Office Visit [address] [address] Meliza Reid MD Paroxysmal A-fib ([facility]) (Primary Dx); Dietary counseling; Exercise counseling; Class 1 obesity with serious comorbidity and body mass index (BMI) of 31.0 to 31.9 in adult, unspecified obesity type 12/21/2024 Travel 12/17/[address] [address] Delia Mast PharmD Care Coordination; Referral 12/17/2024 Travel 12/10/[address] [phone] Dawn Almaguer MD Vitamin D deficiency 11/30/[address] [address] Dawn Almaguer MD 11/26/2024 3:30 PM EDT Office Visit [facility] [address] [place] [address] Dawn Almaguer MD Venous stasis dermatitis (Primary Dx); Type 2 diabetes mellitus with hyperglycemia, with long-term current use of insulin ([facility]/HCC); Paroxysmal A-fib ([facility]/HCC); Hyperlipidemia associated with type 2 diabetes mellitus ([facility]/HCC); Onychomycosis; Chronic left-sided low back pain with left-sided sciatica; Diastolic dysfunction 11/26/2024 Travel 11/25/2024 Telephone [facility] [address] [place] [address] Dawn Almaguer MD Chart Prep from Last 3 Months Immunizations Immunization Administration Dates Next Due Hep B, adult 12/21/2014,07/26/2014,06/14/2014 Influenza Quadrivalent Adjuvanted 01/17/2022 Michael Bieker SARS-CoV-2 Vaccination 08/16/2020,2020 Pfizer Covid-19 Vaccine 12+ [...] Description 02/22/2025 2:30 PM EDT Medication Management [facility] [address] [place] [address] Delia Mast, PharmD [address] [place] [address] 02/28/2025 1:45 PM EST Office Visit [facility] [address] [place], [place] [phone] Dawn Almaguer MD [address], [place] [phone] Health Maintenance Due Date Last Done Comments [...] Additional history exists Eye Exam 09/28/2026 09/28/2024, 0606/2024, 09/28/2024, Additional history exists DTaP/Tdap/Td Vaccines (3 [...] Hyperlipidemia associated with type 2 diabetes mellitus ([facility]/HCC) COMPREHENSIVE METABOLIC PANEL Routine 01/19/2025 9:30 AM EDT Type 2 diabetes mellitus with hyperglycemia, with long-term current use of insulin ([facility]) ALBUMIN, RANDOM URINE W/CREATININE Routine 01/19/2025 9:30 AM EDT Type 2 diabetes mellitus with hyperglycemia, with long-term current use of insulin (CMS/HCC) LIPID PANEL, STANDARD Routine 01/19/2025 9:30 AM EDT Type 2 diabetes mellitus with hyperglycemia, with long-term current use of insulin ([facility]/HCC) XR CHEST 2 VIEWS Routine 12/30/2024 10:3 4 AM EDT B TYPE NATRIURETIC PEPTIDE (BNP) Routine 12/30/2024 10:32 AM EDT BASIC METABOLIC PANEL Routine 12/30/2024 10:32 AM EDT POCT GLYCATED HEMOGLOBIN, TOTAL Routine 12/17/2024 3:44 PM EDT Type 2 diabetes mellitus with hyperglycemia, with long-term current use of insulin ([facility]) POCT GLYCATED HEMOGLOBIN, TOTAL Routine 11/26/2024 3:36 PM EDT Type 2 diabetes mellitus with hyperglycemia, with long-term current use of insulin ([facility]) POCT GLUCOSE Routine 11/26/2024 3:36 PM EDT Type 2 diabetes mellitus with hyperglycemia, with long-term current use of insulin ([facility]) HM COLONOSCOPY Routine 08/19/2017 from Last 3 Months or Most Recently Relevant to Health Maintenance Results * Albumin, Random Urine W/Creatinine (01/19/2025 9:30 AM EDT) Creatinine, Urine 140.10 mg/dL [facility] Microalbumin Urine 20.0 mg/L [facility] Microalbum Creatinine Ratio Ur 14.2 <30 ug/mg cr [facility] Comment:Albumin/Creatinine R atio Reference Ranges: Normal: < 30 ug/mg creatinine Microalbuminuria: 30 - 300 ug/mg creatinineClinical Albuminuria: > 300 ug/mg creatinine Urine (Urine, Random) 01/19/2025 9:30 AM EDT 01/19/2025 11:43 AM EDT us Dawn Monroy MD LAB URINE ORDERABLES Final Result [facility] [address] [place] [phone] * (ABNORMAL) Hemoglobin A1c (01/19/2025 9:30 AM EDT) Hemoglobin A1c 8.7(H) <6.0 % [facility] Comment:Hemoglobin A1C Refer ence Range Adults: 4.8 - 6.0 % Non diabetic: < 6.0 % Goal: < 7.0 %Additional Action Suggested: > 8.0 %Note: Hemoglobin A1c results are invalid for patients with abnormal amounts of HbF. Blood transfusions may impact the HbA1c concentration in the patient sample. Estimated Average Glucose 203 mg/dL [facility] Comment:eAG = Estimated ave rage glucose which is %A1C expressed asaverage glucose, using the formula of the B0H-JxuiuahAlxqwis Glucose study (ADAG), Diabetes Care, Vol.31,#8,2007 01/19/2025 9:30 AM EDT 01/19/2025 11:28 AM EDT us Generic External Data Provider LAB BLOOD ORDERAB LES Final Result Performing Organization Address [facility]/ZIP Co de Phone Number [facility] [address] [place] [phone] * Hepatic Function Panel (01/19/2025 9:30 AM EDT) Bilirubin, Direct 0.3 0.0 - 0.5 mg/dL [facility] Blood Venous blood specimen / Unknown 01/19/2025 9:30 AM EDT 01/19/2025 11:21 AM EDT us Dawn Monroy MD LAB BLOOD ORDERABLES Final Result Performing Organization Address City/[facility]/ZIP Co de Phone Number [facility] [address] [place] [phone] * (ABNORMAL) Lipid Panel, Standard (01/19/2025 9:30 AM EDT) Triglycerides 64 <150 mg/dL [facility] Comment:Desirable Triglyceri de: less than 150 mg/dLBorderline High Triglyceride 150-199 mg/dLHigh Triglyceride: 200-499 mg/dLVery High Triglyceride: greater than or equal to 5OO mg/dL Cholesterol 94 <200 mg/dL [facility] Comment:Desirable Cholestero l: less than 200 mg/dLBorderline High Cholesterol: 200-239 mg/dLHigh Cholesterol: greater than 239 mg/dL LDL Cholesterol Calculated 50 <100 mg/dL [facility] Comment:Desirable LDL: less than 100 mg/dLNear Optimal/Above Optimal LDL: 110- 129 mg/dLBorderline High LDL: 130-159 mg/dLHigh LDL: 160-189 mg/dLVery High LDL: greater than or equal to 190 mg/dL HDL Cholesterol 32(L) >40 mg/dL [facility] Comment:Desirable HDL: great er than 40 mg/dL Note: This HDL assay may give artificially low results in patients with liver disease. Blood Venous blood specimen / Unknown 01/19/2025 9:30 AM EDT 01/19/2025 11:21 AM EDT Dawn Monroy MD LAB BLOOD ORDERABLES Final Result [facility] [address] [place] [phone] * (ABNORMAL) Comprehensive Metabolic Panel (01/19/2025 9:30 AM EDT) Sodium 144 135 - 145 mmol/L [facility] Potassium 4.5 3.3 - 5.1 mmol/L [facility] Chloride 109(H) 96 - 108 mmol/L [facility] Carbon Dioxide 27 22 - 29 mmol/L [facility] Anion Gap 13 12 - 20 [facility] Urea Nitrogen (BUN) 21(H) 9 - 16 mg/dL [facility] Creatinine, Serum 1.26 0.5 - 1.4 mg/dL [facility] Estimated Glomerular Filt Rate 57 [facility] Comment:Chronic Kidney Disea se: Estimated GFR < 60 mL/min/1.32h5Gqztfs Kidney Disease: Estimated GFR < 15 mL/min/1.73m2 Glucose 125(H) 60 - 115 mg/dL [facility] Calcium 8.8 8.4 - 10.2 mg/dL [facility] Bilirubin, Total 0.7 0.0 - 1.0 mg/dL [facility] Aspartate Amino Transferase 40(H) 5 - 37 U/L [facility] Alanine Aminotransferase 23 0 - 40 U/L [facility] Total Protein 7.7 6.5 - 8.0 g/dL [facility] Albumin Level 4.1 3.5 - 5.0 g/dL [facility] Alkaline Phosphatase 58 39 - 117 U/L [facility] Blood Venous blood specimen / Unknown 01/19/2025 9:30 AM EDT 01/19/2025 11:21 AM EDT us Dawn Monroy MD LAB BLOOD ORDERABLES Final Result Performing Organization Address City/State/[facility] Co de Phone Number [facility] [address] [place] [phone] * XR Chest 2 Views (12/30/2024 10:34 AM EDT) Anatomical Region Laterality Modality Chest Radiographic Ale ging 12/30/2024 10:3 4 AM EDT Narrative 12/30/2024 10:59 AM EDT [address] [address] XRay Report Signed Patient: Kenny Dowell MR#: [id number] : 1955 Acct:[id number] Age/Sex: 69 / M ADM Date: 12/30/24 Loc: [facility] Attending Dr: Deonte Jones MD Ordering Physician: Deonte Jones MD Date of Service: 12/30/24 Procedure(s): XR chest 2V Accession Number(s): [id number] cc: Dawn Almaguer MD; Deonte Jones MD [...] 12/30/24 1056 DD/ 1034 TD/TT: 12/30/24 1047 Imagery Intelligence: Procedure Note Donotuseinterpreter, Image - 12/30/2024 [place] [address] XRay Report Signed Patient: Tamika Dowell#: [id number] : 1955cct:[id number] Age/Sex: 69 / MADM Date: 12/30/24 Loc: HO.XRAY Attending Dr: Deonte Jones MD Ordering Physician: Deonte Jones MD Date of Service: 12/30/24 Procedure(s): XR chest 2V Accession Number(s): [id number] cc: Dawn Almgauer MD; Deonte Jones MD Reason for Exam: [...] 12/30/24 1056 DD/ 1034 TD/TT: 12/30/24 1047 Imagery Intelligence: us [facility] External Provider IMG XR PROCEDURES Final Result * B Type Natriuretic Peptide (BNP) (12/30/2024 10:32 AM EDT) B Type Natriuretic Peptide 63 <100 pg/mL [facility] 12/30/2024 10:3 2 AM EDT 12/30/2024 10:32 AM EDT Generic External Data Provider LAB BLOOD ORDERAB LES Final Result [facility] [address] [place] [phone] * (ABNORMAL) Basic Metabolic Panel (12/30/2024 10:32 AM EDT) Pathologist [facility] Sodium 143 135 - 145 mmol/L [facility] Potassium 5.2(H) 3.3 - 5.1 mmol/L [facility] Chloride 111(H) 96 - 108 mmol/L [facility] Carbon Dioxide 26 22 - 29 mmol/L [facility] Anion Gap 11(L) 12 - 20 [facility] Urea Nitrogen (BUN) 28(H) 9 - 16 mg/dL [facility] Creatinine, Serum 1.52(H) 0.5 - 1.4 mg/dL [facility] Estimated Glomerular Filt Rate 46 [facility] Comment:Chronic Kidney Disea se: Estimated GFR < 60 mL/min/1.36i1Ubrdlg Kidney Disease: Estimated GFR < 15 mL/min/1.73m2 Glucose 165(H) 60 - 115 mg/dL [facility] Calcium 9.4 8.4 - 10.2 mg/dL [facility] 12/30/2024 10:3 2 AM EDT 12/30/2024 10:32 AM EDT us Generic External Data Provider LAB BLOOD ORDERAB LES Final Result [facility] [address], [place] [phone] * (ABNORMAL) POCT A1c (12/17/2024 3:44 [...] Media Lot # [id number] Lot# Expiration Date [id number] Blood Capillary blood specimen / Unknown 11/26/2024 3:36 PM EDT Dawn Monroy MD POINT OF CARE TEST EN TER/EDIT ORDERABLES Final Result * Colonoscopy (08/19/2017) Colonoscopy Normal Normal Narrative Carolynn Mary - 08/19/2017 Recommended 10 years. See see notes in Fovea . Hm Colonoscopy order added us Historical Provider HEALTH MAINTENANCE Final Result from Last 3 Months or Most Recently Relevant to Health Maintenance Insurance [address] [place] [id number] [facility] STANDARD [facility] SKILLED NURSING OPTIONS (HMO D-SNP) Care Teams Contractor Buyer Relationship Specialty Start Date End Date Dawn Almaguer MD [address] [place] [address] PCP - General Family Medicine 02/25/18 Delia Mast, LivierD [address] [place] [address] Pharmacist Internal Medicine 03/15/24 Citlaly 05/06/24
--- OUTSIDE RECORDS SUMMARY | 2025-02-21 17:42 | XMS_ITS | Encounter Summary ---
Author Organization [facility] Address [address] [place] [address] Phone Care Team Providers Care Application Support Intern Name Role Phone Pcp, Unknown Primary Care Provider Unavailabl e Encounter Details Date Type Department Care Team (Latest Contact Info) Description 12/02/2018 Ancillary Orders [facility] [address] [place] [address] Ina Medrano PA [address] [place] [address] [email or web address] Atrial fibrillation, unspecified type Social History Tobacco [...] type documented in this encounter Care Teams Application Support Intern Relationship Specialty Start Date End Date Pcp, Unknown PCP - General 11/18/18 documented as of this encounter Additional Source Comments The information contained in this document represents components of the legal health record. It is not the complete legal health record.[facility]
--- OUTSIDE RECORDS SUMMARY | 2025-02-21 17:42 | XMS_ITS | Encounter Summary ---
Author Organization [employer] Address [address] [facility] 7t [place] [address] Care Team Providers Care Claim Rep Name Role Phone Dawn Almaguer MD Primary Care Provide r Delia Mast PharmD Unavailable [phone]- [phone] Encounter Details Date Type Department Care Team (Late st Contact Info) Description 07/02/2024 Orders Only [facility] [address] [place], [place] [phone] Dawn Almaguer MD [address] [place], [place] [phone] Social History Tobacco Use Types Packs/Day Years [...] Description 02/22/2025 2:30 PM EDT Medication Management [facility] [address] [place] [phone] Delia Mast PharmD [address] [place] [phone] 02/28/2025 1:45 PM EST Office Visit [facility] [address] [place] [phone] Dawn Almaguer MD [address] [place] [phone] documented as of this encounter Visit Diagnoses Not on filedocumented in this encounter Additional Health Concerns Assessment Noted Time PHQ-9 Depression Total Score: 0 07/01/19 24 1:29 PM EST documented as of this encounter Care Teams Claim Rep Relationship Specialty Start Date End Date Dawn Almaguer MD [address] [place] [phone] PCP - General Family Medicine 02/25/18 Delia Mast, PharmD [address] [place] [phone] Pharmacist Internal Medicine 03/15/24 Citlaly 05/06/24 documented as of this encounter
--- OUTSIDE RECORDS SUMMARY | 2025-02-21 17:42 | XMS_ITS | Encounter Summary ---
Author Organization [employer] Address [address] [facility] [address]t [place] [address] Care Team Providers Care Bacon Slicer Name Role Phone Dawn Almaguer MD Primary Care Provide r Delia Mast PharmD Unavailable [phone]- [phone] Reason for Visit * Reason Comments Med Refill Encounter Details Date Type Department Care Team (Late st Contact Info) Description 07/14/2023 Refill [facility] [address] [place] [address] Bhumika Timmons FNP [address] [place] [address] Type 2 diabetes mellitus with hyperglycemia, with long-term current use of insulin ([facility]) Social History Tobacco Use Types Packs/Day [...] Description 02/22/2025 2:30 PM EDT Medication Management [facility] [address] [place] [phone] Delia Mast PharmD [address] [place] [phone] 02/28/2025 1:45 PM EST Office Visit [facility] [address] [place] [phone] Dawn Almaguer MD [address] [place] [phone] documented as of this encounter Visit Diagnoses Diagnosis Type 2 diabetes mellitus with hyperglycemia, with long-term current use of insulin (HCC) documented in this encounter Additional Health Concerns Assessment Noted Time PHQ-9 Depression Total Score: 0 07/01/19 24 1:29 PM EST documented as of this encounter Care Teams Bacon Slicer Relationship Specialty Start Date End Date Dawn Almaguer MD [address] [place] [phone] PCP - General Family Medicine 02/25/18 Delia Mast PharmD [address] [place] [address] Pharmacist Internal Medicine 03/15/24 Citlaly 05/06/24 documented as of this encounter
--- OUTSIDE RECORDS SUMMARY | 2025-02-21 17:42 | XMS_ITS | Encounter Summary ---
Author Organization [facility] Address [address] [place] [address] Phone Care Team Providers Care Animal Doctor Name Role Phone Pcp, Unknown Primary Care Provider Unavailabl e Encounter Details Date Type Department Care Team (Late st Contact Info) Description 05/24/2019 Ancillary Orders [facility] [address] [place] [address] Ina Medrano PA [address] [place] [address] [email or web address] Social History Tobacco Use Types Packs/Day [...] of paroxysmal atrial fibrillation. Procedure Note Bernard Maitas MD - 01/27/2020 Holter monitor report Indication [...] Palpitations documented in this encounter Care Teams Animal Doctor Relationship Specialty Start Date End Date Pcp, Unknown PCP - General 11/18/18 documented as of this encounter Additional Source Comments The information contained in this document represents components of the legal health record. It is not the complete legal health record.[facility]
--- OUTSIDE RECORDS SUMMARY | 2025-02-21 17:42 | XMS_ITS | Encounter Summary ---
Author Organization [facility] Address [address] [place] [phone] Phone Care Team Providers Care Rn Practitioner Name Role Phone Pcp, Unknown Primary Care Provider Unavailabl e Encounter Details Date Type Department Care Team (Late st Contact Info) Description 12/02/2018 Ancillary Orders [facility] [address] [place] [address] Mark Andrade MD [address] [place] [address] [email or web address] Social History Tobacco Use Types Packs/Day Years [...] on filedocumented in this encounter Care Teams Rn Practitioner Relationship Specialty Start Date End Date Pcp, Unknown PCP - General 11/18/18 documented as of this encounter Additional Source Comments The information contained in this document represents components of the legal health record. It is not the complete legal health record.[facility]
--- OUTSIDE RECORDS SUMMARY | 2025-02-21 17:42 | XMS_ITS | Encounter Summary ---
Author Organization [facility] Address [address] [place] [address] Phone Care Team Providers Care Internet Marketing Strategist Name Role Phone Pcp, Unknown Primary Care Provider Unavailabl e Encounter Details Date Type Department Care Team (Latest Contact Info) Description 04/07/2020 Ancillary Orders [facility] [address] [place] [address] Ina Medrano PA [address] [place] [address] [email or web address] Atrial fibrillation, unspecified type Social History Tobacco [...] type documented in this encounter Care Teams Internet Marketing Strategist Relationship Specialty Start Date End Date Pcp, Unknown PCP - General 11/18/18 documented as of this encounter Additional Source Comments The information contained in this document represents components of the legal health record. It is not the complete legal health record.[facility]
--- OUTSIDE RECORDS SUMMARY | 2025-02-21 17:42 | XMS_ITS | Encounter Summary ---
Author Organization [employer] Address [address] [facility] 7t [place] [address] Care Team Providers Care Dumper Name Role Phone Dawn Almaguer MD Primary Care Provide r Delia Mast PharmD Unavailable [phone]- [phone] Reason for Visit * Reason Comments Med Refill Encounter Details Date Type Department Care Team (Late st Contact Info) Description 02/07/2024 Refill [facility] [address] [place], [place] [phone] Dawn Almaguer MD [address] [place], [place] [phone] Heartburn Social History Tobacco Use Types Packs/Day [...] Description 02/22/2025 2:30 PM EDT Medication Management [facility] [address] [place] [phone] Delia Mast PharmD [address] [place] [phone] 02/28/2025 1:45 PM EST Office Visit [facility] [address] [place] [phone] Dawn Almaguer MD [address] [place] [phone] documented as of this encounter Visit Diagnoses Diagnosis Heartburn documented in this encounter Additional Health Concerns Assessment Noted Time PHQ-9 Depression Total Score: 0 07/01/19 24 1:29 PM EST documented as of this encounter Care Teams Dumper Relationship Specialty Start Date End Date Dawn Almaguer MD [address] [place] [phone] PCP - General Family Medicine 02/25/18 Delia Mast, PharmD [address] [place] [address] Pharmacist Internal Medicine 03/15/24 Citlaly 05/06/24 documented as of this encounter
--- OUTSIDE RECORDS SUMMARY | 2025-02-21 17:42 | XMS_ITS | Clinical Summary ---
Author Organization [facility] Address [address] [facility] [address] [place] [phone] Phone Care Team Providers Care Computer System Technician Name Role Phone Pcp, Unknown Primary Care [...] file Medical Devices Not on file Insurance [facility] NON [facility] PCP [facility] NSPG PCP [facility] [employer] [facility] NON NSPG PCP S[facility] [employer]ARE [employer] NON NSPG PCP S[employer] CONNECTORCARE [employer] NON NSPG PCP SILVER CLARITY CONNECTORCARE [employer] NON NSPG PCP SILVER CLARITY CONNECTORCARE [employer] NON NSPG PCP SILVER [employer]ARITY CONNECTORCARE [place] NON NSPG PCP [place] [place]G PCP S[facility] [employer]AR[employer] CONNECTORCARE Care Teams Computer System Technician Relationship Specialty Start Date End Date Pcp, Unknown PCP - General 11/18/18 Additional Source Comments The information contained in this document represents components of the legal health record. It is not the complete legal health record.[facility]
--- OUTSIDE RECORDS SUMMARY | 2025-02-21 17:42 | XMS_ITS | Encounter Summary ---
Author Organization [facility] Address [address] [facility] [place] [phone] Phone Care Team Providers Care Asbestos Shingle Roofer Name Role Phone Pcp, Unknown Primary Care Provider Unavailabl e Encounter Details Date Type Department Care Team (Late st Contact Info) Description 04/07/2020 Procedure Pass [facility] [address] [place] [address] [place] [address] Social History Tobacco Use Types [...] on filedocumented in this encounter Care Teams Asbestos Shingle Roofer Relationship Specialty Start Date End Date Pcp, Unknown PCP - General 11/18/18 documented as of this encounter Additional Source Comments The information contained in this document represents components of the legal health record. It is not the complete legal health record.[facility]
--- OUTSIDE RECORDS SUMMARY | 2025-02-21 17:42 | XMS_ITS | Encounter Summary ---
Author Organization [employer] Address [address] [facility] 7t [place] [address] Care Team Providers Care Autism Specialist Name Role Phone Dawn Almaguer MD Primary Care Provide r Delia Mast PharmD Unavailable [phone]- [phone] Reason for Visit * Reason Comments Pre-visit Planning SDOH screening is co mpleted Encounter Details Date Type Department Care Team ([facility] st Contact Info) Description 02/21/2025 Patient Outreach [facility]INE [address] [place] [address] Dawn Almaguer MD [address] [place] [address] Pre-visit Planning (SDOH screening is completed) Social History Tobacco Use Types Packs/Day Years [...] as of this encounter Progress Notes * Karen Siddiqui - 02/21/2025 4:09 PM EDT CC Karen Daily placed successful outbound call to patient for pre-visit planning. Patient name and confirmed. Patient confirms appt date and time, and has transportation arrangements. Biggest concern for appointment at this time is no concern. Appropriate screenings completed in anticipation of appointment. SDOH screening is completed. documented in this encounter Plan of Treatment Upcoming Encounters Date Type Department Care Team (Late st Contact Info) Description 02/22/2025 2:30 PM EDT Medication Management [facility] [address] [place] [phone] Delia Mast, PharmD [address] [place] [address] 02/28/2025 1:45 PM EST Office Visit [facility] [address] [place] [phone] Dawn Almaguer MD [address] [place] [address] documented as of this encounter Visit Diagnoses Not on filedocumented in this encounter Additional Health Concerns Assessment Noted Time PHQ-9 Depression Total Score: 0 11/27/19 25 4:11 PM EDT documented as of this encounter Care Teams Autism Specialist Relationship Specialty Start Date End Date Dawn Almaguer MD [address] [place] [phone] PCP - General Family Medicine 02/25/18 Delia Mast, LivierD [address] [place] [phone] Pharmacist Internal Medicine 03/15/24 Citlaly 05/06/24 documented as of this encounter
== END 2025-02-21 14:52 | disposition home or self-care (01) ==
LOC: HO.HCS 14:01
PROVIDERS: PCP Internal Medicine; Visit Provider Nurse Practitioner Family
DX: I48.0 Paroxysmal atrial fibrillation (principal); I10 Essential (primary) hypertension; I73.9 Peripheral vascular disease, unspecified; R06.02 Shortness of breath; R07.9 Chest pain, unspecified
CPT/HCPCS: 78452; 93010; 93016; 93018; 99214; G2211

== ENCOUNTER 2025-03-07 13:00 | Outpatient (REF) | payer OTHER, SELFPAY ==
--- NOTE | ~2025-03-07 | US_ITS ---
EXAMINATION: Noninvasive assessment of the bilateral lower extremities WITHOUT ARTERIAL DUPLEX, ANKLE BRACHIAL INDICES (ABIs), and PULSE VOLUME RECORDINGS (PVRs). CLINICAL INFORMATION: I 73.9. Hypertension. Hyperlipidemia. Diabetes.. TECHNIQUE: Duplex Doppler techniques with waveform analysis and measurement of velocities in the bilateral common femoral, profunda femoris, superficial femoral, popliteal and tibial arteries were performed. The study was performed only at rest. COMPARISON: None FINDINGS: DIRECT DUPLEX DOPPLER FINDINGS: RIGHT LEG: Common femoral artery: 107 cm/s, phasicity: Triphasic. Profunda femoris artery: 48 cm/s, phasicity: Biphasic. Superficial femoral artery (proximal): 93 cm/s, phasicity: Triphasic. Superficial femoral artery (mid): 153 cm/s, phasicity: Triphasic. Superficial femoral artery (distal): 76 cm/s, phasicity: Triphasic. Popliteal artery: 81 cm/s, phasicity: Triphasic. Posterior tibial artery: 85 cm/s, phasicity: Triphasic. Peroneal artery: 81 cm/s, phasicity: Biphasic. Anterior tibial artery: 17 cm/s, phasicity: Monophasic. Dorsalis pedis artery: 20 cm/s, phasicity:Monophasic. LEFT LEG: Common femoral artery: 90 cm/s, phasicity: Triphasic. Profunda femoris artery: 72 cm/s, phasicity: Biphasic. Spectral broadening. Superficial femoral artery (proximal): 107 cm/s, phasicity: Triphasic. Superficial femoral artery (mid): 102 cm/s, phasicity: Triphasic. Superficial femoral artery (distal): 92 cm/s, phasicity: Triphasic. Popliteal artery: 74 cm/s, phasicity: Triphasic. Posterior tibial artery: 118 cm/s, phasicity: Triphasic. Peroneal artery: 50 cm/s, phasicity: Triphasic. Anterior tibial artery: 116 cm/s, phasicity: Triphasic. Dorsalis pedis artery: 61 cm/s, phasicity: Triphasic. 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 Left: Normal patency and waveforms. Electronically signed by: Benjie García MD 03/07/2025 02:59 PM [facility]
--- OUTSIDE RECORDS SUMMARY | 2025-03-07 15:07 | XMS_ITS | Encounter Summary ---
Author Organization [employer] Address [address] [facility] 7t [place] [address] Care Team Providers Care Entry Level Electrician Name Role Phone Dawn Almaguer MD Primary Care Provide r Delia Mast PharmD Unavailable +- [phone] Encounter Details Date Type Department Care Team (Late st Contact Info) Description 07/02/2024 Orders Only [facility]INE [address] [place], [place] [phone] Dawn Almaguer MD [address] [place], [place] [phone] Social History Tobacco Use Types Packs/Day Years [...] Care Team (Late st Contact Info) Description 03/28/2025 2:30 PM EST Medication Management [facility] [address] [place] [address] Delia Mast PharmD [address] [place] [address] documented as of this encounter Visit Diagnoses Not on filedocumented in this encounter Additional Health Concerns Assessment Noted Time PHQ-9 Depression Total Score: 0 07/01/19 24 1:29 PM EST documented as of this encounter Care Teams Entry Level Electrician Relationship Specialty Start Date End Date Dawn Almaguer MD [address] [place] [phone] PCP - General Family Medicine 02/25/18 Delia Mast, LivierD [address] [place] [phone] Pharmacist Internal Medicine 03/15/24 Citlaly 05/06/24 documented as of this encounter
--- OUTSIDE RECORDS SUMMARY | 2025-03-07 15:07 | XMS_ITS | Encounter Summary ---
Author Organization [employer] Address [address] [facility] [address] [place] [address] Care Team Providers Care Supervisor [employer] Name Role Phone Dawn Almaguer MD Primary Care Provide r Delia Mast PharmD Unavailable [phone]- [phone] Reason for Visit * Reason Comments Med Refill Encounter Details Date Type Department Care Team (Late st Contact Info) Description 02/07/2024 Refill [facility] [address] [place] [address] Dawn Almaguer MD [address] [place], [place] [phone] Heartburn Social History Tobacco Use Types Packs/Day [...] Description 03/28/2025 2:30 PM EST Medication Management [facility] [address] [place] [address] Delia Mast PharmD [address] [place] [address] documented as of this encounter Visit Diagnoses Diagnosis Heartburn documented in this encounter Additional Health Concerns Assessment Noted Time PHQ-9 Depression Total Score: 0 07/01/19 24 1:29 PM EST documented as of this encounter Care Teams Supervisor [employer] Relationship Specialty Start Date End Date Dawn Almaguer MD [address] [place] [phone] PCP - General Family Medicine 02/25/18 Delia Mast PharmD [address] [place] [address] [phone] Pharmacist Internal Medicine 03/15/24 Citlaly 05/06/24 documented as of this encounter
--- OUTSIDE RECORDS SUMMARY | 2025-03-07 15:07 | XMS_ITS | Clinical Summary ---
Author Organization [employer] Address [address] [facility] [address] [place] [address] Care Team Providers Care Public Housing Manager Name Role Phone Dawn Almaguer MD Primary Care Provide r Delia Mast PharmD Unavailable [phone] Allergies No known active allergies Medications atorvastatin [...] hyperglycemia, with long-term current use of insulin ([facility]) Use as needed for low blood sugar 45 g 11 024 Active empagliflozin-m etFORMIN (Synjardy) 12.5-1000 MGIndications:T ype 2 diabetes mellitus with hyperglycemia, with long-term current use of insulin ([facility]) Take 1 tablet by mouth with breakfast and with evening meal. 180 tablet 3 024 Active TRUEplus Lancets 33G miscIndications :Type 2 diabetes mellitus with hyperglycemia, with long-term current use of insulin ([facility]) Check blood sugar 3 times a day 100 each 11 025 Active metoprolol tartrate (Lopressor) 25 MG tabletIndicatio ns:Primary hypertension Take one half tablet by mouth twice daily 90 tablet 025 Active Continuous Glucose [employer] (FreeStyle Monica 3 [place]) device 1 each Once per day. Use as directed for CGM 1 each 025 Active Continuous Glucose Sensor (FreeStyle Monica 3 Plus Sensor) misc 1 each every 15 days. Apply 1 every 15 days as directed for CGM 2 each 025 Active glucose blood (FreeStyle Precision Charan Test) test stripIndication s:Type 2 diabetes mellitus with hyperglycemia, with long-term current use of insulin ([facility]) Use to test blood sugar 2 [...] MORNING 90 capsule 1 025 Active insulin glargine (Lantus SoloStar) 100 UNIT/ML penIndications: Type 2 diabetes mellitus with hyperglycemia, with long-term current use of insulin ([facility]) Inject subcutaneously 24 units once daily 15 mL 1 025 Active insulin pen needle (B-D UF III MINI PEN NEEDLES) 31G x 5 mm miscIndications :Type 2 diabetes mellitus with hyperglycemia, with long-term current use of insulin ([facility]) Use as instructed with insulin administration three times daily 100 each 3 025 Active insulin lispro (HumaLOG KWIKPEN) 100 UNIT/ML injectionIndica tions:Type 2 diabetes mellitus with hyperglycemia, with long-term current use of insulin ([facility]) Inject twice daily subcutaneously 4 units before breakfast and 10 units once daily before dinner. Do not use if skipping meal. 025 Active Tirzepatide (Mounjaro) 7.5 MG/0.5ML solution auto-injectorIn dications:Type 2 diabetes mellitus with hyperglycemia, with long-term current use of insulin ([facility]) Inject 7.5 mg under the skin 1 (one) time per week. 2 mL 2 Active insulin pen needle (B-D UF III MINI PEN NEEDLES) 31G x 5 mm miscIndications :Type 2 diabetes mellitus with hyperglycemia, with long-term current use of insulin (HCC) Use as instructed with insulin administration twice daily 100 each 3 025 2024 Discontinued(R eorder (will not trigger notification to Pharmacy)) insulin lispro (HumaLOG KWIKPEN) 100 UNIT/ML injectionIndica tions:Type 2 diabetes mellitus with hyperglycemia, with long-term current use of insulin ([facility]) Inject twice daily subcutaneously 4 units before breakfast and 8 units once daily before dinner. Do not use if skipping meal. 15 mL 1 025 2024 Discontinued(R eorder (will not trigger notification to Pharmacy)) Tirzepatide (Mounjaro) 5 MG/0.5ML solution auto-injectorIn dications:Type 2 diabetes mellitus with hyperglycemia, with long-term current use of insulin ([facility]) Inject 5 mg under the skin every 7 (seven) days. 2 mL 025 2024 Discontinued(R eorder (will not trigger notification to Pharmacy)) Tirzepatide (Mounjaro) 5 MG/0.5ML solution auto-injectorIn dications:Type 2 diabetes mellitus with hyperglycemia, with long-term current use of insulin ([facility]) Inject 5 mg under the skin every 7 (seven) days. 2 mL 1 025 2024 Discontinued Active Problems Problem Noted [...] to follow with cardiology, move practice to [facility] for convenience He is on Multaq 400mg [...] Encounters Date Type Department Care Team Description 02/28/2025 1:45 PM EST Office Visit [facility] [address] [place] [phone] Dawn Almaguer MD Primary hypertension (Primary Dx); Type 2 diabetes mellitus with hyperglycemia, with long-term current use of insulin (HCC); Venous insufficiency; Paroxysmal A-fib (HCC); Diastolic dysfunction; Onychomycosis 02/28/2025 Telephone [facility] [address] [place] [phone] Dawn Almaguer MD [employer] Referral (The patient inquired on the status of a referral for [employer] services. I informed his that a referral was faxed to [facility] on 11/30/24. I provided him with their phone number, and he agreed to call, to check the status of the referral.) 02/28/2025 Travel 02/22/2025 Travel 02/21/2025 Orders Only [facility] External Provider, [facility] 02/21/2025 Patient Outreach [facility] [address] [place] [phone] Dawn Almaguer MD Pre-visit Planning (SDOH screening is completed) 01/28/2025 Travel 01/19/2025 Orders Only GENERIC EXTERNAL DATA DEPARTMENT Provider, Generic External Data 01/04/2025 Telephone [facility] [address] [place] [address] Dawn Almaguer MD NOV RECALL 12/31/2024 Travel 12/30/2024 Orders Only [facility] External Provider, [facility] 12/21/2024 11:15 AM EDT Office Visit [facility] [address] [place] [address] Meliza Reid MD Paroxysmal A-fib ([facility]) (Primary Dx); Dietary counseling; Exercise counseling; Class 1 obesity with serious comorbidity and body mass index (BMI) of 31.0 to 31.9 in adult, unspecified obesity type 12/21/2024 Travel 12/17/2024 Telephone [facility] [address] [place] [address] Delia Mast, PharmD Care Coordination; Referral 12/17/2024 Travel 12/10/2024 Refill [facility] [address] [place] [address] Dawn Almaguer MD Vitamin D deficiency from Last 3 Months Immunizations Immunization Administration Dates Next Due Hep B, adult 12/21/2014,07/26/2014,06/14/2014 Influenza Quadrivalent Adjuvanted 01/17/2022 [facility] SARS-CoV-2 Vaccination 08/16/2020,2020 Pfizer Covid-19 Vaccine 12+ [...] Sign Reading Time Taken Comments Blood Pressure 118/68 02/28/2025 1:58 PM EST Pulse 63 02/28/2025 1:58 PM EST Temperature 36.2 C (97.1 F) 02/28/2025 1:58 PM EST Respiratory Rate 12 02/28/2025 1:58 PM EST Oxygen Saturation 97% 02/28/2025 1:58 PM EST Inhaled Oxygen Concentration - - Weight 105 kg (231 lb) 02/28/2025 1:58 PM EST Height 182.9 cm (6') 02/28/2025 1:58 PM EST Body Mass Index 31.33 02/28/2025 1:58 PM EST Plan of Treatment Upcoming Encounters Date Type Department Care Team (Late st Contact Info) Description 03/28/2025 2:30 PM EST Medication Management [facility] [address] [place] [address] Delia Mast, PharmD [address] [place], [place] [phone] Health Maintenance Due Date Last Done Comments CT Colonography 1955 FIT DNA/Cologuard 1955 FIT 1955 FOBT 1955 Sigmoidoscopy 1955 Alcohol/Substance Use Screening 1967 Hepatitis C Screening 11/14/1973 Zoster Vaccines (2 of 2) 09/17/2022 07/23/2022 Diabetes: Foot Exam 08/08/2023 08/07/2022, COVID-19 Vaccine ( season) 2024 08/28/2021, 08/28/2021, 08/16/2020, Additional history exists Influenza Vaccine (#1) 2024 01/17/2022 SDOH Screening 04/29/2025 04/29/2024 Diabetes: Hemoglobin A1C 05/31/2025 025, 01/19/2025, 12/17/2024, Additional history exists Depression Screening 11/26/2025 11/26/2024, 11/27/19 25 Diabetes: Urine Protein Screening 01/19/2026 01/19/2025, 07/26/2024, 09/04/2020, Additional history exists Lipid Panel 01/19/2026 01/19/2025, 12/27, 05/23/2022, Additional history exists Tobacco Screening 02/28/2026 02/28/2025 Eye Exam 09/28/2026 09/28/2024, 06/0 06/2024, 09/28/2024, [...] Procedure Name Priority Date/Time Associated Diagnosis Comments VASC US LOWER EXTREMITY ARTERIAL DUPLEX BILATERAL Routine 03/07/2025 1:50 PM EST POCT GLYCATED HEMOGLOBIN, TOTAL Routine 02/28/2025 1:59 PM EST Type 2 diabetes mellitus with hyperglycemia, with long-term current use of insulin (HCC) POCT GLUCOSE Routine 02/28/2025 1:59 PM EST Type 2 diabetes mellitus with hyperglycemia, with long-term current use of insulin (HCC) STRESS TEST WITH MYOCARDIAL PERFUSION Routine 02/21/2025 9:56 AM EDT HEMOGLOBIN A1C Routine 01/19/2025 9:30 AM EDT HEPATIC FUNCTION PANEL Routine 9:30 AM EDT Hyperlipidemia associated with type 2 diabetes mellitus (CMS/HCC) COMPREHENSIVE METABOLIC PANEL Routine 01/19/2025 9:30 AM EDT Type 2 diabetes mellitus with hyperglycemia, with long-term current use of insulin (CMS/HCC) ALBUMIN, RANDOM URINE W/CREATININE Routine 01/19/2025 9:30 AM EDT Type 2 diabetes mellitus with hyperglycemia, with long-term current use of insulin (CMS/[facility]) LIPID PANEL, STANDARD Routine 01/19/2025 9:30 AM [...] with long-term current use of insulin ([facility]) HM COLONOSCOPY Routine 08/19/2017 from Last 3 Months or Most Recently Relevant to Health Maintenance Results * [facility] US Lower Extremity Arterial Duplex Bilateral (03/07/2025 1:50 PM EST) 03/07/2025 1:50 PM EST Narrative [facility] - 03/07/2025 3:02 PM EST [address] [address] Ultrasound Report Signed Patient: Kenny Dowell MR#: M [id number] : 1955 Acct:[id number] Age/Sex: 69 / M ADM Date: 03/07/25 Loc: .US Attending Dr: Deonte Jones MD Ordering Physician: Deonte Jones MD Date of Service: 03/07/25 Procedure(s): US arterial duplex LE BI Accession Number(s): [id number] cc: Dawn Almaguer MD; Deonte Jones MD Reason for Exam: I73.9 - Peripheral vascular disease, unspecified EXAMINATION: Noninvasive assessment of the bilateral lower extremities WITHOUT ARTERIAL DUPLEX, ANKLE BRACHIAL INDICES (ABIs), and PULSE VOLUME RECORDINGS (PVRs). CLINICAL INFORMATION: I 73.9. Hypertension. Hyperlipidemia. Diabetes.. TECHNIQUE: Duplex Doppler techniques with waveform analysis and measurement of velocities in the bilateral common femoral, profunda femoris, superficial femoral, popliteal and tibial arteries were performed. The study was performed only at rest. COMPARISON: None FINDINGS: DIRECT DUPLEX DOPPLER FINDINGS: RIGHT LEG: Common femoral artery: 107 cm/s, phasicity: Triphasic. Profunda femoris artery: 48 cm/s, phasicity: Biphasic. Superficial femoral artery (proximal): 93 cm/s, phasicity: Triphasic. Superficial femoral artery (mid): 153 cm/s, phasicity: Triphasic. Superficial femoral artery (distal): 76 cm/s, phasicity: Triphasic. Popliteal artery: 81 cm/s, phasicity: Triphasic. Posterior tibial artery: 85 cm/s, phasicity: Triphasic. Peroneal artery: 81 cm/s, phasicity: Biphasic. Anterior tibial artery: 17 cm/s, phasicity: Monophasic. Dorsalis pedis artery: 20 cm/s, phasicity:Monophasic. LEFT LEG: Common femoral artery: 90 cm/s, phasicity: Triphasic. Profunda femoris artery: 72 cm/s, phasicity: Biphasic. Spectral broadening. Superficial femoral artery (proximal): 107 cm/s, phasicity: Triphasic. Superficial femoral artery (mid): 102 cm/s, phasicity: Triphasic. Superficial femoral artery (distal): 92 cm/s, phasicity: Triphasic. Popliteal artery: 74 cm/s, phasicity: Triphasic. Posterior tibial artery: 118 cm/s, phasicity: Triphasic. Peroneal artery: 50 cm/s, phasicity: Triphasic. Anterior tibial artery: 116 cm/s, phasicity: Triphasic. Dorsalis pedis artery: 61 cm/s, phasicity: Triphasic. 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 Left: Normal patency and waveforms. Electronically signed by: Benjie García MD 03/07/2025 02:59 PM EST Dictated By: Benjie Vance MD Signed By: <Electronically signed by Benjie Santana MD in OV> 03/07/25 1459 DD/ 1350 TD/TT: 03/07/25 1416 Load Planner: Procedure Note Donotuseinterpreter, Image - 03/07/[address] [address] Ultrasound Report Signed Patient: Tamika Dowell#: M [id number] : 6Acct:[id number] Age/Sex: 69 / MADM Date: 03/07/25 Loc: .US Attending Dr: Deonte Jones MD Ordering Physician: Deonte Jones MD Date of Service: 03/07/25 Procedure(s): US arterial duplex LE BI Accession Number(s): [id number] cc: Dawn Almaguer MD; Deonte Jones MD Reason for Exam: I73.9 - Peripheral vascular disease, unspecified EXAMINATION: Noninvasive assessment of the bilateral lower extremities WITHOUT ARTERIAL DUPLEX, ANKLE BRACHIAL INDICES (ABIs), and PULSE VOLUME RECORDINGS (PVRs). CLINICAL INFORMATION: I 73.9. Hypertension. Hyperlipidemia. Diabetes.. TECHNIQUE: Duplex Doppler techniques with waveform analysis and measurement of velocities in the bilateral common femoral, profunda femoris, superficial femoral, popliteal and tibial arteries were performed. The study was performed only at rest. COMPARISON: None FINDINGS: DIRECT DUPLEX DOPPLER FINDINGS: RIGHT LEG: Common femoral artery: 107 cm/s, phasicity: Triphasic. Profunda femoris artery: 48 cm/s, phasicity: Biphasic. Superficial femoral artery (proximal): 93 cm/s, phasicity: Triphasic. Superficial femoral artery (mid): 153 cm/s, phasicity: Triphasic. Superficial femoral artery (distal): 76 cm/s, phasicity: Triphasic. Popliteal artery: 81 cm/s, phasicity: Triphasic. Posterior tibial artery: 85 cm/s, phasicity: Triphasic. Peroneal artery: 81 cm/s, phasicity: Biphasic. Anterior tibial artery: 17 cm/s, phasicity: Monophasic. Dorsalis pedis artery: 20 cm/s, phasicity:Monophasic. LEFT LEG: Common femoral artery: 90 cm/s, phasicity: Triphasic. Profunda femoris artery: 72 cm/s, phasicity: Biphasic. Spectral broadening. Superficial femoral artery (proximal): 107 cm/s, phasicity: Triphasic. Superficial femoral artery (mid): 102 cm/s, phasicity: Triphasic. Superficial femoral artery (distal): 92 cm/s, phasicity: Triphasic. Popliteal artery: 74 cm/s, phasicity: Triphasic. Posterior tibial artery: 118 cm/s, phasicity: Triphasic. Peroneal artery: 50 cm/s, phasicity: Triphasic. Anterior tibial artery: 116 cm/s, phasicity: Triphasic. Dorsalis pedis artery: 61 cm/s, phasicity: Triphasic. 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 Left: Normal patency and waveforms. Electronically signed by: Benjie García MD 03/07/2025 02:59 PM EST Dictated By: Benjie Vance MD Signed By: <Electronically signed by Benjie Santana MDin OV> 03/07/25 1459 DD/ 1350 TD/TT: 03/07/25 1416 Load Planner: [facility] External Provider CV VASC ULAR PROCEDURES Edited Result - Final [facility] [address] [place] [phone] * (ABNORMAL) POCT Hgb A1c (02/28/2025 1:59 PM EST) Only the most recent of2 resultswithin the time period is included. Hemoglobin A1C 8.0(A) 4.0 - 5.7 % QC Media Lot # [id number] Lot# Expiration Date 51,227 Blood 02/28/2025 1:59 PM EST Dawn Monroy MD POINT OF CARE TEST EN TER/EDIT ORDERABLES Final Result * POCT Glucose (02/28/2025 1:59 PM EST) Glucose Blood, POC 194 60 - 200 mg/dL QC Media Lot # [id number] Lot# Expiration Date 31,126 Blood Capillary blood specimen / Unknown 02/28/2025 1:59 PM EST Dawn Monroy MD POINT OF CARE TEST EN TER/EDIT ORDERABLES Final Result * Stress test with myocardial perfusion (02/21/2025 9:56 AM EDT) 02/21/2025 9:56 AM EDT Narrative [facility] - 02/23/2025 12:44 PM EDT [place] [address] Nuclear Medicine Report Signed Patient: Kenny Dowell MR#: M [id number] : 1955 Acct:[id number] Age/Sex: 69 / M ADM Date: 02/21/25 Loc: VickyCARD Attending Dr: Deonte Jones MD Ordering Physician: Deonte Jones MD Date of Service: 02/21/25 Procedure(s): NM cardiolite stress test Accession Number(s): [id number] cc: Dawn Almaguer MD; Deonte Jones MD Reason for Exam: R07.9 - Chest pain, unspecified EXERCISE MYOCARDIAL PERFUSION STUDY INDICATION: Chest pain TECHNIQUE: The patient was brought in for an exercise perfusion study on 02/21/2025. Patient performed exercise as per Sree protocol and was injected 35 mCi of sestamibi once target heart rate was achieved. Images were obtained using the SPECT gamma camera interlaced with the gating device. Images were obtained in supine position. Resting perfusion study was performed on 02/22/2025. Patient was administered 35 mCi of sestamibi intravenously at rest. Images were then obtained in supine position. Total DLP 140 mGy-cm. Images were processed with the software and compared side to side in short axis, horizontal long axis and vertical long axis views. FINDINGS: Raw aquisition reviewed. The stress perfusion study showed decreased tracer uptake in the basal part of inferior wall. With CT attenuation correction, there is improvement suggestive of diaphragmatic attenuation artifact. The gated study shows normal LV systolic function with calculated LVEF of 65%. LV cavity is normal in size. The gated study shows normal wall thickening and contraction of segments. Resting study shows decreased tracer uptake in the basal part of inferior wall. There is improvement with CT attenuation correction suggestive of diaphragmatic attenuation artifact. Gating at rest reveals normal wall motion with ejection fraction at 58%. The findings are consistent with fixed basal inferior defect, probably from diaphragmatic attenuation artifact. No clear reversible defects. NM/NM cardiolite stress test IMPRESSION: 1. Myocardial perfusion imaging study shows likely normal myocardial perfusion. 2. Gated LVEF is 65% during stress and 58% during rest. 3. Transient ischemic dilatation not present. EKG component of the test reported separately. Electronically signed by: Brian Menchaca MD 02/23/2025 12:41 PM EDT Dictated By: Brian Menchaca MD Signed By: <Electronically signed by Brian Menchaca MD in OV> 02/23/25 1241 DD/ 0956 TD/TT: 02/22/25 1200 Load Planner: Procedure Note Donotuseinterpreter, Image - 02/23/[address] [address] Nuclear Medicine Report Signed Patient: Tamika Dowell#: M [id number] : 6Acct:[id number] Age/Sex: 69 / MADM Date: 02/21/25 Loc: .[facility] Attending Dr: Deonte Jones MD Ordering Physician: Deonte Jones MD Date of Service: 02/21/25 Procedure(s): WA cardiolite stress test Accession Number(s): [id number] cc: Dawn Almaguer MD; Deonte Jones MD Reason for Exam: R07.9 - Chest pain, unspecified EXERCISE MYOCARDIAL PERFUSION STUDY INDICATION: Chest pain TECHNIQUE: The patient was brought in for an exercise perfusion study on 02/21/2025. Patient performed exercise as per Sree protocol and was injected 35 mCi of sestamibi once target heart rate was achieved. Images were obtained using the SPECT gamma camera interlaced with the gating device. Images were obtained in supine position. Resting perfusion study was performed on 02/22/2025. Patient was administered 35 mCi of sestamibi intravenously at rest. Images were then obtained in supine position. Total DLP 140 mGy-cm. Images were processed with the software and compared side to side in short axis, horizontal long axis and vertical long axis views. FINDINGS: Raw aquisition reviewed. The stress perfusion study showed decreased tracer uptake in the basal part of inferior wall. With CT attenuation correction, there is improvement suggestive of diaphragmatic attenuation artifact. The gated study shows normal LV systolic function with calculated LVEF of 65%. LV cavity is normal in size. The gated study shows normal wall thickening and contraction of segments. Resting study shows decreased tracer uptake in the basal part of inferior wall. There is improvement with CT attenuation correction suggestive of diaphragmatic attenuation artifact. Gating at rest reveals normal wall motion with ejection fraction at 58%. The findings are consistent with fixed basal inferior defect, probably from diaphragmatic attenuation artifact. No clear reversible defects. WA/WA cardiolite stress test IMPRESSION: 1. Myocardial perfusion imaging study shows likely normal myocardial perfusion. 2. Gated LVEF is 65% during stress and 58% during rest. 3. Transient ischemic dilatation not present. EKG component of the test reported separately. Electronically signed by: Brian Menchaca MD 02/23/2025 12:41 PM EDT Dictated By: Brian Menchaca MD Signed By: <Electronically signed by Brian Menchaca MD inOV> 02/23/25 1241 DD/ 0956 TD/TT: 02/22/25 1200 Load Planner: us [facility] External Provider CV STRE SS PROCEDURES Final Result Performing Organization Address [facility]/ZIP Co de Phone Number [facility] [address] [place] [phone] * Albumin, Random Urine W/Creatinine (01/19/2025 9:30 AM EDT) Creatinine, Urine 140.10 mg/dL [facility] Microalbumin Urine 20.0 mg/L [facility] Microalbum Creatinine Ratio Ur 14.2 <30 ug/mg cr [facility] Comment:Albumin/Creatinine R atio Reference Ranges: Normal: < 30 ug/mg creatinine Microalbuminuria: 30 - 300 ug/mg creatinineClinical Albuminuria: > 300 ug/mg creatinine Urine (Urine, Random) 01/19/2025 9:30 AM EDT 01/19/2025 11:43 AM EDT Dawn Monroy MD LAB URINE ORDERABLES Final Result Performing Organization Address [facility] Co de Phone Number [facility] [address] [place] [phone] * (ABNORMAL) Hemoglobin A1c (01/19/2025 9:30 AM EDT) Hemoglobin A1c 8.7(H) <6.0 % [facility] Comment:Hemoglobin A1C Refer ence Range Adults: 4.8 - 6.0 % Non diabetic: < 6.0 % Goal: < 7.0 %Additional Action Suggested: > 8.0 %Note: Hemoglobin A1c results are invalid for patients with abnormal amounts of HbF. Blood transfusions may impact the HbA1c concentration in the patient sample. Estimated Average Glucose 203 mg/dL [facility] Comment:eAG = Estimated ave rage glucose which is %A1C expressed asaverage glucose, using the formula of the [id number] Glucose study (ADAG), Diabetes Care, Vol.31,#8,2007 01/19/2025 9:30 AM EDT 01/19/2025 11:28 AM EDT us Generic External Data Provider LAB BLOOD ORDERAB LES Final Result Performing Organization Address [facility]/ZIP Co de Phone Number [facility] [address] [place] [phone] * Hepatic Function Panel (01/19/2025 9:30 AM EDT) Bilirubin, Direct 0.3 0.0 - 0.5 mg/dL [facility] Blood Venous blood specimen / Unknown 01/19/2025 9:30 AM EDT 01/19/2025 11:21 AM EDT us Dawn Monroy MD LAB BLOOD ORDERABLES Final Result Performing Organization Address [facility] Co de Phone Number [facility] [address] [place] [phone] * (ABNORMAL) Lipid Panel, Standard (01/19/2025 9:30 AM EDT) Triglycerides 64 <150 mg/dL [facility] Comment:Desirable Triglyceri de: less than 150 mg/dLBorderline High Triglyceride 150-199 mg/dLHigh Triglyceride: 200-499 mg/dLVery High Triglyceride: greater than or equal to 5OO mg/dL Cholesterol 94 <200 mg/dL [facility] Comment:Desirable Cholestero l: less than 200 mg/dLBorderline High Cholesterol: 200-239 mg/dLHigh Cholesterol: greater than 239 mg/dL LDL Cholesterol Calculated 50 <100 mg/dL [facility] Comment:Desirable LDL: less than 100 mg/dLNear Optimal/Above Optimal LDL: 110- 129 mg/dLBorderline High LDL: 130-159 mg/dLHigh LDL: 160-189 mg/dLVery High LDL: greater than or equal to 190 mg/dL HDL Cholesterol 32(L) >40 mg/dL [facility] Comment:Desirable HDL: great er than 40 mg/dL Note: This HDL assay may give artificially low results in patients with liver disease. Blood Venous blood specimen / Unknown 01/19/2025 9:30 AM EDT 01/19/2025 11:21 AM EDT us Dawn Monroy MD LAB BLOOD ORDERABLES Final Result [facility] [address] [place] [address] [phone] * (ABNORMAL) Comprehensive Metabolic Panel (01/19/2025 9:30 AM EDT) Sodium 144 135 - 145 mmol/L [facility] Potassium 4.5 3.3 - 5.1 mmol/L [facility] Chloride 109(H) 96 - 108 mmol/L [facility] Carbon Dioxide 27 22 - 29 mmol/L [facility] Anion Gap 13 12 - 20 [facility] Urea Nitrogen (BUN) 21(H) 9 - 16 mg/dL [facility] Creatinine, Serum 1.26 0.5 - 1.4 mg/dL [facility] Estimated Glomerular Filt Rate 57 [facility] Comment:Chronic Kidney Disea se: Estimated GFR < 60 mL/min/1.62a5Xdtted Kidney Disease: Estimated GFR < 15 mL/min/1.73m2 Glucose 125(H) 60 - 115 mg/dL [facility] Calcium 8.8 8.4 - 10.2 mg/dL [facility] Bilirubin, Total 0.7 0.0 - 1.0 mg/dL [facility] Aspartate Amino Transferase 40(H) 5 - 37 U/L [facility] Alanine Aminotransferase 23 0 - 40 U/L [facility] Total Protein 7.7 6.5 - 8.0 g/dL [facility] Albumin Level 4.1 3.5 - 5.0 g/dL [facility] Alkaline Phosphatase 58 39 - 117 U/L [facility] Blood Venous blood specimen / Unknown 01/19/2025 9:30 AM EDT 01/19/2025 11:21 AM EDT us Dawn Monroy MD LAB BLOOD ORDERABLES Final Result [facility] [address] [place] [phone] * XR Chest 2 Views (12/30/2024 10:34 AM EDT) Anatomical Region Laterality Modality Chest Radiographic Ale ging 12/30/2024 10:3 4 AM EDT Narrative 12/30/2024 10:59 AM EDT [address] [address] XRay Report Signed Patient: Kenny Dowell MR#: Kassi [id number] : 1955 Acct:[id number] Age/Sex: 69 / M ADM Date: 12/30/24 Loc: HO.SAHRAAY Attending Dr: Deonte Jones MD Ordering Physician: Deonte Jones MD Date of Service: 12/30/24 Procedure(s): XR chest 2V Accession Number(s): [id number] cc: Dawn Almaguer MD; Deonte Jones MD [...] 12/30/24 1056 DD/ 1034 TD/TT: 12/30/24 1047 Load Planner: Procedure Note Donotuseinterpreter, Image - 12/30/[address] [address] XRay Report Signed Patient: Tamika Dowell#: [id number] : 6Acct:[id number] Age/Sex: 69 / MADM Date: 12/30/24 Loc: HO.XRAY Attending Dr: Deonte Jones MD Ordering Physician: Deonte Jones MD Date of Service: 12/30/24 Procedure(s): XR chest 2V Accession Number(s): [id number] cc: Dawn Almaguer MD; Deonte Jones MD [...] 12/30/2024 10:56 AM EDT Dictated By: Camron Lbaoy MD Signed By: <Electronically signed by Camron Laboy MD in OV> 12/30/24 1056 DD/ 1034 TD/TT: 12/30/24 1047 Load Planner: [facility] External Provider IMG XR PROCEDURES Final Result * B Type Natriuretic Peptide (BNP) (12/30/2024 10:32 AM EDT) B Type Natriuretic Peptide 63 <100 pg/mL [facility] 12/30/2024 10:3 2 AM EDT 12/30/2024 10:32 AM EDT Generic External Data Provider LAB BLOOD ORDERAB LES Final Result Performing Organization Address [facility] Co de Phone Number [facility] [address] [place] [address] [phone] * (ABNORMAL) Basic Metabolic Panel (12/30/2024 10:32 AM EDT) Sodium 143 135 - 145 mmol/L [facility] Potassium 5.2(H) 3.3 - 5.1 mmol/L [facility] Chloride 111(H) 96 - 108 mmol/L [facility] Carbon Dioxide 26 22 - 29 mmol/L [facility] Anion Gap 11(L) 12 - 20 [facility] Urea Nitrogen (BUN) 28(H) 9 - 16 mg/dL [facility] Creatinine, Serum 1.52(H) 0.5 - 1.4 mg/dL [facility] Estimated Glomerular Filt Rate 46 [facility] Comment:Chronic Kidney Disea se: Estimated GFR < 60 mL/min/1.30m2Ltzhjf Kidney Disease: Estimated GFR < 15 mL/min/1.73m2 Glucose 165(H) 60 - 115 mg/dL [facility] Calcium 9.4 8.4 - 10.2 mg/dL [facility] 12/30/2024 10:3 2 AM EDT 12/30/2024 10:32 AM EDT Generic External Data Provider LAB BLOOD ORDERAB LES Final Result Performing Organization Address [facility]/ZIP Co de Phone Number [facility] [address] [place] [address] [phone] * Hm Colonoscopy (08/19/2017) Pathologist [facility] [place] Colonoscopy Normal Normal Narrative Carolynn Mary - 08/19/2017 Recommended 10 years. See see notes in Fovea . Hm Colonoscopy order added Historical Provider HEALTH MAINTENANCE Final Result from Last 3 Months or Most Recently Relevant to Health Maintenance Insurance [facility] OPTIONS (HMO D-SNP) Care Teams Public Housing Manager Relationship Specialty Start Date End Date Dawn Almaguer MD [address] [place] [address] PCP - General Family Medicine 02/25/18 Delia Mast, LivierD [address] [place] [address] Pharmacist Internal Medicine 03/15/24 Citlaly 05/06/24
--- OUTSIDE RECORDS SUMMARY | 2025-03-07 15:07 | XMS_ITS | Clinical Summary ---
Author Organization 175 [facility] Address [address] [place] [address] Phone Care Team Providers Care Eeler Name Role Phone Dawn Almaguer MD Primary Care Provide r Medical History Medical History Date Comments HTN (hypertension) 03/17/2013 DX:HTN (hyper tension) Historical Medical DX 03/17/2013 DX:Hyperli pidemia LDL goal < 70 DM2 (diabetes mellitus, type 2) (CMS/[facility] V24, CMS/[facility] V28) 03/17/2013 DX:DM2 (diabetes mellitus, type 2) ([facility]) Paroxysmal A-fib (CMS/HCC V2 4, CMS/HCC V28) 03/17/2013 DX:Paroxysmal A-fib ([facility]) Venous insufficiency 03/17/2013 DX:Venous i nsufficiency; [...] Upcoming Encounters Date Type Department Care Team ([facility] Contact Info) Description 03/31/2025 2:15 PM EST Consult Orthopedic Surgery - [place] [address] [phone] Nate Marina, DPM [address] [phone] Health Maintenance Due Date Last [...] patient's age to complete this topic [place] [id number] [employer] MEDICARE Member Subscriber Plan / Payer (Ef fective 2023-Present) Name:KENNY BRADSHAW Relation to Subscriber:Self Name:Kenny Delaney Payer ID:[id number] Group ID:[id number] Type:Not on file Address: [place] [address] [address] [address] Care Teams Eeler Relationship Specialty Start Date End Date Dawn Almaguer MD [address] [place] [phone] PCP - General Internal Medicine 12/01/24
--- OUTSIDE RECORDS SUMMARY | 2025-03-07 15:07 | XMS_ITS | Encounter Summary ---
Author Organization [employer] Address 75 [facility] 7t [place] [address] Care Team Providers Care Learning Officer Name Role Phone Dawn Almaguer MD Primary Care Provide r Delia Mast PharmD Unavailable [phone]- [phone] Encounter Details Date Type Department Care Team ([facility] Contact Info) Description 07/14/2023 Orders Only [facility] MED & PEDS [address], [place] [phone] Bhumika Timmons FNP [address] [place] [address] Type 2 diabetes mellitus with hyperglycemia, with long-term current use of insulin ([facility]) Social History Tobacco Use Types [...] Description 03/28/2025 2:30 PM EST Medication Management [facility] MEDICINE [address] [place] [address] Delia Mast, PharmD [address] [place] [address] documented as of this encounter Procedures Procedure Name Priority Date/Time Associated Diagnosis Comments URINALYSIS, COMPLETE, WITH REFLEX TO CULTURE Routine 10/24/2023 4:59 PM EDT Type 2 diabetes mellitus with hyperglycemia, with long-term current use of insulin ([facility]) HIGH SENSITIVITY TROPONIN I Routine 10/24/2023 3:23 PM EDT Type 2 diabetes mellitus with hyperglycemia, with long-term current use of insulin ([facility]) SARS COV2/INFLUENZA A/B AND RSV RNA QL NAAT Routine 10/24/2023 3:23 PM EDT Type 2 diabetes mellitus with hyperglycemia, with long-term current use of insulin ([facility]) CBC WITH AUTO DIFFERENTIAL Routine 10/24/2023 3:23 PM EDT Type 2 diabetes mellitus with hyperglycemia, with long-term current use of insulin ([facility]) MAGNESIUM Routine 10/24/2023 3:23 PM EDT Type 2 diabetes mellitus with hyperglycemia, with long-term current use of insulin ([facility]/HCC) LIPASE Routine 10/24/2023 3:23 PM EDT Type 2 diabetes mellitus with hyperglycemia, with long-term current use of insulin (CMS/HCC) COMPREHENSIVE METABOLIC PANEL Routine 10/24/2023 3:23 PM EDT Type 2 diabetes mellitus with hyperglycemia, with long-term current use of insulin (CMS/[facility]) HIGH SENSITIVITY TROPONIN I Routine 10/23/2023 2:37 PM EDT Type 2 diabetes mellitus with hyperglycemia, with long-term current use of insulin (CMS/[facility]) CBC WITH AUTO DIFFERENTIAL Routine 10/23/2023 2:37 PM EDT Type 2 diabetes mellitus with hyperglycemia, with long-term current use of insulin ([facility]) LIPASE Routine 10/23/2023 2:37 PM EDT Type 2 diabetes mellitus with hyperglycemia, with long-term current use of insulin (CMS/[facility]) HEPATIC FUNCTION PANEL Routine 2:37 PM EDT Type 2 diabetes mellitus with hyperglycemia, with long-term current use of insulin (CMS/[facility]) BASIC METABOLIC PANEL Routine 10/23/2023 2:37 PM EDT Type 2 diabetes mellitus with hyperglycemia, with long-term current use of insulin (CMS/[facility]) URINALYSIS, COMPLETE, WITH REFLEX TO CULTURE Routine 10/23/2023 2:32 PM EDT Type 2 diabetes mellitus with hyperglycemia, with long-term current use of insulin ([facility]) documented in this encounter Results * (ABNORMAL) Urinalysis, Complete, with Reflex to Culture (10/24/2023 4:59 PM EDT) Color Urine Yellow [facility] Appearance Urine Clear [facility] PH 5.5 5.0 - 9.0 [facility] Glucose Urine UA >=1000(A) Negative mg/dL [facility] Urine Blood Negative Negative [facility] Specific Willow - Urine >=1.030(H) 1.005 - 1.025 [facility] Urine Protein Negative Neg-Trace mg/dL [facility] Urine Ketones Negative Negative mg/dL [facility] Nitrite Urine Negative Negative [facility] Leukocyte Esterase Urine Negative Negative [facility] RBC Urine 0-2 0 - 2 /HPF [facility] Urine WBC 0-5 0 - 5 /HPF [facility] Urine Squamous Epithelial Cell 0-2 0 - 2 /HPF [facility] Urine Bacteria None Seen None Seen [facility] Hyaline Casts, Urine 0-2 0 - 2 /LPF [facility] 10/24/2023 4:59 PM EDT 10/24/2023 5:01 PM EDT Narrative [facility] - 10/24/2023 5:45 PM EDT [id number], Clean Catch us Generic External Data Provider LAB URINE ORDERAB LES Final Result Performing Organization Address [facility] Co de Phone Number [facility] [address] [place] [phone] * High Sensitivity Troponin I (10/24/2023 3:23 PM EDT) TROPONIN I HIGH SENSITIVITY 4.9 <3.5 - 35.0 ng/L [facility] Comment:The Neal high sens itivity Troponin-I results should beused in conjunction with other diagnostic information suchas ECG, clinical observations and information, and patientsymptoms to aid in the diagnosis of IA. 10/24/2023 3:23 PM EDT 10/24/2023 5:30 PM EDT us Generic External Data Provider LAB BLOOD ORDERAB LES Final Result Performing Organization Address [facility]/ZIP Co de Phone Number [facility] [address] [place] [phone] * Lipase (10/24/2023 3:23 PM EDT) Lipase 54 8 - 78 U/L [facility] 10/24/2023 3:23 PM EDT 10/24/2023 3:26 PM EDT Generic External Data Provider LAB BLOOD ORDERAB LES Final Result Performing Organization Address City/[facility]/ZIP Co de Phone Number [facility] [address] [place] [address] [phone] * SARS-CoV-2 RNA, Influenza A/B, and RSV RNA, Ql NAAT (10/24/2023 3:23 PM EDT) Influenza A PCR NEGATIVE Negative [facility] Influenza B PCR NEGATIVE Negative [facility] Resp Syncy Virus RNA Qual PCR NEGATIVE Negative [facility] SARS COV2 PCR NEGATIVE Negative [facility] Comment:All test results mus t [...] use by authorized laboratories.Testing performed on the [employer] GeneXpert utilizingreal-time RT-PCR.All SARS CoV2 and positive influenza A/B results arereported to [facility]. 10/24/2023 3:23 PM EDT 10/24/2023 3:26 PM EDT Generic External Data Provider LAB MICROBIOLOGY - GENERAL ORDERABLES Final Result Performing Organization Address City/[facility]/ZIP Co de Phone Number [facility] [address] [place] [phone] * Magnesium (10/24/2023 3:23 PM EDT) Magnesium 1.9 1.6 - 2.6 mg/dL [facility] 10/24/2023 3:23 PM EDT 10/24/2023 3:26 PM EDT us Generic External Data Provider LAB BLOOD ORDERAB LES Final Result [facility] [address] [place] [address] [phone] * (ABNORMAL) Comprehensive Metabolic Panel (10/24/2023 3:23 PM EDT) Sodium 140 135 - 145 mmol/L [facility] Potassium 4.5 3.3 - 5.1 mmol/L [facility] Chloride 107 96 - 108 mmol/L [facility] Carbon Dioxide 22 22 - 29 mmol/L [facility] Anion Gap 16 12 - 20 [facility] Urea Nitrogen (BUN) 37(H) 9 - 16 mg/dL [facility] Creatinine, Serum 1.94(H) 0.5 - 1.4 mg/dL [facility] Creatinine Clr Calc Pharmacy 46.1 [facility] Comment:eGFR (calculated fro m the MDRD study equation) and eCrCl(calculated from the Cockcroft-Gault equation) are based ondifferent parameters and may not yield comparable results.If eCrCl result is absurd, please check patient'sheight/weight. Estimated Glomerular Filt Rate 35 [facility] Comment:NOTE: For -Am erican individuals, multiply the result by 1.210.Chronic Kidney Disease: Estimated GFR < 60 mL/min/1.45b5Vetltr Kidney Disease: Estimated GFR < 15 mL/min/1.73m2 Glucose 266(H) 60 - 115 mg/dL [facility] Calcium 9.2 8.4 - 10.2 mg/dL [facility] Bilirubin, Total 0.4 0.0 - 1.0 mg/dL [facility] Aspartate Amino Transferase 25 5 - 37 U/L [facility] Alanine Aminotransferase 20 0 - 40 U/L [facility] Total Protein 7.7 6.5 - 8.0 g/dL [facility] Albumin Level 3.9 3.5 - 5.0 g/dL [facility] Alkaline Phosphatase 54 39 - 117 U/L [facility] 10/24/2023 3:23 PM EDT 10/24/2023 3:26 PM EDT us Generic External Data Provider LAB BLOOD ORDERAB LES Final Result [facility] [address] [place] [phone] * (ABNORMAL) CBC auto differential (10/24/2023 3:23 PM EDT) White Blood Count 9.6 4.8 - 10.8 X10*3/uL [facility] Red Blood Count 4.15(L) 4.60 - 5.80 X10*6/uL [facility] Hemoglobin 12.6(L) 14.0 - 18.0 g/dl [facility] Hematocrit 37.7(L) 42.0 - 52.0 % [facility] Mean Corpuscular Volume 90.8 80.0 - 98.0 fL [facility] Mean Corpuscular Hemoglobin 30.4 27.0 - 33.0 pg [facility] Mean Corpuscular HGB Conc 33.4 31.0 - 36.0 g/dl [facility] Red Cell Distribution Width 14.7 11.0 - 16.0 % [facility] Platelet Count 202 160 - 400 X10*3/uL [facility] Mean Platelet Volume 10.9 9.4 - 12.4 fL [facility] Neutrophils Percent Auto 57.9 45 - 73 % [facility] Imm Gran Pct Auto 0.2 0.0 - 0.4 % [facility] Lymphocytes Percent Auto 26.7 20 - 40 % [facility] Monocytes Percent Auto 9.2 2 - 11 % [facility] Eosinophils Percent Auto 5.1(H) 0 - 4 % [facility] Basophils Percent Auto 0.9 0 - 2 % [facility] NRBC Pct Auto 0.0 0.0 - 0.2 /100WBC [facility] Neutrophils Absolute Auto 5.6 2.0 - 8.3 x10*3/uL [facility] Imm Gran Abs Auto 0.02 0.00 - 0.03 X10*3/uL [facility] Lymphocytes Absolute Auto 2.6 1.2 - 4.9 X10*3/uL [facility] Monocytes Absolute Auto 0.9 0.1 - 1.2 X10*3/uL [facility] Eosinophils Absolute Auto 0.5(H) 0.0 - 0.4 X10*3/uL [facility] Basophils Absolute Auto 0.1 0.0 - 0.2 X10*3/uL [facility] NRBC Abs Auto 0.000 0.0 - 0.012 X10*3/uL [facility] 10/24/2023 3:23 PM EDT 10/24/2023 3:26 PM EDT us Generic External Data Provider LAB BLOOD ORDERAB LES Final Result [facility] [address] [place] [phone] * High Sensitivity Troponin I (10/23/2023 2:37 PM EDT) TROPONIN I HIGH SENSITIVITY 4.9 <3.5 - 35.0 ng/L [facility] Comment:The Neal high sens itivity Troponin-I results should beused in conjunction with other diagnostic information suchas ECG, clinical observations and information, and patientsymptoms to aid in the diagnosis of IA. 10/23/2023 2:37 PM EDT 10/23/2023 2:40 PM EDT us Generic External Data Provider LAB BLOOD ORDERAB LES Final Result Performing Organization Address City/[facility]/ZIP Co de Phone Number [facility] [address] [place] [phone] * Lipase (10/23/2023 2:37 PM EDT) Lipase 64 8 - 78 U/L [facility] 10/23/2023 2:37 PM EDT 10/23/2023 2:40 PM EDT Generic External Data Provider LAB BLOOD ORDERAB LES Final Result Performing Organization Address [facility] Co de Phone Number [facility] [address] [place] [phone] * (ABNORMAL) Basic Metabolic Panel (10/23/2023 2:37 PM EDT) Pathologist [facility] Sodium 140 135 - 145 mmol/L [facility] Potassium 4.3 3.3 - 5.1 mmol/L [facility] Chloride 107 96 - 108 mmol/L [facility] Carbon Dioxide 19(L) 22 - 29 mmol/L [facility] Anion Gap 18 12 - 20 [facility] Urea Nitrogen (BUN) 40(H) 9 - 16 mg/dL [facility] Creatinine, Serum 2.12(H) 0.5 - 1.4 mg/dL [facility] Creatinine Clr Calc Pharmacy 43.0 [facility] Comment:eGFR (calculated fro m the MDRD study equation) and eCrCl(calculated from the Cockcroft-Gault equation) are based ondifferent parameters and may not yield comparable results.If eCrCl result is absurd, please check patient'sheight/weight. Estimated Glomerular Filt Rate 31 [facility] Comment:NOTE: For -Am erican individuals, multiply the result by 1.210.Chronic Kidney Disease: Estimated GFR < 60 mL/min/1.03y5Rmpnjl Kidney Disease: Estimated GFR < 15 mL/min/1.73m2 Glucose 293(H) 60 - 115 mg/dL [facility] Calcium 9.5 8.4 - 10.2 mg/dL [facility] 10/23/2023 2:37 PM EDT 10/23/2023 2:40 PM EDT Generic External Data Provider LAB BLOOD ORDERAB LES Final Result Performing Organization Address [facility] de Phone Number [facility] [address] [place] [phone] * Hepatic Function Panel (10/23/2023 2:37 PM EDT) [facility] Bilirubin, Total 0.6 0.0 - 1.0 mg/dL [facility] Bilirubin, Direct 0.2 0.0 - 0.5 mg/dL [facility] Aspartate Amino Transferase 29 5 - 37 U/L [facility] Alanine Aminotransferase 22 0 - 40 U/L [facility] Total Protein 7.8 6.5 - 8.0 g/dL [facility] Albumin Level 3.9 3.5 - 5.0 g/dL [facility] Alkaline Phosphatase 54 39 - 117 U/L [facility] 10/23/2023 2:37 PM EDT 10/23/2023 2:40 PM EDT Generic External Data Provider LAB BLOOD ORDERAB LES Final Result Performing Organization Address [facility] de Phone Number [facility] [address] [place] [phone] * (ABNORMAL) CBC auto differential (10/23/2023 2:37 PM EDT) [facility] White Blood Count 9.7 4.8 - 10.8 X10*3/uL [facility] Red Blood Count 4.13(L) 4.60 - 5.80 X10*6/uL [facility] Hemoglobin 12.6(L) 14.0 - 18.0 g/dl [facility] Hematocrit 38.0(L) 42.0 - 52.0 % [facility] Mean Corpuscular Volume 92.0 80.0 - 98.0 fL [facility] Mean Corpuscular Hemoglobin 30.5 27.0 - 33.0 pg [facility] Mean Corpuscular HGB Conc 33.2 31.0 - 36.0 g/dl [facility] Red Cell Distribution Width 14.5 11.0 - 16.0 % [facility] Platelet Count 195 160 - 400 X10*3/uL [facility] Mean Platelet Volume 10.5 9.4 - 12.4 fL [facility] Neutrophils Percent Auto 60.7 45 - 73 % [facility] Imm Gran Pct Auto 0.3 0.0 - 0.4 % [facility] Lymphocytes Percent Auto 23.8 20 - 40 % [facility] Monocytes Percent Auto 10.9 2 - 11 % [facility] Eosinophils Percent Auto 3.5 0 - 4 % [facility] Basophils Percent Auto 0.8 0 - 2 % [facility] NRBC Pct Auto 0.0 0.0 - 0.2 /100WBC [facility] Neutrophils Absolute Auto 5.9 2.0 - 8.3 x10*3/uL [facility] Imm Gran Abs Auto 0.03 0.00 - 0.03 X10*3/uL [facility] Lymphocytes Absolute Auto 2.3 1.2 - 4.9 X10*3/uL [facility] Monocytes Absolute Auto 1.1 0.1 - 1.2 X10*3/uL [facility] Eosinophils Absolute Auto 0.3 0.0 - 0.4 X10*3/uL [facility] Basophils Absolute Auto 0.1 0.0 - 0.2 X10*3/uL [facility] NRBC Abs Auto 0.000 0.0 - 0.012 X10*3/uL [facility] 10/23/2023 2:37 PM EDT 10/23/2023 2:40 PM EDT us Generic External Data Provider LAB BLOOD ORDERAB LES Final Result [facility] [address] [place] [phone] * (ABNORMAL) Urinalysis, Complete, with Reflex to Culture (10/23/2023 2:32 PM EDT) Color Urine Yellow [facility] Appearance Urine Clear [facility] PH 5.0 5.0 - 9.0 [facility] Glucose Urine UA >=1000(A) Negative mg/dL [facility] Urine Blood Negative Negative [facility] Specific Willow - Urine 1.020 1.005 - 1.025 [facility] Urine Protein Negative Neg-Trace mg/dL [facility] Urine Ketones Negative Negative mg/dL [facility] Nitrite Urine Negative Negative [facility] Leukocyte Esterase Urine Negative Negative [facility] RBC Urine 0-2 0 - 2 /HPF [facility] Urine WBC 0-5 0 - 5 /HPF [facility] Urine Squamous Epithelial Cell 0-2 0 - 2 /HPF [facility] Urine Bacteria None Seen None Seen [facility] Hyaline Casts, Urine 0-2 0 - 2 /LPF [facility] 10/23/2023 2:32 PM EDT 10/23/2023 2:40 PM EDT Narrative [facility] - 10/23/2023 3:07 PM EDT Urine, Clean Catch us Generic External Data Provider LAB URINE ORDERAB LES Final Result [facility] [address] [place] [phone] documented in this encounter Visit Diagnoses Diagnosis Type 2 diabetes mellitus with hyperglycemia, with long-term current use of insulin (HCC) documented in this encounter Additional Health Concerns Assessment Noted Time PHQ-9 Depression Total Score: 0 07/01/19 24 1:29 PM EST documented as of this encounter Care Teams Learning Officer Relationship Specialty Start Date End Date Dawn Almaguer MD [address] [place] [address] PCP - General Family Medicine 02/25/18 Delia Mast PharmD [address] [place] [address] Pharmacist Internal Medicine 03/15/24 Citlaly 05/06/24 documented as of this encounter
--- OUTSIDE RECORDS SUMMARY | 2025-03-07 15:07 | XMS_ITS | Encounter Summary ---
Author Organization [employer] Address [address] [facility] 7t [place] [address] Care Team Providers Care Ceramics Instructor Name Role Phone Dawn Almaguer MD Primary Care Provide r Delia Mast PharmD Unavailable [phone]- [phone] Reason for Visit * Reason Comments Med Refill Encounter Details Date Type Department Care Team (Late st Contact Info) Description 07/14/2023 Refill [facility] [address] [place] [address] Bhumika Timmons FNP [address] [place] [address] Type 2 diabetes mellitus with hyperglycemia, with long-term current use of insulin ([facility]) Social History Tobacco Use Types [...] Description 03/28/2025 2:30 PM EST Medication Management [facility] [address] [place] [phone] Delia Mast PharmD [address] [place] [phone] documented as of this encounter Visit Diagnoses Diagnosis Type 2 diabetes mellitus with hyperglycemia, with long-term current use of insulin (HCC) documented in this encounter Additional Health Concerns Assessment Noted Time PHQ-9 Depression Total Score: 0 07/01/19 24 1:29 PM EST documented as of this encounter Care Teams Ceramics Instructor Relationship Specialty Start Date End Date Dawn Almaguer MD [address] [place] [phone] PCP - General Family Medicine 02/25/18 Delia Mast PharmD [address] [place] [phone] Pharmacist Internal Medicine 03/15/24 Citlaly 05/06/24 documented as of this encounter
--- OUTSIDE RECORDS SUMMARY | 2025-03-07 15:08 | XMS_ITS | Encounter Summary ---
Author Organization [employer] Address [address] [facility] 7[address] [place] [address] Care Team Providers Care Digital Media Analyst Name Role Phone Dawn Almaguer MD Primary Care Provide r Delia Mast PharmD Unavailable [phone] Encounter Details Date Type Department Care Team (Late Contact Info) Description 05/22/2022 Orders Only [facility]INE [address] [place] [address] Payton Qureshi MD [address] [place] [address] Type 2 diabetes mellitus with hyperglycemia, with long-term current use of insulin ([facility]) (Primary Dx) Social History Tobacco Use Types [...] Description 03/28/2025 2:30 PM EST Medication Management [facility] [address] [place] [address] Delia Mast PharmD [address] [place] [address] documented as of this encounter Visit Diagnoses Diagnosis Type 2 diabetes mellitus with hyperglycemia, with long-term current use of insulin (HCC)- Primary documented in this encounter Care Teams Digital Media Analyst Relationship Specialty Start Date End Date Dawn Almaguer MD [address] [place] [address] PCP - General Family Medicine 02/25/18 Delia Mast PharmD [address] [place] [address] Pharmacist Internal Medicine 03/15/24 Citlaly 05/06/24 documented as of this encounter
== END 2025-03-07 13:01 | disposition home or self-care (01) ==
LOC: HO.US 13:00
PROVIDERS: PCP Internal Medicine; Visit Provider Internal Medicine Cardiovascular Disease
DX: E11.51 Type 2 diabetes mellitus with diabetic peripheral angiopathy without gangrene (principal); E78.5 Hyperlipidemia, unspecified
CPT/HCPCS: 93925

== ENCOUNTER → 2025-03-07 13:02 | Outpatient (BNV) | payer OTHER, SELFPAY | PROVIDERS: PCP Internal Medicine; Visit Provider Radiology Diagnostic Radiology | DX: I73.9 Peripheral vascular disease, unspecified (principal) | CPT/HCPCS: 93925 ==

== ENCOUNTER 2025-04-04 13:01 | Outpatient (AMB) | payer OTHER, SELFPAY ==
--- NOTE | 2025-04-04 13:20 | A.OFFVIS_ITS ---
Intake Visit Reasons: 3m/Labs/UA/SET Intake Note: Patient presents today for 3 mo follow up Urology Medication: Tamsulosin Antibiotic Allergies: None Blood Thinners: None Labs done :01/19/25 HgbA1c :8.7 PVR: 0 ml's Security Consultant Required: Yes Security Consultant Language: Sorter [employer]umber Straightener Services: Security Consultant Present Security Consultant Name: Allyn Medina Accompanied by: Self / Same As Patient Allergies No Known Allergies Allergy (Mild, Verified 04/04/25 13:31) NKA Medication List - Last Reconciled 04/04/25 by ASAF Montoya-THUAN atorvastatin 80 mg PO DAILY cholecalciferol (vitamin D3) (Vitamin D3) 50 mcg PO DAILY clotrimazole-betamethasone 1-0.05 % 1 appl topical BID 4 weeks dabigatran etexilate 150 mg PO BID Held on 08/19/24. Instructions: Resume on 08/20/24. Hold today. Resume tomorrow. dronedarone (Multaq) 400 mg PO BID dulaglutide (Trulicity) 1.5 mg subcut QWEEK empagliflozin-metformin 12.5-1,000 mg (Synjardy) 1 tab PO BID flash glucose sensor (FreeStyle Monica 2 Sensor kit) As directed glipizide ER 10 mg PO BID insulin glargine (Lantus Solostar U-100 Insulin) 16 units subcut DAILY metoprolol tartrate 25 mg PO BID omeprazole 20 mg PO BID 90 days pen needle, diabetic (BD Ultra-Fine Mini Pen Needle) As directed tamsulosin (Flomax) 0.4 mg PO BEDTIME 90 days HPI Comments Details: Kenny is a Israeli-speaking 69-year-old male patient of Dr. Dom Monroy. He has a past medical history of diabetes, hypertension, and hyperlipidemia. He presents to the office today for follow-up renal cyst, lower urinary tract symptoms and phimosis. In discussion with the patient today reports to be doing and feeling well. He reports compliance with Flomax and betamethasone/ clotrimazole cream as prescribed. He reports although he continues to apply betamethasone/ clotrimazole cream he does continue with inability to retract foreskin phimosis is noted. The meatus is minimally visible. We did discuss dorsal slit procedure versus circumcision versus surveillance monitoring. We did also review most recent A1c results. And we discussed elevation and A1c in relation to healing process with potential surgical intervention for phimosis. Patient also with a history of renal cyst and has undergone imaging as noted and trended below: Renal U/S: 09/19 bilateral kidneys are normal in size and echotexture. There is a 2.3 cm 1.4 cm anechoic right renal cyst. Normal sonographic appearance of the left kidney per radiology report. MRI renal mass protocol 05/22 noted there is a 2.5 x 1.8 cm water signal intensi ty mass in the interpolar region of the right kidney without evidence of abnormal enhancement. Findings are consistent with a cyst. An additional 1.5 cm cyst is noted at the lower pole. No enhancing renal lesions are noted. The left kidney is unremarkable. There is no hydronephrosis. He reports to be happy with his current voiding parameters on 0.4 mg of Flomax daily. Recent A1c results were reviewed with the patient today as noted and trended below: A1c: 01/19 9.7, 07/20 8.1, 11/19 7.8, 01/20 8.7 PSA: 01/19 0.3, 11/19 0.3 We did discuss importance of management and diabetes for overall health and well-being. We discussed proceeding with circumcision verses dorsal slit procedure verses continuing with topical treatment. Risks and benefits of these treatment options were discussed. He otherwise denies incontinence, nocturia, hematuria, dysuria, foul smelling urine, changes to urinary stream, flank pain, fever, and or chills. We discussed at length management of diabetes for rosa sandoval near future circumcision. In office urinalysis results reviewed with the patient today. PVR 0ml's. All questions were answered. He otherwise offers no other issues or concerns at this time. [facility] Medical History Hypertension Paroxysmal atrial fibrillation Renal cyst GERD (gastroesophageal reflux disease) PVD (peripheral vascular disease) BPH (benign prostatic hyperplasia) Atrial fibrillation Hypercholesteremia Diabetes mellitus Surgical History Hx of transurethral resection of prostate History of laryngoscopy Hx of hand surgery History of esophagogastroduodenoscopy (EGD) Hx of colonoscopy Social History Household Members: None Housing: Apartment Patient Tobacco Use Status: Former Tobacco user service: No Review of Systems Const All systems reviewed & are unremarkable except as noted in HPI and below Physical Exam Const General: cooperative, healthy appearing, comfortable, no acute distress, well developed, alert and awake Orientation/consciousness: patient oriented x3 Limitations: language barrier HEENT Head: Yes normal to inspection, Yes normocephalic and Yes atraumatic Ears: hearing grossly normal bilaterally Eyes General: appearance normal, both eyes and all related structures Neck Neck: Yes normal visual inspection and Yes trachea midline Chest Chest palpation & inspection: normal inspection of the chest Resp Effort & Inspection: normal respiratory effort and able to speak in complete sentences Cardio Rate: regular rate GI Inspection: Yes normal to inspection General: Yes no CVA tenderness Back/Spine/Pelvis Back: no CVA tenderness Skin General skin exam: no rashes or lesions noted Neuro General: patient oriented x3 Extrem General: Yes normal to inspection Psych Appearance: grossly normal and well kempt Mental Status: mental status grossly normal Speech and movement: Normal speech and movement present and Clear speech present Affect: normal affect Attitude: cooperative Thought process: Normal thought process present Thought content: Normal thought content present Insight: Fair insight present (Psych) Judgement: Fair judgement present (Psych) Office Procedures Post Void Residual Post Residual Void Post Void Residual (PVR): 0 [id number] Void Residual by ultrasound Results AMB Urinalysis, Automated UA Leukoctes 0 Keaton/uL Last Edit by DEISI Germain on 04/04/25 13:28 UA Nitrite Negative Last Edit by DEISI Germain on 04/04/25 13:28 UA Urobilinogen 0.2 mg/dL Last Edit by DEISI Germain on 04/04/25 13:28 UA Protein 0 mg/dL Last Edit by Cris Junior [facility] on 04/04/25 13:28 UA pH 6.0 Last Edit by Cris Pacheco, [facility] on 04/04/25 13:28 UA Blood 0 Mj/uL Last Edit by Cris Pacheco, [facility] on 04/04/25 13:28 UA Specific [place]orne 1.015 Last Edit by Cris Pacheco, [facility] on 04/04/25 13:2 8 UA Ketone Negative Last Edit by Cris Pacheco, [facility] on 04/04/25 13:28 UA Bilirubin 0 mg/dL Last Edit by Cris Pacheco, [facility] on 04/04/25 13:28 UA Glucose 1000 mg/dL Last Edit by Cris Pacheco, [facility] on 04/04/25 13:28 Results Reviewed Results Reviewed: Laboratory Last Values Urine pH (Auto) 6.0 04/04/25 13:27 Specific [place] (Auto) 1.015 04/04/25 13:27 Urine Protein (Auto) 0 mg/dL 04/04/25 13:27 Glucose (UA)(Auto) 1000 mg/dL 04/04/25 13:27 Urine Ketones (Auto) Negative 04/04/25 13:27 Urine Blood (Auto) 0 Mj/uL 04/04/25 13:27 Urine Nitrite (Auto) Negative 04/04/25 13:27 Urine Bilirubin (Auto) 0 mg/dL 04/04/25 13:27 Urine Urobilinogen (Auto) 0.2 mg/dL 04/04/25 13:27 Leukocyte Esterase (Auto) 0 Keaton/uL 04/04/25 13:27 Assessment & Plan Assessment & Plan (1) Renal cyst: Code(s): N28.1 - Cyst of kidney, acquired Category: Medical (2) Phimosis: Code(s): N47.1 - Phimosis Category: Medical Plan In office urinalysis results reviewed with the patient today; as noted above. PVR 0 mLs. Recent A1c results were reviewed with the patient today; as noted above. Will continue with surveillance monitoring of right renal cyst. We did discussed further treatment options of phimosis to include surveillance monitoring verses circumcision verses dorsal slit procedure; risks and benefits of these interventions were discussed. All questions were answered. Continue Flomax as discussed and prescribed. Continue clotrimazole and betamethasone; refill provided Will obtain hemoglobin A1c in 3-6months. Will obtain renal ultrasound Follow up in 3-6 months with lab, imaging, and PVR to be completed prior; or sooner with any issues, concerns, and or questions. Orders: Orders AMB Post Void Residual by ultrasound Today N40.1 - Benign prostatic hyperplasia with lower urinary tract symptoms US retroperitoneal comp 3 Months N28.1 - Cyst of kidney, acquired, R39.9 - Unspecified symptoms and signs involving the genitourinary system Hemoglobin A1c 3 Months E11.9 - Type 2 diabetes mellitus without complications AMB Urinalysis Automated Today N13.8 - Other obstructive and reflux uropathy, N40.1 - Benign prostatic hyperplasia with lower urinary tract symptoms Patient Instructions: The patient had an opportunity to ask questions regarding the treatment plan. All questions were answered. Physical exam, labs, and imaging were discussed and reviewed in detail. As well as risks, benefits, and discussion of treatment choices. No major barriers to understanding were identified. The patient expressed understanding and agreement with the above treatment plan. The patient was made aware they should contact our office by phone for worsening of their current condition, the appearance of new symptoms, or with any questions or concerns. Compliance is encouraged with any medications and follow up testing that is ordered. It is a privilege to be allowed the opportunity to participate in? your urological care.? Again, if you have any questions or concerns If you have any questions or concerns please do not hesitate to contact me. The office is [phone]. This note is constructed using voice recognition software. While every effort has been made to ensure accuracy collection systems worker errors may have been included. Yours sincerely, MARYCARMEN Montoya Coding Level of Care Code Est Pt Level 3 (34211) Complex visit Add On G2211 Diagnoses Renal cyst N28.1 Phimosis N47.1 CPT Codes Post Residual Void - PVR CPT Code: 65170-Ieao Void Residual by ultrasound ([id number])
--- OUTSIDE RECORDS SUMMARY | 2025-04-04 21:47 | XMS_ITS | Encounter Summary ---
Author Organization [employer] Address [address] [facility] 7t [place] [address] Care Team Providers Care Sap Basis Architect Name Role Phone Dawn Almaguer MD Primary Care Provide r Delia Mast PharmD Unavailable [phone]- [phone] Reason for Visit * Reason Comments Med Refill Encounter Details Date Type Department Care Team (Late st Contact Info) Description 02/07/2024 Refill [facility] MEDICINE [address] [place], [place] [phone] Dawn Almaguer MD [address] [place], [place] [phone] Heartburn Social History Tobacco Use Types Packs/Day [...] Care Team (Late st Contact Info) Description 04/19/2025 2:00 PM EST Medication Management [facility] MEDICINE [address] [place] [phone] Delia Mast PharmD [address] [place] [phone] 06/02/2025 3:30 PM EST Office Visit [facility] [address] [place] [phone] Dawn Almaguer MD [address] [place] [phone] documented as of this encounter Visit Diagnoses Diagnosis Heartburn documented in this encounter Additional Health Concerns Assessment Noted Time PHQ-9 Depression Total Score: 0 07/01/19 24 1:29 PM EST documented as of this encounter Care Teams Sap Basis Architect Relationship Specialty Start Date End Date Dawn Almaguer MD [address] [place] [phone] PCP - General Family Medicine 02/25/18 Delia Mast, PharmD [address] [place] [address] Pharmacist Internal Medicine 03/15/24 Citlaly 05/06/24 documented as of this encounter
--- OUTSIDE RECORDS SUMMARY | 2025-04-04 21:47 | XMS_ITS | Encounter Summary ---
Author Organization [employer] Address [address] [facility] 7t [place] [address] Care Team Providers Care Commercial Collections Specialist Name Role Phone Dawn Almaguer MD Primary Care Provide r Delia Mast PharmD Unavailable [phone] Encounter Details Date Type Department Care Team (Late st Contact Info) Description 03/07/2025 Orders Only [place] [facility] [address] [place] [address] ProviderEden MD Social History Tobacco Use Types Packs/Day Years [...] Description 04/19/2025 2:00 PM EST Medication Management [facility] MED[facility] [address] [place] [phone] Delia Mast, PharmD [address] [place] [phone] 06/02/2025 3:30 PM EST Office Visit [facility] [address] [place] [phone] Dawn Almaguer MD [address] [place] [phone] documented as of this encounter Procedures Procedure Name Priority Date/Time Associated Diagnosis Comments COLOGUARD COLON CANCER SCREENING (EXTERNAL RESULTS ONLY) Routine 03/01/2025 3:07 PM EST documented in this encounter Results * Cologuard Cancer Screening (External Result Only) (03/01/2025 3:07 PM EST) Stool (Rectum) us Historical Provider POINT OF CARE TEST ENTER/ EDIT ORDERABLES Final Result documented in this encounter Visit Diagnoses Not on filedocumented in this encounter Additional Health Concerns Assessment Noted Time PHQ-9 Depression Total Score: 0 11/27/19 25 4:11 PM EDT documented as of this encounter Care Teams Commercial Collections Specialist Relationship Specialty Start Date End Date Dawn Almaguer MD [address] [place] [address] PCP - General Family Medicine 02/25/18 Delia Mast PharmD [address] [place] [address] Pharmacist Internal Medicine 03/15/24 Citlaly 05/06/24 documented as of this encounter
--- OUTSIDE RECORDS SUMMARY | 2025-04-04 21:47 | XMS_ITS | Clinical Summary ---
Author Organization [employer] Address [address] [facility] 7[address] [place] [address] Care Team Providers Care Desktop Engineer Name Role Phone Dawn Almaguer MD Primary Care Provide r Delia Mast PharmD Unavailable [phone] Allergies No known active allergies Medications atorvastatin [...] hyperglycemia, with long-term current use of insulin ([facility]) Use as needed for low blood sugar 45 g 11 024 Active empagliflozin-m etFORMIN (Synjardy) 12.5-1000 MGIndications:T ype 2 diabetes mellitus with hyperglycemia, with long-term current use of insulin ([facility]) Take 1 tablet by mouth with breakfast and with evening meal. 180 tablet 3 024 Active TRUEplus Lancets 33G miscIndications :Type 2 diabetes mellitus with hyperglycemia, with long-term current use of insulin ([facility]) Check blood sugar 3 times a day 100 each 11 025 Active metoprolol tartrate (Lopressor) 25 MG tabletIndicatio ns:Primary hypertension Take one half tablet by mouth twice daily 90 tablet 025 Active Continuous Glucose Technical Planner (FreeStyle Monica 3 Dickinson) device 1 each Once per day. Use as directed for CGM 1 each 025 Active Continuous Glucose Sensor (FreeStyle Monica 3 Plus Sensor) misc 1 each every 15 days. Apply 1 every 15 days as directed for CGM 2 each 03/29/20 25 1:44 PM EST 025 Active glucose blood (FreeStyle Precision Charan Test) test stripIndication s:Type 2 diabetes mellitus with hyperglycemia, with long-term current use of insulin ([facility]) Use to test blood sugar 2 times [...] BY MOUTH EVERY MORNING 90 capsule 1 03/15/20 25 1:36 PM EST 025 Active insulin pen needle (B-D UF III MINI PEN NEEDLES) 31G x 5 mm miscIndications :Type 2 diabetes mellitus with hyperglycemia, with long-term current use of insulin ([facility]) Use as instructed with insulin administration three times daily 100 each 3 03/30/20 25 3:14 PM EST 025 Active Tirzepatide (Mounjaro) 7.5 MG/0.5ML solution auto-injectorIn dications:Type 2 diabetes mellitus with hyperglycemia, with long-term current use of insulin ([facility]) Inject 7.5 mg under the skin 1 (one) time per week. 2 mL 2 03/09/20 25 2:32 PM EST 025 Active insulin glargine (Lantus SoloStar) 100 UNIT/ML penIndications: Type 2 diabetes mellitus with hyperglycemia, with long-term current use of insulin ([facility]) Inject subcutaneously 16 units once daily 15 mL 1 025 Active insulin lispro (HumaLOG KWIKPEN) 100 UNIT/ML injectionIndica tions:Type 2 diabetes mellitus with hyperglycemia, with long-term current use of insulin (HCC) Inject twice daily subcutaneously 4 units before breakfast and 8 units before dinner. Do not use if skipping meal. 15 mL 1 03/30/20 25 3:14 PM EST 025 Active insulin glargine (Lantus SoloStar) 100 UNIT/ML penIndications: Type 2 diabetes mellitus with hyperglycemia, with long-term current use of insulin (HCC) Inject subcutaneously 24 units once daily 15 mL 1 025 2024 Discontinued(R eorder (will not trigger notification to Pharmacy)) insulin lispro (HumaLOG KWIKPEN) 100 UNIT/ML injectionIndica tions:Type 2 diabetes mellitus with hyperglycemia, with long-term current use of insulin (HCC) Inject twice daily subcutaneously 4 units before breakfast and 10 units once daily before dinner. Do not use if skipping meal. 025 2024 Discontinued(R eorder (will not trigger notification to Pharmacy)) Active Problems Problem Noted Date Diagnosed Date [...] AM EST): Patient reports he went to [place] and forgot his insulin he stop using [...] to follow with cardiology, move practice to [facility] for convenience He is on Multaq 400mg [...] Encounters Date Type Department Care Team Description 03/30/2025 Orders Only [address] [address] Dawn Almaguer MD Type 2 diabetes mellitus with hyperglycemia, with long-term current use of insulin (HCC) (Primary Dx); Primary hypertension 03/30/[address] [address] Dawn Almaguer MD 03/29/2025 Travel 03/18/[address] [address] Dawn Almaguer MD feb recalls 03/11/[address] [address] Delia Mast PharmD 03/07/2025 Orders Only [facility] [address] [place] [phone] Eden Lopez MD 02/28/2025 1:45 PM EST Office Visit [address] [address] Dawn Almaguer MD Primary hypertension (Primary Dx); Type 2 diabetes mellitus with hyperglycemia, with long-term current use of insulin (HCC); Venous insufficiency; Paroxysmal A-fib (HCC); Diastolic dysfunction; Onychomycosis 02/28/[address] [address] Dawn Almaguer MD VIDEO GAME CREATOR Referral (The patient inquired on the status of a referral for VIDEO GAME CREATOR services. I informed his that a referral was faxed to [facility] on 11/30/24. I provided him with their phone number, and he agreed to call, to check the status of the referral.) 02/28/2025 Travel 02/22/2025 Travel 02/21/2025 Orders Only [facility] External Provider, [facility] 02/21/2025 Patient Outreach [facility] [address] [place] [address] Dawn Almaguer MD Pre-visit Planning ([facility] screening is completed) 01/28/2025 Travel 01/19/2025 Orders Only GENERIC EXTERNAL DATA DEPARTMENT Provider, Generic External Data 01/04/2025 Telephone [facility] [address] [place] [address] Dawn Almaguer MD NOV RECALL from Last 3 Months Immunizations Immunization Administration Dates Next Due Hep B, adult 12/21/2014,07/26/2014,06/14/2014 Influenza Quadrivalent Adjuvanted 01/17/2022 [facility] SARS-CoV-2 Vaccination 08/16/2020,2020 Pfizer Covid-19 Vaccine 12+ [...] housing situation today? I have riaz sing 02/10/[address] you li [...] Sign Reading Time Taken Comments Blood Pressure 110/58 03/29/2025 2:24 PM EST Pulse 65 03/29/2025 2:24 PM EST Temperature 36.2 C (97.1 F) [...] Description 04/19/2025 2:00 PM EST Medication Management [facility] [address] [place] [address] Delia Mast, PharmD [address] [place] [address] 06/02/2025 3:30 PM EST Office Visit [facility] [address] [place] [address] Dawn Almaguer MD [address] [place], [place] [phone] Health Maintenance Due Date Last Done Comments CT Colonography 1955 FIT 1955 Sigmoidoscopy 1955 Alcohol/Substance Use Screening 1967 [...] Additional history exists Tobacco Screening 02/28/2026 02/28/2025 FOBT 03/01/2026 03/01/2025 Eye Exam 09/28/2026 09/28/2024, 06/06/2024, 09/28/2024, Additional history exists DTaP/Tdap/Td Vaccines (3 - Td or Tdap) 06/04/2027 06/04/2017, 12/23/2011 Colonoscopy 08/20/2027 08/19/2017 Colorectal Cancer Screening 03/01/2028 FIT DNA/Cologuard 03/01/2028 03/01/2025, 03/01/2025 Hepatitis B Vaccines Completed 12/21/2014, 07/26/2014, 06/14/2014 [...] on patient's age to complete this topic Goals Goal Patient Goal Type Associated Problems Recent Progress Patient-Stated? Author Help patients manage their type 2 diabetes Care Plan Help patients manage their type 2 diabetes No Delia Mast, PharmD Weekly blood pressure task Care Plan Weekly blood pressure task No Delia Mast, PharmD Help patients manage their type 2 diabetes Care Plan Help patients manage their type 2 diabetes No Diallos-Starr Robledosa, PharmD Patient has chronic kidney disease Care Plan Patient has chronic kidney disease No Starr Mastsa, PharmD Weekly blood pressure task Care Plan Weekly blood pressure task No Delia Mast, PharmD Patient has chronic kidney disease Care Plan Patient has chronic kidney disease No Delia Mast, PharmD Weekly blood pressure task Care Plan Weekly blood pressure task No Yvette Kaur MA Weekly blood pressure task Care Plan Weekly blood pressure task No Yvette Kaur MA Patient has chronic kidney disease Care Plan Patient has chronic kidney disease No Yvette Kaur MA Patient has chronic kidney disease Care Plan Patient has chronic kidney disease No Yvette Kaur MA Weekly blood pressure task Care Plan Weekly blood pressure task No Delia Mast PharmD Weekly blood pressure task Care Plan Weekly blood pressure task No Delia Mast PharmRina Patient has chronic kidney disease Care Plan Patient has chronic kidney disease No Delia Mast PharmD Patient has chronic kidney disease Care Plan Patient has chronic kidney disease No Delia Mast PharmD Weekly blood pressure task Care Plan Weekly blood pressure task No Chantell Ritter Weekly blood pressure task Care Plan Weekly blood pressure task No Ritter, Chantell Patient has chronic kidney disease Care Plan Patient has chronic kidney disease No Stone Chantell Patient has chronic kidney disease Care Plan Patient has chronic kidney disease No Stone Chantell Weekly blood pressure task Care Plan Weekly blood pressure task No Dawn Almaguer MD Weekly blood pressure task Care Plan Weekly blood pressure task No Dawn Almaguer MD Patient has chronic kidney disease Care Plan Patient has chronic kidney disease No Dawn Almaguer MD Patient has chronic kidney disease Care Plan Patient has chronic kidney disease No Dawn Almaguer MD Procedures Procedure Name Priority Date/Time Associated Diagnosis Comments VASC US LOWER EXTREMITY ARTERIAL DUPLEX BILATERAL Routine 03/07/2025 1:50 PM EST COLOGUARD COLON CANCER SCREENING (EXTERNAL RESULTS ONLY) Routine 03/01/2025 3:07 PM EST POCT GLYCATED HEMOGLOBIN, TOTAL Routine [...] with long-term current use of insulin (CMS/HCC) HM COLONOSCOPY Routine 08/19/2017 from Last 3 Months or Most Recently Relevant to Health Maintenance Results * [facility] US Lower Extremity Arterial Duplex Bilateral (03/07/2025 1:50 PM EST) 03/07/2025 1:50 PM EST [facility] - 03/07/2025 3:[address] [address] Ultrasound Report Signed Patient: Kenny Dowell MR#: M [id number] : 1955 Acct:[id number] Age/Sex: 69 / M ADM Date: 03/07/25 Loc: HO.US Attending Dr: Deonte Jones MD Ordering Physician: Deonte Jones MD Date of Service: 03/07/25 Procedure(s): US arterial duplex LE BI Accession Number(s): [id number] cc: Dawn Almaguer MD; Deonte Jones MD [...] by Benjie Santana MD in OV> 03/07/25 7499 DD/ 1350 TD/TT: 03/07/25 1416 Product Safety And Standards Engineer: Procedure Note Donotuseinterpreter, Image - 03/07/[address] [address] Ultrasound Report Signed Patient: Tamika Dowell#: M [id number] : 6Acct:[id number] Age/Sex: 69 / MADM Date: 03/07/25 Loc: HO.US Attending Dr: Deonte Jones MD Ordering Physician: Deonte Jones MD Date of Service: 03/07/25 Procedure(s): US arterial duplex LE BI Accession Number(s): [id number] cc: Dawn Almaguer MD; Deonte Jones MD [...] 03/07/25 1459 DD/ 1350 TD/TT: 03/07/25 1416 Product Safety And Standards Engineer: [facility] External Provider CV VASC ULAR PROCEDURES Edited Result - Final [facility] [address] [place] [phone] * Cologuard Cancer Screening (External Result Only) (03/01/2025 3:07 PM EST) Stool (Rectum) Historical Provider POINT OF CARE TEST ENTER/ EDIT ORDERABLES Final Result * (ABNORMAL) POCT Hgb A1c (02/28/2025 1:59 PM EST) Hemoglobin A1C 8.0(A) 4.0 - 5.7 % QC Media Lot # [id number] Lot# Expiration Date Blood 02/28/2025 1:59 PM EST Dawn Monroy MD POINT OF CARE TEST EN TER/EDIT ORDERABLES Final Result * POCT Glucose (02/28/2025 1:59 PM EST) Glucose Blood, POC 194 60 - 200 mg/dL QC Media Lot # [id number] Lot# Expiration Date Blood Capillary blood specimen / Unknown 02/28/2025 1:59 PM EST Dawn Monroy MD POINT OF CARE TEST EN TER/EDIT ORDERABLES Final Result * Stress test with myocardial perfusion (02/21/2025 9:56 AM EDT) 02/21/2025 9:56 AM EDT Narrative [facility] - 02/23/2025 12:44 PM EDT [place] [address] Nuclear Medicine Report Signed Patient: Kenny Dowell MR#: M [id number] : 1955 Acct:[id number] Age/Sex: 69 / M ADM Date: 02/21/25 Loc: [facility] Attending Dr: Deonte Jones MD Ordering Physician: Deonte Jones MD Date of Service: 02/21/25 Procedure(s): NM cardiolite stress test Accession Number(s): [id number] cc: Dawn Almaguer MD; Deonte Jones MD [...] 02/23/25 1241 DD/ 0956 TD/TT: 02/22/25 1200 Product Safety And Standards Engineer: Procedure Note Donotuseinterpreter, Image - 02/23/[address] [address] Nuclear Medicine Report Signed Patient: Tamika Dowell#: M [id number] : 6Acct:[id number] Age/Sex: 69 / MADM Date: 02/21/25 Loc: HO.CARD Attending Dr: Deonte Jones MD Ordering Physician: Deonte Jones MD Date of Service: 02/21/25 Procedure(s): NM cardiolite stress test Accession Number(s): [id number] cc: Dawn Almaguer MD; Deonte Jones MD [...] 02/23/25 1241 DD/ 0956 TD/TT: 02/22/25 1200 Product Safety And Standards Engineer: us [facility] External Provider CV STRE SS PROCEDURES Final Result [facility] [address] [place] [phone] * Albumin, Random Urine W/Creatinine (01/19/2025 9:30 AM EDT) Creatinine, Urine 140.10 mg/dL [facility] Microalbumin Urine 20.0 mg/L H [facility] Microalbum Creatinine Ratio Ur 14.2 <30 ug/mg cr [facility] Comment:Albumin/Creatinine R atio Reference Ranges: Normal: < 30 ug/mg creatinine Microalbuminuria: 30 - 300 ug/mg creatinineClinical Albuminuria: > 300 ug/mg creatinine Urine (Urine, Random) 01/19/2025 9:30 AM EDT 01/19/2025 11:43 AM EDT us Dawn Monroy MD LAB URINE ORDERABLES Final Result Performing Organization Address [facility]/ZIP Co de Phone Number [facility] [address] [place] [phone] * (ABNORMAL) Hemoglobin A1c (01/19/2025 9:30 AM EDT) Hemoglobin A1c 8.7(H) <6.0 % [facility] Comment:Hemoglobin A1C Refer ence Range Adults: 4.8 - 6.0 % Non diabetic: < 6.0 % Goal: < 7.0 %Additional Action Suggested: > 8.0 %Note: Hemoglobin A1c results are invalid for patients with abnormal amounts of HbF. Blood transfusions may impact the HbA1c concentration in the patient sample. Estimated Average Glucose 203 mg/dL [facility] Comment:eAG = Estimated ave rage glucose which is %A1C expressed asaverage glucose, using the formula of the M3V-UywsjzwKwizocm Glucose study (ADAG), Diabetes Care, Vol.31,#8,Nov. 2007 01/19/2025 9:30 AM EDT 01/19/2025 11:28 AM EDT us Generic External Data Provider LAB BLOOD ORDERAB LES Final Result Performing Organization Address City/[facility]/ZIP Co de Phone Number [facility] [address] [place] [phone] * Hepatic Function Panel (01/19/2025 9:30 AM EDT) Bilirubin, Direct 0.3 0.0 - 0.5 mg/dL [facility] Blood Venous blood specimen / Unknown 01/19/2025 9:30 AM EDT 01/19/2025 11:21 AM EDT us Dawn Monroy MD LAB BLOOD ORDERABLES Final Result [facility] [address] [place] [phone] * (ABNORMAL) Lipid Panel, Standard (01/19/2025 9:30 AM EDT) Triglycerides 64 <150 mg/dL [facility] Comment:Desirable Triglyceri de: less than 150 mg/dLBorderline High Triglyceride 150-199 mg/dLHigh Triglyceride: 200-499 mg/dLVery High Triglyceride: greater than or equal to 5OO mg/dL Cholesterol 94 <200 mg/dL [facility] Comment:Desirable Cholestero l: less than 200 mg/dLBorderline High Cholesterol: 200-239 mg/dLHigh Cholesterol: greater than 239 mg/dL LDL Cholesterol Calculated 50 <100 mg/dL [facility] Comment:Desirable LDL: less than 100 mg/dLNear Optimal/Above Optimal LDL: 110- 129 mg/dLBorderline High LDL: 130-159 mg/dLHigh LDL: 160-189 mg/dLVery High LDL: greater than or equal to 190 mg/dL HDL Cholesterol 32(L) >40 mg/dL [facility] Comment:Desirable HDL: great er than 40 mg/dL Note: This HDL assay may give artificially low results in patients with liver disease. Blood Venous blood specimen / Unknown 01/19/2025 9:30 AM EDT 01/19/2025 11:21 AM EDT us Dawn Monroy MD LAB BLOOD ORDERABLES Final Result [facility] [address] [place] [phone] [phone] * (ABNORMAL) Comprehensive Metabolic Panel (01/19/2025 9:30 AM EDT) Sodium 144 135 - 145 mmol/L [facility] Potassium 4.5 3.3 - 5.1 mmol/L [facility] Chloride 109(H) 96 - 108 mmol/L [facility] Carbon Dioxide 27 22 - 29 mmol/L [facility] Anion Gap 13 12 - 20 [facility] Urea Nitrogen (BUN) 21(H) 9 - 16 mg/dL [facility] Creatinine, Serum 1.26 0.5 - 1.4 mg/dL [facility] Estimated Glomerular Filt Rate 57 [facility] Comment:Chronic Kidney Disea se: Estimated GFR < 60 mL/min/1.48x4Tsijen Kidney Disease: Estimated GFR < 15 mL/min/1.73m2 Glucose 125(H) 60 - 115 mg/dL [facility] Calcium 8.8 8.4 - 10.2 mg/dL [facility] Bilirubin, Total 0.7 0.0 - 1.0 mg/dL [facility] Aspartate Amino Transferase 40(H) 5 - 37 U/L [facility] Alanine Aminotransferase 23 0 - 40 U/L [facility] Total Protein 7.7 6.5 - 8.0 g/dL [facility] Albumin Level 4.1 3.5 - 5.0 g/dL [facility] Alkaline Phosphatase 58 39 - 117 U/L [facility] Blood Venous blood specimen / Unknown 01/19/2025 9:30 AM EDT 01/19/2025 11:21 AM EDT us Dawn Monroy MD LAB BLOOD ORDERABLES Final Result Performing Organization Address City/[facility]/ZIP Co de Phone Number [facility] [address] [place] [phone] * Colonoscopy (08/19/2017) Colonoscopy Normal Normal Narrative Carolynn Mary - 08/19/2017 Recommended 10 years. See see notes in Fovea . Colonoscopy order added us Historical Provider MD HEALTH MAINTENANCE Final Result from Last 3 Months or Most Recently Relevant to Health Maintenance Additional Health Concerns Active Problems Noted Date Diagnosed Date Help patients manage their type 2 diabetes 03/11 Weekly blood pressure task 03/11/2025 Help patients manage their type 2 diabetes 03/11 Patient has chronic kidney disease 03/11/2025 Weekly blood pressure task 03/11/2025 Patient has chronic kidney disease 03/11/2025 Weekly blood pressure task 03/18/2025 Weekly blood pressure task 03/18/2025 Patient has chronic kidney disease 03/18/2025 Patient has chronic kidney disease 03/18/2025 Weekly blood pressure task 03/29/2025 Weekly blood pressure task 03/29/2025 Patient has chronic kidney disease 03/29/2025 Patient has chronic kidney disease 03/29/2025 Weekly blood pressure task 03/30/2025 Weekly blood pressure task 03/30/2025 Patient has chronic kidney disease 03/30/2025 Patient has chronic kidney disease 03/30/2025 Weekly blood pressure task 03/30/2025 Weekly blood pressure task 03/30/2025 Patient has chronic kidney disease 03/30/2025 Patient has chronic kidney disease 03/30/2025 Insurance [facility] STANDARD [employer] [facility]ISTED OPTIONS (O D-SNP) Care Teams Desktop Engineer Relationship Specialty Start Date End Date Dawn Almaguer MD [address] [place] [address] PCP - General Family Medicine 02/25/18 Delia Mast, LivierD [address] [place] [address] Pharmacist Internal Medicine 03/15/24 Citlaly 05/06/24
--- OUTSIDE RECORDS SUMMARY | 2025-04-04 21:47 | XMS_ITS | Encounter Summary ---
Author Organization [employer] Address [address] [facility] [address] [place] [address] Care Team Providers Care Glass Furnace Tender Name Role Phone Dawn Almaguer MD Primary Care Provide r Delia Mast PharmD Unavailable [phone] Encounter Details Date Type Department Care Team ([facility] st Contact Info) Description 03/30/2025 Telephone [facility] [address] [place] [address] Dawn Almaguer MD [address] [place] [address] Social History Tobacco Use Types Packs/Day Years [...] encounter Miscellaneous Notes * Telephone Encounter - Chantell Ritter - 03/30/2025 2:59 PM EST A new referral is needed for this patient to continue care in [facility] - Diabetes clinic. Please send at your earliest convenience. documented in this encounter Plan of Treatment Upcoming Encounters Date Type Department Care Team (Late st Contact Info) Description 04/19/2025 2:00 PM EST Medication Management [facility] [address] [place] [phone] Delia Mast, PharmD [address] [place] [phone] 06/02/2025 3:30 PM EST Office Visit [facility] [address] [place] [phone] Dawn Almaguer MD [address] [place] [address] documented as of this encounter Goals Goal Patient Goal Type Associated Problems Recent Progress Patient-Stated? Author Help patients manage their type 2 diabetes Care Plan Help patients manage their type 2 diabetes No Kezia Delia, PharmD Weekly blood pressure task Care Plan Weekly blood pressure task No Piers-RobledoStarrsa, PharmD Help patients manage their type 2 diabetes Care Plan Help patients manage their type 2 diabetes No Piers-Robledo, Delia, PharmD Patient has chronic kidney disease Care Plan Patient has chronic kidney disease No Piers-Robledo Delia, PharmD Weekly blood pressure task Care Plan Weekly blood pressure task No Piers-RobledoStarrsa, PharmD Patient has chronic kidney disease Care Plan Patient has chronic kidney disease No Piers-Robledo Delia, PharmD Weekly blood pressure task Care Plan [...] Care Plan Weekly blood pressure task No Diallos-Starr Robledosa, PharmD Weekly blood pressure task Care Plan Weekly blood pressure task No Piers-Robledo Delia, PharmD Patient has chronic kidney disease Care Plan Patient has chronic kidney disease No Diallos-Starr Robledosa, PharmD Patient has chronic kidney disease Care Plan Patient has chronic kidney disease No Diallos-RobledoStarrsa, PharmD Weekly blood pressure task Care Plan Weekly blood pressure task No Chantell Ritter Weekly blood pressure task Care Plan Weekly blood pressure task No Chantell Ritter Patient has chronic kidney disease Care Plan Patient has chronic kidney disease No Chantell Ritter Patient has chronic kidney disease Care Plan Patient has chronic kidney disease No Chantell Ritter Weekly blood pressure task Care Plan Weekly blood pressure task No Dawn Almagure MD Weekly blood pressure task Care Plan Weekly blood pressure task No Dawn Almaguer MD Patient has chronic kidney disease Care Plan Patient has chronic kidney disease No Dawn Almaguer MD Patient has chronic kidney disease Care Plan Patient has chronic kidney disease No Dawn Almaguer MD documented as of this encounter Visit Diagnoses Not on filedocumented in this encounter Additional Health Concerns Active Problems Noted Date [...] 03/30/2025 Patient has chronic kidney disease 03/30/2025 Assessment Noted Time PHQ-9 Depression Total Score: 0 11/27/19 4:11 PM EDT documented as of this encounter Care Teams Glass Furnace Tender Relationship Specialty Start Date End Date Dawn Almaguer MD [address] [place] [address] PCP - General Family Medicine 02/25/18 Delia Mast PharmD [address] [place] [address] Pharmacist Internal Medicine 03/15/24 Citlaly 05/06/24 documented as of this encounter
--- OUTSIDE RECORDS SUMMARY | 2025-04-04 21:48 | XMS_ITS | Encounter Summary ---
Author Organization [employer] Address [address] [facility] 7t [place] [address] Care Team Providers Care Manager Training Name Role Phone Dawn Almaguer MD Primary Care Provide r Delia Mast PharmD Unavailable [phone]- [phone] Encounter Details Date Type Department Care Team (Late st Contact Info) Description 07/02/2024 Orders Only [facility] [address] [place], [place] [phone] Dawn Almaguer MD [address] [place], [place] [phone] Social History Tobacco Use Types Packs/Day Years [...] Description 04/19/2025 2:00 PM EST Medication Management [facility] [address] [place] [address] Delia Mast PharmD [address] [place] [phone] 06/02/2025 3:30 PM EST Office Visit [address] [address] Dawn Almaguer MD [address] [place] [phone] documented as of this encounter Visit Diagnoses Not on filedocumented in this encounter Additional Health Concerns Assessment Noted Time PHQ-9 Depression Total Score: 0 07/01/19 24 1:29 PM EST documented as of this encounter Care Teams Manager Training Relationship Specialty Start Date End Date Dawn Almaguer MD [address] [place] [phone] PCP - General Family Medicine 02/25/18 Delia Mast, PharmD [address] [place] [address] Pharmacist Internal Medicine 03/15/24 Citlaly 05/06/24 documented as of this encounter
--- OUTSIDE RECORDS SUMMARY | 2025-04-04 21:48 | XMS_ITS | Encounter Summary ---
Author Organization [employer] Address [address] [facility] 7t [place] [address] Care Team Providers Care Derrick Worker Name Role Phone Dawn Almaguer MD Primary Care Provide r Delai Mast PharmD Unavailable [phone] Encounter Details Date Type Department Care Team (Late Contact Info) Description 05/22/2022 Orders Only [facility] [address] [place] [address] Payton Qureshi MD [address] [place] [address] Type 2 diabetes mellitus with hyperglycemia, with long-term current use of insulin ([facility]) (Primary Dx) Social History Tobacco Use [...] Description 04/19/2025 2:00 PM EST Medication Management [facility] [address] [place] [address] Delia Mast PharmD [address] [place] [address] 06/02/2025 3:30 PM EST Office Visit [facility] [address] [place], [place] [phone] Dawn Almaguer MD [address] [place], [place] [phone] documented as of this encounter Visit Diagnoses Diagnosis Type 2 diabetes mellitus with hyperglycemia, with long-term current use of insulin (HCC)- Primary documented in this encounter Care Teams Derrick Worker Relationship Specialty Start Date End Date Dawn Almaguer MD [address] [place] [address] [phone] PCP - General Family Medicine 02/25/18 Delia Mast, PharmD [address] [place] [phone] Pharmacist Internal Medicine 03/15/24 Citlaly 05/06/24 documented as of this encounter
--- OUTSIDE RECORDS SUMMARY | 2025-04-04 21:48 | XMS_ITS | Encounter Summary ---
Author Organization [employer] Address [address] [facility] 7t [place] [address] Care Team Providers Care Materials Handling Equipment Operator Name Role Phone Dawn Almaguer MD Primary Care Provide r Delia Mast PharmD Unavailable [phone]- [phone] Reason for Visit * Reason Comments Med Refill Encounter Details Date Type Department Care Team (Late st Contact Info) Description 07/14/2023 Refill [facility] [address] [place] [address] Bhumika Timmons FNP [address] [place] [address] Type 2 diabetes mellitus with hyperglycemia, with long-term current use of insulin ([facility]) Social History Tobacco Use Types Packs/Day Years [...] Description 04/19/2025 2:00 PM EST Medication Management [address] [address] Delia Mast PharmD [address] [place] [phone] 06/02/2025 3:30 PM EST Office Visit [address] [address] Dawn Almaguer MD [address] [place] [phone] documented as of this encounter Visit Diagnoses Diagnosis Type 2 diabetes mellitus with hyperglycemia, with long-term current use of insulin (HCC) documented in this encounter Additional Health Concerns Assessment Noted Time PHQ-9 Depression Total Score: 0 07/01/19 24 1:29 PM EST documented as of this encounter Care Teams Materials Handling Equipment Operator Relationship Specialty Start Date End Date Dawn Almaguer MD [address] [place] [phone] PCP - General Family Medicine 02/25/18 Delia Mast PharmD [address] [place] [phone] Pharmacist Internal Medicine 03/15/24 Citlaly 05/06/24 documented as of this encounter
--- OUTSIDE RECORDS SUMMARY | 2025-04-04 21:48 | XMS_ITS | Encounter Summary ---
Author Organization [employer] Address [address] [facility] 7t [place] [address] Care Team Providers Care Senior Safety Management Consultant Name Role Phone Dawn Almaguer MD Primary Care Provide r Delia Mast PharmD Unavailable [phone]- [phone] Encounter Details Date Type Department Care Team ([facility] st Contact Info) Description 07/14/2023 Orders Only [facility] [address] [place], [place] [phone] Bhumika Timmons FNP [address] [place] [address] Type 2 diabetes mellitus with hyperglycemia, with long-term current use of insulin ([facility]) Social History Tobacco Use [...] Description 04/19/2025 2:00 PM EST Medication Management [facility] [address] [place] [phone] Delia Mast, PharmD [address] [place] [phone] 06/02/2025 3:30 PM EST Office Visit [facility] [address] [place] [phone] Dawn Almaguer MD [address] [place] [address] documented as of this encounter Procedures Procedure Name Priority Date/Time Associated Diagnosis Comments URINALYSIS, COMPLETE, WITH REFLEX TO CULTURE Routine 10/24/2023 4:59 PM EDT Type 2 diabetes mellitus with hyperglycemia, with long-term current use of insulin ([facility]) HIGH SENSITIVITY TROPONIN I Routine 10/24/2023 3:23 PM EDT Type 2 diabetes mellitus with hyperglycemia, with long-term current use of insulin ([facility]) SARS COV2/INFLUENZA A/B AND RSV RNA QL [...] Reflex to Culture (10/24/2023 4:59 PM EDT) Pathologist [facility] Color Urine Yellow [facility] Appearance Urine Clear [facility] PH 5.5 5.0 - 9.0 [facility] Glucose Urine UA >=1000(A) Negative mg/dL [facility] Urine Blood Negative Negative [facility] Specific [place] - Urine >=1.030(H) 1.005 - 1.025 [facility] Urine Protein Negative Neg-Trace mg/dL [facility] Urine Ketones Negative Negative mg/dL [facility] Nitrite Urine Negative Negative [facility] Leukocyte Esterase Urine Negative Negative [facility] RBC Urine 0-2 0 - 2 /HPF [facility] Urine WBC 0-5 0 - 5 /HPF [facility] Urine Squamous Epithelial Cell 0-2 0 - 2 /HPF [facility] Urine Bacteria None Seen None Seen [facility] Hyaline Casts, Urine 0-2 0 - 2 /LPF [facility] 10/24/2023 4:59 PM EDT 10/24/2023 5:01 PM EDT Narrative [facility] - 10/24/2023 5:45 PM EDT [id number], Clean Catch us Generic External Data Provider LAB URINE ORDERAB LES Final Result [facility] [address] [place] [phone] * High Sensitivity Troponin I (10/24/2023 3:23 PM EDT) [facility] TROPONIN I HIGH SENSITIVITY 4.9 <3.5 - 35.0 ng/L [facility] Comment:The Neal high sens itivity Troponin-I results should beused in conjunction with other diagnostic information suchas ECG, clinical observations and information, and patientsymptoms to aid in the diagnosis of NH. 10/24/2023 3:23 PM EDT 10/24/2023 5:30 PM EDT Generic External Data Provider LAB BLOOD ORDERAB LES Final Result [facility] [address] [place] [address] [phone] * Lipase (10/24/2023 3:23 PM EDT) Lipase 54 8 - 78 U/L [facility] 10/24/2023 3:23 PM EDT 10/24/2023 3:26 PM EDT Generic External Data Provider LAB BLOOD ORDERAB LES Final Result Performing Organization Address [facility]/ZIP Co de Phone Number [facility] [address] [place] [address] [phone] * SARS-CoV-2 RNA, Influenza A/B, and RSV RNA, Ql NAAT (10/24/2023 3:23 PM EDT) Influenza A PCR NEGATIVE Negative [facility] Influenza B PCR NEGATIVE Negative [facility] Resp Syncy Virus RNA Qual PCR NEGATIVE Negative [facility] SARS COV2 PCR NEGATIVE Negative [facility] Comment:All test results mus t be [...] use by authorized laboratories.Testing performed on the [employer] GeneXpert utilizingreal-time RT-PCR.All SARS CoV2 and positive influenza A/B results arereported to [facility]. 10/24/2023 3:23 PM EDT 10/24/2023 3:26 PM EDT Generic External Data Provider LAB MICROBIOLOGY - GENERAL ORDERABLES Final Result Performing Organization Address City/[facility]/ZIP Co de Phone Number [facility] [address] [place] [address] [phone] * Magnesium (10/24/2023 3:23 PM EDT) Pathologist [facility] Magnesium 1.9 1.6 - 2.6 mg/dL [facility] 10/24/2023 3:23 PM EDT 10/24/2023 3:26 PM EDT Generic External Data Provider LAB BLOOD ORDERAB LES Final Result Performing Organization Address [facility] de Phone Number [facility] [address] [place] [address] [phone] * (ABNORMAL) Comprehensive Metabolic Panel (10/24/2023 3:23 PM EDT) Pathologist [facility] Sodium 140 135 - 145 mmol/L [facility] Potassium 4.5 3.3 - 5.1 mmol/L [facility] Chloride 107 96 - 108 mmol/L [facility] Carbon Dioxide 22 22 - 29 mmol/L [facility] Anion Gap 16 12 - 20 [facility] Urea Nitrogen (BUN) 37(H) 9 - 16 mg/dL [facility] Creatinine, Serum 1.94(H) 0.5 - 1.4 mg/dL [facility] Creatinine Clr Calc Pharmacy 46.1 [facility] Comment:eGFR (calculated fro m the MDRD study equation) and eCrCl(calculated from the Cockcroft-Gault equation) are based ondifferent parameters and may not yield comparable results.If eCrCl result is absurd, please check patient'sheight/weight. Estimated Glomerular Filt Rate 35 [facility] Comment:NOTE: For -Am erican individuals, multiply the result by 1.210.Chronic Kidney Disease: Estimated GFR < 60 mL/min/1.50h0Awmbcp Kidney Disease: Estimated GFR < 15 mL/min/1.73m2 Glucose 266(H) 60 - 115 mg/dL [facility] Calcium 9.2 8.4 - 10.2 mg/dL [facility] Bilirubin, Total 0.4 0.0 - 1.0 mg/dL [facility] Aspartate Amino Transferase 25 5 - 37 U/L [facility] Alanine Aminotransferase 20 0 - 40 U/L [facility] Total Protein 7.7 6.5 - 8.0 g/dL [facility] Albumin Level 3.9 3.5 - 5.0 g/dL [facility] Alkaline Phosphatase 54 39 - 117 U/L [facility] 10/24/2023 3:23 PM EDT 10/24/2023 3:26 PM EDT us Generic External Data Provider LAB BLOOD ORDERAB LES Final Result [facility] [address] [place] [phone] * (ABNORMAL) CBC auto differential (10/24/2023 3:23 PM EDT) White Blood Count 9.6 4.8 - 10.8 X10*3/uL [facility] Red Blood Count 4.15(L) 4.60 - 5.80 X10*6/uL [facility] Hemoglobin 12.6(L) 14.0 - 18.0 g/dl [facility] Hematocrit 37.7(L) 42.0 - 52.0 % [facility] Mean Corpuscular Volume 90.8 80.0 - 98.0 fL [facility] Mean Corpuscular Hemoglobin 30.4 27.0 - 33.0 pg [facility] Mean Corpuscular HGB Conc 33.4 31.0 - 36.0 g/dl [facility] Red Cell Distribution Width 14.7 11.0 - 16.0 % [facility] Platelet Count 202 160 - 400 X10*3/uL [facility] Mean Platelet Volume 10.9 9.4 - 12.4 fL [facility] Neutrophils Percent Auto 57.9 45 - 73 % [facility] Imm Gran Pct Auto 0.2 0.0 - 0.4 % [facility] Lymphocytes Percent Auto 26.7 20 - 40 % [facility] Monocytes Percent Auto 9.2 2 - 11 % [facility] Eosinophils Percent Auto 5.1(H) 0 - 4 % [facility] Basophils Percent Auto 0.9 0 - 2 % [facility] NRBC Pct Auto 0.0 0.0 - 0.2 /100WBC [facility] Neutrophils Absolute Auto 5.6 2.0 - 8.3 x10*3/uL [facility] Imm Gran Abs Auto 0.02 0.00 - 0.03 X10*3/uL [facility] Lymphocytes Absolute Auto 2.6 1.2 - 4.9 X10*3/uL [facility] Monocytes Absolute Auto 0.9 0.1 - 1.2 X10*3/uL [facility] Eosinophils Absolute Auto 0.5(H) 0.0 - 0.4 X10*3/uL [facility] Basophils Absolute Auto 0.1 0.0 - 0.2 X10*3/uL [facility] NRBC Abs Auto 0.000 0.0 - 0.012 X10*3/uL [facility] 10/24/2023 3:23 PM EDT 10/24/2023 3:26 PM EDT us Generic External Data Provider LAB BLOOD ORDERAB LES Final Result [facility] [address] [place] [phone] * High Sensitivity Troponin I (10/23/2023 2:37 PM EDT) TROPONIN I HIGH SENSITIVITY 4.9 <3.5 - 35.0 ng/L [facility] Comment:The Neal high sens itivity Troponin-I results should beused in conjunction with other diagnostic information suchas ECG, clinical observations and information, and patientsymptoms to aid in the diagnosis of NH. 10/23/2023 2:37 PM EDT 10/23/2023 2:40 PM EDT Generic External Data Provider LAB BLOOD ORDERAB LES Final Result Performing Organization Address City/[facility]/ZIP Co de Phone Number [facility] [address] [place] [phone] * Lipase (10/23/2023 2:37 PM EDT) Pathologist [facility] Lipase 64 8 - 78 U/L [facility] 10/23/2023 2:37 PM EDT 10/23/2023 2:40 PM EDT Generic External Data Provider LAB BLOOD ORDERAB LES Final Result Performing Organization Address [facility]/ZIP Co de Phone Number [facility] [address] [place] [phone] * (ABNORMAL) Basic Metabolic Panel (10/23/2023 2:37 PM EDT) Sodium 140 135 - 145 mmol/L [facility] Potassium 4.3 3.3 - 5.1 mmol/L [facility] Chloride 107 96 - 108 mmol/L [facility] Carbon Dioxide 19(L) 22 - 29 mmol/L [facility] Anion Gap 18 12 - 20 [facility] Urea Nitrogen (BUN) 40(H) 9 - 16 mg/dL [facility] Creatinine, Serum 2.12(H) 0.5 - 1.4 mg/dL [facility] Creatinine Clr Calc Pharmacy 43.0 [facility] Comment:eGFR (calculated fro m the MDRD study equation) and eCrCl(calculated from the Cockcroft-Gault equation) are based ondifferent parameters and may not yield comparable results.If eCrCl result is absurd, please check patient'sheight/weight. Estimated Glomerular Filt Rate 31 [facility] Comment:NOTE: For -Am erican individuals, multiply the result by 1.210.Chronic Kidney Disease: Estimated GFR < 60 mL/min/1.27w7Nqvrgn Kidney Disease: Estimated GFR < 15 mL/min/1.73m2 Glucose 293(H) 60 - 115 mg/dL [facility] Calcium 9.5 8.4 - 10.2 mg/dL [facility] 10/23/2023 2:37 PM EDT 10/23/2023 2:40 PM EDT Generic External Data Provider LAB BLOOD ORDERAB LES Final Result Performing Organization Address [facility] de Phone Number [facility] [address] [place] [phone] * Hepatic Function Panel (10/23/2023 2:37 PM EDT) Bilirubin, Total 0.6 0.0 - 1.0 mg/dL [facility] Bilirubin, Direct 0.2 0.0 - 0.5 mg/dL [facility] Aspartate Amino Transferase 29 5 - 37 U/L [facility] Alanine Aminotransferase 22 0 - 40 U/L [facility] Total Protein 7.8 6.5 - 8.0 g/dL [facility] Albumin Level 3.9 3.5 - 5.0 g/dL [facility] Alkaline Phosphatase 54 39 - 117 U/L [facility] 10/23/2023 2:37 PM EDT 10/23/2023 2:40 PM EDT Generic External Data Provider LAB BLOOD ORDERAB LES Final Result Performing Organization Address [facility] Co de Phone Number [facility] [address] [place] [phone] * (ABNORMAL) CBC auto differential (10/23/2023 2:37 PM EDT) White Blood Count 9.7 4.8 - 10.8 X10*3/uL [facility] Red Blood Count 4.13(L) 4.60 - 5.80 X10*6/uL [facility] Hemoglobin 12.6(L) 14.0 - 18.0 g/dl [facility] Hematocrit 38.0(L) 42.0 - 52.0 % [facility] Mean Corpuscular Volume 92.0 80.0 - 98.0 fL [facility] Mean Corpuscular Hemoglobin 30.5 27.0 - 33.0 pg [facility] Mean Corpuscular HGB Conc 33.2 31.0 - 36.0 g/dl [facility] Red Cell Distribution Width 14.5 11.0 - 16.0 % [facility] Platelet Count 195 160 - 400 X10*3/uL [facility] Mean Platelet Volume 10.5 9.4 - 12.4 fL [facility] Neutrophils Percent Auto 60.7 45 - 73 % [facility] Imm Gran Pct Auto 0.3 0.0 - 0.4 % [facility] Lymphocytes Percent Auto 23.8 20 - 40 % [facility] Monocytes Percent Auto 10.9 2 - 11 % [facility] Eosinophils Percent Auto 3.5 0 - 4 % [facility] Basophils Percent Auto 0.8 0 - 2 % [facility] NRBC Pct Auto 0.0 0.0 - 0.2 /100WBC [facility] Neutrophils Absolute Auto 5.9 2.0 - 8.3 x10*3/uL [facility] Imm Gran Abs Auto 0.03 0.00 - 0.03 X10*3/uL [facility] Lymphocytes Absolute Auto 2.3 1.2 - 4.9 X10*3/uL [facility] Monocytes Absolute Auto 1.1 0.1 - 1.2 X10*3/uL [facility] Eosinophils Absolute Auto 0.3 0.0 - 0.4 X10*3/uL [facility] Basophils Absolute Auto 0.1 0.0 - 0.2 X10*3/uL [facility] NRBC Abs Auto 0.000 0.0 - 0.012 X10*3/uL [facility] 10/23/2023 2:37 PM EDT 10/23/2023 2:40 PM EDT us Generic External Data Provider LAB BLOOD ORDERAB LES Final Result Performing Organization Address [facility] Co de Phone Number [facility] [address] [place] [phone] * (ABNORMAL) Urinalysis, Complete, with Reflex to Culture (10/23/2023 2:32 PM EDT) Color Urine Yellow [facility] Appearance Urine Clear [facility] PH 5.0 5.0 - 9.0 [facility] Glucose Urine UA >=1000(A) Negative mg/dL [facility] Urine Blood Negative Negative [facility] Specific [place] - Urine 1.020 1.005 - 1.025 [facility] Urine Protein Negative Neg-Trace mg/dL [facility] Urine Ketones Negative Negative mg/dL [facility] Nitrite Urine Negative Negative [facility] Leukocyte Esterase Urine Negative Negative [facility] RBC Urine 0-2 0 - 2 /HPF [facility] Urine WBC 0-5 0 - 5 /HPF [facility] Urine Squamous Epithelial Cell 0-2 0 - 2 /HPF [facility] Urine Bacteria None Seen None Seen [facility] Hyaline Casts, Urine 0-2 0 - 2 /LPF [facility] 10/23/2023 2:32 PM EDT 10/23/2023 2:40 PM EDT Narrative [facility] - 10/23/2023 3:07 PM EDT Urine, Clean Catch us Generic External Data Provider LAB URINE ORDERAB LES Final Result Performing Organization Address City/[facility]/ZIP Co de Phone Number [facility] [address] [place] [address] [place] [phone] documented in this encounter Visit Diagnoses Diagnosis Type 2 diabetes mellitus with hyperglycemia, with long-term current use of insulin (HCC) documented in this encounter Additional Health Concerns Assessment Noted Time PHQ-9 Depression Total Score: 0 07/01/19 24 1:29 PM EST documented as of this encounter Care Teams Senior Safety Management Consultant Relationship Specialty Start Date End Date Dawn Almaguer MD [address] [place] [address] PCP - General Family Medicine 02/25/18 Delia Mast, LivierD [address] [place] [phone] Pharmacist Internal Medicine 03/15/24 Citlaly 05/06/24 documented as of this encounter
--- OUTSIDE RECORDS SUMMARY | 2025-04-04 21:48 | XMS_ITS | Encounter Summary ---
Author Organization [employer] Address [address] [facility] [address] [place] [address] Care Team Providers Care Tractor Sweeper Driver Name Role Phone Dawn Almaguer MD Primary Care Provide r Delia Mast PharmD Unavailable [phone] Reason for Referral * Consultation (Routine) - Authorized Specialty Diagnoses / Procedures Referred By Contac t Referred To Contact Pharmacy Diagnoses Type 2 diabetes mellitus with hyperglycemia, with long-term current use of insulin (HCC) Dawn Almaguer MD [address] [place] [address] Phone: tel: fax: Referral ID Status Reason Start Date Expiration Date Visits Requested Visits Authorized [id number] Authorized Consult and Treat 03/30/2025 03/30/2026 6 6 Encounter Details Date Type Department Care Team (Late st Contact Info) Description 03/30/2025 Orders Only [facility] [address] [place] [address] [phone] Dawn Almaguer MD [address] [place], [place] [phone] Type 2 diabetes mellitus with hyperglycemia, with long-term current use of insulin (HCC) (Primary Dx); Primary hypertension Social History Tobacco Use Types Packs/Day Years [...] Description 04/19/2025 2:00 PM EST Medication Management [facility] [address] [place] [phone] Delia Mast, PharmD [address] [place] [address] 06/02/2025 3:30 PM EST Office Visit [facility] [address] [place] [phone] Dawn Almaguer MD [address] [place] [address] Scheduled Referrals Name Type Priority Associated Diagnoses Orde r Schedule Referral to Pharmacy CDTM Outpatient Referral Routine Type 2 diabetes mellitus with hyperglycemia, with long-term current use of insulin (HCC) Ordered: 03/30/2025 documented as of this encounter Goals Goal Patient Goal Type Associated Problems Recent Progress Patient-Stated? Author Help patients manage their type 2 diabetes Care Plan Help patients manage their type 2 diabetes No Piers-Robledo, Delia, PharmD Weekly blood pressure task Care Plan Weekly blood pressure task No Piers-Robledo, Delia, PharmD Help patients manage their type 2 diabetes Care Plan Help patients manage their type 2 diabetes No Piers-Robledo, Delia, PharmD Patient has chronic kidney disease Care Plan Patient has chronic kidney disease No Piers-Robledo, Delia, PharmD Weekly blood pressure task Care Plan Weekly blood pressure task No Piers-Robledo, Delia, PharmD Patient has chronic kidney disease Care Plan Patient has chronic kidney disease No Piers-Robledo, Delia, PharmD Weekly blood pressure task Care [...] Care Plan Weekly blood pressure task No Piers-Robledo, Delia, PharmD Weekly blood pressure task Care Plan Weekly blood pressure task No Piers-Robledo, Delia, PharmD Patient has chronic kidney disease Care Plan Patient has chronic kidney disease No Piers-Robledo, Delia, PharmD Patient has chronic kidney disease Care Plan Patient has chronic kidney disease No Piers-Robledo, Delia, PharmD Weekly blood pressure task Care Plan Weekly blood pressure task No Chantell Ritter Weekly blood pressure task Care Plan Weekly blood pressure task No Chantell Ritter Patient has chronic kidney disease Care Plan Patient has chronic kidney disease No Chantell Ritter Patient has chronic kidney disease Care Plan Patient has chronic kidney disease No Jesi Ritterila Weekly blood pressure task Care Plan Weekly [...] long-term current use of insulin (HCC)- Primary Primary hypertension Unspecified essential hypertension documented in this encounter Additional Health Concerns Active [...] documented as of this encounter Care Teams Tractor Sweeper Driver Relationship Specialty Start Date End Date Dawn Almaguer MD [address] [place] [address] PCP - General Family Medicine 02/25/18 Delia Mast, LivierD [address] [place] [phone] Pharmacist Internal Medicine 03/15/24 Citlaly 05/06/24 documented as of this encounter
== END 2025-04-04 13:45 | disposition home or self-care (01) ==
LOC: HO.HUSH 13:01
PROVIDERS: PCP Internal Medicine; Visit Provider Nurse Practitioner Family
DX: N40.1 Benign prostatic hyperplasia with lower urinary tract symptoms (principal); N13.8 Other obstructive and reflux uropathy; N28.1 Cyst of kidney, acquired; N47.1 Phimosis
CPT/HCPCS: 99213; G2211

== ENCOUNTER → 2025-04-04 13:01 | Outpatient (BNVA) | payer OTHER, SELFPAY | PROVIDERS: PCP Internal Medicine; Visit Provider Nurse Practitioner Family | DX: N40.1 Benign prostatic hyperplasia with lower urinary tract symptoms (principal); N13.8 Other obstructive and reflux uropathy; N47.1 Phimosis; N28.1 Cyst of kidney, acquired | CPT/HCPCS: 51798; 81003; 99212 ==